=== PATIENT | female | born 1945 | race Caucasian/White ===

== ENCOUNTER 2018-01-02 07:49 | Day surgery (SDC) | payer MEDICARE, SELFPAY ==
[2018-01-02] MEDS: PROPARACAINE 0.5% OPHTH SOL 2 DROPS EYE-OP (08:20)
[2018-01-02] MEDS: CATARACT EYE COMPOUND (10 DROPS/SYRINGE) 3 DROPS EYE-OP (08:25)
[2018-01-02 08:28] VITALS: BP 133/66; PULSE 74; RESP 16; TEMP 36.5; O2SAT 97; BMI 32.5
--- NOTE | 2018-01-02 09:14 | PM.PREOP ---
Pre-operative Note Interval Note Pre-op Check: History & Physical Reviewed by Physician
[2018-01-02] MEDS: CHONDROIDTIN/SOD HYALURONATE 1.05 ML SYRINGE INTRAOCULA (09:22)
[2018-01-02] MEDS: MOXIFLOXACIN OPHTH DROPS 3 ML BOTTLE 2 DROPS INJ (09:22)
[2018-01-02] MEDS: TRIAMCINOLONE 50 MG/5 ML VIAL INJ (09:22)
[2018-01-02] MEDS: PHENYLEPHRINE/LIDOCAINE 3ML VIAL (OR) EYE-OP (09:23)
[2018-01-02] MEDS: TETRACAINE 0.5% OPHTH DROPS 15 ML 2 DROPS EYE-RIGHT (09:24)
[2018-01-02] MEDS: BALANCED SALT IRRIG SOLN NO.2 500 ML, EPINEPHrine 1 MG IRR (09:25)
[2018-01-02] MEDS: LIDOCAINE JELLY 2% 5 ML 1 APPLIC TOP (09:25)
--- NOTE | 2018-01-02 09:32 | PM.OP.1 ---
Operative Date/Time/Diagnoses - Pre-op diagnosis: Cataract Right eye Post-op diagnosis: same Procedure & Clinicians Procedure: Cataract Surgery Same procedure as scheduled: Yes Surgeon: Kenji Garrett Anesthesia Type: MAC +/- and Sedation Operative Notes Procedure in detail: Patient brought to the operating suite. Tetracaine drops placed in the right eye. Patient was prepped and draped in sterile manner. Wire lid speculum was placed in the eye. Betadine drops were placed on the eye. This was irrigated. Lidocaine jelly was placed on the eye. A paracentesis port was created with a side-port blade. 0.1 mL 1% preservative free lidocaine was injected into the anterior chamber. The anterior chamber was deepened with viscoelastic. 2.6 mm keratome was used to create a temporal clear corneal incision. Cystotome and Utrata forceps were used to create continuous tear capsulorrhexis. Balanced salt solution was used to hydro dissect the nucleus. The phacoemulsification handpiece was inserted and the nucleus was removed using the stop and chop technique. Extra viscoelastic was used to protect the cornea. The irrigation aspiration handpiece was inserted and the remaining cortex was removed. Anterior chamber was deepened with viscoelastic. An Engle ZCB00 intraocular lens with a power of 20.0 was injected into the capsular bag. Irrigation aspiration handpiece was inserted and the remaining viscoelastic was removed. Incision was hydrated with balanced salt solution and found to be leak free with pressure with Weck-Junie sponges. 0.1 mL Vigamox injected anterior chamber. 0.3 mL Kenalog 10 mg was injected subconjunctivally. Lid speculum was removed. The patient left the operating room in excellent condition. Complications: none Condition: stable Disposition: same day surgery
[2018-01-02 09:36] VITALS: BP 141/79; PULSE 70; RESP 15; TEMP 36.1; O2SAT 98
[2018-01-02 09:57] VITALS: BP 115/73; PULSE 61; RESP 16; TEMP 36.4; O2SAT 97
== END 2018-01-02 10:03 ==
LOC: OR 07:50
PROVIDERS: Family Provider Family Medicine; PCP Family Medicine; Visit Provider Ophthalmology
DX: H25.11 Age-related nuclear cataract, right eye (principal); I10 Essential (primary) hypertension; Z86.73 Personal history of transient ischemic attack (TIA), and cerebral infarction without residual deficits
CPT/HCPCS: J0171; J2250; J3010; J3301

== ENCOUNTER 2018-02-15 08:15 | Outpatient (RCR) | payer MEDICARE, SELFPAY ==
--- NOTE | 2018-02-01 11:11 | PT.OIE ---
Current Diagnoses Impingement syndrome of right shoulder (01/31/18) Past Medical History (Last Reviewed 01/10/18 @ 13:10 by Margarita Santa MD) Essential hypertension (Chronic) Sarcoidosis (Chronic) Hypercalcemia (Resolved) Myocardial infarction (Resolved) Provider Visit Care Team Role Provider Type Margarita Santa MD Attending Provider Physician Family Provider Primary Care Provider Specialty: Family Practice Address: [address] [place] [address], [facility] Email: [email or web address] Physical Therapy Initial Evaluation PT-OP-A Visit Information Start: 02/01/18 10:41 Freq: Status: Active Protocol: Document 01/31/18 10:45 [facility] (Rec: 02/01/18 11:11 [facility] [email or web address]) Out-Patient Physical Therapy Visit Information Visit Information Visit Type Initial Evaluation Visit Start Time 10:45 Visit Stop Time 11:30 Total Visit Minutes 45 Visit Number 1 Evaluation Information Evaluation Date 01/31/18 PT-OP-B Current Condition Start: 02/01/18 10:41 Freq: Status: Active Protocol: Document 01/31/18 10:45 [facility] (Rec: 02/01/18 11:11 [facility] [email or web address]) Current Condition History of Current Condition Onset Date November 2017 Current Complaints right sided shoulder pain and loss of motion History of Current Condition Tessie reports she suffered a [place] last year and during her surgery for a stent she had a mild stroke. 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 Since that time she has felt weaker with activities. She notes her shoulder symptoms began one morning when she woke up in pain in the right shoulder. She reports her doctor gave her some shoulder exercises including wall slides and pendullum and these have helped her some already. She reports having difficulty reaching behind her, doing her hair , and with any reaching or lifting activities. Her pain affects her sleeping at night. SHe has a history of hip replacement, elevated blood pressure, back pain, and neuropathy. Treatment Goals Patient/Caregiver Goals The patients goals include reducing pain and improving ROM of the right shoulder Prior Functional Status Baseline Function- ADL's Independent Baseline Function- Mobility Independent Current Functional Impairments (Reported) Functional Limitations- ADL's limited with ADL's that require reaching, lifting, or carrying objects limited in self care due to limited shoulder ROM PT-OP-C Subjective Start: 02/01/18 10:41 Freq: Status: Active Protocol: Document 01/31/18 10:45 AM[facility] (Rec: 02/01/18 11:11 [facility] [email or web address]) OP-PT Pain Assessment Location Right Shoulder Pain Location Details pain radiates from the right shoulder down to the forearm Intensity 5 Scale Used Numeric (1 - 10) Description Aching Radiating Spasm Tender Tightness With Movement Frequency Frequent Pain Duration constant shoulder pain with intermittent radiating pain to the forearm Variations/Patterns pain increased at night and limits sleet Pain Aggravating Factors Position ADL's Activity Exercise Lifting Pain Alleviating Factors Exercise PT-OP-F Manual Assessment Start: 02/01/18 10:41 Freq: Status: Active Protocol: Document 01/31/18 10:45 [facility] (Rec: 02/01/18 11:11 [facility] [email or web address]) Manual Assessments Soft Tissue Assessment Soft Tissue Mobility Assessment tightness in the pectoralis, deltoid, upper trapezius, scalenes, and levator scapula bilaterally but Left greater than right Joint Mobility Assessment Joint Mobility Assessment decreased joint mobility B GH joint. Both sides are anteriorly rotated with decreased posterior capsule and inferior capsule glide/ mobility PT-OP-J Posture/Palpation/Skin Start: 02/01/18 10:41 Freq: Status: Active Protocol: Document 01/31/18 10:45 [facility] (Rec: 02/01/18 11:11 [facility] [email or web address]) Posture Evaluation Position Standing Evaluation View Posterior Head/C-Spine Posture Flexed T-Spine Posture Rotation Left Shoulder Posture (L) Rounded (R) Rounded (L) Forward (R) Forward Arm Posture (L) Internally Rotated (R) Internally Rotated Comments Posture Comments poor standing posture with a thoracic rotation to the left and lumbar curve to the right, forward head and shoulders and protracted scapula bilaterally Palpation Assessment Location One Palpation Location right lateral shoulder Palpation Findings Tenderness Palpation Details tenderness at the supraspinatus insertion laterally on the right, general tenderness to palpation over the lateral right shoulder PT-OP-K Range of Motion Start: 02/01/18 10:41 Freq: Status: Active Protocol: Document 01/31/18 10:45 [facility] (Rec: 02/01/18 11:11 [facility] [email or web address]) Cervical Spine Range of Motion Cervical Spine Active Testing Position Sitting Flexion 70 Extension 50 Rotation Left 40 Rotation Right 50 Lateral Flexion Left 30 Lateral Flexion Right 30 ROM Limitations Soft Tissue Tightness Muscle Weakness Pain Shoulder Goniometric Range of Motion Shoulder Measured in Degrees Left Testing Position Sitting Flexion 110 Extension 5 Abduction 100 External Rotation at 0 degrees Abduction 20 Internal Rotation 15 Internal Rotation Behind Back (text) to sacrum Right Shoulder ROM WFL No Testing Position Sitting Flexion 90 Abduction 50 External Rotation at 0 degrees Abduction 15 Internal Rotation 10 Internal Rotation Behind Back (text) IR to gluteal region only Shoulder ROM Limitations Shoulder ROM Limitations Soft Tissue Tightness Muscle Weakness Pain Comments Above measurements are AROM, PROM right still very limited to 100 deg flexion, 95 deg abduction, 10 deg IR, 15 deg ER PT-OP-M Strength Start: 02/01/18 10:41 Freq: Status: Active Protocol: Document 01/31/18 10:45 [facility] (Rec: 02/01/18 11:11 [facility] [email or web address]) Shoulder Strength Shoulder Manual Muscle Testing Left Flexion 3 Fair Extension 3 Fair Abduction (C5) 3 Fair External Rotation 3 Fair Internal Rotation 3 Fair Right Flexion 2 Poor Extension 2 Poor Abduction (C5) 2 Poor External Rotation 2 Poor Internal Rotation 2 Poor PT-OP-Q Treatments Start: 02/01/18 10:41 Freq: Status: Active Protocol: Document 01/31/18 10:45 [facility] (Rec: 02/01/18 11:11 [facility] [email or web address]) Therapeutic Exercises Sitting Exercises 2 Sitting Exercise Name seated shoulder flexion and ER with arm sliding on table Side right Reps/Minutes 10 reps each 1 Sitting Exercise Name seated shoulder pully Side bilateral Reps/Minutes 4 minutes Comments flexion AAROM Standing Exercises 2 Standing Exercise Name pendullum Side right Reps/Minutes 1-2 minutes 1 Standing Exercise Name wall slides with pillow case Side bilateral PT-OP-T Assessment and Plan Start: 02/01/18 10:41 Freq: Status: Active Protocol: Document 01/31/18 10:45 [facility] (Rec: 02/01/18 11:11 [facility] [email or web address]) Physical Therapy Assessment Rehab Potential Rehabilitation Potential Good Evaluation Complexity Number of Personal Factors/Comorbidities 0 Number of Body Systems Impaired 1-2 Clinical Presentation at Evaluation Stable Impairments Impairments Functional Activities Pain Posture ROM Soft Tissue Mobility Strength Goals Four Impairment decreased strength of bilateral shoulders Claim Trainee Goal (LTG) Improve strength of both shoulders and scapula stabilizers by one muscle grade or better to decrease shoulder impingement LTG Duration 8 weeks Three Impairment poor postural habits contributing to forward shoulders and impingement Short Term Goal (STG) Tessie is educated on proper posture and is given postural strengthening exercises to reduce forward head and shoulders STG Duration 6 weeks Two Impairment shoulder pain rated 4-5/10 limiting activity and sleep duration Short Term Goal (STG) Tessie reports a decrease in pain to 1-2/10 and notes improved sleep without waking due to pain STG Duration 6 weeks One Impairment decreased shoulder ROM Short Term Goal (STG) Improve pain free shoulder ROM to WFL allowing Tessie to comb her hair and put on her necklace STG Duration 6 weeks Assessment Summary Assessment Tessie presents to physical therapy with a generalized weakness from a previous stoke and now right sided shoulder pain that came on in November. She has very poor postural habits most likely contributing to her pain symptoms and is limited in both shoulder ROM and shoulder strength. She does note that the exercises she was given by her doctor have been helping her some and pain levels have reduced from what they were prior to the exercises so this is a good sign she will do well with PT. Physical Therapy Plan Frequency and Duration Frequency of Treatment 2x/Week Duration of Treatment 8 weeks Plan of Care Start Date 01/31/18 Plan of Care End Date 03/28/18 Therapeutic Interventions Therapeutic Interventions Home Exercise Program Joint Mobilizations Manual Therapy Patient/Caregiver Education Self-Care/Home Management Soft Tissue Mobilization Taping Therapeutic Exercises Modalities Cold Pack/Ice Massage
--- NOTE | 2018-02-01 11:12 | PT.OPPOC ---
Current Diagnoses Impingement syndrome of right shoulder (01/31/18) Provider Visit Care Team Role Provider Type Margarita Santa MD Attending Provider Physician Family Provider Primary Care Provider Specialty: Family Practice Address: [address] [place] [address], [facility] Email: [email or web address] Plan Of Care PT-OP-T Assessment and Plan Start: 02/01/18 10:41 Freq: Status: Active Protocol: Document 01/31/18 10:45 AM[facility] (Rec: 02/01/18 11:11 [facility] [email or web address]) Physical Therapy Assessment Rehab Potential Rehabilitation Potential Good Evaluation Complexity Number of Personal Factors/Comorbidities 0 Number of Body Systems Impaired 1-2 Clinical Presentation at Evaluation Stable Impairments Impairments Functional Activities Pain Posture ROM Soft Tissue Mobility Strength Goals Four Impairment decreased strength of bilateral shoulders Correction Goal (LTG) Improve strength of both shoulders and scapula stabilizers by one muscle grade or better to decrease shoulder impingement LTG Duration 8 weeks Three Impairment poor postural habits contributing to forward shoulders and impingement Short Term Goal (STG) Tessie is educated on proper posture and is given postural strengthening exercises to reduce forward head and shoulders STG Duration 6 weeks Two Impairment shoulder pain rated 4-5/10 limiting activity and sleep duration Short Term Goal (STG) Tessie reports a decrease in pain to 1-2/10 and notes improved sleep without waking due to pain STG Duration 6 weeks One Impairment decreased shoulder ROM Short Term Goal (STG) Improve pain free shoulder ROM to WFL allowing Tessie to comb her hair and put on her necklace STG Duration 6 weeks Assessment Summary Assessment Tessie presents to physical therapy with a generalized weakness from a previous stoke and now right sided shoulder pain that came on in November. She has very poor postural habits most likely contributing to her pain symptoms and is limited in both shoulder ROM and shoulder strength. She does note that the exercises she was given by her doctor have been helping her some and pain levels have reduced from what they were prior to the exercises so this is a good sign she will do well with PT. Physical Therapy Plan Frequency and Duration Frequency of Treatment 2x/Week Duration of Treatment 8 weeks Plan of Care Start Date 01/31/18 Plan of Care End Date 03/28/18 Therapeutic Interventions Therapeutic Interventions Home Exercise Program Joint Mobilizations Manual Therapy Patient/Caregiver Education Self-Care/Home Management Soft Tissue Mobilization Taping Therapeutic Exercises Modalities Cold Pack/Ice Massage Plan of Care Dates Plan of Care Start Date 01/31/18 Plan of Care End Date 03/28/18 Please Sign and Return: I have reviewed this Plan of Care and certify that the skilled therapy services above are required to meet the patient?s needs. Physician Signature Date Printed Name and Credentials Clinical Instructor Signature Printed Name and Credentials
--- NOTE | 2018-02-02 14:14 | PT.OTN ---
Current Diagnoses Impingement syndrome of right shoulder (02/02/18) Physical Therapy Treatment Note PT-OP-A Visit Information Start: 02/01/18 10:41 Freq: Status: Active Protocol: Document 02/02/18 09:00 AMB (Rec: 02/02/18 09:08 AMB [email or web address]) Out-Patient Physical Therapy Visit Information Visit Information Visit Type Treatment Note Visit Start Time 09:00 Visit Stop Time 09:45 Total Visit Minutes 45 Visit Number 2 Evaluation Information Evaluation Date 01/31/18 PT-OP-B Current Condition Start: 02/01/18 10:41 Freq: Status: Active Protocol: Document 01/31/18 10:45 AMH (Rec: 02/01/18 11:11 [facility] [email or web address]) Current Condition History of Current Condition Onset Date November 2017 Current Complaints right sided shoulder pain and loss of motion History of Current Condition Tessie reports she suffered a [place] last year and during her surgery for a stent she had a mild stroke. 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 Since that time she has felt weaker with activities. She notes her shoulder symptoms began one morning when she woke up in pain in the right shoulder. She reports her doctor gave her some shoulder exercises including wall slides and pendullum and these have helped her some already. She reports having difficulty reaching behind her, doing her hair , and with any reaching or lifting activities. Her pain affects her sleeping at night. SHe has a history of hip replacement, elevated blood pressure, back pain, and neuropathy. Treatment Goals Patient/Caregiver Goals The patients goals include reducing pain and improving ROM of the right shoulder Prior Functional Status Baseline Function- ADL's Independent Baseline Function- Mobility Independent Current Functional Impairments (Reported) Functional Limitations- ADL's limited with ADL's that require reaching, lifting, or carrying objects limited in self care due to limited shoulder ROM PT-OP-C Subjective Start: 02/01/18 10:41 Freq: Status: Active Protocol: Document 02/02/18 09:00 AMB (Rec: 02/02/18 09:08 AMB [id number]) OP-PT Subjective Patient Comments Patient Comments Pt reports when she went to the doctor she got a steroid shot. She is going to be on her boat for over a month, so she is wanting to focus on exercises she can do on the boat. PT-OP-F Manual Assessment Start: 02/01/18 10:41 Freq: Status: Active Protocol: Document 01/31/18 10:45 [facility] (Rec: 02/01/18 11:11 [facility] [email or web address]) Manual Assessments Soft Tissue Assessment Soft Tissue Mobility Assessment tightness in the pectoralis, deltoid, upper trapezius, scalenes, and levator scapula bilaterally but Left greater than right Joint Mobility Assessment Joint Mobility Assessment decreased joint mobility B GH joint. Both sides are anteriorly rotated with decreased posterior capsule and inferior capsule glide/ mobility PT-OP-J Posture/Palpation/Skin Start: 02/01/18 10:41 Freq: Status: Active Protocol: Document 01/31/18 10:45 [facility] (Rec: 02/01/18 11:11 [facility] [email or web address]) Posture Evaluation Position Standing Evaluation View Posterior Head/C-Spine Posture Flexed T-Spine Posture Rotation Left Shoulder Posture (L) Rounded (R) Rounded (L) Forward (R) Forward Arm Posture (L) Internally Rotated (R) Internally Rotated Comments Posture Comments poor standing posture with a thoracic rotation to the left and lumbar curve to the right, forward head and shoulders and protracted scapula bilaterally Palpation Assessment Location One Palpation Location right lateral shoulder Palpation Findings Tenderness Palpation Details tenderness at the supraspinatus insertion laterally on the right, general tenderness to palpation over the lateral right shoulder PT-OP-K Range of Motion Start: 02/01/18 10:41 Freq: Status: Active Protocol: Document 01/31/18 10:45 [facility] (Rec: 02/01/18 11:11 [facility] [email or web address]) Cervical Spine Range of Motion Cervical Spine Active Testing Position Sitting Flexion 70 Extension 50 Rotation Left 40 Rotation Right 50 Lateral Flexion Left 30 Lateral Flexion Right 30 ROM Limitations Soft Tissue Tightness Muscle Weakness Pain Shoulder Goniometric Range of Motion Shoulder Measured in Degrees Left Testing Position Sitting Flexion 110 Extension 5 Abduction 100 External Rotation at 0 degrees Abduction 20 Internal Rotation 15 Internal Rotation Behind Back (text) to sacrum Right Shoulder ROM WFL No Testing Position Sitting Flexion 90 Abduction 50 External Rotation at 0 degrees Abduction 15 Internal Rotation 10 Internal Rotation Behind Back (text) IR to gluteal region only Shoulder ROM Limitations Shoulder ROM Limitations Soft Tissue Tightness Muscle Weakness Pain Comments Above measurements are AROM, PROM right still very limited to 100 deg flexion, 95 deg abduction, 10 deg IR, 15 deg ER PT-OP-M Strength Start: 02/01/18 10:41 Freq: Status: Active Protocol: Document 01/31/18 10:45 [facility] (Rec: 02/01/18 11:11 [facility] [email or web address]) Shoulder Strength Shoulder Manual Muscle Testing Left Flexion 3 Fair Extension 3 Fair Abduction (C5) 3 Fair External Rotation 3 Fair Internal Rotation 3 Fair Right Flexion 2 Poor Extension 2 Poor Abduction (C5) 2 Poor External Rotation 2 Poor Internal Rotation 2 Poor PT-OP-Q Treatments Start: 02/01/18 10:41 Freq: Status: Active Protocol: Document 02/02/18 09:00 AMB (Rec: 02/02/18 09:48 AMB [id number]) Therapeutic Exercises Supine Exercises 1 Supine Exercise Name AAROM with cane Comments ER, flexion Sitting Exercises 3 Sitting Exercise Name bicep curl Resistance #2 t band Reps/Minutes 2x10 1 Sitting Exercise Name seated shoulder pully Side bilateral Reps/Minutes 4 minutes Comments flexion AAROM Standing Exercises 3 Standing Exercise Name isometrics against wall Resistance 50% Reps/Minutes 5 second on 10 second off Comments flexion, IR, ER, abduction, extension PT-OP-R Modalities Start: 02/01/18 10:41 Freq: Status: Active Protocol: Document 02/02/18 09:00 AMB (Rec: 02/02/18 14:07 AMB [email or web address]) Hot Pack/Cold Pack Treatment Cold Pack Location R shoulder Patient Position Hooklying Treatment Duration (minutes) 10 PT-OP-T Assessment and Plan Start: 02/01/18 10:41 Freq: Status: Active Protocol: Document 02/02/18 09:00 AMB (Rec: 02/02/18 14:11 AMB [email or web address]) Physical Therapy Assessment Assessment Summary Assessment The patient is going to be boating for 6+weeks, so we will need to progress her HEP quickly and limit it to exercises she can do on the boat. Pt will want to follow up on questions about today's HEP at next visit, as she likes to know she is doing the exercises exactly as prescribed. Physical Therapy Plan Frequency and Duration Frequency of Treatment 2x/Week Duration of Treatment 8 weeks Plan of Care Start Date 01/31/18 Plan of Care End Date 03/28/18 Next Visit Focus/Plan Next Note Type Treatment Note Next Visit Plan d/c vs put pt on hold considering her upcoming vacation
--- NOTE | 2018-02-08 15:54 | PT.OTN ---
Current Diagnoses Impingement syndrome of right shoulder (02/08/18) Physical Therapy Treatment Note PT-OP-A Visit Information Start: 02/01/18 10:41 Freq: Status: Active Protocol: Document 02/08/18 15:47 [facility] (Rec: 02/08/18 15:54 [facility] [email or web address]) Out-Patient Physical Therapy Visit Information Visit Information Visit Type Treatment Note Visit Start Time 09:45 Visit Stop Time 10:30 Total Visit Minutes 45 Visit Number 3 Evaluation Information Evaluation Date 01/31/18 PT-OP-B Current Condition Start: 02/01/18 10:41 Freq: Status: Active Protocol: Document 01/31/18 10:45 [facility] (Rec: 02/01/18 11:11 [facility] [email or web address]) Current Condition History of Current Condition Onset Date November 2017 Current Complaints right sided shoulder pain and loss of motion History of Current Condition Tessie reports she suffered a [place] last year and during her surgery for a stent she had a mild stroke. 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 Since that time she has felt weaker with activities. She notes her shoulder symptoms began one morning when she woke up in pain in the right shoulder. She reports her doctor gave her some shoulder exercises including wall slides and pendullum and these have helped her some already. She reports having difficulty reaching behind her, doing her hair , and with any reaching or lifting activities. Her pain affects her sleeping at night. SHe has a history of hip replacement, elevated blood pressure, back pain, and neuropathy. Treatment Goals Patient/Caregiver Goals The patients goals include reducing pain and improving ROM of the right shoulder Prior Functional Status Baseline Function- ADL's Independent Baseline Function- Mobility Independent Current Functional Impairments (Reported) Functional Limitations- ADL's limited with ADL's that require reaching, lifting, or carrying objects limited in self care due to limited shoulder ROM PT-OP-C Subjective Start: 02/01/18 10:41 Freq: Status: Active Protocol: Document 02/02/18 09:00 [facility] (Rec: 02/02/18 09:08 AMB [id number]) OP-PT Subjective Patient Comments Patient Comments Pt reports when she went to the doctor she got a steroid shot. She is going to be on her boat for over a month, so she is wanting to focus on exercises she can do on the boat. PT-OP-F Manual Assessment Start: 02/01/18 10:41 Freq: Status: Active Protocol: Document 01/31/18 10:45 [facility] (Rec: 02/01/18 11:11 [facility] [email or web address]) Manual Assessments Soft Tissue Assessment Soft Tissue Mobility Assessment tightness in the pectoralis, deltoid, upper trapezius, scalenes, and levator scapula bilaterally but Left greater than right Joint Mobility Assessment Joint Mobility Assessment decreased joint mobility B GH joint. Both sides are anteriorly rotated with decreased posterior capsule and inferior capsule glide/ mobility PT-OP-J Posture/Palpation/Skin Start: 02/01/18 10:41 Freq: Status: Active Protocol: Document 01/31/18 10:45 [facility] (Rec: 02/01/18 11:11 [facility] [email or web address]) Posture Evaluation Position Standing Evaluation View Posterior Head/C-Spine Posture Flexed T-Spine Posture Rotation Left Shoulder Posture (L) Rounded (R) Rounded (L) Forward (R) Forward Arm Posture (L) Internally Rotated (R) Internally Rotated Comments Posture Comments poor standing posture with a thoracic rotation to the left and lumbar curve to the right, forward head and shoulders and protracted scapula bilaterally Palpation Assessment Location One Palpation Location right lateral shoulder Palpation Findings Tenderness Palpation Details tenderness at the supraspinatus insertion laterally on the right, general tenderness to palpation over the lateral right shoulder PT-OP-K Range of Motion Start: 02/01/18 10:41 Freq: Status: Active Protocol: Document 01/31/18 10:45 [facility] (Rec: 02/01/18 11:11 [facility] [email or web address]) Cervical Spine Range of Motion Cervical Spine Active Testing Position Sitting Flexion 70 Extension 50 Rotation Left 40 Rotation Right 50 Lateral Flexion Left 30 Lateral Flexion Right 30 ROM Limitations Soft Tissue Tightness Muscle Weakness Pain Shoulder Goniometric Range of Motion Shoulder Measured in Degrees Left Testing Position Sitting Flexion 110 Extension 5 Abduction 100 External Rotation at 0 degrees Abduction 20 Internal Rotation 15 Internal Rotation Behind Back (text) to sacrum Right Shoulder ROM WFL No Testing Position Sitting Flexion 90 Abduction 50 External Rotation at 0 degrees Abduction 15 Internal Rotation 10 Internal Rotation Behind Back (text) IR to gluteal region only Shoulder ROM Limitations Shoulder ROM Limitations Soft Tissue Tightness Muscle Weakness Pain Comments Above measurements are AROM, PROM right still very limited to 100 deg flexion, 95 deg abduction, 10 deg IR, 15 deg ER PT-OP-M Strength Start: 02/01/18 10:41 Freq: Status: Active Protocol: Document 01/31/18 10:45 [facility] (Rec: 02/01/18 11:11 [facility] [email or web address]) Shoulder Strength Shoulder Manual Muscle Testing Left Flexion 3 Fair Extension 3 Fair Abduction (C5) 3 Fair External Rotation 3 Fair Internal Rotation 3 Fair Right Flexion 2 Poor Extension 2 Poor Abduction (C5) 2 Poor External Rotation 2 Poor Internal Rotation 2 Poor PT-OP-Q Treatments Start: 02/01/18 10:41 Freq: Status: Active Protocol: Document 02/08/18 15:47 [facility] (Rec: 02/08/18 15:54 [facility] [email or web address]) Therapeutic Exercises Supine Exercises 1 Supine Exercise Name AAROM with cane Comments ER, flexion Sitting Exercises 3 Sitting Exercise Name bicep curl Resistance #2 t band Reps/Minutes 2x10 1 Sitting Exercise Name seated shoulder pully Side bilateral Reps/Minutes 4 minutes Comments flexion AAROM Standing Exercises 4 Standing Exercise Name standing IR with strap AAROM Reps/Minutes 10 reps 3 Standing Exercise Name isometrics against wall Resistance 50% Reps/Minutes 5 second on 10 second off Comments flexion, IR, ER, abduction, extension PT-OP-R Modalities Start: 02/01/18 10:41 Freq: Status: Active Protocol: Document 02/08/18 15:47 [facility] (Rec: 02/08/18 15:54 [facility] [email or web address]) Hot Pack/Cold Pack Treatment Cold Pack Location R shoulder Patient Position Hooklying Treatment Duration (minutes) 10 PT-OP-T Assessment and Plan Start: 02/01/18 10:41 Freq: Status: Active Protocol: Document 02/08/18 15:47 [facility] (Rec: 02/08/18 15:54 [facility] [email or web address]) Physical Therapy Assessment Assessment Summary Assessment Deepa will be leaving for her boating trip in one week and she was hoping to get in for one additional visit prior to leaving for 6 weeks. If she could schedule an additional visit it would be great to show her theraband strengthening for her shoulder . She has just started isometrics this week and is tolerating those well. But showing her a progression of exercises would be helpful. Physical Therapy Plan Frequency and Duration Frequency of Treatment 2x/Week Duration of Treatment 8 weeks Plan of Care Start Date 01/31/18 Plan of Care End Date 03/28/18 Therapeutic Interventions Therapeutic Interventions Home Exercise Program Joint Mobilizations Manual Therapy Patient/Caregiver Education Self-Care/Home Management Soft Tissue Mobilization Taping Therapeutic Exercises Modalities Cold Pack/Ice Massage Next Visit Focus/Plan Next Note Type Treatment Note Next Visit Plan review HEP and progress to theraband exercise if the patient can tolerate or at least review these next visit with handouts so she can progress to these on the boat.
--- NOTE | 2018-02-13 12:05 | PT.OTN ---
Current Diagnoses Impingement syndrome of right shoulder (02/13/18) Physical Therapy Treatment Note PT-OP-A Visit Information Start: 02/01/18 10:41 Freq: Status: Active Protocol: Document 02/13/18 12:05 [facility] (Rec: 02/13/18 13:31 [facility] [email or web address]) Out-Patient Physical Therapy Visit Information Visit Information Visit Type Treatment Note Visit Start Time 11:17 Visit Stop Time 12:05 Total Visit Minutes 48 Visit Number 4 Evaluation Information Evaluation Date 01/31/18 PT-OP-B Current Condition Start: 02/01/18 10:41 Freq: Status: Active Protocol: Document 01/31/18 10:45 [facility] (Rec: 02/01/18 11:11 [facility] [email or web address]) Current Condition History of Current Condition Onset Date November 2017 Current Complaints right sided shoulder pain and loss of motion History of Current Condition Tessie reports she suffered a [place] last year and during her surgery for a stent she had a mild stroke. 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 Since that time she has felt weaker with activities. She notes her shoulder symptoms began one morning when she woke up in pain in the right shoulder. She reports her doctor gave her some shoulder exercises including wall slides and pendullum and these have helped her some already. She reports having difficulty reaching behind her, doing her hair , and with any reaching or lifting activities. Her pain affects her sleeping at night. SHe has a history of hip replacement, elevated blood pressure, back pain, and neuropathy. Treatment Goals Patient/Caregiver Goals The patients goals include reducing pain and improving ROM of the right shoulder Prior Functional Status Baseline Function- ADL's Independent Baseline Function- Mobility Independent Current Functional Impairments (Reported) Functional Limitations- ADL's limited with ADL's that require reaching, lifting, or carrying objects limited in self care due to limited shoulder ROM PT-OP-C Subjective Start: 02/01/18 10:41 Freq: Status: Active Protocol: Document 02/13/18 12:05 [facility] (Rec: 02/13/18 13:31 [facility] [email or web address]) OP-PT Subjective Patient Comments Patient Comments Pt reports compliance with HEP . She has responded well to isometric exercises. Looking forward to learning t-band exercises for her trip. OP-PT Pain Assessment Location Right Shoulder Intensity 4 Scale Used Numeric (1 - 10) Description Aching Dull Frequency Frequent Pain Duration constant shoulder pain with intermittent radiating pain to the forearm Variations/Patterns pain increased at night and limits sleet Home Pain Medication Use Pain Medications Used alleve at night Home Pain Medication Frequency most nights PT-OP-F Manual Assessment Start: 02/01/18 10:41 Freq: Status: Active Protocol: Document 01/31/18 10:45 [facility] (Rec: 02/01/18 11:11 [facility] [email or web address]) Manual Assessments Soft Tissue Assessment Soft Tissue Mobility Assessment tightness in the pectoralis, deltoid, upper trapezius, scalenes, and levator scapula bilaterally but Left greater than right Joint Mobility Assessment Joint Mobility Assessment decreased joint mobility B GH joint. Both sides are anteriorly rotated with decreased posterior capsule and inferior capsule glide/ mobility PT-OP-J Posture/Palpation/Skin Start: 02/01/18 10:41 Freq: Status: Active Protocol: Document 01/31/18 10:45 [facility] (Rec: 02/01/18 11:11 [facility] [email or web address]) Posture Evaluation Position Standing Evaluation View Posterior Head/C-Spine Posture Flexed T-Spine Posture Rotation Left Shoulder Posture (L) Rounded (R) Rounded (L) Forward (R) Forward Arm Posture (L) Internally Rotated (R) Internally Rotated Comments Posture Comments poor standing posture with a thoracic rotation to the left and lumbar curve to the right, forward head and shoulders and protracted scapula bilaterally Palpation Assessment Location One Palpation Location right lateral shoulder Palpation Findings Tenderness Palpation Details tenderness at the supraspinatus insertion laterally on the right, general tenderness to palpation over the lateral right shoulder PT-OP-K Range of Motion Start: 02/01/18 10:41 Freq: Status: Active Protocol: Document 01/31/18 10:45 [facility] (Rec: 02/01/18 11:11 [facility] [email or web address]) Cervical Spine Range of Motion Cervical Spine Active Testing Position Sitting Flexion 70 Extension 50 Rotation Left 40 Rotation Right 50 Lateral Flexion Left 30 Lateral Flexion Right 30 ROM Limitations Soft Tissue Tightness Muscle Weakness Pain Shoulder Goniometric Range of Motion Shoulder Measured in Degrees Left Testing Position Sitting Flexion 110 Extension 5 Abduction 100 External Rotation at 0 degrees Abduction 20 Internal Rotation 15 Internal Rotation Behind Back (text) to sacrum Right Shoulder ROM WFL No Testing Position Sitting Flexion 90 Abduction 50 External Rotation at 0 degrees Abduction 15 Internal Rotation 10 Internal Rotation Behind Back (text) IR to gluteal region only Shoulder ROM Limitations Shoulder ROM Limitations Soft Tissue Tightness Muscle Weakness Pain Comments Above measurements are AROM, PROM right still very limited to 100 deg flexion, 95 deg abduction, 10 deg IR, 15 deg ER PT-OP-M Strength Start: 02/01/18 10:41 Freq: Status: Active Protocol: Document 01/31/18 10:45 [facility] (Rec: 02/01/18 11:11 [facility] [email or web address]) Shoulder Strength Shoulder Manual Muscle Testing Left Flexion 3 Fair Extension 3 Fair Abduction (C5) 3 Fair External Rotation 3 Fair Internal Rotation 3 Fair Right Flexion 2 Poor Extension 2 Poor Abduction (C5) 2 Poor External Rotation 2 Poor Internal Rotation 2 Poor PT-OP-Q Treatments Start: 02/01/18 10:41 Freq: Status: Active Protocol: Document 02/13/18 12:05 [facility] (Rec: 02/13/18 13:31 [facility] [email or web address]) Therapeutic Exercises Standing Exercises 3 Standing Exercise Name resisted shld exercises Side right Resistance #1 t-band Reps/Minutes 10 reps each Comments IR,ER,extension, flexion without resistance (scaption) 2 Standing Exercise Name pendullum Side right Equipment Used added 1# weight to emphasize distraction/relaxation Reps/Minutes 1-2 minutes Manual Therapy Treatment Joint Mobilizations 2 Joint GH joint Direction inferior glide Grade II Body Position Supine Reps/Duration 5 reps 45-60 second bouts 1 Joint GH joint Direction long axis distraction Grade II Body Position Supine Reps/Duration 5 reps of 45-60 second bouts PT-OP-R Modalities Start: 02/01/18 10:41 Freq: Status: Active Protocol: Document 02/08/18 15:47 [facility] (Rec: 02/08/18 15:54 [facility] [email or web address]) Hot Pack/Cold Pack Treatment Cold Pack Location R shoulder Patient Position Hooklying Treatment Duration (minutes) 10 PT-OP-T Assessment and Plan Start: 02/01/18 10:41 Freq: Status: Active Protocol: Document 02/13/18 12:05 [facility] (Rec: 02/13/18 13:31 [facility] [email or web address]) Physical Therapy Assessment Assessment Summary Assessment Pt continues to report less pain overall with slightly better movement. Will be leaving for 1 month and feels good about her therex program. Physical Therapy Plan Frequency and Duration Frequency of Treatment 2x/Week Duration of Treatment 8 weeks Plan of Care Start Date 01/31/18 Plan of Care End Date 03/28/18 Therapeutic Interventions Therapeutic Interventions Home Exercise Program Joint Mobilizations Manual Therapy Patient/Caregiver Education Self-Care/Home Management Soft Tissue Mobilization Taping Therapeutic Exercises Modalities Cold Pack/Ice Massage Next Visit Focus/Plan Next Note Type Treatment Note Next Visit Plan Re-assess pt's tolerance to theraband exercises and review all exercises including stretches as needed.
--- NOTE | 2018-02-15 09:01 | PT.OTN ---
Current Diagnoses Impingement syndrome of right shoulder (02/15/18) Physical Therapy Treatment Note PT-OP-A Visit Information Start: 02/01/18 10:41 Freq: Status: Active Protocol: Document 02/15/18 08:11 [facility] (Rec: 02/15/18 09:01 [facility] [id number]) Out-Patient Physical Therapy Visit Information Visit Information Visit Type Treatment Note Visit Start Time 08:15 Visit Stop Time 09:05 Total Visit Minutes 50 Visit Number 5 PT-OP-B Current Condition Start: 02/01/18 10:41 Freq: Status: Active Protocol: Document 01/31/18 10:45 [facility] (Rec: 02/01/18 11:11 [facility] [email or web address]) Current Condition History of Current Condition Onset Date November 2017 Current Complaints right sided shoulder pain and loss of motion History of Current Condition Tessie reports she suffered a [place] last year and during her surgery for a stent she had a mild stroke. 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 Since that time she has felt weaker with activities. She notes her shoulder symptoms began one morning when she woke up in pain in the right shoulder. She reports her doctor gave her some shoulder exercises including wall slides and pendullum and these have helped her some already. She reports having difficulty reaching behind her, doing her hair , and with any reaching or lifting activities. Her pain affects her sleeping at night. SHe has a history of hip replacement, elevated blood pressure, back pain, and neuropathy. Treatment Goals Patient/Caregiver Goals The patients goals include reducing pain and improving ROM of the right shoulder Prior Functional Status Baseline Function- ADL's Independent Baseline Function- Mobility Independent Current Functional Impairments (Reported) Functional Limitations- ADL's limited with ADL's that require reaching, lifting, or carrying objects limited in self care due to limited shoulder ROM PT-OP-C Subjective Start: 02/01/18 10:41 Freq: Status: Active Protocol: Document 02/15/18 08:11 [facility] (Rec: 02/15/18 09:01 [facility] [id number]) OP-PT Subjective Patient Comments Patient Comments Pt strained shoulder last night helping around the house. PT-OP-F Manual Assessment Start: 02/01/18 10:41 Freq: Status: Active Protocol: Document 01/31/18 10:45 [facility] (Rec: 02/01/18 11:11 [facility] [email or web address]) Manual Assessments Soft Tissue Assessment Soft Tissue Mobility Assessment tightness in the pectoralis, deltoid, upper trapezius, scalenes, and levator scapula bilaterally but Left greater than right Joint Mobility Assessment Joint Mobility Assessment decreased joint mobility B GH joint. Both sides are anteriorly rotated with decreased posterior capsule and inferior capsule glide/ mobility PT-OP-J Posture/Palpation/Skin Start: 02/01/18 10:41 Freq: Status: Active Protocol: Document 01/31/18 10:45 [facility] (Rec: 02/01/18 11:11 [facility] [email or web address]) Posture Evaluation Position Standing Evaluation View Posterior Head/C-Spine Posture Flexed T-Spine Posture Rotation Left Shoulder Posture (L) Rounded (R) Rounded (L) Forward (R) Forward Arm Posture (L) Internally Rotated (R) Internally Rotated Comments Posture Comments poor standing posture with a thoracic rotation to the left and lumbar curve to the right, forward head and shoulders and protracted scapula bilaterally Palpation Assessment Location One Palpation Location right lateral shoulder Palpation Findings Tenderness Palpation Details tenderness at the supraspinatus insertion laterally on the right, general tenderness to palpation over the lateral right shoulder PT-OP-K Range of Motion Start: 02/01/18 10:41 Freq: Status: Active Protocol: Document 01/31/18 10:45 [facility] (Rec: 02/01/18 11:11 [facility] [email or web address]) Cervical Spine Range of Motion Cervical Spine Active Testing Position Sitting Flexion 70 Extension 50 Rotation Left 40 Rotation Right 50 Lateral Flexion Left 30 Lateral Flexion Right 30 ROM Limitations Soft Tissue Tightness Muscle Weakness Pain Shoulder Goniometric Range of Motion Shoulder Measured in Degrees Left Testing Position Sitting Flexion 110 Extension 5 Abduction 100 External Rotation at 0 degrees Abduction 20 Internal Rotation 15 Internal Rotation Behind Back (text) to sacrum Right Shoulder ROM WFL No Testing Position Sitting Flexion 90 Abduction 50 External Rotation at 0 degrees Abduction 15 Internal Rotation 10 Internal Rotation Behind Back (text) IR to gluteal region only Shoulder ROM Limitations Shoulder ROM Limitations Soft Tissue Tightness Muscle Weakness Pain Comments Above measurements are AROM, PROM right still very limited to 100 deg flexion, 95 deg abduction, 10 deg IR, 15 deg ER PT-OP-M Strength Start: 02/01/18 10:41 Freq: Status: Active Protocol: Document 01/31/18 10:45 [facility] (Rec: 02/01/18 11:11 [facility] [email or web address]) Shoulder Strength Shoulder Manual Muscle Testing Left Flexion 3 Fair Extension 3 Fair Abduction (C5) 3 Fair External Rotation 3 Fair Internal Rotation 3 Fair Right Flexion 2 Poor Extension 2 Poor Abduction (C5) 2 Poor External Rotation 2 Poor Internal Rotation 2 Poor PT-OP-Q Treatments Start: 02/01/18 10:41 Freq: Status: Active Protocol: Document 02/15/18 08:11 [facility] (Rec: 02/15/18 09:01 [facility] [id number]) Therapeutic Exercises Supine Exercises 1 Supine Exercise Name AAROM with cane Comments ER, flexion Sitting Exercises 3 Sitting Exercise Name bicep curl Resistance #2 t band Reps/Minutes 2x10 Standing Exercises 4 Standing Exercise Name standing IR with strap AAROM Reps/Minutes 10 reps 3 Standing Exercise Name resisted shld exercises Side right Resistance #1 t-band Reps/Minutes 10 reps each Comments IR,ER,extension, flexion without resistance (scaption) 2 Standing Exercise Name pendullum Side right Equipment Used added 1# weight to emphasize distraction/relaxation Reps/Minutes 1-2 minutes Manual Therapy Treatment Joint Mobilizations 2 Joint GH joint Direction inferior & post glide Grade II Body Position Supine Reps/Duration 5 reps 45-60 second bouts 1 Joint GH joint Direction long axis distraction Grade II Body Position Supine Reps/Duration 5 reps of 45-60 second bouts PT-OP-R Modalities Start: 02/01/18 10:41 Freq: Status: Active Protocol: Document 02/15/18 08:11 [facility] (Rec: 02/15/18 09:01 [facility] [id number]) Hot Pack/Cold Pack Treatment Cold Pack Location R shoulder Patient Position Hooklying Treatment Duration (minutes) 10 PT-OP-T Assessment and Plan Start: 02/01/18 10:41 Freq: Status: Active Protocol: Document 02/15/18 08:11 [facility] (Rec: 02/15/18 09:01 [facility] [id number]) Physical Therapy Assessment Goals Four Impairment decreased strength of bilateral shoulders Assisted Goal (LTG) Improve strength of both shoulders and scapula stabilizers by one muscle grade or better to decrease shoulder impingement LTG Duration 8 weeks Three Impairment poor postural habits contributing to forward shoulders and impingement Short Term Goal (STG) Tessie is educated on proper posture and is given postural strengthening exercises to reduce forward head and shoulders STG Duration achieved Two Impairment shoulder pain rated 4-5/10 limiting activity and sleep duration Short Term Goal (STG) Tessie reports a decrease in pain to 1-2/10 and notes improved sleep without waking due to pain STG Duration 6 weeks One Impairment decreased shoulder ROM Short Term Goal (STG) Improve pain free shoulder ROM to WFL allowing Tessie to comb her hair and put on her necklace STG Duration 6 weeks Assessment Summary Assessment Pt is d/c at this point d/t going on at least 6 weeks of boating. Pt is indep with HEP at this time. Physical Therapy Plan Discharge Physical Therapy Discharge Reasons Patient Request Discharge Comments Pt is going away for 6 weeks on vacation. Please refer pt again if further PT is needed when she returns
== END 2018-06-22 13:06 ==
LOC: PHYS 08:15
PROVIDERS: Family Provider Family Medicine; PCP Family Medicine; Visit Provider Family Medicine
DX: M75.41 Impingement syndrome of right shoulder (principal)
CPT/HCPCS: 97010; 97110; 97140; 97161

== ENCOUNTER → 2018-04-12 09:08 | Outpatient (CLI) | payer MEDICARE, SELFPAY ==
[2018-04-12 09:59] LABS: Add Manual Diff / Slide Review NO; Basophils Percent Auto 0.7 % (0-2); Eosinophils Percent Auto 3.6 % (2-4); Hematocrit 39.8 % (36-46); Hemoglobin 13.9 g/dL (12.0-16.0); Lymphocytes Percent Auto 13.1 % (25-40); Mean Corpuscular HGB Conc 34.9 % (30-36); Mean Corpuscular Hemoglobin 31.8 PG (26-34); Monocytes Percent Auto 15.2 % (3-14); Neutrophils Absolute Auto 3400 /uL (3000-5900); Neutrophils Percent Auto 67.4 % (50-75); Platelet Count 263 X10^3/uL (150-400); Red Blood Cell Count 4.37 X10^6/uL (4.0-5.2); Red Cell Distribution Width 13.8 % (11.6-14.8); White Blood Cell Count 5.1 X10^3/uL (4.5-11.0)
[2018-04-12 10:44] LABS: Alanine Aminotransferase 21 IU/L (9-52); Albumin 3.7 g/dL (3.5-5.0); Albumin Globulin Ratio 1.2 (1.0-2.8); Alkaline Phosphatase 62 U/L (38-126); Aspartate Aminotransferase 23 IU/L (14-36); BUN Creatinine Ratio 18.8 (6-22); Bilirubin Total 0.6 mg/dL (0.2-1.3); Blood Urea Nitrogen 15 mg/dL (7-17); Calcium 9.7 mg/dL (8.4-10.2); Carbon Dioxide 32 mmol/L (22-32); Chloride 102 mmol/L (98-107); Cholesterol 155 mg/dL (140-199); Estimated Glomerular Filt Rate > 60.0 mL/min (>60); Glucose 92 mg/dL (80-110); HDL Cholesterol 42 mg/dL (40-60); HEMOLYSIS < 15 (0-50); LDL Cholesterol Calculated 92 mg/dL (<100); Potassium 4.5 mmol/L (3.4-5.1); Sodium 145 mmol/L (137-145); Total Protein 6.7 g/dL (6.3-8.2); Triglycerides 106 mg/dL (35-150)
== END ==
PROVIDERS: Family Medicine; Family Provider Internal Medicine Interventional Cardiology; PCP Family Medicine; Visit Provider Family Medicine
DX: E78.5 Hyperlipidemia, unspecified (principal); I10 Essential (primary) hypertension; Z86.73 Personal history of transient ischemic attack (TIA), and cerebral infarction without residual deficits; Z79.01 Long term (current) use of anticoagulants
CPT/HCPCS: 36415; 80053; 80061; 85025

== ENCOUNTER 2018-04-17 06:53 | Day surgery (SDC) | payer MEDICARE, SELFPAY ==
[2018-04-17] MEDS: PROPARACAINE 0.5% OPHTH SOL 2 DROPS EYE-OP (07:18)
[2018-04-17] MEDS: CATARACT EYE COMPOUND (10 DROPS/SYRINGE) 3 DROPS EYE-OP (07:22)
[2018-04-17 07:23] VITALS: BMI 32.5
[2018-04-17 07:30] VITALS: BP 152/75; PULSE 83; RESP 15; TEMP 36; O2SAT 93
--- NOTE | 2018-04-17 08:19 | P.OP.PRE_ITS ---
Pre-operative Note Interval Note Changes: No
--- NOTE | 2018-04-17 08:19 | PM.PREOP ---
Pre-operative Note Interval Note Changes: No
--- NOTE | 2018-04-17 08:21 | P.OP_ITS ---
Operative Date/Time/Diagnoses Pre-op diagnosis: Cataract Left eye Post-op diagnosis: same Procedure & Clinicians Surgeon: Kenji Garrett Anesthesia Type: MAC +/- and Sedation Operative Notes Procedure in detail: Patient brought to the operating suite. Tetracaine drops placed in the left eye. Patient was prepped and draped in sterile manner. Wire lid speculum was placed in the eye. Betadine drops were placed on the eye. This was irrigated. Lidocaine jelly was placed on the eye. A paracentesis port was created with a side-port blade. 0.1 mL 1% preservative free lidocaine was injected into the anterior chamber. The anterior chamber was deepened with viscoelastic. 2.6 mm keratome was used to create a temporal clear corneal incision. Cystotome and Utrata forceps were used to create continuous tear capsulorrhexis. Balanced salt solution was used to hydro dissect the nucleus. The phacoemulsification handpiece was inserted and the nucleus was removed using the stop and chop technique. The irrigation aspiration handpiece was inserted and the remaining cortex was removed. Anterior chamber was deepened with viscoelastic. An Engle ZCB00 intraocular lens with a power of 19.5 was injected into the capsular bag. Irrigation aspiration handpiece was inserted and the remaining viscoelastic was removed. Incision was hydrated with balanced salt solution and found to be leak free with pressure with Weck- Junie sponges. 0.1 mL Vigamox injected anterior chamber. 0.3 mL Kenalog 10 mg was injected subconjunctivally. Lid speculum was removed. The patient left the operating room in excellent condition. Complications: none Condition: stable Disposition: same day surgery
--- NOTE | 2018-04-17 08:32 | SUR.OPER ---
Supine on eye stretcher, head on extension cradle secured with tape. Arms tucked at sides with blanket. Pillow under knees.
[2018-04-17] MEDS: PHENYLEPHRINE/LIDOCAINE VIAL (OR) 0.2 ML EYE-OP (08:37)
[2018-04-17] MEDS: CHONDROIDTIN/SOD HYALURONATE 1.05 ML SYRINGE INTRAOCULA (08:38)
[2018-04-17] MEDS: TRIAMCINOLONE 50 MG/5 ML VIAL INJ (08:38)
[2018-04-17] MEDS: MOXIFLOXACIN OPHTH DROPS 3 ML BOTTLE 2 DROPS INJ (08:38)
[2018-04-17] MEDS: LIDOCAINE JELLY 2% 5 ML 1 APPLIC TOP (08:39)
[2018-04-17] MEDS: TETRACAINE 0.5% OPHTH DROPS 15 ML 2 DROPS EYE-LEFT (08:39)
[2018-04-17] MEDS: BALANCED SALT IRRIG SOLN NO.2 500 ML, EPINEPHrine 1 MG IRR (08:39)
[2018-04-17 09:01] VITALS: BP 117/71; PULSE 75; RESP 16; TEMP 36.8; O2SAT 92
== END 2018-04-17 09:08 | disposition home or self-care (01) ==
PROVIDERS: Family Provider Internal Medicine Interventional Cardiology; PCP Family Medicine; Visit Provider Ophthalmology
DX: H25.12 Age-related nuclear cataract, left eye (principal); I10 Essential (primary) hypertension
CPT/HCPCS: J0171; J2250; J3010; J3301

== ENCOUNTER → 2018-07-09 14:13 | Outpatient (CLI) | payer MEDICARE, SELFPAY ==
--- NOTE | 2018-07-09 14:14 | DI.MG.S_ITS ---
BILATERAL DIGITAL SCREENING MAMMOGRAM 3D/2D WITH CAD: 07/09/2018 CLINICAL: Routine screening. Comparison is made to exams dated: 11/26/2013 mammogram, 08/16/2012 mammogram, and 07/06/2010 mammogram - [facility]. The tissue of both breasts is predominantly fatty. Current study was also evaluated with a Computer Aided Detection (CAD) system. No significant masses, calcifications, or other findings are seen in either breast. There has been no significant interval change. IMPRESSION: NEGATIVE There is no mammographic evidence of malignancy. A 1 year screening mammogram is recommended. This exam was interpreted at Station ID: [id number]. NOTE: For mammograms, a report in lay terms will be sent to the patient. Approximately 15% of breast malignancies will not be visualized mammographically. In the management of a palpable breast mass, a negative mammogram must not discourage biopsy of a clinically suspicious lesion. Electronically Signed By: Marilyn newman/jaxon:07/10/2018 11:38:27 letter sent: Normal Exam ACR BI-RADS Category 1: Negative [id number]
== END ==
PROVIDERS: Family Provider Internal Medicine Interventional Cardiology; PCP Family Medicine; Visit Provider Family Medicine
DX: Z12.31 Encounter for screening mammogram for malignant neoplasm of breast (principal); M85.832 Other specified disorders of bone density and structure, left forearm; Z82.62 Family history of osteoporosis; Z78.0 Asymptomatic menopausal state
CPT/HCPCS: 77063; 77067; 77080

== ENCOUNTER → 2018-07-23 11:14 | Outpatient (CLI) | payer MEDICARE, SELFPAY | PROVIDERS: Family Provider Internal Medicine Interventional Cardiology; PCP Family Medicine; Visit Provider Family Medicine | DX: S81.809A Unspecified open wound, unspecified lower leg, initial encounter (principal) | CPT/HCPCS: 87070; 87077; 87147; 87186; 87205 ==

== ENCOUNTER → 2018-07-31 10:03 | Outpatient (CLI) | payer MEDICARE, SELFPAY | PROVIDERS: Family Provider Internal Medicine Interventional Cardiology; PCP Family Medicine; Visit Provider Family Medicine | DX: I87.2 Venous insufficiency (chronic) (peripheral) (principal); L97.822 Non-pressure chronic ulcer of other part of left lower leg with fat layer exposed | CPT/HCPCS: 11042 ==

== ENCOUNTER → 2018-08-02 15:12 | Outpatient (CLI) | payer MEDICARE, SELFPAY | PROVIDERS: Family Provider Internal Medicine Interventional Cardiology; PCP Family Medicine; Visit Provider Family Medicine | DX: I87.2 Venous insufficiency (chronic) (peripheral) (principal); L97.821 Non-pressure chronic ulcer of other part of left lower leg limited to breakdown of skin | CPT/HCPCS: 29581 ==

== ENCOUNTER → 2018-08-07 10:27 | Outpatient (CLI) | payer MEDICARE, SELFPAY | PROVIDERS: Family Provider Internal Medicine Interventional Cardiology; PCP Family Medicine; Visit Provider Family Medicine | DX: L97.222 Non-pressure chronic ulcer of left calf with fat layer exposed (principal); I87.2 Venous insufficiency (chronic) (peripheral) | CPT/HCPCS: 11042; 29581; 99212 ==

== ENCOUNTER → 2018-08-14 10:31 | Outpatient (CLI) | payer MEDICARE, SELFPAY | PROVIDERS: Family Provider Internal Medicine Interventional Cardiology; PCP Family Medicine; Visit Provider Family Medicine | DX: I87.2 Venous insufficiency (chronic) (peripheral) (principal); L97.822 Non-pressure chronic ulcer of other part of left lower leg with fat layer exposed; M79.605 Pain in left leg | CPT/HCPCS: 11042 ==

== ENCOUNTER → 2018-08-21 10:11 | Outpatient (CLI) | payer MEDICARE, SELFPAY | PROVIDERS: Family Provider Internal Medicine Interventional Cardiology; PCP Family Medicine; Visit Provider Family Medicine | DX: I87.2 Venous insufficiency (chronic) (peripheral) (principal); L97.822 Non-pressure chronic ulcer of other part of left lower leg with fat layer exposed | CPT/HCPCS: 11042; 87070; 87075; 87205 ==

== ENCOUNTER → 2018-08-28 11:32 | Outpatient (CLI) | payer MEDICARE, SELFPAY | PROVIDERS: Family Provider Internal Medicine Interventional Cardiology; PCP Family Medicine; Visit Provider Family Medicine | DX: I87.312 Chronic venous hypertension (idiopathic) with ulcer of left lower extremity (principal); L97.822 Non-pressure chronic ulcer of other part of left lower leg with fat layer exposed | CPT/HCPCS: 29581; 99213 ==

== ENCOUNTER → 2018-09-11 13:04 | Outpatient (CLI) | payer MEDICARE, SELFPAY | PROVIDERS: Family Provider Internal Medicine Interventional Cardiology; PCP Family Medicine; Visit Provider Family Medicine | DX: I87.2 Venous insufficiency (chronic) (peripheral) (principal); Z48.817 Encounter for surgical aftercare following surgery on the skin and subcutaneous tissue | CPT/HCPCS: 99212; 99213 ==

== ENCOUNTER → 2019-01-09 13:32 | Outpatient (CLI) | payer MEDICARE, SELFPAY | PROVIDERS: Family Provider Internal Medicine Interventional Cardiology; PCP Family Medicine; Visit Provider Family Medicine | DX: I87.2 Venous insufficiency (chronic) (peripheral) (principal); L97.822 Non-pressure chronic ulcer of other part of left lower leg with fat layer exposed | CPT/HCPCS: 11042; 87070; 87075; 87077; 87186; 87205; 99213 ==

== ENCOUNTER → 2019-01-10 12:11 | Outpatient (CLI) | payer MEDICARE, SELFPAY ==
--- NOTE | 2019-01-10 | DI.US.S_ITS ---
PROCEDURE: US VENOUS INSUFFICIENCY LTD INDICATIONS: VENOUS INSUFFIENCY (CHRONIC) (PERIPHERAL) TECHNIQUE: Real time scanning was performed of the lower extremity venous system, with imaging documentation, as well as Color and pulse Doppler interrogation. COMPARISON: None. FINDINGS: LEFT LOWER EXTREMITY: The deep veins are normally compressible, and free of intraluminal thrombus. Color and pulse Doppler demonstrate normal intravascular flow. There is normal augmentation with distal compression maneuver. Mild reflux. Greater saphenous vein (GSV): Normally 4 mm or less in diameter, with any reflux less than 0.5 seconds. Reflux present with duration of reflux extending beyond 0.5 seconds. See technical diagram for specific measurements and course of the greater saphenous vein. Anterior accessory GSV (AAGSV): Not evaluated. Small saphenous vein (SSV): No reflux. IMPRESSION: 1. Reflux within the left greater saphenous vein. Dictated by: Shaun DIAZ Interpreted: Erica Mccloud MD on 01/10/2019 at 15:22 Approved by: Erica Mccloud M.D. on 01/10/2019 at 17:17
== END ==
PROVIDERS: Family Provider Internal Medicine Interventional Cardiology; PCP Family Medicine; Visit Provider Family Medicine
DX: I87.2 Venous insufficiency (chronic) (peripheral) (principal)
CPT/HCPCS: 93971

== ENCOUNTER → 2019-01-11 09:06 | Outpatient (CLI) | payer MEDICARE, SELFPAY | PROVIDERS: Family Provider Internal Medicine Interventional Cardiology; PCP Family Medicine; Visit Provider Family Medicine | DX: I87.2 Venous insufficiency (chronic) (peripheral) (principal); L97.822 Non-pressure chronic ulcer of other part of left lower leg with fat layer exposed | CPT/HCPCS: 29581 ==

== ENCOUNTER → 2019-01-17 15:27 | Outpatient (CLI) | payer MEDICARE, SELFPAY | PROVIDERS: Family Provider Internal Medicine Interventional Cardiology; PCP Family Medicine; Visit Provider Family Medicine | DX: I87.2 Venous insufficiency (chronic) (peripheral) (principal); L97.821 Non-pressure chronic ulcer of other part of left lower leg limited to breakdown of skin; B95.61 Methicillin susceptible Staphylococcus aureus infection as the cause of diseases classified elsewhere | CPT/HCPCS: 97597; 99214 ==

== ENCOUNTER → 2019-01-23 13:12 | Outpatient (CLI) | payer MEDICARE, SELFPAY | PROVIDERS: Family Provider Internal Medicine Interventional Cardiology; PCP Family Medicine; Visit Provider Podiatrist Primary Podiatric Medicine | DX: I87.2 Venous insufficiency (chronic) (peripheral) (principal); L97.821 Non-pressure chronic ulcer of other part of left lower leg limited to breakdown of skin | CPT/HCPCS: 99213 ==

== ENCOUNTER → 2019-02-01 09:14 | Outpatient (CLI) | payer MEDICARE, SELFPAY | PROVIDERS: Family Provider Internal Medicine Interventional Cardiology; PCP Family Medicine; Visit Provider Family Medicine | DX: I87.2 Venous insufficiency (chronic) (peripheral) (principal); L97.821 Non-pressure chronic ulcer of other part of left lower leg limited to breakdown of skin; R60.0 Localized edema; A49.01 Methicillin susceptible Staphylococcus aureus infection, unspecified site | CPT/HCPCS: 11042; 87070; 87075; 87205; 99213 ==

== ENCOUNTER → 2019-02-07 13:42 | Outpatient (CLI) | payer MEDICARE, SELFPAY | PROVIDERS: Family Provider Internal Medicine Interventional Cardiology; PCP Family Medicine; Visit Provider Family Medicine | DX: I87.2 Venous insufficiency (chronic) (peripheral) (principal); L97.821 Non-pressure chronic ulcer of other part of left lower leg limited to breakdown of skin; B95.61 Methicillin susceptible Staphylococcus aureus infection as the cause of diseases classified elsewhere; I10 Essential (primary) hypertension | CPT/HCPCS: 99212; 99213 ==

== ENCOUNTER → 2019-02-14 14:24 | Outpatient (CLI) | payer MEDICARE, SELFPAY | PROVIDERS: Family Provider Internal Medicine Interventional Cardiology; PCP Family Medicine; Visit Provider Family Medicine | DX: I87.2 Venous insufficiency (chronic) (peripheral) (principal); L97.222 Non-pressure chronic ulcer of left calf with fat layer exposed; L08.9 Local infection of the skin and subcutaneous tissue, unspecified; B95.61 Methicillin susceptible Staphylococcus aureus infection as the cause of diseases classified elsewhere | CPT/HCPCS: 99213 ==

== ENCOUNTER → 2019-02-20 14:32 | Outpatient (CLI) | payer MEDICARE, SELFPAY | PROVIDERS: Family Provider Internal Medicine Interventional Cardiology; PCP Family Medicine; Visit Provider Family Medicine | DX: I87.2 Venous insufficiency (chronic) (peripheral) (principal); L97.821 Non-pressure chronic ulcer of other part of left lower leg limited to breakdown of skin; R60.0 Localized edema | CPT/HCPCS: 11104 ==

== ENCOUNTER → 2019-02-27 10:48 | Outpatient (CLI) | payer MEDICARE, SELFPAY | PROVIDERS: Family Provider Internal Medicine Interventional Cardiology; PCP Family Medicine; Visit Provider Family Medicine | DX: I87.2 Venous insufficiency (chronic) (peripheral) (principal); L97.821 Non-pressure chronic ulcer of other part of left lower leg limited to breakdown of skin; R60.0 Localized edema | CPT/HCPCS: 17250 ==

== ENCOUNTER → 2019-03-04 15:42 | Outpatient (CLI) | payer MEDICARE, SELFPAY | PROVIDERS: Family Provider Internal Medicine Interventional Cardiology; PCP Family Medicine; Visit Provider Family Medicine | DX: I87.2 Venous insufficiency (chronic) (peripheral) (principal); L97.222 Non-pressure chronic ulcer of left calf with fat layer exposed; L08.9 Local infection of the skin and subcutaneous tissue, unspecified | CPT/HCPCS: 11042; 87070; 87075; 87077; 87186; 87205; 99213; 99214 ==

== ENCOUNTER → 2019-03-06 13:02 | Outpatient (CLI) | payer MEDICARE, SELFPAY | PROVIDERS: Family Provider Internal Medicine Interventional Cardiology; PCP Family Medicine; Visit Provider Family Medicine | DX: I87.2 Venous insufficiency (chronic) (peripheral) (principal); L97.821 Non-pressure chronic ulcer of other part of left lower leg limited to breakdown of skin; R60.0 Localized edema; M79.662 Pain in left lower leg | CPT/HCPCS: 99212 ==

== ENCOUNTER → 2019-03-13 10:01 | Outpatient (CLI) | payer MEDICARE, SELFPAY | PROVIDERS: Family Provider Internal Medicine Interventional Cardiology; PCP Family Medicine; Visit Provider Family Medicine | DX: I87.2 Venous insufficiency (chronic) (peripheral) (principal); L97.821 Non-pressure chronic ulcer of other part of left lower leg limited to breakdown of skin; R60.0 Localized edema; I25.2 Old myocardial infarction; E66.01 Morbid (severe) obesity due to excess calories; A49.01 Methicillin susceptible Staphylococcus aureus infection, unspecified site | CPT/HCPCS: 11042; 87070; 87205 ==

== ENCOUNTER → 2019-03-20 12:58 | Outpatient (CLI) | payer MEDICARE, SELFPAY | PROVIDERS: Family Provider Internal Medicine Interventional Cardiology; PCP Family Medicine; Visit Provider Family Medicine | DX: I87.2 Venous insufficiency (chronic) (peripheral) (principal); L97.821 Non-pressure chronic ulcer of other part of left lower leg limited to breakdown of skin; M79.662 Pain in left lower leg; E66.01 Morbid (severe) obesity due to excess calories | CPT/HCPCS: 11042 ==

== ENCOUNTER → 2019-03-27 14:21 | Outpatient (CLI) | payer MEDICARE, SELFPAY | PROVIDERS: Family Provider Internal Medicine Interventional Cardiology; PCP Family Medicine; Visit Provider Family Medicine | DX: I87.2 Venous insufficiency (chronic) (peripheral) (principal); L97.222 Non-pressure chronic ulcer of left calf with fat layer exposed | CPT/HCPCS: 29581; 97597; 99212 ==

== ENCOUNTER → 2019-04-03 14:34 | Outpatient (CLI) | payer MEDICARE, SELFPAY | PROVIDERS: Family Provider Internal Medicine Interventional Cardiology; PCP Family Medicine; Visit Provider Family Medicine | DX: I87.2 Venous insufficiency (chronic) (peripheral) (principal); L97.821 Non-pressure chronic ulcer of other part of left lower leg limited to breakdown of skin | CPT/HCPCS: 97602 ==

== ENCOUNTER → 2019-04-10 14:24 | Outpatient (CLI) | payer MEDICARE, SELFPAY | PROVIDERS: Family Provider Internal Medicine Interventional Cardiology; PCP Family Medicine; Visit Provider Family Medicine | DX: I87.2 Venous insufficiency (chronic) (peripheral) (principal); L97.222 Non-pressure chronic ulcer of left calf with fat layer exposed | CPT/HCPCS: 15271; Q4132 ==

== ENCOUNTER → 2019-04-17 14:20 | Outpatient (CLI) | payer MEDICARE, SELFPAY | PROVIDERS: Family Provider Internal Medicine Interventional Cardiology; PCP Family Medicine; Visit Provider Family Medicine | DX: I87.2 Venous insufficiency (chronic) (peripheral) (principal); L97.222 Non-pressure chronic ulcer of left calf with fat layer exposed | CPT/HCPCS: 15271; 99211; Q4132 ==

== ENCOUNTER → 2019-04-24 14:46 | Outpatient (CLI) | payer MEDICARE, SELFPAY | PROVIDERS: Family Provider Internal Medicine Interventional Cardiology; PCP Family Medicine; Visit Provider Family Medicine | DX: I87.2 Venous insufficiency (chronic) (peripheral) (principal); L97.222 Non-pressure chronic ulcer of left calf with fat layer exposed; R60.0 Localized edema | CPT/HCPCS: 15271; Q4132 ==

== ENCOUNTER → 2019-05-01 13:09 | Outpatient (CLI) | payer MEDICARE, SELFPAY | PROVIDERS: PCP Family Medicine; Visit Provider Family Medicine | DX: I87.2 Venous insufficiency (chronic) (peripheral) (principal); L97.821 Non-pressure chronic ulcer of other part of left lower leg limited to breakdown of skin; R60.0 Localized edema | CPT/HCPCS: 15271; Q4132 ==

== ENCOUNTER 2019-05-02 11:47 | Observation (INO) | payer MEDICARE, SELFPAY ==
[2019-05-02] VITALS (7 sets, daily range): BP systolic 126–190; BP diastolic 73–92; PULSE 60–84; RESP 14–18; TEMP 36.2–37; O2SAT 92–96; BMI 31.6
[2019-05-02 12:38] LABS: Add Manual Diff / Slide Review NO; Basophils Absolute Auto 0 /uL (0-100); Basophils Percent Auto 0.5 % (0-2); Eosinophils Absolute Auto 200 /uL (0-450); Eosinophils Percent Auto 3.3 % (2-4); Hematocrit 37.7 % (36-46); Hemoglobin 13.2 g/dL (12.0-16.0); Lymphocytes Absolute Auto 600 /uL (1100-4500); Lymphocytes Percent Auto 13.4 % (25-40); Mean Corpuscular HGB Conc 34.9 % (30-36); Mean Corpuscular Hemoglobin 30.9 PG (26-34); Mean Corpuscular Volume 88.5 fL (80-100); Monocytes Absolute Auto 600 /uL (0-900); Monocytes Percent Auto 12.8 % (3-14); Neutrophils Absolute Auto 3200 /uL (1500-7000); Platelet Count 277 X10^3/uL (150-400); Red Blood Cell Count 4.26 X10^6/uL (4.0-5.2); Red Cell Distribution Width 13.2 % (11.6-14.8); White Blood Cell Count 4.6 X10^3/uL (4.5-11.0)
[2019-05-02 12:47] LABS: BUN Creatinine Ratio 18.2 (6-22); Blood Urea Nitrogen 20 mg/dL (7-17); Carbon Dioxide 33 mmol/L (22-32); Chloride 101 mmol/L (98-107); Estimated Glomerular Filt Rate 48.6 mL/min (>60); Glucose 89 mg/dL (80-110); HEMOLYSIS < 15 (0-50); Potassium 3.7 mmol/L (3.4-5.1); Sodium 141 mmol/L (137-145)
[2019-05-02 12:53] LABS: Calcium 13.1 mg/dL (8.4-10.2)
--- NOTE | 2019-05-02 12:53 | ED_ITS ---
HPI - Recheck/Abnormal Lab/Rx <Ayde Avila DO - Last Filed: 05/02/19 17:19> General Chief Complaint: Recheck/Abnormal Lab/Rx Stated Complaint: sent by doctor for Elevated calcium Time Seen by Provider: 05/02/19 12:14 Related Data Home Medications Medication Instructions Recorded Confirmed aspirin 81 mg PO DAILY #0 01/17/12 05/02/19 naproxen sodium [Aleve] 220 mg PO BID 04/17/18 05/02/19 Vitamin D3 1 cap PO BID 05/02/19 05/02/19 atorvastatin [Lipitor] 20 mg PO BEDTIME 05/02/19 05/02/19 losartan 25 mg PO DAILY 05/02/19 05/02/19 metoprolol succinate [Toprol XL] 1 tab PO QPM 05/02/19 05/02/19 vitamin B complex 1 cap PO DAILY 05/02/19 05/02/19 Previous Rx's Medication Instructions Recorded albuterol sulfate 90 mcg/actuation 2 inhalation INHALATION Q4-6H PRN 04/19/18 aerosol inhaler #8 gram Allergies Allergy/AdvReac Type Severity Reaction Status Date / Time hydrochlorothiazide Allergy Severe MARGARET HIGH Verified 02/20/19 11:15 [HYDROCHLOROTHIAZIDE] BLOOD PRESSURE-KIDNEY ONLY WORKED AT 50% doxycycline [DOXYCYCLINE] Allergy Mild ITCHY Verified 02/20/19 11:15 lisinopril [LISINOPRIL] AdvReac Mild cough Verified 02/20/19 11:15 <Tarun Longoria DO - Last Filed: 05/02/19 19:56> General Source: patient Mode of arrival: Ambulatory Limitations: no limitations History of Present Illness HPI narrative: 74-year-old female nonsmoker with history of hypertension, hyperlipidemia presents for evaluation abnormal calcium levels. She was seen and evaluated as an outpatient by her primary care provider to be sure she had done any kidney damage with the recent, slightly large doses of NSAIDs in the aftermath of a vascular surgery on her lower extremity. The renal function was relatively normal her calcium and bump to over 13 and she was encouraged to come see us for further evaluation and treatment. She did have some episodes of confusion over the weekend which were attributed to the possibility of the use of opioids and benzodiazepines, again in the aftermath of her surgery. Patient denies any abdominal pain or joint pain. She is really pretty close to her baseline and feeling relatively normal. MD complaint: abnormal lab Initial visit (ago): day(s) Returns today for: called because of abnormal lab/test Symptoms since prior visit: no new symptoms Context: planned re-check Associated symptoms: none <Tarun Longoria DO - Last Filed: 05/02/19 19:56> Constitutional Constitutional: Denies chills, Denies fatigue, Denies fever(s), Denies frequent falls, Denies lethargy and Denies weakness Eyes Eyes: Denies change in vision, Denies eye discharge, Denies irritation and Denies loss of vision ENT Ears, Nose, Mouth, and Throat: Denies change in voice, Denies dizziness, Denies neck pain, Denies sore throat and Denies throat swelling Cardiovascular Cardiovascular: Denies chest pain, Denies irregular heart rhythm, Denies lightheadedness, Denies palpitations, Denies dyspnea, Denies dyspnea on exertion and Denies orthopnea Respiratory Respiratory: Denies cough, Denies dyspnea, Denies dyspnea on exertion and Denies wheezing Gastrointestinal Gastrointestinal: Denies abdominal pain, Denies change in bowel habits, Denies diarrhea, Denies nausea and Denies vomiting Genitourinary Genitourinary: Denies hematuria, Denies flank pain, Denies urinary incontinence and Denies urinary urgency Musculoskeletal Musculoskeletal: Denies back pain, Denies muscle weakness, Denies neck pain, Denies numbness and Denies tingling Integumentary/Breasts Skin/Breast: Denies pruritus, Denies erythema, Denies rash and Denies wounds Neurologic Neurologic: Denies behavioral changes, Denies confusion, Denies dizziness, Denies frequent falls, Denies loss of vision, Denies numbness, Denies tingling and Denies weakness Psychiatric Psychiatric: Denies anxiety, Denies behavioral changes, Denies confusion, Denies depression, Denies homicidal ideation and Denies suicidal ideation Endocrine Endocrine: Denies fatigue, Denies flushing and Denies palpitations Hematologic/Lymphatic Hematologic/Lymphatic: Denies easy bruising Allergic/Immunologic Allergic/Immunologic: Denies urticaria, Denies throat swelling and Denies wheezing PFSH <Ayde Avila DO - Last Filed: 05/02/19 17:19> Medical History CAD (coronary artery disease) (Acute) Essential hypertension (Chronic) Hypercalcemia (Resolved) Myocardial infarction (Resolved) Sarcoidosis (Chronic) Surgical History H/O angioplasty (Resolved) History of tonsillectomy (Resolved) Social History marital status: household members: spouse and children 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, 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 Smoking Status: Never smoker alcohol intake: current substance use type: does not use Social History marital status: household members: spouse and children 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 Well- nourished, well-developed patient, in mild distress. HEAD: Atraumatic. Normocephalic. EYES: Pupils equal round and reactive. Extraocular motions intact. No scleral icterus. No injection or drainage. ENT: Nose without bleeding, purulent drainage. Throat without erythema, tonsillar hypertrophy or exudate. Airway patent. NECK: Trachea midline. Non tender CARDIOVASCULAR: Regular rate and rhythm without murmurs, gallops, or rubs. RESPIRATORY: Clear to auscultation. Breath sounds equal bilaterally. No wheezes, rales, or rhonchi. GASTROINTESTINAL: Abdomen soft, non-tender, nondistended. EXTREMITIES: No edema or joint tenderness. BACK: Nontender without deformity or crepitance. No flank tenderness. NEURO: AOx3. SKIN: No rash or erythema of visible areas Initial Vital Signs Initial Vital Signs: Vital Signs Temperature 98.6 F 05/02/19 11:55 Pulse Rate 83 05/02/19 11:55 Respiratory Rate 18 05/02/19 11:55 Blood Pressure 174/80 H 05/02/19 11:55 Pulse Oximetry 96 05/02/19 11:55 Course <Ayde Avila DO - Last Filed: 05/02/19 17:19> Orders Ordered: ED Orders 05/02/19 12:15 Basic Metabolic Panel Stat CBC Auto Diff [Complete Blood Count AUTO DIFF] Stat 05/02/19 14:45 XR chest 2V Stat Education, smoking cessation ONGOING 05/03/19 17:00 Basic Metabolic Panel DAILY Acetaminophen (Tylenol) 650 mg PO Q6HR PRN PRN Reason: As Needed for Fever/Mild Pain Albuterol (Ventolin Hfa) 2 puff INH Q4H PRN PRN Reason: shortness of breath or wheezing Aspirin (Aspirin Ec) 81 mg PO DAILY SILVANA Atorvastatin Calcium (Lipitor) 20 mg PO BEDTIME SILVANA Enoxaparin Sodium (Lovenox) 40 mg SUBCUT DAILY [facility] Sodium Chloride (Normal Saline 0.9%) 1,000 mls @ 150 mls/hr IV CONT SILVANA Last Admin: 05/02/19 15:18 Dose: 150 mls/hr Documented by: CMCFARL Losartan Potassium (Cozaar) 25 mg PO DAILY SILVANA Metoprolol Succinate (Toprol Xl) 50 mg PO DAILY SILVANA Discontinued Medications Calcitonin [place] (Miacalcin Nasal [place]) 1 sprays NASAL DAILY [facility] Calcitonin [place] (Miacalcin) 300 units IM NOW ONE Stop: 05/02/19 16:46 Last Admin: 05/02/19 17:25 Dose: 300 units Documented by: NICKIEPH Calcium Carbonate (Tums) 1,000 mg PO Q4HR PRN PRN Reason: Dyspepsia Sodium Chloride (Normal Saline 0.9%) 1,000 mls @ 1,000 mls/hr IV BOLUS ONE Stop: 05/02/19 13:53 Last Infusion: 05/02/19 14:27 Dose: 0 mls/hr Documented by: Admin: 05/02/19 13:13 Dose: 1,000 mls/hr Documented by: DIEGO Zoledronic Acid 4 mg/ Sodium (Chloride) 105 mls @ 315 mls/hr IV NOW ONE Stop: 05/02/19 13:51 Last Admin: 05/02/19 16:27 Dose: Not Given Documented by: NARESH Zoledronic Acid 4 mg/ Sodium (Chloride) 105 mls @ 315 mls/hr IV NOW ONE Stop: 05/02/19 16:14 Last Admin: 05/02/19 16:26 Dose: 315 mls/hr Documented by: NARESH Prednisone (Deltasone) 40 mg PO NOW ONE Stop: 05/02/19 14:46 Last Admin: 05/02/19 16:27 Dose: 40 mg Documented by: NARESH Vital Signs Vital signs: Vital Signs - 8 hr 05/02/19 11:55 Temperature 98.6 F Pulse Rate 83 Respiratory Rate 18 Blood Pressure 174/80 H Pulse Oximetry 96 <Tarun Longoria, DO - Last Filed: 05/02/19 19:56> Orders Ordered: ED Orders 05/02/19 12:15 Basic Metabolic Panel Stat CBC Auto Diff [Complete Blood Count AUTO DIFF] Stat 05/02/19 14:45 XR chest 2V Stat Education, smoking cessation ONGOING 05/03/19 17:00 Basic Metabolic Panel DAILY Acetaminophen (Tylenol) 650 mg PO Q6HR PRN PRN Reason: As Needed for Fever/Mild Pain Albuterol (Ventolin Hfa) 2 puff INH Q4H PRN PRN Reason: shortness of breath or wheezing Aspirin (Aspirin Ec) 81 mg PO DAILY [facility] Atorvastatin Calcium (Lipitor) 20 mg PO BEDTIME SILVANA Enoxaparin Sodium (Lovenox) 40 mg SUBCUT DAILY [facility] Sodium Chloride (Normal Saline 0.9%) 1,000 mls @ 150 mls/hr IV CONT SILVANA Last Admin: 05/02/19 15:18 Dose: 150 mls/hr Documented by: ABELINOFARL Losartan Potassium (Cozaar) 25 mg PO DAILY [facility] Metoprolol Succinate (Toprol Xl) 50 mg PO DAILY SILVANA Discontinued Medications Calcitonin [place] (Miacalcin Nasal [place]) 1 sprays NASAL DAILY [facility] Calcitonin [place] (Miacalcin) 300 units IM NOW ONE Stop: 05/02/19 16:46 Last Admin: 05/02/19 17:25 Dose: 300 units Documented by: ERIN Calcium Carbonate (Tums) 1,000 mg PO Q4HR PRN PRN Reason: Dyspepsia Sodium Chloride (Normal Saline 0.9%) 1,000 mls @ 1,000 mls/hr IV BOLUS ONE Stop: 05/02/19 13:53 Last Infusion: 10/10/19 14:27 Dose: 0 mls/hr Documented by: Admin: 05/02/19 13:13 Dose: 1,000 mls/hr Documented by: DIEGO Zoledronic Acid 4 mg/ Sodium (Chloride) 105 mls @ 315 mls/hr IV NOW ONE Stop: 05/02/19 13:51 Last Admin: 05/02/19 16:27 Dose: Not Given Documented by: NARESH Zoledronic Acid 4 mg/ Sodium (Chloride) 105 mls @ 315 mls/hr IV NOW ONE Stop: 05/02/19 16:14 Last Admin: 05/02/19 16:26 Dose: 315 mls/hr Documented by: NARESH Prednisone (Deltasone) 40 mg PO NOW ONE Stop: 05/02/19 14:46 Last Admin: 05/02/19 16:27 Dose: 40 mg Documented by: NARESH Consultations Consultation #1: Dr. Avila happy to accept Vital Signs Vital signs: Vital Signs - 8 hr 05/02/19 11:55 Temperature 98.6 F Pulse Rate 83 Respiratory Rate 18 Blood Pressure 174/80 H Pulse Oximetry 96 MDM - Recheck/Abnormal Lab/Rx <Ayde Avila DO - Last Filed: 05/02/19 17:19> Lab Data Result diagrams: 05/02/19 12:15 05/02/19 12:15 Labs: Lab Results 05/02/19 05/02/19 Range/Units 12:15 12:15 WBC 4.6 (4.5-11.0) X10^3/uL RBC 4.26 (4.0-5.2) X10^6/uL Hgb 13.2 (12.0-16.0) g/dL Hct 37.7 (36-46) % MCV 88.5 (80-100) fL MCH 30.9 (26-34) PG MCHC 34.9 (30-36) % RDW 13.2 (11.6-14.8) % Plt Count 277 (150-400) X10^3/uL Neut % (Auto) 70.0 (50-75) % Lymph % (Auto) 13.4 L (25-40) % [place] % (Auto) 12.8 (3-14) % Eos % (Auto) 3.3 (2-4) % Baso % (Auto) 0.5 (0-2) % Neut # (Auto) 3200 (6384-2634) /uL Lymph # (Auto) 600 L (5884-7943) /uL [place] # (Auto) 600 (0-900) /uL Eos # (Auto) 200 (0-450) /uL Baso # (Auto) 0 (0-100) /uL Sodium 141 (137-145) mmol/L Potassium 3.7 (3.4-5.1) mmol/L Chloride 101 (98-107) mmol/L Carbon Dioxide 33 H (22-32) mmol/L BUN 20 H (7-17) mg/dL Creatinine 1.10 H (0.52-1.04) mg/dL Estimated GFR 48.6 L (>60) mL/min BUN/Creatinine Ratio 18.2 (6-22) Glucose 89 (80-110) mg/dL Calcium 13.1 H* (8.4-10.2) mg/dL <Tarun Longoria DO - Last Filed: 05/02/19 19:56> Lab Data Labs: Lab Results 05/02/19 05/02/19 Range/Units 12:15 12:15 WBC 4.6 (4.5-11.0) X10^3/uL RBC 4.26 (4.0-5.2) X10^6/uL Hgb 13.2 (12.0-16.0) g/dL Hct 37.7 (36-46) % MCV 88.5 (80-100) fL MCH 30.9 (26-34) PG MCHC 34.9 (30-36) % RDW 13.2 (11.6-14.8) % Plt Count 277 (150-400) X10^3/uL Neut % (Auto) 70.0 (50-75) % Lymph % (Auto) 13.4 L (25-40) % [place] % (Auto) 12.8 (3-14) % Eos % (Auto) 3.3 (2-4) % Baso % (Auto) 0.5 (0-2) % Neut # (Auto) 3200 (0103-0414) /uL Lymph # (Auto) 600 L (9297-5785) /uL [place] # (Auto) 600 (0-900) /uL Eos # (Auto) 200 (0-450) /uL Baso # (Auto) 0 (0-100) /uL Sodium 141 (137-145) mmol/L Potassium 3.7 (3.4-5.1) mmol/L Chloride 101 (98-107) mmol/L Carbon Dioxide 33 H (22-32) mmol/L BUN 20 H (7-17) mg/dL Creatinine 1.10 H (0.52-1.04) mg/dL Estimated GFR 48.6 L (>60) mL/min BUN/Creatinine Ratio 18.2 (6-22) Glucose 89 (80-110) mg/dL Calcium 13.1 H* (8.4-10.2) mg/dL ECG Data Attestation: I personally reviewed and interpreted this ECG as follows: Interpretation: NSR, no ST segmental elevation. QT 350 Discharge Plan Departure Patient Disposition: Admitted As Inpatient Clinical Impression: Hypercalcemia Discharge Date/Time: 05/02/19 14:33 Admit Date/Time: 05/02/19 13:50 Admit Provider: Ayde Avila
[2019-05-02] MEDS: SODIUM CHLORIDE 0.9% 1,000 ML 1000 ML IV (13:13)
--- NOTE | 2019-05-02 14:45 | DI.RAD.S_ITS ---
PROCEDURE: XR CHEST 2V INDICATIONS: hypercalcemia TECHNIQUE: 2 views of the chest were acquired. COMPARISON: [facility], , CHEST 1 VIEW, 11/22/2015, 20:58. FINDINGS: Surgical changes and devices: None. Lungs and pleura: Lungs are clear. No pleural effusions or pneumothorax. Mediastinum: Mediastinal contours are normal. Heart size is normal. Bones and chest wall: No suspicious bony abnormalities. Lumbar scoliosis. Soft tissues appear unremarkable. IMPRESSION: No acute cardiopulmonary abnormality. Dictated by: Vincent Coep M.D. on 05/02/2019 at 15:39 Approved by: Vincent Cope M.D. on 05/02/2019 at 15:41
[2019-05-02] MEDS: SODIUM CHLORIDE 0.9% 1,000 ML 150 ML IV ×2 (15:18→22:39)
[2019-05-02] MEDS: ZOLEDRONIC ACID 4 MG in SODIUM CHLORIDE 0.9% 100 ML 315 ML IV (16:26)
[2019-05-02] MEDS: predniSONE 20 MG TABLET 40 MG PO (16:27)
--- NOTE | 2019-05-02 17:19 | PM.HP.1 ---
History of Present Illness History of Present Illness Date Patient Seen: 05/02/19 Time Patient Seen: 16:30 Chief complaint: Elevated calcium Narrative: Patient is a 74-year-old female with history of CAD, hyperlipidemia, hypertension and sarcoidosis. She has been struggling with a nonhealing left lower extremity ulcer [facility] and referred to vascular surgery. She had a vein procedure at [facility] in [place] on 04/23/19. She states that for the procedure she received Vicodin, Valium and ibuprofen. Following the procedure she was quite ?rummy for several days. She continue to use ibuprofen but then thought the ibuprofen was causing her fatigue. She continued to use Aleve which is one of her usual home medications. On 04/29 she called the vascular clinic because of her fatigue. She was advised to stop taking so much ibuprofen and to contact her PCP to check her kidneys. At that time she was still quite fatigued. She went to the lab yesterday to have her blood work done and calcium came back at 13.3. A repeat was done which came back at 13.5. This morning she was advised to go to the emergency department for acute hypercalcemia. Patient states that today she feels pretty good compared to earlier in the week. Denies abdominal pain but states her stomach has felt a little bit different the last few days. Last bowel movement was yesterday and she has not been constipated. She denies any chest pain or shortness of breath. Deals with a chronic cough which she attributes to reflux rather than her sarcoid. Interestingly she saw her medical doctor md/medical director last week and reportedly was doing well. They did not do lab work. She is supposed to do pulmonary function tests. She was originally diagnosed with sarcoidosis in 2012. She had gone to donate blood but was turned away because her blood pressure was too high. She went to her doctor where her blood pressure was again high. Labs were done and her calcium was high as well as her kidney function decreased. She says she ended up at the [facility] and saw someone in pulmonology because of something seen on chest imaging. She ended up with a biopsy of the lesion of interest and was diagnosed with sarcoid. She continues to see pulmonology every year but has not had any sign of active disease. She also follows regularly with an president. She continues to [facility] and is not due for a dressing change until next week. Patient History Family & Social History Social History: household members spouse,children Safety & Behavioral: Feels Safe in Current Yes Environment Been Physically Hurt or No Threatened By a Person Tobacco & Substance use: Smoking Status Never smoker alcohol intake current alcohol intake frequency a few times a week Substance Use Type does not use Meds Home Medications and Allergies Home Medications Medication Instructions Recorded Confirmed Type aspirin 81 mg PO DAILY #0 01/17/12 05/02/19 History naproxen sodium [Aleve] 220 mg PO BID 04/17/18 05/02/19 History albuterol sulfate 90 mcg/actuation 2 inhalation INHALATION Q4-6H PRN 04/19/18 05/02/19 Rx aerosol inhaler #8 gram Vitamin D3 1 cap PO BID 05/02/19 05/02/19 History atorvastatin [Lipitor] 20 mg PO BEDTIME 05/02/19 05/02/19 History losartan 25 mg PO DAILY 05/02/19 05/02/19 History metoprolol succinate [Toprol XL] 1 tab PO QPM 05/02/19 05/02/19 History vitamin B complex 1 cap PO DAILY 05/02/19 05/02/19 History Allergies Allergy/AdvReac Type Severity Reaction Status Date / Time hydrochlorothiazide Allergy Severe MARGARET HIGH Verified 02/20/19 11:15 [HYDROCHLOROTHIAZIDE] BLOOD PRESSURE-KIDNEY ONLY WORKED AT 50% doxycycline [DOXYCYCLINE] Allergy Mild ITCHY Verified 02/20/19 11:15 lisinopril [LISINOPRIL] AdvReac Mild cough Verified 02/20/19 11:15 Review of Systems Constitutional Constitutional: Reports fatigue, Denies fever(s) and Denies weakness Cardiovascular Cardiovascular: Denies chest pain, Denies shortness of breath and Denies shortness of breath with activity Respiratory Respiratory: Reports cough, Denies dyspnea and Denies dyspnea on exertion Gastrointestinal Gastrointestinal: Denies abdominal pain, Denies constipation, Denies nausea and Denies vomiting Musculoskeletal Musculoskeletal: Denies myalgias Neurologic Neurologic: Denies weakness Endocrine Endocrine: Reports fatigue Exam Vital Signs (past 8 hours): - 05/02/19 11:55 05/02/19 14:30 Temperature 98.6 F 97.3 F L Pulse Rate 83 77 Respiratory Rate 18 14 Blood Pressure 174/80 H 126/77 Pulse Oximetry 96 95 Oxygen Delivery Method Room Air Narrative Exam Narrative: General: Well-appearing older woman resting comfortably in bed. Awake and alert, no acute distress. HEENT: NCAT, EOMI, moist oral mucosa CV: Regular rate and rhythm, no murmurs, rubs or gallops Lungs: CTAB, no wheezes, rales, or rhonchi Abdomen: Soft, nontender; bowel tones active; no hepatosplenomegaly Extremities: Warm, no edema, 2+ pedal pulses bilaterally. There is a compression stocking on the left leg. Objective Labs Result Diagrams: 05/02/19 12:15 05/02/19 12:15 Labs: Laboratory Results - last 24 hr 05/02/19 05/02/19 12:15 12:15 WBC 4.6 RBC 4.26 Hgb 13.2 Hct 37.7 MCV 88.5 MCH 30.9 MCHC 34.9 RDW 13.2 Plt Count 277 Neut % (Auto) 70.0 Lymph % (Auto) 13.4 L [place] % (Auto) 12.8 Eos % (Auto) 3.3 Baso % (Auto) 0.5 Neut # (Auto) 3200 Lymph # (Auto) 600 L [place] # (Auto) 600 Eos # (Auto) 200 Baso # (Auto) 0 Sodium 141 Potassium 3.7 Chloride 101 Carbon Dioxide 33 H BUN 20 H Creatinine 1.10 H Estimated GFR 48.6 L BUN/Creatinine Ratio 18.2 Glucose 89 Calcium 13.1 H* Assessment & Plan Assessment and plan (1) Hypercalcemia: Current visit: Yes Status: Acute (2) Sarcoidosis: Problem details: Dr. Maciel, Shipping Assistant, [facility] Current visit: No Status: Chronic (3) CAD (coronary artery disease): Problem details: [facility], Dr. Patricia Current visit: No Status: Chronic (4) Hyperlipidemia: Current visit: No Status: Chronic (5) Essential hypertension: Current visit: No Status: Chronic (6) Ulcer of left lower extremity: Current visit: Yes Status: Acute Assessment & Plan narrative: 74-year-old female with hyperlipidemia, hypertension, CAD and sarcoid now with asymptomatic hypercalcemia of unclear etiology. Hypercalcemia may be due to sarcoid. She states she originally had a high calcium when she was first diagnosed with sarcoidosis. Hypercalcemia: Will treat with IV fluids, zoledronic acid, calcitonin. Recheck calcium in the morning. I am hopeful she will be able to discharge home tomorrow to complete further workup as an outpatient. We will need to rule out malignancy though I suspect this is due to sarcoidosis. PTH and ionized calcium are pending. Sarcoidosis: Will start prednisone 40 mg daily and get a chest x-ray. Patient does have a chronic cough which she attributes to GERD though perhaps is due to her sarcoid. She has pulmonary function test coming up with her medical doctor md/medical director. Hypertension: Continue losartan and metoprolol CAD: Continue atorvastatin and aspirin Diet: Cardiac diet DVT prophylaxis: SCDs and Lovenox Code status: Full code Disposition. She is currently admitted under observation. I expect that she will be able to discharge home tomorrow if her calcium has improved.
[2019-05-02] MEDS: CALCITONIN,SALMON 400 UNITS/2 ML MDV 300 UNITS IM (17:25)
[2019-05-02] MEDS: ATORVASTATIN 20 MG TABLET PO (20:43)
--- NOTE | 2019-05-02 23:39 | PC.NURSE ---
Patient is alert and oriented. Breath sounds CTA with RA sat of 93%. HRR; on telemetry with last reading of SR. Has elevated BP of 190/92. Denies nausea. BT hypoactive; abdomen is soft and is passing flatus. Denies dysuria, frequency or urgency and is continent of urine. Able to move self in bed. Complains of generalized weakness so when out of bed is provided assistance. Dressing to chronic leg ulcer on left LE is CDI. Has bruising from recent vascular surgery on inner left thigh. Wearing bilateral foot SCD's. Denies pain. Reports recent falls so fall risk score is high and bed alarm is activated.
[2019-05-03] VITALS (7 sets, daily range): BP systolic 145–172; BP diastolic 82–98; PULSE 69–87; RESP 14–20; TEMP 36.1–37.1; O2SAT 96–97; BMI 32.0
[2019-05-03] MEDS: SODIUM CHLORIDE 0.9% 1,000 ML 150 ML IV (05:33)
[2019-05-03 07:21] LABS: BUN Creatinine Ratio 21.8 (6-22); Blood Urea Nitrogen 24 mg/dL (7-17); Calcium 10.8 mg/dL (8.4-10.2); Carbon Dioxide 28 mmol/L (22-32); Chloride 106 mmol/L (98-107); Estimated Glomerular Filt Rate 48.6 mL/min (>60); Glucose 117 mg/dL (80-110); HEMOLYSIS 28 (0-50); Sodium 141 mmol/L (137-145)
[2019-05-03] MEDS: ASPIRIN EC 81 MG TABLET PO (08:28)
[2019-05-03] MEDS: LOSARTAN 25 MG TABLET PO ×2 (08:28→16:33)
[2019-05-03] MEDS: ENOXAPARIN 40 MG/0.4 ML SYRINGE SUBCUT (08:28)
[2019-05-03] MEDS: METOPROLOL ER 50 MG TABLET PO (08:28)
--- NOTE | 2019-05-03 09:12 | CM.DANOTE ---
Addendum entered by Melissa Mccartney LPN 05/03/19 14:06: A check in shows that pt will likely d/c to home today and is hopeful for same. Original Note: Discharge Planning/Care Management DCP: assessment: case received, EMR reviewed. Pt is a 74 year old male who admitted to care of PCP: Dr. Avila yesterday afternoon. Admission status: in review: per UR KIM Carreno Payer: Medicare [facility] Pt does see many specialty providers in OUTPT setting and is [facility]: next appt Mon.05/[address] Avila is focusing on pt's current problem of hypercalcemia and her documentation indicates likely d/c home today if this is resolving and then further OUTPT workup. Will check in with pt later and follow prn for any d/c needs that may arise. CM Discharge Assessment Start: 05/03/19 09:10 Freq: Status: Active Protocol: Document 05/03/19 09:11 ITV (Rec: 05/03/19 09:11 ITV [id number]) Discharge Planning Assessment Advance Directives? No Advance Directives on File No History Provided By Medical Record Prior Living Arrangements House Household Members spouse Is patient alert and oriented? Yes Review Status In Process
--- NOTE | 2019-05-03 09:22 | P.DS_ITS ---
History of Present Illness History of Present Illness Date Patient Seen: 05/03/19 Time Patient Seen: 08:10 Chief complaint: Elevated calcium Narrative: Patient is a 74-year-old female with history of CAD, hyperlipidemia, hypertension and sarcoidosis. She has been struggling with a nonhealing left lower extremity ulcer [facility] and referred to vascular surgery. She had a vein procedure at [facility] in [place] on 04/23/19. She states that for the procedure she received Vicodin, Valium and ibuprofen. Following the procedure she was quite ?rummy for several days. She continue to use ibuprofen but then thought the ibuprofen was causing her fatigue. She continued to use Aleve which is one of her usual home medications. On 04/29 she called the vascular clinic because of her fatigue. She was advised to stop taking so much ibuprofen and to contact her PCP to check her kidneys. At that time she was still quite fatigued. She went to the lab yesterday to have her blood work done and calcium came back at 13.3. A repeat was done which came back at 13.5. This morning she was advised to go to the emergency department for acute hypercalcemia. Patient states that today she feels pretty good compared to earlier in the week. Denies abdominal pain but states her stomach has felt a little bit different the last few days. Last bowel movement was yesterday and she has not been constipated. She denies any chest pain or shortness of breath. Deals with a chronic cough which she attributes to reflux rather than her sarcoid. I nterestingly she saw her outsole compressor last week and reportedly was doing well. They did not do lab work. She is supposed to do pulmonary function tests. She was originally diagnosed with sarcoidosis in 2012. She had gone to donate blood but was turned away because her blood pressure was too high. She went to her doctor where her blood pressure was again high. Labs were done and her calcium was high as well as her kidney function decreased. She says she ended up at the [facility] and saw someone in pulmonology because of something seen on chest imaging. She ended up with a biopsy of the lesion of interest and was diagnosed with sarcoid. She continues to see pulmonology every year but has not had any sign of active disease. She also follows regularly with an two needle machine operator. She continues to [facility] and is not due for a dressing change until next week. Discharge Providers Provider Date of admission: 05/02/19 13:50 Discharge Date: 05/03/19 Primary care physician: Ayde Avila DO Consults: 05/02/19 18:38 Consult to Dietitian, Adult Routine Comment: elevated calcium Reason For Exam: unexplained weight loss Consult to Pastoral Services Routine Comment: patient request Discharge provider: Ayde Avila DO Summary Hospital Course Discharge Diagnosis: Hypercalcemia CAD Hypertension Hyperlipidemia Acute kidney injury Hospital Course: Patient was admitted to the hospital due to acute hypercalcemia likely secondary to a flare of sarcoidosis. Chest x-ray did not show any acute findings. She was treated with aggressive IV fluids, calcitonin, zoledronic acid and prednisone. Calcium improved down to 10.4 however her renal function worsened. She was taking multiple NSAIDs in the week prior to admission which may have affected her renal function. Zoledronic acid can also impact renal function as can losartan. Because she is asymptomatic and lives close to the hospital, she will discharge home today and have repeat labs tomorrow. Will hold losartan and add amlodipine for blood pressure control. Stop all NSAIDs including Aleve. Patient was advised to stop any calcium supplements as well as vitamin-D. She will continue a short course of prednisone and follow up in clin ic early next week. PTH, ionized calcium and vitamin-D levels are pending. In review of past records, she did see Endocrinology in 2011 for hypercalcemia. She then saw pulmonology which was when she had biopsy confirmed sarcoidosis. Status at Discharge Cognitive/behavioral status at discharge: at baseline, oriented Overall status at discharge: patient is back to baseline Time Spent with Patient Time spent: Less than 30 minutes Exam Vital Signs (past 8 hours): - 05/03/19 05:25 05/03/19 07:30 05/03/19 08:00 Temperature 97.0 F L 97.9 F Pulse Rate 81 76 Respiratory Rate 16 16 Blood Pressure 149/82 H 172/88 H Pulse Oximetry 97 97 96 Fraction of Inspired Oxygen 21 Oxygen Delivery Method Room Air Oxygen Flow Rate 0 Narrative Exam Narrative: General: Pleasant older woman resting comfortably in bed Awake and alert, no acute distress. HEENT: NCAT, EOMI, moist oral mucosa CV: Regular rate and rhythm, no murmurs, rubs or gallops Lungs: CTAB, no wheezes, rales, or rhonchi Extremities: Warm, no edema, 2+ pedal pulses bilaterally. Compression stocking on left leg. Objective Labs Result Diagrams: 05/02/19 12:15 05/03/19 16:45 Labs: Laboratory Results - last 24 hr 05/02/19 05/02/19 05/03/19 12:15 12:15 07:00 WBC 4.6 RBC 4.26 Hgb 13.2 Hct 37.7 MCV 88.5 MCH 30.9 MCHC 34.9 RDW 13.2 Plt Count 277 Neut % (Auto) 70.0 Lymph % (Auto) 13.4 L [place] % (Auto) 12.8 Eos % (Auto) 3.3 Baso % (Auto) 0.5 Neut # (Auto) 3200 Lymph # (Auto) 600 L [place] # (Auto) 600 Eos # (Auto) 200 Baso # (Auto) 0 Sodium 141 141 Potassium 3.7 4.0 Chloride 101 106 Carbon Dioxide 33 H 28 BUN 20 H 24 H Creatinine 1.10 H 1.10 H Estimated GFR 48.6 L 48.6 L BUN/Creatinine Ratio 18.2 21.8 Glucose 89 117 H Calcium 13.1 H* 10.8 H Discharge Plan Discharge Plan Patient Disposition: Home Discharge Med Rec/Prescriptions Prescriptions: New prednisone 20 mg Tablet 40 mg PO DAILY Qty: 10 RF: 0 amlodipine 5 mg tablet 5 mg PO DAILY Qty: 30 RF: 0 Continued aspirin 81 mg Tablet,Delayed Release (Dr/Ec) 81 mg PO DAILY Qty: 0 RF: 0 albuterol sulfate 90 mcg/actuation HFA aerosol inhaler 2 inhalation INHALATION Q4-6H PRN (Reason: shortness of breath or wheezing) Qty: 8 RF: 0 atorvastatin [Lipitor] 20 MG tablet 20 mg PO BEDTIME RF: 0 metoprolol succinate [Toprol XL] 50 MG tablet extended release 24 hr 1 tab PO QPM RF: 0 vitamin B complex Capsule 1 cap PO DAILY RF: 0 Discontinued naproxen sodium [Aleve] 220 mg Capsule 220 mg PO BID RF: 0 losartan 25 MG tablet 25 mg PO DAILY RF: 0 Vitamin D3 1 cap PO BID RF: 0 Follow up/Referrals: Ayde Avila DO [Primary Care Provider] - Visit Report/Discharge Packet Instructions: DI for Hypercalcemia, How to Prevent Falls Visit Report Forms: Patient Portal/API, Stroke Signs & Symptoms Discharge Data Primary Care Provider: Ayde Avila
[2019-05-03] MEDS: SODIUM CHLORIDE 0.9% 1,000 ML 300 ML IV ×3 (09:55→16:48)
[2019-05-03] MEDS: predniSONE 20 MG TABLET 40 MG PO (09:56)
[2019-05-03] MEDS: CALCITONIN,SALMON 400 UNITS/2 ML MDV 300 UNITS IM (09:57)
--- NOTE | 2019-05-03 11:45 | PC.NURSE ---
Day Shift- Pt A&OX4, able to make needs known using call light. OOB with SBA, pt ambulates with IV pole, slightly unsteady when first rises to feet, denies dizziness or light-headedness. IVF increased to 300mls/hr at 0745 per order. Pt voiding qs without issue. Aware of 1200 repeat lab draw. No further voiced concerns. Hopeful to discharge home today.
[2019-05-03 14:01] LABS: BUN Creatinine Ratio 18.5 (6-22); Blood Urea Nitrogen 24 mg/dL (7-17); Calcium 10.8 mg/dL (8.4-10.2); Carbon Dioxide 26 mmol/L (22-32); Chloride 107 mmol/L (98-107); Glucose 96 mg/dL (80-110); HEMOLYSIS < 15 (0-50); Potassium 4.1 mmol/L (3.4-5.1); Sodium 142 mmol/L (137-145)
--- NOTE | 2019-05-03 14:50 | PM.CHAP ---
Gaming [employer] flag on chart. Visit with patient, and son. Pt is looking forward to discharge.
[2019-05-03 17:04] LABS: BUN Creatinine Ratio 18.5 (6-22); Blood Urea Nitrogen 24 mg/dL (7-17); Calcium 10.4 mg/dL (8.4-10.2); Carbon Dioxide 25 mmol/L (22-32); Chloride 109 mmol/L (98-107); Glucose 124 mg/dL (80-110); HEMOLYSIS < 15 (0-50); Sodium 143 mmol/L (137-145)
[2019-05-03 17:57] LABS: Vitamin D 25 Hydroxy (D3) 13.6 ng/mL (30.0-100.0)
--- NOTE | 2019-05-03 19:13 | PC.NURSE ---
Patient is AO x4, pleasant, talkative and cooperative w/ staff. Per spouse, he reports patient seems a little groggy right now. Patient however seems alert and awake, ambulated safely with little to no assistance to BR, VSS and able to make needs known. Patient was given lots of pt teaching regarding change in medications, labs to be drawn tomorrow, f/u with provider next week. Patient states understanding to hold current b/p medication until advised by provider and to start new medication Amlodipine per orders. Call placed to spouse prior to D/c to make aware of new changes and to picker and sorter load and unload medications at pharm. prior to coming to assist patient home. Patient teaching done with patient, spouse and other family member at bedside. Pt had all belongings in bag and was escorted to personal vehicle via wheelchair by aid. Patient left in stable condition.
[2019-05-07 17:17] LABS: Calcium 12.8 mg/dL (8.6-10.4); Parathyroid Hormone, Intact 2 pg/mL (14-64)
--- NOTE | 2019-05-20 10:05 | PC.NURSE ---
late entry: Zoledronic Acid stopped 05/02 0595
== END 2019-05-03 19:15 | disposition home or self-care (01) ==
LOC: ED 13:49 → AC 14:06
PROVIDERS: Admitting Provider Family Medicine; Emergency Provider Emergency Medicine; Family Provider Family Medicine; PCP Family Medicine; Visit Provider Family Medicine
DX: E83.52 Hypercalcemia (principal); L97.929 Non-pressure chronic ulcer of unspecified part of left lower leg with unspecified severity; N17.9 Acute kidney failure, unspecified; D86.9 Sarcoidosis, unspecified; I25.10 Atherosclerotic heart disease of native coronary artery without angina pectoris; E78.5 Hyperlipidemia, unspecified; I10 Essential (primary) hypertension
CPT/HCPCS: 36415; 71046; 80048; 80053; 82306; 82310; 83970; 85025; 93005; 96361; 96365; 96372; 99217; 99219; 99283; 99285; G0378; J0630; J1650; J3489

== ENCOUNTER → 2019-05-04 12:57 | Outpatient (CLI) | payer MEDICARE, SELFPAY ==
[2019-05-02 18:00] VITALS: BMI 31.6
[2019-05-04 13:42] LABS: Blood Urea Nitrogen 26 mg/dL (7-17); Calcium 10.7 mg/dL (8.4-10.2); Carbon Dioxide 26 mmol/L (22-32); Chloride 107 mmol/L (98-107); Glucose 83 mg/dL (80-110); HEMOLYSIS < 15 (0-50); Potassium 3.5 mmol/L (3.4-5.1); Sodium 141 mmol/L (137-145)
== END ==
PROVIDERS: Family Provider Family Medicine; PCP Family Medicine; Visit Provider Family Medicine
DX: E83.52 Hypercalcemia (principal)
CPT/HCPCS: 36415; 80048

== ENCOUNTER → 2019-05-07 11:45 | Outpatient (CLI) | payer MEDICARE, SELFPAY ==
[2019-05-02 18:00] VITALS: BMI 31.6
[2019-05-07 13:26] LABS: BUN Creatinine Ratio 22.2 (6-22); Blood Urea Nitrogen 20 mg/dL (7-17); Calcium 9.5 mg/dL (8.4-10.2); Carbon Dioxide 27 mmol/L (22-32); Chloride 104 mmol/L (98-107); Estimated Glomerular Filt Rate > 60.0 mL/min (>60); Glucose 96 mg/dL (80-110); HEMOLYSIS < 15 (0-50); Potassium 3.3 mmol/L (3.4-5.1); Sodium 142 mmol/L (137-145)
== END ==
PROVIDERS: PCP Family Medicine; Visit Provider Family Medicine
DX: E83.52 Hypercalcemia (principal); I10 Essential (primary) hypertension
CPT/HCPCS: 36415; 80048

== ENCOUNTER → 2019-05-08 13:07 | Outpatient (CLI) | payer MEDICARE, SELFPAY ==
[2019-05-02 18:00] VITALS: BMI 31.6
== END ==
PROVIDERS: PCP Family Medicine; Visit Provider Family Medicine
DX: I87.2 Venous insufficiency (chronic) (peripheral) (principal); L97.821 Non-pressure chronic ulcer of other part of left lower leg limited to breakdown of skin
CPT/HCPCS: 97597

== ENCOUNTER → 2019-05-14 11:23 | Outpatient (CLI) | payer MEDICARE, SELFPAY ==
[2019-05-02 18:00] VITALS: BMI 31.6
[2019-05-14 13:51] LABS: BUN Creatinine Ratio 13.3 (6-22); Blood Urea Nitrogen 12 mg/dL (7-17); Carbon Dioxide 29 mmol/L (22-32); Chloride 101 mmol/L (98-107); Estimated Glomerular Filt Rate > 60.0 mL/min (>60); Glucose 80 mg/dL (80-110); HEMOLYSIS < 15 (0-50); Potassium 3.6 mmol/L (3.4-5.1); Sodium 142 mmol/L (137-145)
== END ==
PROVIDERS: PCP Family Medicine; Visit Provider Family Medicine
DX: E83.52 Hypercalcemia (principal)
CPT/HCPCS: 36415; 80048

== ENCOUNTER → 2019-05-14 16:00 | Outpatient (CLI) | payer MEDICARE, SELFPAY ==
[2019-05-02 18:00] VITALS: BMI 31.6
--- NOTE | 2019-05-14 16:04 | DI.RAD.S_ITS ---
PROCEDURE: XR SHOULDER RT MIN 2V INDICATIONS: right shoulder pain TECHNIQUE: 3 views of the shoulder were acquired. COMPARISON: [facility], , CHEST 1 VIEW, 11/22/2015, 20:58. FINDINGS: Bones: No fractures or dislocations. No suspicious bony lesions. Visualized ribs appear intact. Widened appearance of the right AC joint although this is unchanged since 2016. Severe glenohumeral degenerative joint disease Soft tissues: No suspicious soft tissue calcifications. IMPRESSION: Severe right shoulder joint degeneration Dictated by: Craig Farrell M.D. on 05/14/2019 at 17:28 Approved by: Craig Farrell M.D. on 05/14/2019 at 17:29
== END ==
PROVIDERS: PCP Family Medicine; Visit Provider Family Medicine
DX: M25.511 Pain in right shoulder (principal); M19.011 Primary osteoarthritis, right shoulder; E83.52 Hypercalcemia
CPT/HCPCS: 36415; 73030; 80048

== ENCOUNTER → 2019-05-16 08:32 | Outpatient (CLI) | payer MEDICARE, SELFPAY ==
[2019-05-02 18:00] VITALS: BMI 31.6
== END ==
PROVIDERS: PCP Family Medicine; Visit Provider Family Medicine
DX: I87.2 Venous insufficiency (chronic) (peripheral) (principal); L97.822 Non-pressure chronic ulcer of other part of left lower leg with fat layer exposed; R60.0 Localized edema
CPT/HCPCS: 97597; 99212

== ENCOUNTER → 2019-05-27 08:43 | Outpatient (CLI) | payer MEDICARE, SELFPAY ==
[2019-05-02 18:00] VITALS: BMI 31.6
[2019-05-27 09:46] LABS: BUN Creatinine Ratio 16.3 (6-22); Blood Urea Nitrogen 13 mg/dL (7-17); Calcium 9.2 mg/dL (8.4-10.2); Carbon Dioxide 31 mmol/L (22-32); Chloride 103 mmol/L (98-107); Estimated Glomerular Filt Rate > 60.0 mL/min (>60); Glucose 87 mg/dL (80-110); HEMOLYSIS < 15 (0-50); Sodium 143 mmol/L (137-145)
== END ==
PROVIDERS: PCP Family Medicine; Visit Provider Family Medicine
DX: E83.52 Hypercalcemia (principal)
CPT/HCPCS: 36415; 80048

== ENCOUNTER → 2019-05-30 09:34 | Outpatient (CLI) | payer MEDICARE, SELFPAY ==
[2019-05-02 18:00] VITALS: BMI 31.6
== END ==
PROVIDERS: PCP Family Medicine; Visit Provider Family Medicine
DX: I87.2 Venous insufficiency (chronic) (peripheral) (principal); L97.829 Non-pressure chronic ulcer of other part of left lower leg with unspecified severity; R60.0 Localized edema
CPT/HCPCS: 99213

== ENCOUNTER → 2019-06-06 09:54 | Outpatient (CLI) | payer MEDICARE, SELFPAY ==
[2019-05-02 18:00] VITALS: BMI 31.6
== END ==
PROVIDERS: PCP Family Medicine; Visit Provider Family Medicine
DX: I87.2 Venous insufficiency (chronic) (peripheral) (principal)
CPT/HCPCS: 99212; 99213

== ENCOUNTER → 2019-06-17 10:32 | Outpatient (CLI) | payer MEDICARE, SELFPAY ==
[2019-05-02 18:00] VITALS: BMI 31.6
== END ==
PROVIDERS: PCP Family Medicine; Visit Provider Family Medicine
DX: I87.2 Venous insufficiency (chronic) (peripheral) (principal); L97.221 Non-pressure chronic ulcer of left calf limited to breakdown of skin; L08.9 Local infection of the skin and subcutaneous tissue, unspecified; R60.0 Localized edema
CPT/HCPCS: 97597; 99214

== ENCOUNTER → 2019-06-24 08:43 | Outpatient (CLI) | payer MEDICARE, SELFPAY ==
[2019-05-02 18:00] VITALS: BMI 31.6
== END ==
PROVIDERS: PCP Family Medicine; Visit Provider Family Medicine
DX: I87.2 Venous insufficiency (chronic) (peripheral) (principal); L08.9 Local infection of the skin and subcutaneous tissue, unspecified; R60.0 Localized edema; L97.821 Non-pressure chronic ulcer of other part of left lower leg limited to breakdown of skin
CPT/HCPCS: 97597

== ENCOUNTER → 2019-07-03 10:24 | Outpatient (CLI) | payer MEDICARE, SELFPAY ==
[2019-05-02 18:00] VITALS: BMI 31.6
== END ==
PROVIDERS: PCP Family Medicine; Visit Provider Family Medicine
DX: I87.2 Venous insufficiency (chronic) (peripheral) (principal); L97.821 Non-pressure chronic ulcer of other part of left lower leg limited to breakdown of skin; L08.9 Local infection of the skin and subcutaneous tissue, unspecified; R60.0 Localized edema
CPT/HCPCS: 97597

== ENCOUNTER → 2019-07-10 13:31 | Outpatient (CLI) | payer MEDICARE, SELFPAY ==
[2019-05-02 18:00] VITALS: BMI 31.6
== END ==
PROVIDERS: PCP Family Medicine; Visit Provider Family Medicine
DX: I87.2 Venous insufficiency (chronic) (peripheral) (principal); R60.0 Localized edema
CPT/HCPCS: 99212; 99213

== ENCOUNTER → 2019-08-10 10:51 | Outpatient (CLI) | payer MEDICARE, SELFPAY ==
[2019-05-02 18:00] VITALS: BMI 31.6
[2019-08-10 12:19] LABS: Cholesterol 193 mg/dL (140-199); HDL Cholesterol 38 mg/dL (40-60); LDL Cholesterol Calculated 118 mg/dL (<100); Triglycerides 186 mg/dL (35-150)
== END ==
PROVIDERS: PCP Family Medicine; Visit Provider Internal Medicine Interventional Cardiology
DX: E78.5 Hyperlipidemia, unspecified (principal)
CPT/HCPCS: 36415; 80061

== ENCOUNTER 2020-02-10 12:45 | Outpatient (RCR) | payer MEDICARE, SELFPAY ==
[2019-05-02 18:00] VITALS: BMI 31.6
--- NOTE | 2019-09-30 16:11 | PT.OIE ---
Current Diagnoses Primary osteoarthritis, right shoulder (09/30/19) Pain in right shoulder (09/30/19) Pain in left shoulder (09/30/19) Muscle weakness (generalized) (09/30/19) Past Medical History (Last Reviewed 08/29/19 @ 16:59 by Ayde Avila DO) Arthritis of right glenohumeral joint (Acute) CAD (coronary artery disease) (Acute) Essential hypertension (Chronic) Herpes zoster (Acute) Hypercalcemia (Resolved) Myocardial infarction (Resolved) Sarcoidosis (Chronic) Zenkers diverticulum (Acute) Past Surgical History (Last Reviewed 08/29/19 @ 16:59 by Ayde Avila DO) H/O angioplasty (Resolved) History of tonsillectomy (Resolved) Visit Care Team Role Provider Type Ayde Avila DO Attending Provider Physician Primary Care Provider Referring Provider Specialty: Family Practice Address: [address] [place] [address], [facility] Email: [email or web address] Physical Therapy Initial Evaluation PT-OP-A Visit Information Start: 09/30/19 07:24 Freq: Status: Active Protocol: Document 09/30/19 09:45 EG (Rec: 09/30/19 11:04 EG [email or web address]) Out-Patient Physical Therapy Visit Information Visit Information Visit Type Initial Evaluation Visit Start Time 09:45 Visit Stop Time 10:45 Total Visit Minutes 60 Visit Number 1 Number of PRODUCT DISTRIBUTION SPECIALIST Visits 0 Evaluation Information Evaluation Date 09/30/19 PT-OP-B Current Condition Start: 09/30/19 07:24 Freq: Status: Active Protocol: Document 09/30/19 09:45 EG (Rec: 09/30/19 10:31 EG [id number]) Current Condition History of Current Condition Onset Date Gradual increase in pain since 2016 Current Complaints Pain in bilateral arms, especially the R arm History of Current Condition Patient reports that both her arms hurt, but specifically the R arm where she reports constant pain. She decided to get therapy after recently getting an x-ray of the R shoulder with findings that she has R shoulder osteoarthritis. Patent had a heart attack and a stroke in 2016 and since then she feels as if she has lost a lot of strength along with fine motor activities. She reports that she cannot open anything, she cannot lift anything heavier than a jug of orange juice, she cannot reach up any more - especially to the second shelf in her cupboard. She says she needs both arms to get anything out of fridge. Sleeping is okay - she can sleep on both sides but the pain does sometimes keep her awake. She is taking Tylenol Super Strength - 2 in morning and 2 at night. The pain seems to spread by her collar bone, down the back at times, and always going down the arm. She reports an 8-9/10 pain on a bad day - she will just wake up with it bad without a correlation to any activity. She has a 5-6/10 pain in R shoulder right now. She does have trouble buttoning and zipping because she doesn't seem to have the strength to pull it. She has been to PT a few years ago for her shoulder but stopped because she went on vacation. She is not really active at home. Her and son live with her currently and her son helps with getting objects from a tall cupboard. She likes to walk, cook, and do computer stuff. 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 Also a history of a sore on L leg from November-June that did not heal and she had to go to Wound Care clinic. Prior Treatments and Tests PT in past for shoulder Posterior R hip replacement X-ray of R shoulder Treatment Goals Patient/Caregiver Goals She would like good use of both arms - reaching out to pull car door closed; being able to comb back of hair, reaching and putting things away, increase strength; picking up groceries- every day things - need help making the bed. Driving. 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 [email or web address] Current Functional Impairments (Reported) Functional Limitations- ADL's cannot sleep at times due to pain Functional Limitations- Mobility/Gait Unable to reach behind head or lift things overhead Functional Limitations- Recreation/ Doesn't feel like going out Hobbies because she is hurting Personal Factors Other Personal Factors That May Effect Arthritis Therapy/Recovery Blood Pressure Past Falls History of Heart Attack and Stroke (2016) Neuropathy PT-OP-C Subjective Start: 09/30/19 07:24 Freq: Status: Active Protocol: Document 09/30/19 09:45 EG (Rec: 09/30/19 15:50 EG [email or web address]) Patient Questionnaires Quick Dash- Upper Extremity Quick Dash UE Score 70 Quick Dash UE Impairment 60 to 79% Impaired (Score 60- 79) OP-PT Pain Assessment Pain Assessment Grid Paper Pain Assessment Grid Completed Yes: bilateral arms - 6/10 PT-OP-E Functional Tests Start: 09/30/19 15:22 Freq: Status: Active Protocol: Document 09/30/19 09:45 EG (Rec: 09/30/19 15:52 EG [email or web address]) Functional Tests Apley's Scratch Test Action 2- Left Can touch back of head with cervical flexion Action 2- Right Cannot touch back of head - can touch ear with cervical sidebending Action 3- Left can touch middle of low back Action 3- Right can touch posterior R hip PT-OP-J Posture/Palpation/Skin Start: 09/30/19 07:24 Freq: Status: Active Protocol: Document 09/30/19 09:45 EG (Rec: 09/30/19 15:50 EG [email or web address]) Posture Evaluation Position Sitting Evaluation View Posterior Head/C-Spine Posture Side Bent Right T-Spine Posture Increased Kyphosis Shoulder Posture (L) Rounded,(R) Rounded Weight Distribution Weight Shifted Left Palpation Assessment Location Upper Traps Palpation Location Upper Trap, Supraspinatus, Infraspinatus Palpation Findings Tenderness PT-OP-K Range of Motion Start: 09/30/19 07:24 Freq: Status: Active Protocol: Document 09/30/19 09:45 EG (Rec: 09/30/19 15:50 EG [email or web address]) Cervical Spine Range of Motion Cervical Spine Active Testing Position Sitting Comments Increased rotation to L compared to R - no pain with motion Shoulder Goniometric Range of Motion Shoulder Left Shoulder ROM WFL No Testing Position Sitting Flexion 100 Abduction 95 Right Shoulder ROM WFL No Testing Position Sitting Flexion 75 Abduction 75 Shoulder ROM Limitations Comments ROM done in AROM PT-OP-L Special Tests Start: 09/30/19 07:24 Freq: Status: Active Protocol: Document 09/30/19 09:45 EG (Rec: 09/30/19 15:50 EG [email or web address]) Special Tests Shoulder Special Tests IRand Extension Test Results + Comments p! with motion in R arm - less motion R compared to L ER and Abduction Test Results + on R side - unable to touch behind head Comments Patient can touch R ear while side bending head to R PT-OP-M Strength Start: 09/30/19 07:24 Freq: Status: Active Protocol: Document 09/30/19 09:45 EG (Rec: 09/30/19 15:50 EG [email or web address]) Shoulder Strength Shoulder Manual Muscle Testing Left Flexion 4- Good- Abduction (C5) 3+ Fair+ External Rotation 4- Good- Internal Rotation 4- Good- Right Flexion 3+ Fair+ Abduction (C5) 3+ Fair+ External Rotation 3+ Fair+ Internal Rotation 3+ Fair+ Comments painful with all resistance Elbow/Forearm Strength Elbow and Forearm Manual Muscle Testing Left Flexion (C6) 4 Good Extension (C7) 4 Good Right Flexion (C6) 4 Good Extension (C7) 4 Good Comments Pain with flexion > extension Hand Candle Wicker/Pinch Strength Hand Dominance Hand Dominance Right Hand Strength Left Candle Wicker (lbs) 4 Comments Done in Kg's Right Candle Wicker (lbs) 5 Comments Done in Kg's PT-OP-Q Treatments Start: 09/30/19 07:24 Freq: Status: Active Protocol: Document 09/30/19 09:45 EG (Rec: 09/30/19 15:50 EG [email or web address]) Therapeutic Exercises Sitting Exercises 3 Sitting Exercise Name Shoulder Rolls Side bilateral Reps/Minutes 10x Comments given as HEP - painful initiating rolls 2 Sitting Exercise Name Scapular Squeeze Side bilateral Reps/Minutes 8x Comments given as HEP PT-OP-R Modalities Start: 09/30/19 07:24 Freq: Status: Active Protocol: Document 09/30/19 09:45 EG (Rec: 09/30/19 15:50 EG [email or web address]) Hot Pack/Cold Pack Treatment Hot Pack Location R and L GHJ Patient Position Supine Treatment Duration (minutes) 15 Patient Tolerance Good PT-OP-T Assessment and Plan Start: 09/30/19 07:24 Freq: Status: Active Protocol: Document 09/30/19 09:45 EG (Rec: 09/30/19 15:50 EG [email or web address]) Physical Therapy Assessment Rehab Potential Rehabilitation Potential Good Evaluation Complexity Number of Personal Factors/Comorbidities 3 or More Number of Body Systems Impaired 4 or More Clinical Presentation at Evaluation Stable Impairments Impairments Activity Tolerance,Functional Activities,Functional Mobility ,Pain,Posture,ROM,Soft Tissue Mobility,Strength Goals Four Impairment Functional Mobility Short Term Goal (STG) Patient will increase ability to reach overhead with R arm and reach behind head to wash hair in shower with no more than 3/10 pain in 4 weeks. STG Duration 4 weeks Residential Goal (LTG) Patient will increase ability to reach overhead to 2nd cupboard in house and take cup out with no increase in pain in 8 weeks. LTG Duration 8 weeks. Three Impairment Strength Short Term Goal (STG) Patient will increase bilateral perinatal breastfeeding assistant strength with hand held dynamometer to >8 kg in 4 weeks. STG Duration 4 weeks Air And Water Tester Goal (LTG) Patient will be able to seed cone picker orange juice jug from refrigerator with R arm with no increase in 2/10 pain in 8 weeks. LTG Duration 8 weeks Two Impairment ROM Short Term Goal (STG) Patient will increase active R shoulder flexion to 110 degrees and active R shoulder abduction to 110 degrees with <3/10 pain in 4 weeks. STG Duration 4 weeks Residential Goal (LTG) Patient will be able to perform all overhead household tasks independently with no more than 2/10 pain in 8 weeks . LTG Duration 8 weeks Assessment Summary Assessment Patient is a 74 year old female who reports to physical therapy due to R shoulder pain. She recently got an X- ray showing OA in R shoulder and has functionally seen a decline in the past 3.5 years since having a stroke. GHJ ROM is limited bilaterally with R >L and patient has increased pain with all planes of motion in R side. Patient has been limited in all overhead movements and household activities due to ROM restriction and pain. Patient also has bilateral UE weakness that is limiting her everyday fine motor functions such as buttoning and zipping. Patient does not report any neck pain but is limited in rotation to the R. Further testing is needed to determine if weakness is coming from cervical spine. Patient will benefit from UE strengthening, GHJ mobilizations to increase flexion and abduction ROM, Neuromuscular reeducation, and functional mobility training in order to increase ROM and strength in R shoulder to allow patient ability to participate in household and community activities. Physical Therapy Plan Frequency and Duration Frequency of Treatment 2x/Week Duration of Treatment 8 Plan of Care Start Date 09/30/19 Plan of Care End Date 11/25/19 Therapeutic Interventions Therapeutic Interventions Home Exercise Program,Joint Mobilizations,Manual Therapy, Neuromuscular Re-education, Patient/Caregiver Education, Self-Care/Home Management,Soft Tissue Mobilization,Taping, Therapeutic Activities, Therapeutic Exercises Modalities Cold Pack/Ice Massage,Electric Stimulation,Hot Packs Next Visit Focus/Plan Next Note Type Treatment Note Next Visit Plan Assess how exercises are going at home. Introduce AAROM with the shane. Introduce isometric strength training. ICarmel, BOLIVART, supervised all treatment performed by, and agreed with the plan of care, as performed by Eusebia Whaley, TOBI.
--- NOTE | 2019-09-30 16:13 | PT.OPPOC ---
Physical, Occupational & Speech Therapy At [facility] Current Diagnoses Primary osteoarthritis, right shoulder (09/30/19) Pain in right shoulder (09/30/19) Pain in left shoulder (09/30/19) Muscle weakness (generalized) (09/30/19) Visit Care Team Role Provider Type Ayde Avila DO Attending Provider Physician Primary Care Provider Referring Provider Specialty: [facility] Address: [address] [place] [address], [facility] [place], [address] Email: [email or web address] Plan Of Care PT-OP-T Assessment and Plan Start: 09/30/19 07:24 Freq: Status: Active Protocol: Document 09/30/19 09:45 EG (Rec: 09/30/19 15:50 EG [email or web address]) Physical Therapy Assessment Rehab Potential Rehabilitation Potential Good Evaluation Complexity Number of Personal Factors/Comorbidities 3 or More Number of Body Systems Impaired 4 or More Clinical Presentation at Evaluation Stable Impairments Impairments Activity Tolerance,Functional Activities,Functional Mobility ,Pain,Posture,ROM,Soft Tissue Mobility,Strength Goals Four Impairment Functional Mobility Short Term Goal (STG) Patient will increase ability to reach overhead with R arm and reach behind head to wash hair in shower with no more than 3/10 pain in 4 weeks. STG Duration 4 weeks Halfway Goal (LTG) Patient will increase ability to reach overhead to 2nd cupboard in house and take cup out with no increase in pain in 8 weeks. LTG Duration 8 weeks. Three Impairment Strength Short Term Goal (STG) Patient will increase bilateral cream dipper strength with hand held dynamometer to >8 kg in 4 weeks. STG Duration 4 weeks Halfway Goal (LTG) Patient will be able to orange picker orange juice jug from refrigerator with R arm with no increase in 2/10 pain in 8 weeks. LTG Duration 8 weeks Two Impairment ROM Short Term Goal (STG) Patient will increase active R shoulder flexion to 110 degrees and active R shoulder abduction to 110 degrees with <3/10 pain in 4 weeks. STG Duration 4 weeks Reworker Goal (LTG) Patient will be able to perform all overhead household tasks independently with no more than 2/10 pain in 8 weeks . LTG Duration 8 weeks Assessment Summary Assessment Patient is a 74 year old female who reports to physical therapy due to R shoulder pain. She recently got an X- ray showing OA in R shoulder and has functionally seen a decline in the past 3.5 years since having a stroke. GHJ ROM is limited bilaterally with R >L and patient has increased pain with all planes of motion in R side. Patient has been limited in all overhead movements and household activities due to ROM restriction and pain. Patient also has bilateral UE weakness that is limiting her everyday fine motor functions such as buttoning and zipping. Patient does not report any neck pain but is limited in rotation to the R. Further testing is needed to determine if weakness is coming from cervical spine. Patient will benefit from UE strengthening, GHJ mobilizations to increase flexion and abduction ROM, Neuromuscular reeducation, and functional mobility training in order to increase ROM and strength in R shoulder to allow patient ability to participate in household and community activities. Physical Therapy Plan Frequency and Duration Frequency of Treatment 2x/Week Duration of Treatment 8 Plan of Care Start Date 09/30/19 Plan of Care End Date 11/25/19 Therapeutic Interventions Therapeutic Interventions Home Exercise Program,Joint Mobilizations,Manual Therapy, Neuromuscular Re-education, Patient/Caregiver Education, Self-Care/Home Management,Soft Tissue Mobilization,Taping, Therapeutic Activities, Therapeutic Exercises Modalities Cold Pack/Ice Massage,Electric Stimulation,Hot Packs Next Visit Focus/Plan Next Note Type Treatment Note Next Visit Plan Assess how exercises are going at home. Introduce AAROM with the shane. Introduce isometric strength training. Plan of Care Dates Plan of Care Start Date 09/30/19 Plan of Care End Date 11/25/19 I, Carmel Head DPT, supervised all treatment performed by, and agreed with the plan of care, as performed by Eusebia Whaley, TOBI. Electronically Signed by: Carmel Head, PT 09/30/19 [id number] Please Sign and Return: I have reviewed this Plan of Care and certify that the skilled therapy services above are required to meet the patient?s needs. Physician Signature Date Printed Name and Credentials Clinical Instructor Signature Printed Name and Credentials
--- NOTE | 2019-10-04 09:37 | PT.OTN ---
Current Diagnoses Primary osteoarthritis, right shoulder (10/03/19) Pain in right shoulder (10/03/19) Pain in left shoulder (10/03/19) Muscle weakness (generalized) (10/03/19) Physical Therapy Treatment Note PT-OP-A Visit Information Start: 09/30/19 07:24 Freq: Status: Active Protocol: Document 10/03/19 13:01 EG (Rec: 10/03/19 14:27 EG [id number]) Out-Patient Physical Therapy Visit Information Visit Information Visit Type Treatment Note Visit Start Time 13:01 Visit Stop Time 13:45 Total Visit Minutes 44 Visit Number 2 Number of PSYCHIATRIC AIDES TEACHER Visits 0 PT-OP-B Current Condition Start: 09/30/19 07:24 Freq: Status: Active Protocol: Document 09/30/19 09:45 EG (Rec: 09/30/19 10:31 EG [id number]) Current Condition History of Current Condition Onset Date Gradual increase in pain since 2016 Current Complaints Pain in bilateral arms, especially the R arm History of Current Condition Patient reports that both her arms hurt, but specifically the R arm where she reports constant pain. She decided to get therapy after recently getting an x-ray of the R shoulder with findings that she has R shoulder osteoarthritis. Patent had a heart attack and a stroke in 2016 and since then she feels as if she has lost a lot of strength along with fine motor activities. She reports that she cannot open anything, she cannot lift anything heavier than a jug of orange juice, she cannot reach up any more - especially to the second shelf in her cupboard. She says she needs both arms to get anything out of fridge. Sleeping is okay - she can sleep on both sides but the pain does sometimes keep her awake. She is taking Tylenol Super Strength - 2 in morning and 2 at night. The pain seems to spread by her collar bone, down the back at times, and always going down the arm. She reports an 8-9/10 pain on a bad day - she will just wake up with it bad without a correlation to any activity. She has a 5-6/10 pain in R shoulder right now. She does have trouble buttoning and zipping because she doesn't seem to have the strength to pull it. She has been to PT a few years ago for her shoulder but stopped because she went on vacation. She is not really active at home. Her and son live with her currently and her son helps with getting objects from a tall cupboard. She likes to walk, cook, and do computer stuff. Tying quilts for bahai . 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 Also a history of a sore on L leg from November-June that did not heal and she had to go to [facility]ound Care clinic. Prior Treatments and Tests PT in past for shoulder Posterior R hip replacement X-ray of R shoulder Treatment Goals Patient/Caregiver Goals She would like good use of both arms - reaching out to pull car door closed; being able to comb back of hair, reaching and putting things away, increase strength; picking up groceries- every day things - need help making the bed. Driving. 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 bahai Current Functional Impairments (Reported) Functional Limitations- ADL's cannot sleep at times due to pain Functional Limitations- Mobility/Gait Unable to reach behind head or lift things overhead Functional Limitations- Recreation/ Doesn't feel like going out Hobbies because she is hurting Personal Factors Other Personal Factors That May Effect Arthritis Therapy/Recovery Blood Pressure Past Falls History of Heart Attack and Stroke (2016) Neuropathy PT-OP-C Subjective Start: 09/30/19 07:24 Freq: Status: Active Protocol: Document 10/03/19 13:01 EG (Rec: 10/03/19 14:27 EG [id number]) OP-PT Subjective Patient Comments Patient Comments Patient reports that she can tell she did some of her exercises. Last night after doing them, she could definately feel the R shoulder . This morning her left shoulder was really hurting but after she got going it was feeling better. She typically trys to sleep on both sides to help relieve any pain. Patient Reported Progress Same PT-OP-E Functional Tests Start: 09/30/19 15:22 Freq: Status: Active Protocol: Document 09/30/19 09:45 EG (Rec: 09/30/19 15:52 EG [email or web address]) Functional Tests Apley's Scratch Test Action 2- Left Can touch back of head with cervical flexion Action 2- Right Cannot touch back of head - can touch ear with cervical sidebending Action 3- Left can touch middle of low back Action 3- Right can touch posterior R hip PT-OP-J Posture/Palpation/Skin Start: 09/30/19 07:24 Freq: Status: Active Protocol: Document 09/30/19 09:45 EG (Rec: 09/30/19 15:50 EG [email or web address]) Posture Evaluation Position Sitting Evaluation View Posterior Head/C-Spine Posture Side Bent Right T-Spine Posture Increased Kyphosis Shoulder Posture (L) Rounded,(R) Rounded Weight Distribution Weight Shifted Left Palpation Assessment Location Upper Traps Palpation Location Upper Trap, Supraspinatus, Infraspinatus Palpation Findings Tenderness PT-OP-K Range of Motion Start: 09/30/19 07:24 Freq: Status: Active Protocol: Document 09/30/19 09:45 EG (Rec: 09/30/19 15:50 EG [email or web address]) Cervical Spine Range of Motion Cervical Spine Active Testing Position Sitting Comments Increased rotation to L compared to R - no pain with motion Shoulder Goniometric Range of Motion Shoulder Left Shoulder ROM WFL No Testing Position Sitting Flexion 100 Abduction 95 Right Shoulder ROM WFL No Testing Position Sitting Flexion 75 Abduction 75 Shoulder ROM Limitations Comments ROM done in AROM PT-OP-L Special Tests Start: 09/30/19 07:24 Freq: Status: Active Protocol: Document 09/30/19 09:45 EG (Rec: 09/30/19 15:50 EG [email or web address]) Special Tests Shoulder Special Tests IRand Extension Test Results + Comments p! with motion in R arm - less motion R compared to L ER and Abduction Test Results + on R side - unable to touch behind head Comments Patient can touch R ear while side bending head to R PT-OP-M Strength Start: 09/30/19 07:24 Freq: Status: Active Protocol: Document 09/30/19 09:45 EG (Rec: 09/30/19 15:50 EG [email or web address]) Shoulder Strength Shoulder Manual Muscle Testing Left Flexion 4- Good- Abduction (C5) 3+ Fair+ External Rotation 4- Good- Internal Rotation 4- Good- Right Flexion 3+ Fair+ Abduction (C5) 3+ Fair+ External Rotation 3+ Fair+ Internal Rotation 3+ Fair+ Comments painful with all resistance Elbow/Forearm Strength Elbow and Forearm Manual Muscle Testing Left Flexion (C6) 4 Good Extension (C7) 4 Good Right Flexion (C6) 4 Good Extension (C7) 4 Good Comments Pain with flexion > extension Hand Director Of Agriculture/Pinch Strength Hand Dominance Hand Dominance Right Hand Strength Left Director Of Agriculture (lbs) 4 Comments Done in Kg's Right Director Of Agriculture (lbs) 5 Comments Done in Kg's PT-OP-Q Treatments Start: 09/30/19 07:24 Freq: Status: Active Protocol: Document 10/03/19 13:01 EG (Rec: 10/03/19 14:27 EG [id number]) Cardio Equipment Upper Body Ergometer (UBE) Duration (Minutes) 6 RPM 75 Seat Position 13 Other 3 min fwd/3 min bwd Gym Equipment Therapeutic Ball Flexion/abduction on mat table Exercise Details ROM Ball Size/Color 65 inch/red ball Body Position Standing Reps/Duration 10x each way bilateral Comments Scaption decreased pain vs abduction Therapeutic Exercises Supine Exercises 1 Supine Exercise Name Bilateral Flexion with Vernon Side bilateral Equipment Used vernon Reps/Minutes 10x Comments done in pain-free ROM Sitting Exercises Thoracic Extension on chair Sitting Exercise Name Thoracic Extension on chair with ball Equipment Used green pilates ball, chair Reps/Minutes 10x Comments arms across chest and arms down by sides 3 Sitting Exercise Name Shoulder Rolls Side bilateral Reps/Minutes 10x Comments instruction of form 2 Sitting Exercise Name Scapular Squeeze Side bilateral Reps/Minutes 10x Comments instruction on form 1 Sitting Exercise Name upper trap/levator scap stretch Side bilateral Reps/Minutes [address] each exercise Comments given for HEP Manual Therapy Treatment Soft Tissue Mobilization Upper Traps, Levator Scap Body Location Upper Traps/levator scap Mobilization Type Myofascial Release Intensity/Depth Moderate Body Position seated Comments Decerase tension in upper cervical mm Manual Techniques PROM GHJ Type PROM GHJ Body Location R GHJ Body Position Supine Reps/Duration 10 min Comments gentle movements in to flexion and abduction - increased tolerance with time - ease in to motion PT-OP-R Modalities Start: 09/30/19 07:24 Freq: Status: Active Protocol: Document 09/30/19 09:45 EG (Rec: 09/30/19 15:50 EG [email or web address]) Hot Pack/Cold Pack Treatment Hot Pack Location R and L GHJ Patient Position Supine Treatment Duration (minutes) 15 Patient Tolerance Good PT-OP-T Assessment and Plan Start: 09/30/19 07:24 Freq: Status: Active Protocol: Document 10/03/19 13:01 EG (Rec: 10/03/19 16:24 EG [email or web address]) Physical Therapy Assessment Assessment Summary Assessment Patient tolerated treatment well today. She does have significant ROM restrictions due to pain and should continue with gentle ROM exercises to begin. Patient has significant more tightness in the R trap/levator scapulae that is restricting her from bringing ear to shoulder when doing the stretch. She was given this to do at home to help with soft tissue tightness. Patient will benefit from light rotator cuff strengthening done with minimal resistance to begin due to her soreness when doing light exercises such as shoulder rolls and scapular squeezes. Patient should also continue to work on thoracic mobility and chest stretches to help with postural alignment. Physical Therapy Plan Frequency and Duration Frequency of Treatment 2x/Week Duration of Treatment 8 Plan of Care Start Date 09/30/19 Plan of Care End Date 11/25/19 Next Visit Focus/Plan Next Note Type Treatment Note Next Visit Plan Assess how exercises are going at home. Introduce more AAROM with the vernon. Introduce isometric strength training. Sidelying stretches, wall stretch. ICarmel DPT, supervised all treatment performed by, and agreed with the plan of care, as performed by Eusebia Whaley, TOBI.
--- NOTE | 2019-10-07 14:05 | PT.OTN ---
Current Diagnoses Primary osteoarthritis, right shoulder (10/07/19) Pain in right shoulder (10/07/19) Pain in left shoulder (10/07/19) Muscle weakness (generalized) (10/07/19) Physical Therapy Treatment Note PT-OP-A Visit Information Start: 09/30/19 07:24 Freq: Status: Active Protocol: Document 10/07/19 12:57 SP (Rec: 10/07/19 14:19 SP [id number]) Out-Patient Physical Therapy Visit Information Visit Information Visit Type Treatment Note Visit Start Time 13:00 Visit Stop Time 14:05 Total Visit Minutes 65 Visit Number 3 Number of CASINO HOST Visits 1 PT-OP-B Current Condition Start: 09/30/19 07:24 Freq: Status: Active Protocol: Document 09/30/19 09:45 EG (Rec: 09/30/19 10:31 EG [id number]) Current Condition History of Current Condition Onset Date Gradual increase in pain since 2016 Current Complaints Pain in bilateral arms, especially the R arm History of Current Condition Patient reports that both her arms hurt, but specifically the R arm where she reports constant pain. She decided to get therapy after recently getting an x-ray of the R shoulder with findings that she has R shoulder osteoarthritis. Patent had a heart attack and a stroke in 2016 and since then she feels as if she has lost a lot of strength along with fine motor activities. She reports that she cannot open anything, she cannot lift anything heavier than a jug of orange juice, she cannot reach up any more - especially to the second shelf in her cupboard. She says she needs both arms to get anything out of fridge. Sleeping is okay - she can sleep on both sides but the pain does sometimes keep her awake. She is taking Tylenol Super Strength - 2 in morning and 2 at night. The pain seems to spread by her collar bone, down the back at times, and always going down the arm. She reports an 8-9/10 pain on a bad day - she will just wake up with it bad without a correlation to any activity. She has a 5-6/10 pain in R shoulder right now. She does have trouble buttoning and zipping because she doesn't seem to have the strength to pull it. She has been to PT a few years ago for her shoulder but stopped because she went on vacation. She is not really active at home. Her and son live with her currently and her son helps with getting objects from a tall cupboard. She likes to walk, cook, and do computer stuff. Tying quilts for yazidism . 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 Also a history of a sore on L leg from November-June that did not heal and she had to go to Wound Care clinic. Prior Treatments and Tests PT in past for shoulder Posterior R hip replacement X-ray of R shoulder Treatment Goals Patient/Caregiver Goals She would like good use of both arms - reaching out to pull car door closed; being able to comb back of hair, reaching and putting things away, increase strength; picking up groceries- every day things - need help making the bed. Driving. 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 yazidism Current Functional Impairments (Reported) Functional Limitations- ADL's cannot sleep at times due to pain Functional Limitations- Mobility/Gait Unable to reach behind head or lift things overhead Functional Limitations- Recreation/ Doesn't feel like going out Hobbies because she is hurting Personal Factors Other Personal Factors That May Effect Arthritis Therapy/Recovery Blood Pressure Past Falls History of Heart Attack and Stroke (2016) Neuropathy PT-OP-C Subjective Start: 09/30/19 07:24 Freq: Status: Active Protocol: Document 10/07/19 12:57 SP (Rec: 10/07/19 14:19 SP [id number]) OP-PT Subjective Patient Comments Patient Comments Pt reports pain not constant but only when uses it in front , upper trap area and posterior between shld blades and even into forearms. PT-OP-E Functional Tests Start: 09/30/19 15:22 Freq: Status: Active Protocol: Document 09/30/19 09:45 EG (Rec: 09/30/19 15:52 EG [email or web address]) Functional Tests Apley's Scratch Test Action 2- Left Can touch back of head with cervical flexion Action 2- Right Cannot touch back of head - can touch ear with cervical sidebending Action 3- Left can touch middle of low back Action 3- Right can touch posterior R hip PT-OP-J Posture/Palpation/Skin Start: 09/30/19 07:24 Freq: Status: Active Protocol: Document 09/30/19 09:45 EG (Rec: 09/30/19 15:50 EG [email or web address]) Posture Evaluation Position Sitting Evaluation View Posterior Head/C-Spine Posture Side Bent Right T-Spine Posture Increased Kyphosis Shoulder Posture (L) Rounded,(R) Rounded Weight Distribution Weight Shifted Left Palpation Assessment Location Upper Traps Palpation Location Upper Trap, Supraspinatus, Infraspinatus Palpation Findings Tenderness PT-OP-K Range of Motion Start: 09/30/19 07:24 Freq: Status: Active Protocol: Document 09/30/19 09:45 EG (Rec: 09/30/19 15:50 EG [email or web address]) Cervical Spine Range of Motion Cervical Spine Active Testing Position Sitting Comments Increased rotation to L compared to R - no pain with motion Shoulder Goniometric Range of Motion Shoulder Left Shoulder ROM WFL No Testing Position Sitting Flexion 100 Abduction 95 Right Shoulder ROM WFL No Testing Position Sitting Flexion 75 Abduction 75 Shoulder ROM Limitations Comments ROM done in AROM PT-OP-L Special Tests Start: 09/30/19 07:24 Freq: Status: Active Protocol: Document 09/30/19 09:45 EG (Rec: 09/30/19 15:50 EG [email or web address]) Special Tests Shoulder Special Tests IRand Extension Test Results + Comments p! with motion in R arm - less motion R compared to L ER and Abduction Test Results + on R side - unable to touch behind head Comments Patient can touch R ear while side bending head to R PT-OP-M Strength Start: 09/30/19 07:24 Freq: Status: Active Protocol: Document 09/30/19 09:45 EG (Rec: 09/30/19 15:50 EG [email or web address]) Shoulder Strength Shoulder Manual Muscle Testing Left Flexion 4- Good- Abduction (C5) 3+ Fair+ External Rotation 4- Good- Internal Rotation 4- Good- Right Flexion 3+ Fair+ Abduction (C5) 3+ Fair+ External Rotation 3+ Fair+ Internal Rotation 3+ Fair+ Comments painful with all resistance Elbow/Forearm Strength Elbow and Forearm Manual Muscle Testing Left Flexion (C6) 4 Good Extension (C7) 4 Good Right Flexion (C6) 4 Good Extension (C7) 4 Good Comments Pain with flexion > extension Hand Piano Case And Bench Assembler/Pinch Strength Hand Dominance Hand Dominance Right Hand Strength Left Piano Case And Bench Assembler (lbs) 4 Comments Done in Kg's Right Piano Case And Bench Assembler (lbs) 5 Comments Done in Kg's PT-OP-Q Treatments Start: 09/30/19 07:24 Freq: Status: Active Protocol: Document 10/07/19 12:57 SP (Rec: 10/07/19 14:19 SP [id number]) Cardio Equipment Upper Body Ergometer (UBE) Duration (Minutes) 6 RPM 75 Seat Position 10 (foot blocks in peddles) Height 2.5 Other 3 min fwd/3 min bwd Therapeutic Exercises Supine Exercises PROM Supine Exercise Name FF, ABD, ER Comments tolerant range 1 Supine Exercise Name Bilateral Flexion with dowel Side bilateral Equipment Used dowel Reps/Minutes 2x5-8 Comments done in pain-free ROM Sitting Exercises Thoracic Extension on chair Sitting Exercise Name Thoracic Extension on chair with ball Equipment Used chair, towel mid TS Reps/Minutes 2 sec hold x5 HEP review Comments arms across chest and arms down by sides 2 Sitting Exercise Name Scapular Squeeze Side bilateral Reps/Minutes 10x Comments instruction on form 1 Sitting Exercise Name upper trap/levator scap stretch Side bilateral Reps/Minutes [address] each exercise Comments review HEP Standing Exercises RTC isometrics Standing Exercise Name IR, ER, flex, ext, ABD Side bilateral Reps/Minutes 10 sec hold x5 each direction Comments cued Manual Therapy Treatment Joint Mobilizations GH mob Joint R and L shld Direction inf/ post Grade II Body Position Hooklying PT-OP-R Modalities Start: 09/30/19 07:24 Freq: Status: Active Protocol: Document 09/30/19 09:45 EG (Rec: 09/30/19 15:50 EG [email or web address]) Hot Pack/Cold Pack Treatment Hot Pack Location R and L GHJ Patient Position Supine Treatment Duration (minutes) 15 Patient Tolerance Good PT-OP-T Assessment and Plan Start: 09/30/19 07:24 Freq: Status: Active Protocol: Document 10/07/19 12:57 SP (Rec: 10/07/19 14:19 SP [email or web address]) Physical Therapy Assessment Goals Four Impairment Functional Mobility Short Term Goal (STG) Patient will increase ability to reach overhead with R arm and reach behind head to wash hair in shower with no more than 3/10 pain in 4 weeks. STG Duration 4 weeks Human Resource Statistician Goal (LTG) Patient will increase ability to reach overhead to 2nd cupboard in house and take cup out with no increase in pain in 8 weeks. LTG Duration 8 weeks. Three Impairment Strength Short Term Goal (STG) Patient will increase bilateral tableau architect strength with hand held dynamometer to >8 kg in 4 weeks. STG Duration 4 weeks Human Resource Statistician Goal (LTG) Patient will be able to cook pickled meat orange juice jug from refrigerator with R arm with no increase in 2/10 pain in 8 weeks. LTG Duration 8 weeks Two Impairment ROM Short Term Goal (STG) Patient will increase active R shoulder flexion to 110 degrees and active R shoulder abduction to 110 degrees with <3/10 pain in 4 weeks. STG Duration 4 weeks Human Resource Statistician Goal (LTG) Patient will be able to perform all overhead household tasks independently with no more than 2/10 pain in 8 weeks . LTG Duration 8 weeks One Impairment decreased shoulder ROM Short Term Goal (STG) Improve pain free shoulder ROM to WFL allowing Tessie to comb her hair and put on her necklace STG Duration 6 weeks Assessment Summary Assessment Tx focused on HEP review and added cara 5 B shld isometrics with no adverse affects, reported a muscle happening work, not pain. Cued CS proper alignment with scap stabilization good self corrections post cues. Physical Therapy Plan Frequency and Duration Frequency of Treatment 2x/Week Duration of Treatment 8 Plan of Care Start Date 09/30/19 Plan of Care End Date 11/25/19 Therapeutic Interventions Therapeutic Interventions Home Exercise Program,Joint Mobilizations,Manual Therapy, Neuromuscular Re-education, Patient/Caregiver Education, Self-Care/Home Management,Soft Tissue Mobilization,Taping, Therapeutic Activities, Therapeutic Exercises Modalities Cold Pack/Ice Massage,Electric Stimulation,Hot Packs Next Visit Focus/Plan Next Note Type Treatment Note Next Visit Plan Assess response to last tx HEP review and added shld isometrics. Next tx and continue per PT POC: Introduce sidelying stretches, wall stretch, taina trial for possibe home application.
--- NOTE | 2019-12-26 17:39 | PT.OTN ---
Current Diagnoses Primary osteoarthritis, right shoulder (12/26/19) Pain in right shoulder (12/26/19) Pain in left shoulder (12/26/19) Muscle weakness (generalized) (12/26/19) Physical Therapy Treatment Note PT-OP-A Visit Information Start: 09/30/19 07:24 Freq: Status: Active Protocol: Document 12/26/19 15:17 LRN (Rec: 12/26/19 17:14 LRN [id number]) Out-Patient Physical Therapy Visit Information Visit Information Visit Type Progress Note Visit Start Time 15:17 Visit Stop Time 16:05 Total Visit Minutes 48 Visit Number 4 Number of EQUINE INTERN Visits 0 Evaluation Information Evaluation Date 09/30/19 Precautions Precautions Osteopenia, possible Osteoporosis Neuropathy MO, Hx of angioplasty R GHJ arthritis Essential HTN PT-OP-B Current Condition Start: 09/30/19 07:24 Freq: Status: Active Protocol: Document 12/26/19 15:17 LRN (Rec: 12/26/19 17:32 LRN [id number]) Current Condition History of Current Condition Onset Date Gradual increase in pain since 2016 Current Complaints Pain in bilateral arms, especially the R arm History of Current Condition Pt has had her R shoulder rehabilitation interrupted due to COVID-19 pandemic. She returns after a 3 month interruption with worsening symptoms of pain and mobility but similar pain complaints. Previous report was that both her arms hurt, but specifically the R arm where she reports constant pain. She decided to get therapy having an x-ray of the R shoulder with findings that she had R shoulder osteoarthritis. Patient had a heart attack and a stroke in 2016 and since then she feels as if she had lost a lot of strength along with fine motor activities. She reports continued difficulty opening anything, inability to lift a jug of orange juice or milk, inability to reach up any more - especially to the second shelf in her cupboard. She says she needs both arms to get anything out of the fridge . She previously reported sleeping is okay - she can sleep on both sides but the pain does sometimes keep her awake. She is taking Tylenol Super Strength - 2 in morning and 2 at night. The pain seems to spread by her collar bone, down the back at times, and always going down the arm. She reports an 8-9/10 pain on a bad day - she will just wake up with it bad without a correlation to any activity. Currently she has a 5-6/10 pain in R shoulder. She has trouble buttoning and zipping because she doesn't seem to have the strength to pull it. She has been to PT a few years ago for her shoulder but stopped because she went on vacation. She is not really active at home. Her and son live with her currently and her son helps with getting objects from a tall cupboard. She likes to walk, cook, and do computer stuff. Tying quilts for adventism . 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 Also a history of a sore on L leg from November-June that did not heal and she had to go to Wound Care clinic. Prior Treatments and Tests PT in past for shoulder Posterior R hip replacement X-ray of R shoulder Treatment Goals Patient/Caregiver Goals Remains same: she would like good use of both arms - reaching out to pull car door closed; being able to comb back of hair, reaching and putting things away, increase strength; picking up groceries - every day things - need help making the bed. Driving. 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 adventism Current Functional Impairments (Reported) Functional Limitations- ADL's cannot sleep at times due to pain Functional Limitations- Mobility/Gait Unable to reach behind head or lift things overhead Functional Limitations- Recreation/ Doesn't feel like going out Hobbies because she is hurting Personal Factors Other Personal Factors That May Effect Arthritis Therapy/Recovery Blood Pressure Past Falls History of Heart Attack and Stroke (2015) Neuropathy Osteopenia PT-OP-C Subjective Start: 09/30/19 07:24 Freq: Status: Active Protocol: Document 12/26/19 15:17 LRN (Rec: 12/26/19 17:14 LRN [id number]) OP-PT Subjective Patient Comments Patient Comments States no change in medical history. States she stopped doing her HEP previously given 3 weeks after last PT session . States the only ex she could do was isometric FF & ext. Not able to lift arm above head. Saw just before this visit, but didn't tell her she was taking Tylenol 4x/day. Patient Questionnaires Quick Dash- Upper Extremity Quick Dash UE Score 36 Quick Dash UE Impairment 20 to 39% Impaired (Score 20- 39) OP-PT Pain Assessment Pain Assessment Grid Paper Pain Assessment Grid Completed Yes Location Right Shoulder Pain Location Details General diffuse R shoulder pain. Intensity 5 Scale Used Numeric (1 - 10) Description Aching Frequency Constant Pain Aggravating Factors Changing Position,ADL's, Activity Pain Alleviating Factors Medication Comments Pain Comments Pain is worse with use. Takes Tylenol 4x/day, extra strength over the counter. PT-OP-E Functional Tests Start: 09/30/19 15:22 Freq: Status: Active Protocol: Document 12/26/19 15:17 LRN (Rec: 12/26/19 17:14 LRN [id number]) Functional Tests Apley's Scratch Test Action 2- Left Not able to lift arm overhead Action 2- Right Not able to lift arm overhead PT-OP-J Posture/Palpation/Skin Start: 09/30/19 07:24 Freq: Status: Active Protocol: Document 12/26/19 15:17 LRN (Rec: 12/26/19 17:14 LRN [id number]) Posture Evaluation Position Sitting Evaluation View Posterior Head/C-Spine Posture Side Bent Right T-Spine Posture Increased Kyphosis Shoulder Posture (L) Rounded,(R) Rounded Weight Distribution Weight Shifted Left Standing Head/C-Spine Posture Flexed Palpation Assessment Location Upper Traps Palpation Location Upper Trap, Supraspinatus, Infraspinatus Palpation Findings Tenderness One Palpation Location Primarily right lateral shoulder, general diffuse shoulder region Palpation Findings Tenderness Palpation Details tenderness at the supraspinatus insertion laterally on the right, general tenderness to palpation over the lateral right shoulder PT-OP-K Range of Motion Start: 09/30/19 07:24 Freq: Status: Active Protocol: Document 12/26/19 15:17 LRN (Rec: 12/26/19 17:14 LRN [id number]) Shoulder Goniometric Range of Motion Shoulder Right Passive Testing Position Supine Flexion 90 Abduction 65 External Rotation at 0 degrees Abduction 12 Internal Rotation 20 Left Passive Testing Position Supine Flexion 30 Abduction 18 External Rotation at 0 degrees Abduction 12 Internal Rotation 50 Left Testing Position Sitting Flexion 83 Abduction 40 External Rotation at 0 degrees Abduction 20 Internal Rotation 70 Right Testing Position Sitting Flexion 50 Abduction 25 External Rotation at 0 degrees Abduction 5 Internal Rotation 70 PT-OP-L Special Tests Start: 09/30/19 07:24 Freq: Status: Active Protocol: Document 12/26/19 15:17 LRN (Rec: 12/26/19 17:32 LRN [id number]) Special Tests Shoulder Special Tests IRand Extension Test Results + Comments Pain with motion in R arm - less motion R compared to L ER and Abduction Test Results + on R side - unable to touch behind head Comments Patient can touch R ear while side bending head to R PT-OP-M Strength Start: 09/30/19 07:24 Freq: Status: Active Protocol: Document 12/26/19 15:17 LRN (Rec: 12/26/19 17:14 LRN [id number]) Shoulder Strength Shoulder Manual Muscle Testing Left Flexion 2 Poor Abduction (C5) 2 Poor External Rotation 1 Trace Internal Rotation 2+ Poor+ Right Flexion 2- Poor- Abduction (C5) 2- Poor- External Rotation 2- Poor- Internal Rotation 2- Poor- Hand Film Reproducer/Pinch Strength Hand Strength Left Comments 3 trials: 2kg, 3kg, 2 kgs. Right Comments 3 trials: 2kg, 2kg, 1kg. PT-OP-Q Treatments Start: 09/30/19 07:24 Freq: Status: Active Protocol: Document 12/26/19 15:17 LRN (Rec: 12/26/19 17:14 LRN [id number]) Therapeutic Exercises Sitting Exercises Thoracic Extension on chair Sitting Exercise Name Thoracic Extension on chair with ball Equipment Used chair, towel ~T3-4 level Reps/Minutes 5-10 sec hold x5 HEP review Comments arms down by sides were found to get the best pec stretch 3 Sitting Exercise Name Shoulder Rolls Side bilateral Reps/Minutes 10x Comments instruction of form 2 Sitting Exercise Name Scapular Squeeze Side bilateral Reps/Minutes 8x Comments instruction on amount of contraction and posture. Manual Therapy Treatment Manual Techniques MWM Type Approximation of R GHJ during shoulder ER/IR with elbow by side Body Location Bob GHJ. Body Position Sitting Reps/Duration 5' Comments Pt needed training for appropriate amount of approximation in coordination with proper posturing and elimination of pain with active shoulder ER/IR. Much physical and verbal cuing needed. Self-Care/Home Management Treatment Education Patient Education Home Exercise Program Activities Self-Care/Home Management Activities Reviewed pt's current HEP. DC 'd supine shoulder flex with cane. Pt did Scapular pinches and shoulder rolls well with Issued revised handouts of HEP (scap pinches, shoulder rolls , thoracic ext in chair & cali shoulder flex/ext). I/S pt in active R shoulder ER/IR with approximation to the GHJ, but pt told to do only if she remembers how to self adjust to obtain a painfree ROM. PT-OP-R Modalities Start: 09/30/19 07:24 Freq: Status: Active Protocol: Document 09/30/19 09:45 EG (Rec: 09/30/19 15:50 EG [id number]) Hot Pack/Cold Pack Treatment Hot Pack Location R and L GHJ Patient Position Supine Treatment Duration (minutes) 15 Patient Tolerance Good PT-OP-T Assessment and Plan Start: 09/30/19 07:24 Freq: Status: Active Protocol: Document 12/26/19 15:17 LRN (Rec: 12/26/19 17:14 LRN [id number]) Physical Therapy Assessment Rehab Potential Rehabilitation Potential Good Evaluation Complexity Number of Personal Factors/Comorbidities 3 or More Number of Body Systems Impaired 4 or More Clinical Presentation at Evaluation Stable Impairments Impairments Activity Tolerance,Functional Activities,Functional Mobility ,Pain,Posture,ROM,Soft Tissue Mobility,Strength Goals Four Impairment Functional Mobility Short Term Goal (STG) Patient will increase ability to reach overhead with R arm and reach behind head to wash hair in shower with no more than 3/10 pain in 4 weeks. STG Duration 4 weeks (01/20/20) Gate Operator Goal (LTG) Patient will increase ability to reach overhead to 2nd cupboard in house and take cup out with no increase in pain in 8 weeks. LTG Duration 8 weeks (02/24/20). Three Impairment Strength Short Term Goal (STG) Patient will increase bilateral soaker helper strength with hand held dynamometer to >8 kg in 4 weeks. STG Duration 4 weeks (01/20/20) Gate Operator Goal (LTG) Patient will be able to pick up driver orange juice jug from refrigerator with R arm with no increase in 2/10 pain in 8 weeks. (11/25/19: Able to lift with both arms). LTG Duration 8 weeks (02/24/20) Two Impairment ROM Short Term Goal (STG) Patient will increase active R shoulder flexion to 110 degrees and active R shoulder abduction to 110 degrees with <3/10 pain in 4 weeks. STG Duration 4 weeks (01/20/20) [facility] Goal (LTG) Patient will be able to perform all overhead household tasks independently with no more than 2/10 pain in 8 weeks . LTG Duration 8 weeks (02/24/20) One Impairment decreased shoulder ROM [facility] Goal (LTG) Improve pain free shoulder ROM to WFL allowing Tessie to comb her hair and put on her necklace LTG Duration 8 weeks (02/24/20) Progress Towards Goals Progress Towards Goals Slow Progress - Other Progress Comments Pt is worse. See assessment below. Assessment Summary Assessment Pt returns from an interruption in her R shoulder rehabilitation due to Covid- 19 pandemic. She presents today with worsening of her pain and ROM limitations; therefore worsening of her functional abilities with ADLs (hair care, carrying groceries, putting away dishes , lifting of objects from fridge, making bed & driving). 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 She also may have soft tissue restrictions and a mechanical dysfunction that is limiting her joint mobility . The pt also has a visible mechanical dysfunction of her spine that may hinder her progress to recovery. She has atrophy of her R Deltoids and appears to have atrophy of her scapular stabilizers. She has definite weakness of her R rotator cuff muscles. The pt will benefit from skilled physical therapy to improve the function of her RUE. Physical Therapy Plan Frequency and Duration Frequency of Treatment 2x/Week Duration of Treatment 8 weeks Plan of Care Start Date 12/26/19 Plan of Care End Date 02/24/20 Next Visit Focus/Plan Next Note Type Treatment Note Next Visit Plan `Review HEP and add isometric and active ER/IR with approximation to the GHJ; and progress scapular stab strengthening. tion 1 & 3 of Apley Scratch Test. `Progress towards sidelying AROM, `Wall shoulder AROM and other [facility] ex's, `Tarik when appropriate for possible home application.
--- NOTE | 2019-12-26 17:39 | PT.OPPOC ---
Physical, Occupational & Speech Therapy At [facility] Current Diagnoses Primary osteoarthritis, right shoulder (12/26/19) Pain in right shoulder (12/26/19) Pain in left shoulder (12/26/19) Muscle weakness (generalized) (12/26/19) Visit Care Team Role Provider Type Ayde Avila DO Attending Provider Physician Primary Care Provider Referring Provider Specialty: [facility] Address: [address] [place] [address], [facility] [place], [address] Email: [email or web address] Plan Of Care PT-OP-T Assessment and Plan Start: 09/30/19 07:24 Freq: Status: Active Protocol: Document 12/26/19 15:17 LRN (Rec: 12/26/19 17:14 LRN [id number]) Physical Therapy Assessment Rehab Potential Rehabilitation Potential Good Evaluation Complexity Number of Personal Factors/Comorbidities 3 or More Number of Body Systems Impaired 4 or More Clinical Presentation at Evaluation Stable Impairments Impairments Activity Tolerance,Functional Activities,Functional Mobility ,Pain,Posture,ROM,Soft Tissue Mobility,Strength Goals Four Impairment Functional Mobility Short Term Goal (STG) Patient will increase ability to reach overhead with R arm and reach behind head to wash hair in shower with no more than 3/10 pain in 4 weeks. STG Duration 4 weeks (01/20/20) Detention Goal (LTG) Patient will increase ability to reach overhead to 2nd cupboard in house and take cup out with no increase in pain in 8 weeks. LTG Duration 8 weeks (02/24/20). Three Impairment Strength Short Term Goal (STG) Patient will increase bilateral exhibit artist strength with hand held dynamometer to >8 kg in 4 weeks. STG Duration 4 weeks (01/20/20) Detention Goal (LTG) Patient will be able to pick and shovel worker orange juice jug from refrigerator with R arm with no increase in 2/10 pain in 8 weeks. (11/25/19: Able to lift with both arms). LTG Duration 8 weeks (02/24/20) Two Impairment ROM Short Term Goal (STG) Patient will increase active R shoulder flexion to 110 degrees and active R shoulder abduction to 110 degrees with <3/10 pain in 4 weeks. STG Duration 4 weeks (01/20/20) Detention Goal (LTG) Patient will be able to perform all overhead household tasks independently with no more than 2/10 pain in 8 weeks . LTG Duration 8 weeks (02/24/20) One Impairment decreased shoulder ROM Fundraising Sale Representative Goal (LTG) Improve pain free shoulder ROM to WFL allowing Tessie to comb her hair and put on her necklace LTG Duration 8 weeks (02/24/20) Progress Towards Goals Progress Towards Goals Slow Progress - Other Progress Comments Pt is worse. See assessment below. Assessment Summary Assessment Pt returns from an interruption in her R shoulder rehabilitation due to Covid- 19 pandemic. She presents today with worsening of her pain and ROM limitations; therefore worsening of her functional abilities with ADLs (hair care, carrying groceries, putting away dishes , lifting of objects from fridge, making bed & driving). 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 She also may have soft tissue restrictions and a mechanical dysfunction that is limiting her joint mobility . The pt also has a visible mechanical dysfunction of her spine that may hinder her progress to recovery. She has atrophy of her R Deltoids and appears to have atrophy of her scapular stabilizers. She has definite weakness of her R rotator cuff muscles. The pt will benefit from skilled physical therapy to improve the function of her RUE. Physical Therapy Plan Frequency and Duration Frequency of Treatment 2x/Week Duration of Treatment 8 weeks Plan of Care Start Date 12/26/19 Plan of Care End Date 02/24/20 Next Visit Focus/Plan Next Note Type Treatment Note Next Visit Plan `Review HEP and add isometric and active ER/IR with approximation to the GHJ; and progress scapular stab strengthening. tion 1 & 3 of Apley Scratch Test. `Progress towards sidelying AROM, `Wall shoulder AROM and other [facility] ex's, `Tarik when appropriate for possible home application. Plan of Care Dates Plan of Care Start Date 12/26/19 Plan of Care End Date 02/24/20 Electronically Signed by: Marilyn Izaguirre, PT 12/26/19 [id number] Please Sign and Return: I have reviewed this Plan of Care and certify that the skilled therapy services above are required to meet the patient?s needs. Physician Signature Date Printed Name and Credentials Clinical Instructor Signature Printed Name and Credentials
--- NOTE | 2019-12-31 16:49 | PT.OTN ---
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 She returns after a 3 month interruption with worsening symptoms of pain and mobility but similar pain complaints. Previous report was that both her arms hurt, but specifically the R arm where she reports constant pain. She decided to get therapy having an x-ray of the R shoulder with findings that she had R shoulder osteoarthritis. Patient had a heart attack and a stroke in 2016 and since then she feels as if she had lost a lot of strength along with fine motor activities. She reports continued difficulty opening anything, inability to lift a jug of orange juice or milk, inability to reach up any more - especially to the second shelf in her cupboard. She says she needs both arms to get anything out of the fridge . She previously reported sleeping is okay - she can sleep on both sides but the pain does sometimes keep her awake. She is taking Tylenol Super Strength - 2 in morning and 2 at night. The pain seems to spread by her collar bone, down the back at times, and always going down the arm. She reports an 8-9/10 pain on a bad day - she will just wake up with it bad without a correlation to any activity. Currently she has a 5-6/10 pain in R shoulder. She has trouble buttoning and zipping because she doesn't seem to have the strength to pull it. She has been to PT a few years ago for her shoulder but stopped because she went on vacation. She is not really active at home. Her and son live with her currently and her son helps with getting objects from a tall cupboard. She likes to walk, cook, and do computer stuff. 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 Also a history of a sore on L leg from November-June that did not heal and she had to go to Wound Care clinic. Prior Treatments and Tests PT in past for shoulder Posterior R hip replacement X-ray of R shoulder Treatment Goals Patient/Caregiver Goals Remains same: she would like good use of both arms - reaching out to pull car door closed; being able to comb back of hair, reaching and putting things away, increase strength; picking up groceries - every day things - need help making the bed. Driving. 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 baptism Current Functional Impairments (Reported) Functional Limitations- ADL's cannot sleep at times due to pain Functional Limitations- Mobility/Gait Unable to reach behind head or lift things overhead Functional Limitations- Recreation/ Doesn't feel like going out Hobbies because she is hurting Personal Factors Other Personal Factors That May Effect Arthritis Therapy/Recovery Blood Pressure Past Falls History of Heart Attack and Stroke (2016) Neuropathy Osteopenia PT-OP-C Subjective Start: 09/30/19 07:24 Freq: Status: Active Protocol: Document 12/31/19 16:31 HH (Rec: 12/31/19 16:49 HH [email or web address]) OP-PT Subjective Patient Comments Patient Comments My shoulder is very achy and sore after i do my exercises every time PT-OP-E Functional Tests Start: 09/30/19 15:22 Freq: Status: Active Protocol: Document 12/26/19 15:17 LRN (Rec: 12/26/19 17:14 LRN [id number]) Functional Tests Apley's Scratch Test Action 2- Left Not able to lift arm overhead Action 2- Right Not able to lift arm overhead PT-OP-J Posture/Palpation/Skin Start: 09/30/19 07:24 Freq: Status: Active Protocol: Document 12/26/19 15:17 LRN (Rec: 12/26/19 17:14 LRN [id number]) Posture Evaluation Position Sitting Evaluation View Posterior Head/C-Spine Posture Side Bent Right T-Spine Posture Increased Kyphosis Shoulder Posture (L) Rounded,(R) Rounded Weight Distribution Weight Shifted Left Standing Head/C-Spine Posture Flexed Palpation Assessment Location Upper Traps Palpation Location Upper Trap, Supraspinatus, Infraspinatus Palpation Findings Tenderness One Palpation Location Primarily right lateral shoulder, general diffuse shoulder region Palpation Findings Tenderness Palpation Details tenderness at the supraspinatus insertion laterally on the right, general tenderness to palpation over the lateral right shoulder PT-OP-K Range of Motion Start: 09/30/19 07:24 Freq: Status: Active Protocol: Document 12/26/19 15:17 LRN (Rec: 12/26/19 17:14 LRN [id number]) Shoulder Goniometric Range of Motion Shoulder Right Passive Testing Position Supine Flexion 90 Abduction 65 External Rotation at 0 degrees Abduction 12 Internal Rotation 20 Left Passive Testing Position Supine Flexion 30 Abduction 18 External Rotation at 0 degrees Abduction 12 Internal Rotation 50 Left Testing Position Sitting Flexion 83 Abduction 40 External Rotation at 0 degrees Abduction 20 Internal Rotation 70 Right Testing Position Sitting Flexion 50 Abduction 25 External Rotation at 0 degrees Abduction 5 Internal Rotation 70 PT-OP-L Special Tests Start: 09/30/19 07:24 Freq: Status: Active Protocol: Document 12/26/19 15:17 LRN (Rec: 12/26/19 17:32 LRN [id number]) Special Tests Shoulder Special Tests IRand Extension Test Results + Comments Pain with motion in R arm - less motion R compared to L ER and Abduction Test Results + on R side - unable to touch behind head Comments Patient can touch R ear while side bending head to R PT-OP-M Strength Start: 09/30/19 07:24 Freq: Status: Active Protocol: Document 12/26/19 15:17 LRN (Rec: 12/26/19 17:14 LRN [id number]) Shoulder Strength Shoulder Manual Muscle Testing Left Flexion 2 Poor Abduction (C5) 2 Poor External Rotation 1 Trace Internal Rotation 2+ Poor+ Right Flexion 2- Poor- Abduction (C5) 2- Poor- External Rotation 2- Poor- Internal Rotation 2- Poor- Hand Monument Installer/Pinch Strength Hand Strength Left Comments 3 trials: 2kg, 3kg, 2 kgs. Right Comments 3 trials: 2kg, 2kg, 1kg. PT-OP-Q Treatments Start: 09/30/19 07:24 Freq: Status: Active Protocol: Document 12/31/19 16:31 HH (Rec: 12/31/19 16:49 HH [email or web address]) Therapeutic Exercises Sidelying Exercises PROM Sidelying Exercise Name Abd and flexion Side right Reps/Minutes 8 mins Comments therapist one hand on R scap and one hand on elbow deep breathing Sidelying Exercise Name sL on L side with 2 pillows underneath L lateral trunk Side right Equipment Used 2pillows Reps/Minutes 6 mins Comments to faciliate L lateral flexion Manual Therapy Treatment Soft Tissue Mobilization RTC Mobilization Type Myofascial Release,Sustained Pressure,Trigger Point Release Intensity/Depth Moderate Body Position Sidelying Comments moderate pressure at infrapsinatus Joint Mobilizations GH mob Joint R and L shld Direction inf/ post Grade II Body Position Hooklying Manual Techniques Deep breathing ex Body Position Sidelying Reps/Duration 12 mins Comments one hand on R scap and one hand on R pelvis girdle to facilitate L lateral trunk fexion, along with inhalation MWM Type Approximation of R GHJ during shoulder ER/IR with elbow by side Body Location Bob GHJ. Body Position Sitting Reps/Duration 5' Comments Pt needed training for appropriate amount of approximation in coordination with proper posturing and elimination of pain with active shoulder ER/IR. Much physical and verbal cuing needed. PT-OP-R Modalities Start: 09/30/19 07:24 Freq: Status: Active Protocol: Document 09/30/19 09:45 EG (Rec: 09/30/19 15:50 EG [email or web address]) Hot Pack/Cold Pack Treatment Hot Pack Location R and L GHJ Patient Position Supine Treatment Duration (minutes) 15 Patient Tolerance Good PT-OP-T Assessment and Plan Start: 09/30/19 07:24 Freq: Status: Active Protocol: Document 12/31/19 16:31 HH (Rec: 12/31/19 16:49 HH [email or web address]) Physical Therapy Assessment Goals Four Impairment Functional Mobility Short Term Goal (STG) Patient will increase ability to reach overhead with R arm and reach behind head to wash hair in shower with no more than 3/10 pain in 4 weeks. STG Duration 4 weeks (01/20/20) Back Closer Goal (LTG) Patient will increase ability to reach overhead to 2nd cupboard in house and take cup out with no increase in pain in 8 weeks. LTG Duration 8 weeks (02/24/20). 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 STG Duration 4 weeks (01/20/20) Fpc Goal (LTG) Patient will be able to cherry picker operator orange juice jug from refrigerator with R arm with no increase in 2/10 pain in 8 weeks. (11/25/19: Able to lift with both arms). LTG Duration 8 weeks (02/24/20) Two Impairment ROM Short Term Goal (STG) Patient will increase active R shoulder flexion to 110 degrees and active R shoulder abduction to 110 degrees with <3/10 pain in 4 weeks. STG Duration 4 weeks (01/20/20) Back Closer Goal (LTG) Patient will be able to perform all overhead household tasks independently with no more than 2/10 pain in 8 weeks . LTG Duration 8 weeks (02/24/20) One Impairment decreased shoulder ROM Back Closer Goal (LTG) Improve pain free shoulder ROM to WFL allowing Tessie to comb her hair and put on her necklace LTG Duration 8 weeks (02/24/20) Assessment Summary Assessment This is the first time for this PT to work with Tessie. Noticed pt has a significant R lumbar L thoracic scoliosis whose entire R lateral line is compressed. Focused on increasing R lateral line flexibility today and Added L lateral trunk flexion with inhalation for HEP. Physical Therapy Plan Next Visit Focus/Plan Next Note Type Treatment Note Next Visit Plan `Review HEP and add isometric and active ER/IR with approximation to the GHJ; and progress scapular stab strengthening. tion 1 & 3 of Apley Scratch Test. `Progress towards sidelying AROM, `Wall shoulder AROM and other CKC ex's, `Tarik when appropriate for possible home application.
--- NOTE | 2020-01-06 17:38 | PT.OTN ---
Current Diagnoses Primary osteoarthritis, right shoulder (01/06/20) Pain in right shoulder (01/06/20) Pain in left shoulder (01/06/20) Muscle weakness (generalized) (01/06/20) Physical Therapy Treatment Note PT-OP-A Visit Information Start: 09/30/19 07:24 Freq: Status: Active Protocol: Document 01/06/20 14:14 LRN (Rec: 01/06/20 15:04 LRN [id number]) Out-Patient Physical Therapy Visit Information Visit Information Visit Type Treatment Note Visit Start Time 14:14 Visit Stop Time 15:02 Total Visit Minutes 48 Visit Number 6 Evaluation Information Evaluation Date 09/30/19 Precautions Precautions Osteopenia, possible Osteoporosis Neuropathy OK, Hx of angioplasty R GHJ arthritis Essential HTN PT-OP-B Current Condition Start: 09/30/19 07:24 Freq: Status: Active Protocol: Document 12/26/19 15:17 LRN (Rec: 12/26/19 17:32 LRN [id number]) Current Condition History of Current Condition Onset Date Gradual increase in pain since 2016 Current Complaints Pain in bilateral arms, especially the R arm History of Current Condition Pt has had her R shoulder rehabilitation interrupted due to COVID-19 pandemic. She returns after a 3 month interruption with worsening symptoms of pain and mobility but similar pain complaints. Previous report was that both her arms hurt, but specifically the R arm where she reports constant pain. She decided to get therapy having an x-ray of the R shoulder with findings that she had R shoulder osteoarthritis. Patient had a heart attack and a stroke in 2016 and since then she feels as if she had lost a lot of strength along with fine motor activities. She reports continued difficulty opening anything, inability to lift a jug of orange juice or milk, inability to reach up any more - especially to the second shelf in her cupboard. She says she needs both arms to get anything out of the fridge . She previously reported sleeping is okay - she can sleep on both sides but the pain does sometimes keep her awake. She is taking Tylenol Super Strength - 2 in morning and 2 at night. The pain seems to spread by her collar bone, down the back at times, and always going down the arm. She reports an 8-9/10 pain on a bad day - she will just wake up with it bad without a correlation to any activity. Currently she has a 5-6/10 pain in R shoulder. She has trouble buttoning and zipping because she doesn't seem to have the strength to pull it. She has been to PT a few years ago for her shoulder but stopped because she went on vacation. She is not really active at home. Her and son live with her currently and her son helps with getting objects from a tall cupboard. She likes to walk, cook, and do computer stuff. Tying quilts for alevism . 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 Also a history of a sore on L leg from November-June that did not heal and she had to go to Wound Care clinic. Prior Treatments and Tests PT in past for shoulder Posterior R hip replacement X-ray of R shoulder Treatment Goals Patient/Caregiver Goals Remains same: she would like good use of both arms - reaching out to pull car door closed; being able to comb back of hair, reaching and putting things away, increase strength; picking up groceries - every day things - need help making the bed. Driving. 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 alevism Current Functional Impairments (Reported) Functional Limitations- ADL's cannot sleep at times due to pain Functional Limitations- Mobility/Gait Unable to reach behind head or lift things overhead Functional Limitations- Recreation/ Doesn't feel like going out Hobbies because she is hurting Personal Factors Other Personal Factors That May Effect Arthritis Therapy/Recovery Blood Pressure Past Falls History of Heart Attack and Stroke (2015) Neuropathy Osteopenia PT-OP-C Subjective Start: 09/30/19 07:24 Freq: Status: Active Protocol: Document 01/06/20 14:14 LRN (Rec: 01/06/20 15:04 LRN [id number]) OP-PT Subjective Patient Comments Patient Comments States the evening of the last session she had increased pain in the entire R arm. When she woke the next day she was able to move her arm upward more. The 2nd day after her condition was the same as usual. Today it is back to typical. She was not able to position herself like Luke did because her bed is too soft. She noted some burning pain in the R arm at one point after the last session. Today no burning. Today sore, hurts. PT-OP-E Functional Tests Start: 09/30/19 15:22 Freq: Status: Active Protocol: Document 12/26/19 15:17 LRN (Rec: 12/26/19 17:14 LRN [id number]) Functional Tests Apley's Scratch Test Action 2- Left Not able to lift arm overhead Action 2- Right Not able to lift arm overhead PT-OP-J Posture/Palpation/Skin Start: 09/30/19 07:24 Freq: Status: Active Protocol: Document 12/26/19 15:17 LRN (Rec: 12/26/19 17:14 LRN [id number]) Posture Evaluation Position Sitting Evaluation View Posterior Head/C-Spine Posture Side Bent Right T-Spine Posture Increased Kyphosis Shoulder Posture (L) Rounded,(R) Rounded Weight Distribution Weight Shifted Left Standing Head/C-Spine Posture Flexed Palpation Assessment Location Upper Traps Palpation Location Upper Trap, Supraspinatus, Infraspinatus Palpation Findings Tenderness One Palpation Location Primarily right lateral shoulder, general diffuse shoulder region Palpation Findings Tenderness Palpation Details tenderness at the supraspinatus insertion laterally on the right, general tenderness to palpation over the lateral right shoulder PT-OP-K Range of Motion Start: 09/30/19 07:24 Freq: Status: Active Protocol: Document 12/26/19 15:17 LRN (Rec: 12/26/19 17:14 LRN [id number]) Shoulder Goniometric Range of Motion Shoulder Right Passive Testing Position Supine Flexion 90 Abduction 65 External Rotation at 0 degrees Abduction 12 Internal Rotation 20 Left Passive Testing Position Supine Flexion 30 Abduction 18 External Rotation at 0 degrees Abduction 12 Internal Rotation 50 Left Testing Position Sitting Flexion 83 Abduction 40 External Rotation at 0 degrees Abduction 20 Internal Rotation 70 Right Testing Position Sitting Flexion 50 Abduction 25 External Rotation at 0 degrees Abduction 5 Internal Rotation 70 PT-OP-L Special Tests Start: 09/30/19 07:24 Freq: Status: Active Protocol: Document 12/26/19 15:17 LRN (Rec: 12/26/19 17:32 LRN [id number]) Special Tests Shoulder Special Tests IRand Extension Test Results + Comments Pain with motion in R arm - less motion R compared to L ER and Abduction Test Results + on R side - unable to touch behind head Comments Patient can touch R ear while side bending head to R PT-OP-M Strength Start: 09/30/19 07:24 Freq: Status: Active Protocol: Document 12/26/19 15:17 LRN (Rec: 12/26/19 17:14 LRN [id number]) Shoulder Strength Shoulder Manual Muscle Testing Left Flexion 2 Poor Abduction (C5) 2 Poor External Rotation 1 Trace Internal Rotation 2+ Poor+ Right Flexion 2- Poor- Abduction (C5) 2- Poor- External Rotation 2- Poor- Internal Rotation 2- Poor- Hand Productivity Engineer/Pinch Strength Hand Strength Left Comments 3 trials: 2kg, 3kg, 2 kgs. Right Comments 3 trials: 2kg, 2kg, 1kg. PT-OP-Q Treatments Start: 09/30/19 07:24 Freq: Status: Active Protocol: Document 01/06/20 14:14 LRN (Rec: 01/06/20 15:04 LRN [id number]) Therapeutic Exercises Sidelying Exercises PROM Sidelying Exercise Name Abd and flexion Side right Reps/Minutes 5 mins Comments therapist one hand on R scap and one hand on elbow deep breathing Sidelying Exercise Name sL on L side with 1 pillows underneath L lateral trunk Side right Equipment Used 1 pillow Reps/Minutes 5 mins Comments to facilitate L lateral flexion Sitting Exercises L sided row Sitting Exercise Name L sided row with Isometric hold Side left Reps/Minutes 5 hold x 10 RTC Isometric Sitting Exercise Name RTC isometric positioned with approximation given to GHJ Side right Reps/Minutes 15' Comments Extra time taken to determine proper positioning to ex w/o pain. Thoracic Extension on chair Sitting Exercise Name Thoracic Ext verbal review. Reps/Minutes 2' Manual Therapy Treatment Soft Tissue Mobilization RTC Body Location R Thoracic paraspinals/upper lateral back Mobilization Type Myofascial Release Intensity/Depth Superficial to Moderate Body Position Sidelying Manual Techniques MWM Type Approximation of R GHJ during shoulder ER/IR with elbow by side Body Location Jace GHJ. Body Position Sitting Reps/Duration 5' Comments Pt needed training for appropriate amount of approximation in coordination with proper posturing and elimination of pain with active shoulder ER/IR. Much physical and verbal cuing needed. Self-Care/Home Management Treatment Education Patient Education Home Exercise Program Activities Self-Care/Home Management Activities HEP written, reviewed and issued to patient. Reviewed extensively with pt for wording that would allow pt to understand and follow directions for the exercises. HEP: Scapular Depression with T-Band; L sided row; extensive verbal review of isometric R shoulder ER & EXT. Problem solving needed to help pt identify how to set herself up to allow approximation of the shoulder joint during the exercises. Her current HEP was reviewed with repetitious learning of 1 ) jace scapular rows, 2) shoulder rolls, 3) cali shoulder flex/ext on right and 4) seated thoracic extension. Reviewed self positional passive stretch to help minimize scoliosis with pillow under T-L region in L sidelie . PT-OP-R Modalities Start: 09/30/19 07:24 Freq: Status: Active Protocol: Document 09/30/19 09:45 EG (Rec: 09/30/19 15:50 EG [email or web address]) Hot Pack/Cold Pack Treatment Hot Pack Location R and L GHJ Patient Position Supine Treatment Duration (minutes) 15 Patient Tolerance Good PT-OP-T Assessment and Plan Start: 09/30/19 07:24 Freq: Status: Active Protocol: Document 01/06/20 14:14 LRN (Rec: 01/06/20 15:04 LRN [id number]) Physical Therapy Assessment Goals Four Impairment Functional Mobility Short Term Goal (STG) Patient will increase ability to reach overhead with R arm and reach behind head to wash hair in shower with no more than 3/10 pain in 4 weeks. STG Duration 4 weeks (01/20/20) Mcfp Goal (LTG) Patient will increase ability to reach overhead to 2nd cupboard in house and take cup out with no increase in pain in 8 weeks. LTG Duration 8 weeks (02/24/20). Three Impairment Strength Short Term Goal (STG) Patient will increase bilateral child care cook strength with hand held dynamometer to >8 kg in 4 weeks. 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 (11/25/19: Able to lift with both arms). LTG Duration 8 weeks (02/24/20) Two Impairment ROM Short Term Goal (STG) Patient will increase active R shoulder flexion to 110 degrees and active R shoulder abduction to 110 degrees with <3/10 pain in 4 weeks. STG Duration 4 weeks (01/20/20) Mcfp Goal (LTG) Patient will be able to perform all overhead household tasks independently with no more than 2/10 pain in 8 weeks . LTG Duration 8 weeks (02/24/20) One Impairment decreased shoulder ROM Mcfp Goal (LTG) Improve pain free shoulder ROM to WFL allowing Tessie to comb her hair and put on her necklace LTG Duration 8 weeks (02/24/20) Progress Towards Goals Progress Comments No significant change with mobility. Impingement type jace (R>L) shoulder pain limiting ability to progress shoulder flex mobility. Assessment Summary Assessment Pt having difficulty copying positioning for L lateral thoracic flexibility ex at home. Assess if pt able to reproduce positional stretch. Pt appears to need written handouts and repetitious learning to do ex's at home. Pt posture appeared improved after stretching, but pain in RUE remained about the same. Physical Therapy Plan Frequency and Duration Frequency of Treatment 2x/Week Duration of Treatment 8 weeks Plan of Care Start Date 12/26/19 Plan of Care End Date 02/24/20 Next Visit Focus/Plan Next Note Type Treatment Note Next Visit Plan `Review HEP and add active ER/ IR with approximation to the GHJ if tolerated. `progress scapular stab strengthening. `Check 1 & 3 of Apley Scratch Test. `Progress towards sidelying AROM, `Wall shoulder AROM and other CKC ex's, `Tarik when appropriate for possible home application.
--- NOTE | 2020-01-08 16:22 | PT.OTN ---
Current Diagnoses Primary osteoarthritis, right shoulder (01/08/20) Pain in right shoulder (01/08/20) Pain in left shoulder (01/08/20) Muscle weakness (generalized) (01/08/20) Physical Therapy Treatment Note PT-OP-A Visit Information Start: 09/30/19 07:24 Freq: Status: Active Protocol: Document 01/08/20 13:47 HH (Rec: 01/08/20 16:20 HH [id number]) Out-Patient Physical Therapy Visit Information Visit Information Visit Type Treatment Note Visit Start Time 13:48 Visit Stop Time 14:30 Total Visit Minutes 42 Visit Number 7 PT-OP-B Current Condition Start: 09/30/19 07:24 Freq: Status: Active Protocol: Document 12/26/19 15:17 LRN (Rec: 12/26/19 17:32 LRN [id number]) Current Condition History of Current Condition Onset Date Gradual increase in pain since 2016 Current Complaints Pain in bilateral arms, especially the R arm History of Current Condition Pt has had her R shoulder rehabilitation interrupted due to COVID-19 pandemic. She returns after a 3 month interruption with worsening symptoms of pain and mobility but similar pain complaints. Previous report was that both her arms hurt, but specifically the R arm where she reports constant pain. She decided to get therapy having an x-ray of the R shoulder with findings that she had R shoulder osteoarthritis. Patient had a heart attack and a stroke in 2016 and since then she feels as if she had lost a lot of strength along with fine motor activities. She reports continued difficulty opening anything, inability to lift a jug of orange juice or milk, inability to reach up any more - especially to the second shelf in her cupboard. She says she needs both arms to get anything out of the fridge . She previously reported sleeping is okay - she can sleep on both sides but the pain does sometimes keep her awake. She is taking Tylenol Super Strength - 2 in morning and 2 at night. The pain seems to spread by her collar bone, down the back at times, and always going down the arm. She reports an 8-9/10 pain on a bad day - she will just wake up with it bad without a correlation to any activity. Currently she has a 5-6/10 pain in R shoulder. She has trouble buttoning and zipping because she doesn't seem to have the strength to pull it. She has been to PT a few years ago for her shoulder but stopped because she went on vacation. She is not really active at home. Her and son live with her currently and her son helps with getting objects from a tall cupboard. She likes to walk, cook, and do computer stuff. 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 Also a history of a sore on L leg from November-June that did not heal and she had to go to Wound Care clinic. Prior Treatments and Tests PT in past for shoulder Posterior R hip replacement X-ray of R shoulder Treatment Goals Patient/Caregiver Goals Remains same: she would like good use of both arms - reaching out to pull car door closed; being able to comb back of hair, reaching and putting things away, increase strength; picking up groceries - every day things - need help making the bed. Driving. 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 [employer] Current Functional Impairments (Reported) Functional Limitations- ADL's cannot sleep at times due to pain Functional Limitations- Mobility/Gait Unable to reach behind head or lift things overhead Functional Limitations- Recreation/ Doesn't feel like going out Hobbies because she is hurting Personal Factors Other Personal Factors That May Effect Arthritis Therapy/Recovery Blood Pressure Past Falls History of Heart Attack and Stroke (2016) Neuropathy Osteopenia PT-OP-C Subjective Start: 09/30/19 07:24 Freq: Status: Active Protocol: Document 01/08/20 16:21 HH (Rec: 01/08/20 16:22 HH [id number]) OP-PT Subjective Patient Comments Patient Comments My shoulder still get sore all the time so i do my exercises at nighttime. Patient Reported Progress Same PT-OP-E Functional Tests Start: 09/30/19 15:22 Freq: Status: Active Protocol: Document 12/26/19 15:17 LRN (Rec: 12/26/19 17:14 LRN [id number]) Functional Tests Apley's Scratch Test Action 2- Left Not able to lift arm overhead Action 2- Right Not able to lift arm overhead PT-OP-J Posture/Palpation/Skin Start: 09/30/19 07:24 Freq: Status: Active Protocol: Document 12/26/19 15:17 LRN (Rec: 12/26/19 17:14 LRN [id number]) Posture Evaluation Position Sitting Evaluation View Posterior Head/C-Spine Posture Side Bent Right T-Spine Posture Increased Kyphosis Shoulder Posture (L) Rounded,(R) Rounded Weight Distribution Weight Shifted Left Standing Head/C-Spine Posture Flexed Palpation Assessment Location Upper Traps Palpation Location Upper Trap, Supraspinatus, Infraspinatus Palpation Findings Tenderness One Palpation Location Primarily right lateral shoulder, general diffuse shoulder region Palpation Findings Tenderness Palpation Details tenderness at the supraspinatus insertion laterally on the right, general tenderness to palpation over the lateral right shoulder PT-OP-K Range of Motion Start: 09/30/19 07:24 Freq: Status: Active Protocol: Document 12/26/19 15:17 LRN (Rec: 12/26/19 17:14 LRN [id number]) Shoulder Goniometric Range of Motion Shoulder Right Passive Testing Position Supine Flexion 90 Abduction 65 External Rotation at 0 degrees Abduction 12 Internal Rotation 20 Left Passive Testing Position Supine Flexion 30 Abduction 18 External Rotation at 0 degrees Abduction 12 Internal Rotation 50 Left Testing Position Sitting Flexion 83 Abduction 40 External Rotation at 0 degrees Abduction 20 Internal Rotation 70 Right Testing Position Sitting Flexion 50 Abduction 25 External Rotation at 0 degrees Abduction 5 Internal Rotation 70 PT-OP-L Special Tests Start: 09/30/19 07:24 Freq: Status: Active Protocol: Document 12/26/19 15:17 LRN (Rec: 12/26/19 17:32 LRN [id number]) Special Tests Shoulder Special Tests IRand Extension Test Results + Comments Pain with motion in R arm - less motion R compared to L ER and Abduction Test Results + on R side - unable to touch behind head Comments Patient can touch R ear while side bending head to R PT-OP-M Strength Start: 09/30/19 07:24 Freq: Status: Active Protocol: Document 12/26/19 15:17 LRN (Rec: 12/26/19 17:14 LRN [id number]) Shoulder Strength Shoulder Manual Muscle Testing Left Flexion 2 Poor Abduction (C5) 2 Poor External Rotation 1 Trace Internal Rotation 2+ Poor+ Right Flexion 2- Poor- Abduction (C5) 2- Poor- External Rotation 2- Poor- Internal Rotation 2- Poor- Hand Journal Box Inspector/Pinch Strength Hand Strength Left Comments 3 trials: 2kg, 3kg, 2 kgs. Right Comments 3 trials: 2kg, 2kg, 1kg. PT-OP-Q Treatments Start: 09/30/19 07:24 Freq: Status: Active Protocol: Document 01/08/20 13:47 HH (Rec: 01/08/20 16:20 HH [id number]) Therapeutic Exercises Sidelying Exercises PROM Sidelying Exercise Name Abd and flexion Side right Reps/Minutes 5 mins Comments therapist one hand on R scap and one hand on elbow deep breathing Sidelying Exercise Name sL on L side with 1 pillows underneath L lateral trunk Side right Equipment Used 1 pillow Reps/Minutes 5 mins Comments to faciliate L lateral flexion Sitting Exercises shoulder rolls Sitting Exercise Name forward and backward Side bilateral Reps/Minutes 30 secs each x 4 Comments pain noted with backward rolling L sided row Sitting Exercise Name L sided row with Isometric hold Side left Reps/Minutes 5 hold x 10 RTC Isometric Sitting Exercise Name RTC isometric positioned with approximation given to GHJ Side right Reps/Minutes 15' Comments Extra time taken to determine proper positioning to ex w/o pain. Thoracic Extension on chair Sitting Exercise Name Thoracic Ext verbal review. Reps/Minutes 2' Manual Therapy Treatment Soft Tissue Mobilization RTC Body Location R Thoracic paraspinals/upper lateral back Mobilization Type Myofascial Release Intensity/Depth Superficial to Moderate Body Position Sidelying Upper Traps, Levator Scap Mobilization Type Sustained Pressure,Trigger Point Release Intensity/Depth Superficial Body Position Sidelying Comments pt reports of radiating pain for top of R deltoid with pressure on proximal upper trap and levator scap. Pain is gone without pressure. Manual Techniques MWM Type Approximation of R GHJ during shoulder ER/IR with elbow by side Body Location Bob GHJ. Body Position Sitting Reps/Duration 5' Comments Pt needed training for appropriate amount of approximation in coordination with proper posturing and elimination of pain with active shoulder ER/IR. Much physical and verbal cuing needed. PT-OP-R Modalities Start: 09/30/19 07:24 Freq: Status: Active Protocol: Document 09/30/19 09:45 EG (Rec: 09/30/19 15:50 EG [id number]) Hot Pack/Cold Pack Treatment Hot Pack Location R and L GHJ Patient Position Supine Treatment Duration (minutes) 15 Patient Tolerance Good PT-OP-T Assessment and Plan Start: 09/30/19 07:24 Freq: Status: Active Protocol: Document 01/08/20 13:47 HH (Rec: 01/08/20 16:20 HH [id number]) Physical Therapy Assessment Goals Four Impairment Functional Mobility Short Term Goal (STG) Patient will increase ability to reach overhead with R arm and reach behind head to wash hair in shower with no more than 3/10 pain in 4 weeks. STG Duration 4 weeks (01/20/20) Human Resources Designate Goal (LTG) Patient will increase ability to reach overhead to 2nd cupboard in house and take cup out with no increase in pain in 8 weeks. LTG Duration 8 weeks (02/24/20). Three Impairment Strength Short Term Goal (STG) Patient will increase bilateral data review specialist strength with hand held dynamometer to >8 kg in 4 weeks. STG Duration 4 weeks (01/20/20) Correction Goal (LTG) Patient will be able to belt picker orange juice jug from refrigerator with R arm with no increase in 2/10 pain in 8 weeks. (11/25/19: Able to lift with both arms). LTG Duration 8 weeks (02/24/20) Two Impairment ROM Short Term Goal (STG) Patient will increase active R shoulder flexion to 110 degrees and active R shoulder abduction to 110 degrees with <3/10 pain in 4 weeks. STG Duration 4 weeks (01/20/20) Correction Goal (LTG) Patient will be able to perform all overhead household tasks independently with no more than 2/10 pain in 8 weeks . LTG Duration 8 weeks (02/24/20) One Impairment decreased shoulder ROM Correction Goal (LTG) Improve pain free shoulder ROM to WFL allowing Tessie to comb her hair and put on her necklace LTG Duration 8 weeks (02/24/20) Assessment Summary Assessment Added manual therapy on R upper trap region today. pt reports of radiating pain for top of R deltoid with pressure on proximal upper trap and levator scap. Pain is gone without pressure which indicates possible nerve impingement as she stated she had limited L cervical rotation and lateral flexion. Spent time to review with her home exercise and pt excute them well without much cueing. Physical Therapy Plan Next Visit Focus/Plan Next Note Type Treatment Note Next Visit Plan `Review HEP and add active ER/ IR with approximation to the GHJ if tolerated. `progress scapular stab strengthening. `Check 1 & 3 of Apley Scratch Test. `Progress towards sidelying AROM, `Wall shoulder AROM and other CKC ex's, `Tarik when appropriate for possible home application.
--- NOTE | 2020-01-13 14:06 | PT.OTN ---
Current Diagnoses Primary osteoarthritis, right shoulder (01/13/20) Pain in right shoulder (01/13/20) Pain in left shoulder (01/13/20) Muscle weakness (generalized) (01/13/20) Physical Therapy Treatment Note PT-OP-A Visit Information Start: 09/30/19 07:24 Freq: Status: Active Protocol: Document 01/13/20 12:50 LRN (Rec: 01/13/20 13:38 LRN [id number]) Out-Patient Physical Therapy Visit Information Visit Information Visit Type Treatment Note Visit Start Time 12:50 Visit Stop Time 13:38 Total Visit Minutes 48 Visit Number 9 Evaluation Information Evaluation Date 09/30/19 Precautions Precautions Osteopenia, possible Osteoporosis Neuropathy NV, Hx of angioplasty R GHJ arthritis Essential HTN PT-OP-B Current Condition Start: 09/30/19 07:24 Freq: Status: Active Protocol: Document 12/26/19 15:17 LRN (Rec: 12/26/19 17:32 LRN [id number]) Current Condition History of Current Condition Onset Date Gradual increase in pain since 2016 Current Complaints Pain in bilateral arms, especially the R arm History of Current Condition Pt has had her R shoulder rehabilitation interrupted due to COVID-19 pandemic. She returns after a 3 month interruption with worsening symptoms of pain and mobility but similar pain complaints. Previous report was that both her arms hurt, but specifically the R arm where she reports constant pain. She decided to get therapy having an x-ray of the R shoulder with findings that she had R shoulder osteoarthritis. Patient had a heart attack and a stroke in 2016 and since then she feels as if she had lost a lot of strength along with fine motor activities. She reports continued difficulty opening anything, inability to lift a jug of orange juice or milk, inability to reach up any more - especially to the second shelf in her cupboard. She says she needs both arms to get anything out of the fridge . She previously reported sleeping is okay - she can sleep on both sides but the pain does sometimes keep her awake. She is taking Tylenol Super Strength - 2 in morning and 2 at night. The pain seems to spread by her collar bone, down the back at times, and always going down the arm. She reports an 8-9/10 pain on a bad day - she will just wake up with it bad without a correlation to any activity. Currently she has a 5-6/10 pain in R shoulder. She has trouble buttoning and zipping because she doesn't seem to have the strength to pull it. She has been to PT a few years ago for her shoulder but stopped because she went on vacation. She is not really active at home. Her and son live with her currently and her son helps with getting objects from a tall cupboard. She likes to walk, cook, and do computer stuff. 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 Also a history of a sore on L leg from November-June that did not heal and she had to go to Wound Care clinic. Prior Treatments and Tests PT in past for shoulder Posterior R hip replacement X-ray of R shoulder Treatment Goals Patient/Caregiver Goals Remains same: she would like good use of both arms - reaching out to pull car door closed; being able to comb back of hair, reaching and putting things away, increase strength; picking up groceries - every day things - need help making the bed. Driving. 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 [employer] Current Functional Impairments (Reported) Functional Limitations- ADL's cannot sleep at times due to pain Functional Limitations- Mobility/Gait Unable to reach behind head or lift things overhead Functional Limitations- Recreation/ Doesn't feel like going out Hobbies because she is hurting Personal Factors Other Personal Factors That May Effect Arthritis Therapy/Recovery Blood Pressure Past Falls History of Heart Attack and Stroke (2015) Neuropathy Osteopenia PT-OP-C Subjective Start: 09/30/19 07:24 Freq: Status: Active Protocol: Document 01/13/20 12:50 LRN (Rec: 01/13/20 13:38 LRN [id number]) OP-PT Subjective Patient Comments Patient Comments States her shoulder was sore after last session. States sore after each session. Pain with vs w/o approximation of the R shoulder during ex is PT-OP-E Functional Tests Start: 09/30/19 15:22 Freq: Status: Active Protocol: Document 12/26/19 15:17 LRN (Rec: 12/26/19 17:14 LRN [id number]) Functional Tests Apley's Scratch Test Action 2- Left Not able to lift arm overhead Action 2- Right Not able to lift arm overhead PT-OP-J Posture/Palpation/Skin Start: 09/30/19 07:24 Freq: Status: Active Protocol: Document 12/26/19 15:17 LRN (Rec: 12/26/19 17:14 LRN [id number]) Posture Evaluation Position Sitting Evaluation View Posterior Head/C-Spine Posture Side Bent Right T-Spine Posture Increased Kyphosis Shoulder Posture (L) Rounded,(R) Rounded Weight Distribution Weight Shifted Left Standing Head/C-Spine Posture Flexed Palpation Assessment Location Upper Traps Palpation Location Upper Trap, Supraspinatus, Infraspinatus Palpation Findings Tenderness One Palpation Location Primarily right lateral shoulder, general diffuse shoulder region Palpation Findings Tenderness Palpation Details tenderness at the supraspinatus insertion laterally on the right, general tenderness to palpation over the lateral right shoulder PT-OP-K Range of Motion Start: 09/30/19 07:24 Freq: Status: Active Protocol: Document 12/26/19 15:17 LRN (Rec: 12/26/19 17:14 LRN [id number]) Shoulder Goniometric Range of Motion Shoulder Right Passive Testing Position Supine Flexion 90 Abduction 65 External Rotation at 0 degrees Abduction 12 Internal Rotation 20 Left Passive Testing Position Supine Flexion 30 Abduction 18 External Rotation at 0 degrees Abduction 12 Internal Rotation 50 Left Testing Position Sitting Flexion 83 Abduction 40 External Rotation at 0 degrees Abduction 20 Internal Rotation 70 Right Testing Position Sitting Flexion 50 Abduction 25 External Rotation at 0 degrees Abduction 5 Internal Rotation 70 PT-OP-L Special Tests Start: 09/30/19 07:24 Freq: Status: Active Protocol: Document 12/26/19 15:17 LRN (Rec: 12/26/19 17:32 LRN [id number]) Special Tests Shoulder Special Tests IRand Extension Test Results + Comments Pain with motion in R arm - less motion R compared to L ER and Abduction Test Results + on R side - unable to touch behind head Comments Patient can touch R ear while side bending head to R PT-OP-M Strength Start: 09/30/19 07:24 Freq: Status: Active Protocol: Document 12/26/19 15:17 LRN (Rec: 12/26/19 17:14 LRN [id number]) Shoulder Strength Shoulder Manual Muscle Testing Left Flexion 2 Poor Abduction (C5) 2 Poor External Rotation 1 Trace Internal Rotation 2+ Poor+ Right Flexion 2- Poor- Abduction (C5) 2- Poor- External Rotation 2- Poor- Internal Rotation 2- Poor- Hand Isotope Hydrologist/Pinch Strength Hand Strength Left Comments 3 trials: 2kg, 3kg, 2 kgs. Right Comments 3 trials: 2kg, 2kg, 1kg. PT-OP-Q Treatments Start: 09/30/19 07:24 Freq: Status: Active Protocol: Document 01/13/20 12:50 LRN (Rec: 01/13/20 13:38 LRN [id number]) Therapeutic Exercises Supine Exercises Shldr ER/IR Supine Exercise Name Windshield Wipe w/pillow under arm. Side right Equipment Used Pillow under arm Reps/Minutes 10x 3 Chest press Supine Exercise Name Chest press ~29 deg's painfree range Side bilateral Resistance Cane Reps/Minutes 10 x 3 PROM Supine Exercise Name Shoulder flex stretch w/neural glides Side right Comments ROM 107 increased to 120 Sitting Exercises Scapular Depression Sitting Exercise Name Scapular Depression Side bilateral Reps/Minutes 10 x 2 shoulder rolls Sitting Exercise Name Quick Review Side bilateral L sided row Sitting Exercise Name L sided row with hold Side left Reps/Minutes 5 hold, 10 x 2 Comments Extra time for review of L side & for bilateral retraction Standing Exercises Small circles Standing Exercise Name Small arm circles (CW) w/lg red ball on plinth Side right Equipment Used Lg Red TBall/Plinth table Reps/Minutes 10x Comments Pt upper forearm in Deltoid was painful with no change with MWM. PT-OP-R Modalities Start: 09/30/19 07:24 Freq: Status: Active Protocol: Document 09/30/19 09:45 EG (Rec: 09/30/19 15:50 EG [id number]) Hot Pack/Cold Pack Treatment Hot Pack Location R and L GHJ Patient Position Supine Treatment Duration (minutes) 15 Patient Tolerance Good PT-OP-T Assessment and Plan Start: 09/30/19 07:24 Freq: Status: Active Protocol: Document 01/13/20 12:50 LRN (Rec: 01/13/20 13:38 LRN [id number]) Physical Therapy Assessment Goals Four Impairment Functional Mobility Short Term Goal (STG) Patient will increase ability to reach overhead with R arm and reach behind head to wash hair in shower with no more than 3/10 pain in 4 weeks. STG Duration 4 weeks (01/20/20) Sex Offender Treatment Professional Goal (LTG) Patient will increase ability to reach overhead to 2nd cupboard in house and take cup out with no increase in pain in 8 weeks. LTG Duration 8 weeks (02/24/20). Three Impairment Strength Short Term Goal (STG) Patient will increase bilateral rn visiting strength with hand held dynamometer to >8 kg in 4 weeks. STG Duration 4 weeks (01/20/20) Custodial Goal (LTG) Patient will be able to pick up driver orange juice jug from refrigerator with R arm with no increase in 2/10 pain in 8 weeks. (11/25/19: Able to lift with both arms). LTG Duration 8 weeks (02/24/20) Two Impairment ROM Short Term Goal (STG) Patient will increase active R shoulder flexion to 110 degrees and active R shoulder abduction to 110 degrees with <3/10 pain in 4 weeks. (01/13/20: R shoulder flex prior to increased pain is 78 deg's, was 75 deg's initially) STG Duration 4 weeks (01/20/20) Custodial Goal (LTG) Patient will be able to perform all overhead household tasks independently with no more than 2/10 pain in 8 weeks . LTG Duration 8 weeks (02/24/20) One Impairment decreased shoulder ROM Sex Offender Treatment Professional Goal (LTG) Improve pain free shoulder ROM to WFL allowing Tessie to comb her hair and put on her necklace. LTG Duration 8 weeks (02/24/20) Progress Towards Goals Progress Comments Sitting active R shoulder flex , prior to an increase in pain , is 78 deg's (initial was 75 deg's). Pt slow progress due to pain and hx of stroke. Pt shoulder hgts appear equal in hgt in sitting. Assessment Summary Assessment Pt conts to have c/o pain each therapy session. Pt is concerned she is not improving due to continued shoulder pain, bilaterally with R>L. Starting/ending level of pain in shoulders is 4-5/10 and with ex is 4-5/10; but pain with ex when approximation is given to the R GHJ = 3-4/10. R shoulder pain appears to be from lig laxity following stroke, L shoulder pain may be related to mechanical dysfunction of the spine. Physical Therapy Plan Frequency and Duration Frequency of Treatment 2x/Week Duration of Treatment 8 weeks Plan of Care Start Date 12/26/19 Plan of Care End Date 02/24/20 Next Visit Focus/Plan Next Note Type Treatment Note Next Visit Plan `Check 1 & 3 of Apley Scratch Test. `Review windshield wipe ex with approximation to the GHJ, chest press (~29dg), shldr flex stretch with neural glides (wrist sup/pron & elbow flex/ext). `progress scapular stab strengthening. `Progress towards sidelying AROM, `T-Ball or window: shoulder AROM and other CKC ex's, `Tarik when appropriate for possible home application.
--- NOTE | 2020-01-15 14:03 | PT.OTN ---
Current Diagnoses Primary osteoarthritis, right shoulder (01/15/20) Pain in right shoulder (01/15/20) Pain in left shoulder (01/15/20) Muscle weakness (generalized) (01/15/20) Physical Therapy Treatment Note PT-OP-A Visit Information Start: 09/30/19 07:24 Freq: Status: Active Protocol: Document 01/15/20 13:54 HH (Rec: 01/15/20 14:03 HH [email or web address]) Out-Patient Physical Therapy Visit Information Visit Information Visit Type Treatment Note Visit Start Time 13:00 Visit Stop Time 13:44 Total Visit Minutes 44 Visit Number 10 PT-OP-B Current Condition Start: 09/30/19 07:24 Freq: Status: Active Protocol: Document 12/26/19 15:17 LRN (Rec: 12/26/19 17:32 LRN [id number]) Current Condition History of Current Condition Onset Date Gradual increase in pain since 2016 Current Complaints Pain in bilateral arms, especially the R arm History of Current Condition Pt has had her R shoulder rehabilitation interrupted due to COVID-19 pandemic. She returns after a 3 month interruption with worsening symptoms of pain and mobility but similar pain complaints. Previous report was that both her arms hurt, but specifically the R arm where she reports constant pain. She decided to get therapy having an x-ray of the R shoulder with findings that she had R shoulder osteoarthritis. Patient had a heart attack and a stroke in 2016 and since then she feels as if she had lost a lot of strength along with fine motor activities. She reports continued difficulty opening anything, inability to lift a jug of orange juice or milk, inability to reach up any more - especially to the second shelf in her cupboard. She says she needs both arms to get anything out of the fridge . She previously reported sleeping is okay - she can sleep on both sides but the pain does sometimes keep her awake. She is taking Tylenol Super Strength - 2 in morning and 2 at night. The pain seems to spread by her collar bone, down the back at times, and always going down the arm. She reports an 8-9/10 pain on a bad day - she will just wake up with it bad without a correlation to any activity. Currently she has a 5-6/10 pain in R shoulder. She has trouble buttoning and zipping because she doesn't seem to have the strength to pull it. She has been to PT a few years ago for her shoulder but stopped because she went on vacation. She is not really active at home. Her and son live with her currently and her son helps with getting objects from a tall cupboard. She likes to walk, cook, and do computer stuff. 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 Also a history of a sore on L leg from November-June that did not heal and she had to go to [facility]ound Care clinic. Prior Treatments and Tests PT in past for shoulder Posterior R hip replacement X-ray of R shoulder Treatment Goals Patient/Caregiver Goals Remains same: she would like good use of both arms - reaching out to pull car door closed; being able to comb back of hair, reaching and putting things away, increase strength; picking up groceries - every day things - need help making the bed. Driving. 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 Current Functional Impairments (Reported) Functional Limitations- ADL's cannot sleep at times due to pain Functional Limitations- Mobility/Gait Unable to reach behind head or lift things overhead Functional Limitations- Recreation/ Doesn't feel like going out Hobbies because she is hurting Personal Factors Other Personal Factors That May Effect Arthritis Therapy/Recovery Blood Pressure Past Falls History of Heart Attack and Stroke (2016) Neuropathy Osteopenia PT-OP-C Subjective Start: 09/30/19 07:24 Freq: Status: Active Protocol: Document 01/15/20 13:54 HH (Rec: 01/15/20 14:03 HH [email or web address]) OP-PT Subjective Patient Comments Patient Comments Usha been doing my ex but for some reason my right shoulder hurts a lot after doing my shoulder raise with a bar last night so i didnt do anything after. PT-OP-E Functional Tests Start: 09/30/19 15:22 Freq: Status: Active Protocol: Document 12/26/19 15:17 LRN (Rec: 12/26/19 17:14 LRN [id number]) Functional Tests Gisseley's Scratch Test Action 2- Left Not able to lift arm overhead Action 2- Right Not able to lift arm overhead PT-OP-J Posture/Palpation/Skin Start: 09/30/19 07:24 Freq: Status: Active Protocol: Document 12/26/19 15:17 LRN (Rec: 12/26/19 17:14 LRN [id number]) Posture Evaluation Position Sitting Evaluation View Posterior Head/C-Spine Posture Side Bent Right T-Spine Posture Increased Kyphosis Shoulder Posture (L) Rounded,(R) Rounded Weight Distribution Weight Shifted Left Standing Head/C-Spine Posture Flexed Palpation Assessment Location Upper Traps Palpation Location Upper Trap, Supraspinatus, Infraspinatus Palpation Findings Tenderness One Palpation Location Primarily right lateral shoulder, general diffuse shoulder region Palpation Findings Tenderness Palpation Details tenderness at the supraspinatus insertion laterally on the right, general tenderness to palpation over the lateral right shoulder PT-OP-K Range of Motion Start: 09/30/19 07:24 Freq: Status: Active Protocol: Document 12/26/19 15:17 LRN (Rec: 12/26/19 17:14 LRN [id number]) Shoulder Goniometric Range of Motion Shoulder Right Passive Testing Position Supine Flexion 90 Abduction 65 External Rotation at 0 degrees Abduction 12 Internal Rotation 20 Left Passive Testing Position Supine Flexion 30 Abduction 18 External Rotation at 0 degrees Abduction 12 Internal Rotation 50 Left Testing Position Sitting Flexion 83 Abduction 40 External Rotation at 0 degrees Abduction 20 Internal Rotation 70 Right Testing Position Sitting Flexion 50 Abduction 25 External Rotation at 0 degrees Abduction 5 Internal Rotation 70 PT-OP-L Special Tests Start: 09/30/19 07:24 Freq: Status: Active Protocol: Document 12/26/19 15:17 LRN (Rec: 12/26/19 17:32 LRN [id number]) Special Tests Shoulder Special Tests IRand Extension Test Results + Comments Pain with motion in R arm - less motion R compared to L ER and Abduction Test Results + on R side - unable to touch behind head Comments Patient can touch R ear while side bending head to R PT-OP-M Strength Start: 09/30/19 07:24 Freq: Status: Active Protocol: Document 12/26/19 15:17 LRN (Rec: 12/26/19 17:14 LRN [id number]) Shoulder Strength Shoulder Manual Muscle Testing Left Flexion 2 Poor Abduction (C5) 2 Poor External Rotation 1 Trace Internal Rotation 2+ Poor+ Right Flexion 2- Poor- Abduction (C5) 2- Poor- External Rotation 2- Poor- Internal Rotation 2- Poor- Hand Senior Scrum Master/Pinch Strength Hand Strength Left Comments 3 trials: 2kg, 3kg, 2 kgs. Right Comments 3 trials: 2kg, 2kg, 1kg. PT-OP-Q Treatments Start: 09/30/19 07:24 Freq: Status: Active Protocol: Document 01/15/20 13:54 HH (Rec: 01/15/20 14:03 [email or web address]) Therapeutic Exercises Supine Exercises Shldr ER/IR Supine Exercise Name Windshield Wipe w/pillow under arm. Side right Equipment Used Pillow under arm Reps/Minutes 10x 3 PROM Supine Exercise Name Shoulder flex stretch w/neural glides Side right Comments ROM 107 increased to 120 Sitting Exercises taina Sitting Exercise Name shoulder flexion Side bilateral Reps/Minutes 4 mins Comments pt reports of minimal discomfort but able to control ROM forward and sideway reach Sitting Exercise Name assisted B shoulder flexion and abd Side bilateral Equipment Used SPC Reps/Minutes 6 mins Comments pt reports of minimal discomfort but able to control ROM Manual Therapy Treatment Soft Tissue Mobilization RTC Body Location R Thoracic paraspinals/upper lateral back Mobilization Type Myofascial Release Intensity/Depth Superficial to Moderate Body Position Sidelying Comments and bilateral pecs Joint Mobilizations joint approximation Joint R shoulder then L shoulder Grade II Body Position Supine Reps/Duration 6 mins Comments shoulder flexion + abd with joint approximation PT-OP-R Modalities Start: 09/30/19 07:24 Freq: Status: Active Protocol: Document 09/30/19 09:45 EG (Rec: 09/30/19 15:50 EG [id number]) Hot Pack/Cold Pack Treatment Hot Pack Location R and L GHJ Patient Position Supine Treatment Duration (minutes) 15 Patient Tolerance Good PT-OP-T Assessment and Plan Start: 09/30/19 07:24 Freq: Status: Active Protocol: Document 01/15/20 13:54 HH (Rec: 01/15/20 14:03 HH [email or web address]) Physical Therapy Assessment Goals Three Impairment Strength Short Term Goal (STG) 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 STG Duration 4 weeks (01/20/20) Half-Way Goal (LTG) Patient will be able to coal picker orange juice jug from refrigerator with R arm with no increase in 2/10 pain in 8 weeks. (11/25/19: Able to lift with both arms). LTG Duration 8 weeks (02/24/20) Two Impairment ROM Short Term Goal (STG) Patient will increase active R shoulder flexion to 110 degrees and active R shoulder abduction to 110 degrees with <3/10 pain in 4 weeks. (01/13/20: R shoulder flex prior to increased pain is 78 deg's, was 75 deg's initially) STG Duration 4 weeks (01/20/20) Half-Way Goal (LTG) Patient will be able to perform all overhead household tasks independently with no more than 2/10 pain in 8 weeks . LTG Duration 8 weeks (02/24/20) One Impairment decreased shoulder ROM Trimming Department Blocker Goal (LTG) Improve pain free shoulder ROM to WFL allowing Tessie to comb her hair and put on her necklace. LTG Duration 8 weeks (02/24/20) Assessment Summary Assessment Pt has a flare up from last night with shoulder flexion with a bar. Spent time educating patient on doing ROM ex right below pain threshold / 3 out of 10 pain scale. Also educated her on assisted ROM ex based. Pt showed minimal discomfort for [place] taina and seated forward and sideway reach with SPC today. Physical Therapy Plan Next Visit Focus/Plan Next Note Type Treatment Note Next Visit Plan `Check 1 & 3 of Apley Scratch Test. `Review windshield wipe ex with approximation to the GHJ, chest press (~29dg), shldr flex stretch with neural glides (wrist sup/pron & elbow flex/ext). `progress scapular stab strengthening. `Progress towards sidelying AROM, `T-Ball or window: shoulder AROM and other CKC ex's, `Taina when appropriate for possible home application.
--- NOTE | 2020-01-20 17:42 | PT.OTN ---
Current Diagnoses Primary osteoarthritis, right shoulder (01/20/20) Pain in right shoulder (01/20/20) Pain in left shoulder (01/20/20) Muscle weakness (generalized) (01/20/20) Physical Therapy Treatment Note PT-OP-A Visit Information Start: 09/30/19 07:24 Freq: Status: Active Protocol: Document 01/20/20 12:51 LRN (Rec: 01/20/20 13:43 LRN [id number]) Out-Patient Physical Therapy Visit Information Visit Information Visit Type Progress Note Visit Start Time 12:51 Visit Stop Time 13:43 Total Visit Minutes 52 Visit Number 11 Evaluation Information Evaluation Date 09/30/19 Precautions Precautions Osteopenia, possible Osteoporosis Neuropathy HI, Hx of angioplasty R GHJ arthritis Essential HTN PT-OP-B Current Condition Start: 09/30/19 07:24 Freq: Status: Active Protocol: Document 12/26/19 15:17 LRN (Rec: 12/26/19 17:32 LRN [id number]) Current Condition History of Current Condition Onset Date Gradual increase in pain since 2016 Current Complaints Pain in bilateral arms, especially the R arm History of Current Condition Pt has had her R shoulder rehabilitation interrupted due to COVID-19 pandemic. She returns after a 3 month interruption with worsening symptoms of pain and mobility but similar pain complaints. Previous report was that both her arms hurt, but specifically the R arm where she reports constant pain. She decided to get therapy having an x-ray of the R shoulder with findings that she had R shoulder osteoarthritis. Patient had a heart attack and a stroke in 2016 and since then she feels as if she had lost a lot of strength along with fine motor activities. She reports continued difficulty opening anything, inability to lift a jug of orange juice or milk, inability to reach up any more - especially to the second shelf in her cupboard. She says she needs both arms to get anything out of the fridge . She previously reported sleeping is okay - she can sleep on both sides but the pain does sometimes keep her awake. She is taking Tylenol Super Strength - 2 in morning and 2 at night. The pain seems to spread by her collar bone, down the back at times, and always going down the arm. She reports an 8-9/10 pain on a bad day - she will just wake up with it bad without a correlation to any activity. Currently she has a 5-6/10 pain in R shoulder. She has trouble buttoning and zipping because she doesn't seem to have the strength to pull it. She has been to PT a few years ago for her shoulder but stopped because she went on vacation. She is not really active at home. Her and son live with her currently and her son helps with getting objects from a tall cupboard. She likes to walk, cook, and do computer stuff. 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 Also a history of a sore on L leg from November-June that did not heal and she had to go to Wound Care clinic. Prior Treatments and Tests PT in past for shoulder Posterior R hip replacement X-ray of R shoulder Treatment Goals Patient/Caregiver Goals Remains same: she would like good use of both arms - reaching out to pull car door closed; being able to comb back of hair, reaching and putting things away, increase strength; picking up groceries - every day things - need help making the bed. Driving. 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 [employer] Current Functional Impairments (Reported) Functional Limitations- ADL's cannot sleep at times due to pain Functional Limitations- Mobility/Gait Unable to reach behind head or lift things overhead Functional Limitations- Recreation/ Doesn't feel like going out Hobbies because she is hurting Personal Factors Other Personal Factors That May Effect Arthritis Therapy/Recovery Blood Pressure Past Falls History of Heart Attack and Stroke (2016) Neuropathy Osteopenia PT-OP-C Subjective Start: 09/30/19 07:24 Freq: Status: Active Protocol: Document 01/20/20 12:51 LRN (Rec: 01/20/20 13:43 LRN [id number]) OP-PT Subjective Patient Comments Patient Comments Requests review of HEP. PT-OP-E Functional Tests Start: 09/30/19 15:22 Freq: Status: Active Protocol: Document 12/26/19 15:17 LRN (Rec: 12/26/19 17:14 LRN [id number]) Functional Tests Gisseley's Scratch Test Action 2- Left Not able to lift arm overhead Action 2- Right Not able to lift arm overhead PT-OP-J Posture/Palpation/Skin Start: 09/30/19 07:24 Freq: Status: Active Protocol: Document 12/26/19 15:17 LRN (Rec: 12/26/19 17:14 LRN [id number]) Posture Evaluation Position Sitting Evaluation View Posterior Head/C-Spine Posture Side Bent Right T-Spine Posture Increased Kyphosis Shoulder Posture (L) Rounded,(R) Rounded Weight Distribution Weight Shifted Left Standing Head/C-Spine Posture Flexed Palpation Assessment Location Upper Traps Palpation Location Upper Trap, Supraspinatus, Infraspinatus Palpation Findings Tenderness One Palpation Location Primarily right lateral shoulder, general diffuse shoulder region Palpation Findings Tenderness Palpation Details tenderness at the supraspinatus insertion laterally on the right, general tenderness to palpation over the lateral right shoulder PT-OP-K Range of Motion Start: 09/30/19 07:24 Freq: Status: Active Protocol: Document 01/20/20 12:51 LRN (Rec: 01/20/20 13:43 LRN [id number]) Shoulder Goniometric Range of Motion Shoulder Right Passive Shoulder ROM WFL No Testing Position Supine Flexion 125 PT-OP-L Special Tests Start: 09/30/19 07:24 Freq: Status: Active Protocol: Document 12/26/19 15:17 LRN (Rec: 12/26/19 17:32 LRN [id number]) Special Tests Shoulder Special Tests IRand Extension Test Results + Comments Pain with motion in R arm - less motion R compared to L ER and Abduction Test Results + on R side - unable to touch behind head Comments Patient can touch R ear while side bending head to R PT-OP-M Strength Start: 09/30/19 07:24 Freq: Status: Active Protocol: Document 12/26/19 15:17 LRN (Rec: 12/26/19 17:14 LRN [id number]) Shoulder Strength Shoulder Manual Muscle Testing Left Flexion 2 Poor Abduction (C5) 2 Poor External Rotation 1 Trace Internal Rotation 2+ Poor+ Right Flexion 2- Poor- Abduction (C5) 2- Poor- External Rotation 2- Poor- Internal Rotation 2- Poor- Hand Mobile Architect/Pinch Strength Hand Strength Left Comments 3 trials: 2kg, 3kg, 2 kgs. Right Comments 3 trials: 2kg, 2kg, 1kg. PT-OP-Q Treatments Start: 09/30/19 07:24 Freq: Status: Active Protocol: Document 01/20/20 12:51 LRN (Rec: 01/20/20 13:43 LRN [id number]) Therapeutic Exercises Supine Exercises Lat Pull Down Supine Exercise Name Lat Pull Down Resistance Lev 1 TB Reps/Minutes 15x Shldr ER/IR Supine Exercise Name Windshield Wipe Side right Reps/Minutes 10x 3 Chest press Supine Exercise Name Chest press Side bilateral Resistance Cane Reps/Minutes 10 x 3 Comments Generalized pt in lateral R arm throughout ex PROM Supine Exercise Name Shoulder flex stretch w/neural glides Side right Reps/Minutes 6' Comments ROM 107 increased to 120 Sitting Exercises forward and sideway reach Sitting Exercise Name assisted B shoulder flexion and abd Side bilateral Equipment Used SPC Reps/Minutes 6 mins, 5 holds Comments pt reports of no discomfort but able to control ROM Manual Therapy Treatment Joint Mobilizations joint approximation Joint R shoulder then L shoulder Grade II Body Position Supine Reps/Duration 6 mins Comments shoulder flexion + abd with joint approximation Manual Techniques MWM Type MWM of R Scapula for downward and retraction during shoulder flex Body Location R shoulder Body Position Sitting Reps/Duration 4' Self-Care/Home Management Treatment Education Patient Education Home Exercise Program Activities Self-Care/Home Management Activities Clarified exercises of previous handouts with instructions given as needed. Issued & reviewed HEP: Shoulder ER stretch with cane, and shoulder flex on wall. Written I/S handout, as made understandable to pt for chest press in supine & windshield wipe ex. PT-OP-R Modalities Start: 09/30/19 07:24 Freq: Status: Active Protocol: Document 09/30/19 09:45 EG (Rec: 09/30/19 15:50 EG [email or web address]) Hot Pack/Cold Pack Treatment Hot Pack Location R and L GHJ Patient Position Supine Treatment Duration (minutes) 15 Patient Tolerance Good PT-OP-T Assessment and Plan Start: 09/30/19 07:24 Freq: Status: Active Protocol: Document 01/20/20 12:51 LRN (Rec: 01/20/20 13:43 LRN [id number]) Physical Therapy Assessment Rehab Potential Rehabilitation Potential Good Evaluation Complexity Number of Personal Factors/Comorbidities 3 or More Number of Body Systems Impaired 4 or More Clinical Presentation at Evaluation Stable Impairments Impairments Activity Tolerance,Functional Activities,Functional Mobility ,Pain,Posture,ROM,Soft Tissue Mobility,Strength Goals Four Impairment Functional Mobility Short Term Goal (STG) Patient will increase ability to reach overhead with R arm and reach behind head to wash hair in shower with no more than 3/10 pain in 4 weeks. STG Duration 02/19/20 (01/20/20: Progressing , not met. Pt able to place hand on forhead) Print Production Manager Goal (LTG) Patient will increase ability to reach overhead to 2nd cupboard in house and take cup out with no increase in pain in 8 weeks. 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 STG Duration 02/19/20 (01/20/20: Not met, focus has been on ROM goal) Half-Way Goal (LTG) Patient will be able to crab picker orange juice jug from refrigerator with R arm with no increase in 2/10 pain in 8 weeks. (11/25/19: Able to lift with both arms). LTG Duration 03/21/20 Two Impairment ROM Short Term Goal (STG) Patient will increase active R shoulder flexion to 110 degrees and active R shoulder abduction to 110 degrees with <3/10 pain in 4 weeks. (01/13/20: R shoulder flex prior to increased pain is 78 deg's, was 75 deg's initially) STG Duration 01/20/20 (01/20/20: R shoulder PROM: Flex is 125 deg's in supine) Half-Way Goal (LTG) Patient will be able to perform all overhead household tasks independently with no more than 2/10 pain in 8 weeks . LTG Duration 02/24/20 One Impairment decreased shoulder ROM Half-Way Goal (LTG) Improve pain free shoulder ROM to WFL allowing Tessie to comb her hair and put on her necklace. LTG Duration 03/21/20 (01/20/20: Progressing ) Progress Towards Goals Progress Comments Pt progress is slow due to poor recall of HEP with many questions regarding exercises. The pt has improved her R painfree shoulder flexion mobility overall for 90 deg's to 125 deg's. Function limitation persists due to limited shoulder ER mobility. Assessment Summary Assessment Pt R shoulder PROM has improved from 90 deg's flex to 125 deg's in supine. She is now able to tolerate putting her hand on her forehead. Her shoulder ER mobility is limiting her ability to reach behind her head; therefore focus will be on improving shoulder ER mobility and strength in the next 4 weeks to improve her functional ability. The pt has difficulty remembering her HEP and has many questions today; therefore progress is expected to be slow due to poor pt recall between therapy visits. Further therapy would be beneficial for progressing the pt on a self care program and to progress her in improving her R shoulder mobility and strength to help improve her function for self care. Physical Therapy Plan Frequency and Duration Frequency of Treatment 2x/Week Plan of Care Start Date 12/26/19 Plan of Care End Date 03/21/20 Therapeutic Interventions Therapeutic Interventions Home Exercise Program,Manual Therapy,Neuromuscular Re- education,Patient/Caregiver Education,Self-Care/Home Management,Soft Tissue Mobilization,Therapeutic Exercises Next Visit Focus/Plan Next Note Type Treatment Note Next Visit Plan `Check 1 & 3 of Apley Scratch Test. `Review again windshield wipe ex with approximation to the GHJ, chest press (~90 dg), shldr flex stretch with neural glides (wrist sup/pron & elbow flex/ext). `Initiate RC (rotation) strengthening. `Progress scapular stab strengthening. `Progress towards sidelying AROM, `T-Ball or window: shoulder AROM and other CKC ex's, `Try Tarik for possible home application.
--- NOTE | 2020-01-20 17:43 | PT.OPPOC ---
Physical, Occupational & Speech Therapy At [facility] Current Diagnoses Primary osteoarthritis, right shoulder (01/20/20) Pain in right shoulder (01/20/20) Pain in left shoulder (01/20/20) Muscle weakness (generalized) (01/20/20) Visit Care Team Role Provider Type Ayde Avila DO Attending Provider Physician Primary Care Provider Referring Provider Specialty: [facility] Address: [address] [place] [address], [facility] [place], [address] Email: [email or web address] Plan Of Care PT-OP-T Assessment and Plan Start: 09/30/19 07:24 Freq: Status: Active Protocol: Document 01/20/20 12:51 LRN (Rec: 01/20/20 13:43 LRN [id number]) Physical Therapy Assessment Rehab Potential Rehabilitation Potential Good Evaluation Complexity Number of Personal Factors/Comorbidities 3 or More Number of Body Systems Impaired 4 or More Clinical Presentation at Evaluation Stable Impairments Impairments Activity Tolerance,Functional Activities,Functional Mobility ,Pain,Posture,ROM,Soft Tissue Mobility,Strength Goals Four Impairment Functional Mobility Short Term Goal (STG) Patient will increase ability to reach overhead with R arm and reach behind head to wash hair in shower with no more than 3/10 pain in 4 weeks. STG Duration 02/19/20 (01/20/20: Progressing , not met. Pt able to place hand on forhead) Car Wash Attendant Goal (LTG) Patient will increase ability to reach overhead to 2nd cupboard in house and take cup out with no increase in pain in 8 weeks. LTG Duration 03/21/20 Three Impairment Strength Short Term Goal (STG) Patient will increase bilateral assurance senior manager insurance strength with hand held dynamometer to >8 kg in 4 weeks. 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 (11/25/19: Able to lift with both arms). LTG Duration 03/21/20 Two Impairment ROM Short Term Goal (STG) Patient will increase active R shoulder flexion to 110 degrees and active R shoulder abduction to 110 degrees with <3/10 pain in 4 weeks. (01/13/20: R shoulder flex prior to increased pain is 78 deg's, was 75 deg's initially) STG Duration 01/20/20 (01/20/20: R shoulder PROM: Flex is 125 deg's in supine) Car Wash Attendant Goal (LTG) Patient will be able to perform all overhead household tasks independently with no more than 2/10 pain in 8 weeks . LTG Duration 02/24/20 One Impairment decreased shoulder ROM Car Wash Attendant Goal (LTG) Improve pain free shoulder ROM to WFL allowing Tessie to comb her hair and put on her necklace. LTG Duration 03/21/20 (01/20/20: Progressing ) Progress Towards Goals Progress Comments Pt progress is slow due to poor recall of HEP with many questions regarding exercises. The pt has improved her R painfree shoulder flexion mobility overall for 90 deg's to 125 deg's. Function limitation persists due to limited shoulder ER mobility. Assessment Summary Assessment Pt R shoulder PROM has improved from 90 deg's flex to 125 deg's in supine. She is now able to tolerate putting her hand on her forehead. Her shoulder ER mobility is limiting her ability to reach behind her head; therefore focus will be on improving shoulder ER mobility and strength in the next 4 weeks to improve her functional ability. The pt has difficulty remembering her HEP and has many questions today; therefore progress is expected to be slow due to poor pt recall between therapy visits. Further therapy would be beneficial for progressing the pt on a self care program and to progress her in improving her R shoulder mobility and strength to help improve her function for self care. Physical Therapy Plan Frequency and Duration Frequency of Treatment 2x/Week Plan of Care Start Date 12/26/19 Plan of Care End Date 03/21/20 Therapeutic Interventions Therapeutic Interventions Home Exercise Program,Manual Therapy,Neuromuscular Re- education,Patient/Caregiver Education,Self-Care/Home Management,Soft Tissue Mobilization,Therapeutic Exercises Next Visit Focus/Plan Next Note Type Treatment Note Next Visit Plan `Check 1 & 3 of Apley Scratch Test. `Review again windshield wipe ex with approximation to the GHJ, chest press (~90 dg), shldr flex stretch with neural glides (wrist sup/pron & elbow flex/ext). `Initiate RC (rotation) strengthening. `Progress scapular stab strengthening. `Progress towards sidelying AROM, `T-Ball or window: shoulder AROM and other CKC ex's, `Try Tarik for possible home application. Plan of Care Dates Plan of Care Start Date 12/26/19 Plan of Care End Date 03/21/20 Electronically Signed by: Marilyn Izaguirre, PT 01/20/20 [id number] Please Sign and Return: I have reviewed this Plan of Care and certify that the skilled therapy services above are required to meet the patient?s needs. Physician Signature Date Printed Name and Credentials Clinical Instructor Signature Printed Name and Credentials
--- NOTE | 2020-01-23 16:54 | PT.OTN ---
Current Diagnoses Primary osteoarthritis, right shoulder (01/23/20) Pain in right shoulder (01/23/20) Pain in left shoulder (01/23/20) Muscle weakness (generalized) (01/23/20) Physical Therapy Treatment Note PT-OP-A Visit Information Start: 09/30/19 07:24 Freq: Status: Active Protocol: Document 01/23/20 12:47 LRN (Rec: 01/23/20 13:33 LRN [id number]) Out-Patient Physical Therapy Visit Information Visit Information Visit Type Treatment Note Visit Start Time 12:47 Visit Stop Time 13:31 Total Visit Minutes 44 Visit Number 12 Evaluation Information Evaluation Date 09/30/19 Precautions Precautions Osteopenia, possible Osteoporosis Neuropathy SC, Hx of angioplasty R GHJ arthritis Essential HTN PT-OP-B Current Condition Start: 09/30/19 07:24 Freq: Status: Active Protocol: Document 12/26/19 15:17 LRN (Rec: 12/26/19 17:32 LRN [id number]) Current Condition History of Current Condition Onset Date Gradual increase in pain since 2016 Current Complaints Pain in bilateral arms, especially the R arm History of Current Condition Pt has had her R shoulder rehabilitation interrupted due to COVID-19 pandemic. She returns after a 3 month interruption with worsening symptoms of pain and mobility but similar pain complaints. Previous report was that both her arms hurt, but specifically the R arm where she reports constant pain. She decided to get therapy having an x-ray of the R shoulder with findings that she had R shoulder osteoarthritis. Patient had a heart attack and a stroke in 2016 and since then she feels as if she had lost a lot of strength along with fine motor activities. She reports continued difficulty opening anything, inability to lift a jug of orange juice or milk, inability to reach up any more - especially to the second shelf in her cupboard. She says she needs both arms to get anything out of the fridge . She previously reported sleeping is okay - she can sleep on both sides but the pain does sometimes keep her awake. She is taking Tylenol Super Strength - 2 in morning and 2 at night. The pain seems to spread by her collar bone, down the back at times, and always going down the arm. She reports an 8-9/10 pain on a bad day - she will just wake up with it bad without a correlation to any activity. Currently she has a 5-6/10 pain in R shoulder. She has trouble buttoning and zipping because she doesn't seem to have the strength to pull it. She has been to PT a few years ago for her shoulder but stopped because she went on vacation. She is not really active at home. Her and son live with her currently and her son helps with getting objects from a tall cupboard. She likes to walk, cook, and do computer stuff. 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 Also a history of a sore on L leg from November-June that did not heal and she had to go to Wound Care clinic. Prior Treatments and Tests PT in past for shoulder Posterior R hip replacement X-ray of R shoulder Treatment Goals Patient/Caregiver Goals Remains same: she would like good use of both arms - reaching out to pull car door closed; being able to comb back of hair, reaching and putting things away, increase strength; picking up groceries - every day things - need help making the bed. Driving. 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 spiritism Current Functional Impairments (Reported) Functional Limitations- ADL's cannot sleep at times due to pain Functional Limitations- Mobility/Gait Unable to reach behind head or lift things overhead Functional Limitations- Recreation/ Doesn't feel like going out Hobbies because she is hurting Personal Factors Other Personal Factors That May Effect Arthritis Therapy/Recovery Blood Pressure Past Falls History of Heart Attack and Stroke (2016) Neuropathy Osteopenia PT-OP-C Subjective Start: 09/30/19 07:24 Freq: Status: Active Protocol: Document 01/23/20 12:47 LRN (Rec: 01/23/20 13:33 LRN [id number]) OP-PT Subjective Patient Comments Patient Comments States hurts worse than normal when doing the exercises, but not pain constant. When really hurting bad there was burning pain in the biceps and upper shoulder. Currently sitting static her pain is 4/ 10 in same area, aching what is always there pretty much. Had a really good sleep. PT-OP-E Functional Tests Start: 09/30/19 15:22 Freq: Status: Active Protocol: Document 01/23/20 12:47 LRN (Rec: 01/23/20 13:33 LRN [id number]) Functional Tests Apley's Scratch Test Action 1- Left Supraspinatus Action 1- Right Start of Supraspinatus Action 2- Left C7 Action 2- Right Lateral R neck Action 3- Left Lower sacral border Action 3- Right Lateral buttock PT-OP-J Posture/Palpation/Skin Start: 09/30/19 07:24 Freq: Status: Active Protocol: Document 12/26/19 15:17 LRN (Rec: 12/26/19 17:14 LRN [id number]) Posture Evaluation Position Sitting Evaluation View Posterior Head/C-Spine Posture Side Bent Right T-Spine Posture Increased Kyphosis Shoulder Posture (L) Rounded,(R) Rounded Weight Distribution Weight Shifted Left Standing Head/C-Spine Posture Flexed Palpation Assessment Location Upper Traps Palpation Location Upper Trap, Supraspinatus, Infraspinatus Palpation Findings Tenderness One Palpation Location Primarily right lateral shoulder, general diffuse shoulder region Palpation Findings Tenderness Palpation Details tenderness at the supraspinatus insertion laterally on the right, general tenderness to palpation over the lateral right shoulder PT-OP-K Range of Motion Start: 09/30/19 07:24 Freq: Status: Active Protocol: Document 01/20/20 12:51 LRN (Rec: 01/20/20 13:43 LRN [id number]) Shoulder Goniometric Range of Motion Shoulder Right Passive Shoulder ROM WFL No Testing Position Supine Flexion 125 PT-OP-L Special Tests Start: 09/30/19 07:24 Freq: Status: Active Protocol: Document 12/26/19 15:17 LRN (Rec: 12/26/19 17:32 LRN [id number]) Special Tests Shoulder Special Tests IRand Extension Test Results + Comments Pain with motion in R arm - less motion R compared to L ER and Abduction Test Results + on R side - unable to touch behind head Comments Patient can touch R ear while side bending head to R PT-OP-M Strength Start: 09/30/19 07:24 Freq: Status: Active Protocol: Document 12/26/19 15:17 LRN (Rec: 12/26/19 17:14 LRN [id number]) Shoulder Strength Shoulder Manual Muscle Testing Left Flexion 2 Poor Abduction (C5) 2 Poor External Rotation 1 Trace Internal Rotation 2+ Poor+ Right Flexion 2- Poor- Abduction (C5) 2- Poor- External Rotation 2- Poor- Internal Rotation 2- Poor- Hand Trackwalker/Pinch Strength Hand Strength Left Comments 3 trials: 2kg, 3kg, 2 kgs. Right Comments 3 trials: 2kg, 2kg, 1kg. PT-OP-Q Treatments Start: 09/30/19 07:24 Freq: Status: Active Protocol: Document 01/23/20 12:47 LRN (Rec: 01/23/20 13:33 LRN [id number]) Therapeutic Exercises Supine Exercises Bicep curl Supine Exercise Name Bicep curl Side right Resistance 2#, 3# Reps/Minutes 10x, 8x Shldr ER/IR Supine Exercise Name Windshield Wipe Side right Reps/Minutes 10x 3 Chest press Supine Exercise Name Chest press Side bilateral Resistance Cane Reps/Minutes 10x Comments Generalized pt in lateral R arm throughout ex PROM Supine Exercise Name Shoulder flex stretch w/neural glides Side right Reps/Minutes 6' Comments ROM 107 increased to 120 Sidelying Exercises R shoulder janae AB Sidelying Exercise Name Janae R shoulder AB Side right Reps/Minutes 10x R shoulder AB Sidelying Exercise Name Assisted AB w/traction to GHJ Side right Reps/Minutes 10x Comments Movement very slow to avoid pain PROM Sidelying Exercise Name Abd and flexion Side right Reps/Minutes 6' Comments therapist one hand on R scap and one hand on elbow deep breathing Sidelying Exercise Name sL on L side with 1 pillows underneath L lateral trunk Side right Equipment Used 1 pillow Reps/Minutes 5' Comments to faciliate L lateral flexion Manual Therapy Treatment Soft Tissue Mobilization RTC Body Location R Thoracic paraspinals/Biceps Mobilization Type Strumming Intensity/Depth Superficial to Moderate Body Position Sidelying PT-OP-R Modalities Start: 09/30/19 07:24 Freq: Status: Active Protocol: Document 09/30/19 09:45 EG (Rec: 09/30/19 15:50 EG [id number]) Hot Pack/Cold Pack Treatment Hot Pack Location R and L GHJ Patient Position Supine Treatment Duration (minutes) 15 Patient Tolerance Good PT-OP-T Assessment and Plan Start: 09/30/19 07:24 Freq: Status: Active Protocol: Document 01/23/20 12:47 LRN (Rec: 01/23/20 13:33 LRN [id number]) Physical Therapy Assessment Goals Four Impairment Functional Mobility Short Term Goal (STG) Patient will increase ability to reach overhead with R arm and reach behind head to wash hair in shower with no more than 3/10 pain in 4 weeks. STG Duration 02/19/20 (01/23/20: Not met. Pt able to place hand along R side of neck) Jewel Sawyer Goal (LTG) Patient will increase ability to reach overhead to 2nd cupboard in house and take cup out with no increase in pain in 8 weeks. LTG Duration 03/21/20 Three Impairment Strength Short Term Goal (STG) Patient will increase bilateral drafter apprentice strength with hand held dynamometer to >8 kg in 4 weeks. 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 (11/25/19: Able to lift with both arms). LTG Duration 03/21/20 Two Impairment ROM Short Term Goal (STG) Patient will increase active R shoulder flexion to 110 degrees and active R shoulder abduction to 110 degrees with <3/10 pain in 4 weeks. (01/13/20: R shoulder flex prior to increased pain is 78 deg's, was 75 deg's initially) STG Duration 01/20/20 (01/20/20: R shoulder PROM: Flex is 125 deg's in supine) Halfway Goal (LTG) Patient will be able to perform all overhead household tasks independently with no more than 2/10 pain in 8 weeks . LTG Duration 02/24/20 One Impairment decreased shoulder ROM Jewel Sawyer Goal (LTG) Improve pain free shoulder ROM to WFL allowing Tessie to comb her hair and put on her necklace. LTG Duration 03/21/20 (01/20/20: Progressing ) Progress Towards Goals Progress Towards Goals Slow Progress - Other Progress Comments Pt flared up with no overall progress, but was able to mildly increase functional movement of R arm: reaching behind head from lateral side of neck to posterolateral neck ; and reaching behind back from R lateral hip to R sacral border. See results of Apley Scratch Test. Assessment Summary Assessment Pt has low tolerance today with a decrease in R shoulder AROM/PROM overall. Pain in the R brachium does not appear to be soft tissue related, possibly neural related. Poor exercise tolerance today limiting her rehab. Physical Therapy Plan Frequency and Duration Frequency of Treatment 2x/Week Plan of Care Start Date 12/26/19 Plan of Care End Date 03/21/20 Next Visit Focus/Plan Next Note Type Treatment Note Next Visit Plan `Review again, shldr flex stretch with neural glides ( wrist sup/pron & elbow flex/ ext). `review ER windshield wipe strengthening and add IR strengthening. `Progress scapular stab strengthening. `Try sidelying AROM of R shoulder, `T-Ball or window: shoulder AROM and other CKC ex's, `Try Tarik for possible home application.
--- NOTE | 2020-01-27 17:32 | PT.OTN ---
Current Diagnoses Primary osteoarthritis, right shoulder (01/27/20) Pain in right shoulder (01/27/20) Pain in left shoulder (01/27/20) Muscle weakness (generalized) (01/27/20) Physical Therapy Treatment Note PT-OP-A Visit Information Start: 09/30/19 07:24 Freq: Status: Active Protocol: Document 01/27/20 12:49 LRN (Rec: 01/27/20 13:34 LRN [id number]) Out-Patient Physical Therapy Visit Information Visit Information Visit Type Treatment Note Visit Start Time 12:49 Visit Stop Time 13:31 Total Visit Minutes 42 Visit Number 13 Evaluation Information Evaluation Date 09/30/19 Precautions Precautions Osteopenia, possible Osteoporosis Neuropathy [place], Hx of angioplasty R GHJ arthritis Essential HTN PT-OP-B Current Condition Start: 09/30/19 07:24 Freq: Status: Active Protocol: Document 12/26/19 15:17 LRN (Rec: 12/26/19 17:32 LRN [id number]) Current Condition History of Current Condition Onset Date Gradual increase in pain since 2016 Current Complaints Pain in bilateral arms, especially the R arm History of Current Condition Pt has had her R shoulder rehabilitation interrupted due to COVID-19 pandemic. She returns after a 3 month interruption with worsening symptoms of pain and mobility but similar pain complaints. Previous report was that both her arms hurt, but specifically the R arm where she reports constant pain. She decided to get therapy having an x-ray of the R shoulder with findings that she had R shoulder osteoarthritis. Patient had a heart attack and a stroke in 2016 and since then she feels as if she had lost a lot of strength along with fine motor activities. She reports continued difficulty opening anything, inability to lift a jug of orange juice or milk, inability to reach up any more - especially to the second shelf in her cupboard. She says she needs both arms to get anything out of the fridge . She previously reported sleeping is okay - she can sleep on both sides but the pain does sometimes keep her awake. She is taking Tylenol Super Strength - 2 in morning and 2 at night. The pain seems to spread by her collar bone, down the back at times, and always going down the arm. She reports an 8-9/10 pain on a bad day - she will just wake up with it bad without a correlation to any activity. Currently she has a 5-6/10 pain in R shoulder. She has trouble buttoning and zipping because she doesn't seem to have the strength to pull it. She has been to PT a few years ago for her shoulder but stopped because she went on vacation. She is not really active at home. Her and son live with her currently and her son helps with getting objects from a tall cupboard. She likes to walk, cook, and do computer stuff. Tying quilts for anglican . 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 Also a history of a sore on L leg from November-June that did not heal and she had to go to Wound Care clinic. Prior Treatments and Tests PT in past for shoulder Posterior R hip replacement X-ray of R shoulder Treatment Goals Patient/Caregiver Goals Remains same: she would like good use of both arms - reaching out to pull car door closed; being able to comb back of hair, reaching and putting things away, increase strength; picking up groceries - every day things - need help making the bed. Driving. 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 anglican Current Functional Impairments (Reported) Functional Limitations- ADL's cannot sleep at times due to pain Functional Limitations- Mobility/Gait Unable to reach behind head or lift things overhead Functional Limitations- Recreation/ Doesn't feel like going out Hobbies because she is hurting Personal Factors Other Personal Factors That May Effect Arthritis Therapy/Recovery Blood Pressure Past Falls History of Heart Attack and Stroke (2016) Neuropathy Osteopenia PT-OP-C Subjective Start: 09/30/19 07:24 Freq: Status: Active Protocol: Document 01/27/20 12:49 LRN (Rec: 01/27/20 13:34 LRN [id number]) OP-PT Subjective Patient Comments Patient Comments States ongoing pain. Evening of last session was sore for 2 days then had a good day and now for past 2 days okay. Pain to start is 4/10 PT-OP-E Functional Tests Start: 09/30/19 15:22 Freq: Status: Active Protocol: Document 01/23/20 12:47 LRN (Rec: 01/23/20 13:33 LRN [id number]) Functional Tests Apley's Scratch Test Action 1- Left Supraspinatus Action 1- Right Start of Supraspinatus Action 2- Left C7 Action 2- Right Lateral R neck Action 3- Left Lower sacral border Action 3- Right Lateral buttock PT-OP-J Posture/Palpation/Skin Start: 09/30/19 07:24 Freq: Status: Active Protocol: Document 12/26/19 15:17 LRN (Rec: 12/26/19 17:14 LRN [id number]) Posture Evaluation Position Sitting Evaluation View Posterior Head/C-Spine Posture Side Bent Right T-Spine Posture Increased Kyphosis Shoulder Posture (L) Rounded,(R) Rounded Weight Distribution Weight Shifted Left Standing Head/C-Spine Posture Flexed Palpation Assessment Location Upper Traps Palpation Location Upper Trap, Supraspinatus, Infraspinatus Palpation Findings Tenderness One Palpation Location Primarily right lateral shoulder, general diffuse shoulder region Palpation Findings Tenderness Palpation Details tenderness at the supraspinatus insertion laterally on the right, general tenderness to palpation over the lateral right shoulder PT-OP-K Range of Motion Start: 09/30/19 07:24 Freq: Status: Active Protocol: Document 01/20/20 12:51 LRN (Rec: 01/20/20 13:43 LRN [id number]) Shoulder Goniometric Range of Motion Shoulder Right Passive Shoulder ROM WFL No Testing Position Supine Flexion 125 PT-OP-L Special Tests Start: 09/30/19 07:24 Freq: Status: Active Protocol: Document 12/26/19 15:17 LRN (Rec: 12/26/19 17:32 LRN [id number]) Special Tests Shoulder Special Tests IRand Extension Test Results + Comments Pain with motion in R arm - less motion R compared to L ER and Abduction Test Results + on R side - unable to touch behind head Comments Patient can touch R ear while side bending head to R PT-OP-M Strength Start: 09/30/19 07:24 Freq: Status: Active Protocol: Document 12/26/19 15:17 LRN (Rec: 12/26/19 17:14 LRN [id number]) Shoulder Strength Shoulder Manual Muscle Testing Left Flexion 2 Poor Abduction (C5) 2 Poor External Rotation 1 Trace Internal Rotation 2+ Poor+ Right Flexion 2- Poor- Abduction (C5) 2- Poor- External Rotation 2- Poor- Internal Rotation 2- Poor- Hand Tooling Specialist/Pinch Strength Hand Strength Left Comments 3 trials: 2kg, 3kg, 2 kgs. Right Comments 3 trials: 2kg, 2kg, 1kg. PT-OP-Q Treatments Start: 09/30/19 07:24 Freq: Status: Active Protocol: Document 01/27/20 12:49 LRN (Rec: 01/27/20 13:34 LRN [id number]) Therapeutic Exercises Supine Exercises Shoulder flex w/cane Supine Exercise Name Shoulder Flex w/cane Reps/Minutes 3' Shldr ER/IR Supine Exercise Name Windshield Wipe Side right Reps/Minutes 10x 3 PROM Supine Exercise Name Shoulder flex stretch w/neural glides & w/cane Side right Reps/Minutes 6' Comments ROM 120 increased to 130 Sidelying Exercises R shoulder IR Sidelying Exercise Name R shoulder IR Side right Equipment Used Lev 1 TB Reps/Minutes 15x, 10x R shoulder ER Sidelying Exercise Name Active shoulder ER Side right PROM Sidelying Exercise Name Abd and flexion Side right Reps/Minutes 6' Comments therapist one hand on R scap and one hand on elbow deep breathing Sidelying Exercise Name sL on L side with 1 pillows underneath L lateral trunk Side right Equipment Used 1 pillow Reps/Minutes 5' Comments to faciliate L lateral flexion Sitting Exercises forward and sideway reach Sitting Exercise Name assisted B shoulder flexion Side bilateral Equipment Used SPC Reps/Minutes 2 mins, 5 holds Comments pt reports of no discomfort but able to control ROM L sided row Sitting Exercise Name L sided row Side left Resistance Lev 2 TB Reps/Minutes 15x 2 Self-Care/Home Management Treatment Education Patient Education Home Exercise Program Activities Self-Care/Home Management Activities Issued & reviewed written HEP: for Shoulder AB insidelie exercise. PT-OP-R Modalities Start: 09/30/19 07:24 Freq: Status: Active Protocol: Document 09/30/19 09:45 EG (Rec: 09/30/19 15:50 EG [id number]) Hot Pack/Cold Pack Treatment Hot Pack Location R and L GHJ Patient Position Supine Treatment Duration (minutes) 15 Patient Tolerance Good PT-OP-T Assessment and Plan Start: 09/30/19 07:24 Freq: Status: Active Protocol: Document 01/27/20 12:49 LRN (Rec: 01/27/20 13:34 LRRuss [id number]) Physical Therapy Assessment Goals Four Impairment Functional Mobility Short Term Goal (STG) Patient will increase ability to reach overhead with R arm and reach behind head to wash hair in shower with no more than 3/10 pain in 4 weeks. STG Duration 02/19/20 (01/27/20: Not met. Pt able to place hand on L side of head) Halfway Goal (LTG) Patient will increase ability to reach overhead to 2nd cupboard in house and take cup out with no increase in pain in 8 weeks. LTG Duration 03/21/20 Three Impairment Strength Short Term Goal (STG) Patient will increase bilateral home worker strength with hand held dynamometer to >8 kg in 4 weeks. STG Duration 02/19/20 (01/20/20: Not met, focus has been on ROM goal) Halfway Goal (LTG) Patient will be able to belt picker orange juice jug from refrigerator with R arm with no increase in 2/10 pain in 8 weeks. (11/25/19: Able to lift with both arms). LTG Duration 03/21/20 Two Impairment ROM Short Term Goal (STG) Patient will increase active R shoulder flexion to 110 degrees and active R shoulder abduction to 110 degrees with <3/10 pain in 4 weeks. (01/13/20: R shoulder flex prior to increased pain is 78 deg's, was 75 deg's initially) STG Duration 01/20/20 (01/27/20: R shoulder PROM: Flex is 130 deg's in supine) Halfway Goal (LTG) Patient will be able to perform all overhead household tasks independently with no more than 2/10 pain in 8 weeks . LTG Duration 02/24/20 One Impairment decreased shoulder ROM Prepress Stripper Goal (LTG) Improve pain free shoulder ROM to WFL allowing Tessie to comb her hair and put on her necklace. LTG Duration 03/21/20 (01/20/20: Progressing ) Progress Towards Goals Progress Towards Goals Slow Progress due to Activity Tolerance Progress Comments Functional mobility improved: Supine shoulder active flex started 120 deg's, ended 130 deg's. Assessment Summary Assessment Improved shoulder flex in supine from 120 to 130 deg's after treatment. Pt able to reach anterolateral L side of head w/R hand with some difficulty. Not able to reach behind the head due to lack of ER. Pt doesn't tolerate stretching well. She appears to have capsular stiffness with stretch into ER & sidelie AB. Pt appears to need repeat of home ex's and seems to prefer written ex's vs computer printed ex's. Physical Therapy Plan Frequency and Duration Frequency of Treatment 2x/Week Plan of Care Start Date 12/26/19 Plan of Care End Date 03/21/20 Next Visit Focus/Plan Next Note Type Treatment Note Next Visit Plan `Check active sitting R shoulder flex/AB ROM `Try Tarik for possible home application. `Review again, shldr flex stretch with neural glides ( wrist sup/pron & elbow flex/ ext). `Progress R shoulder ER and scapular strengthening `Progress sidelying AROM of R shoulder to independence, `T-Ball or window: shoulder AROM and other CKC ex's,
--- NOTE | 2020-02-03 13:59 | PT.OTN ---
Current Diagnoses Primary osteoarthritis, right shoulder (02/03/20) Pain in right shoulder (02/03/20) Pain in left shoulder (02/03/20) Muscle weakness (generalized) (02/03/20) Physical Therapy Treatment Note PT-OP-A Visit Information Start: 09/30/19 07:24 Freq: Status: Active Protocol: Document 02/03/20 12:49 LRN (Rec: 02/03/20 13:58 LRN [id number]) Out-Patient Physical Therapy Visit Information Visit Information Visit Type Treatment Note Visit Start Time 12:49 Visit Stop Time 13:46 Total Visit Minutes 57 Visit Number 14 Evaluation Information Evaluation Date 09/30/19 Precautions Precautions Osteopenia, possible Osteoporosis Neuropathy [place], Hx of angioplasty R GHJ arthritis Essential HTN PT-OP-B Current Condition Start: 09/30/19 07:24 Freq: Status: Active Protocol: Document 12/26/19 15:17 LRN (Rec: 12/26/19 17:32 LRN [id number]) Current Condition History of Current Condition Onset Date Gradual increase in pain since 2016 Current Complaints Pain in bilateral arms, especially the R arm History of Current Condition Pt has had her R shoulder rehabilitation interrupted due to COVID-19 pandemic. She returns after a 3 month interruption with worsening symptoms of pain and mobility but similar pain complaints. Previous report was that both her arms hurt, but specifically the R arm where she reports constant pain. She decided to get therapy having an x-ray of the R shoulder with findings that she had R shoulder osteoarthritis. Patient had a heart attack and a stroke in 2016 and since then she feels as if she had lost a lot of strength along with fine motor activities. She reports continued difficulty opening anything, inability to lift a jug of orange juice or milk, inability to reach up any more - especially to the second shelf in her cupboard. She says she needs both arms to get anything out of the fridge . She previously reported sleeping is okay - she can sleep on both sides but the pain does sometimes keep her awake. She is taking Tylenol Super Strength - 2 in morning and 2 at night. The pain seems to spread by her collar bone, down the back at times, and always going down the arm. She reports an 8-9/10 pain on a bad day - she will just wake up with it bad without a correlation to any activity. Currently she has a 5-6/10 pain in R shoulder. She has trouble buttoning and zipping because she doesn't seem to have the strength to pull it. She has been to PT a few years ago for her shoulder but stopped because she went on vacation. She is not really active at home. Her and son live with her currently and her son helps with getting objects from a tall cupboard. She likes to walk, cook, and do computer stuff. Tying quilts for mandaeism . 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 Also a history of a sore on L leg from November-June that did not heal and she had to go to Wound Care clinic. Prior Treatments and Tests PT in past for shoulder Posterior R hip replacement X-ray of R shoulder Treatment Goals Patient/Caregiver Goals Remains same: she would like good use of both arms - reaching out to pull car door closed; being able to comb back of hair, reaching and putting things away, increase strength; picking up groceries - every day things - need help making the bed. Driving. 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 mandaeism Current Functional Impairments (Reported) Functional Limitations- ADL's cannot sleep at times due to pain Functional Limitations- Mobility/Gait Unable to reach behind head or lift things overhead Functional Limitations- Recreation/ Doesn't feel like going out Hobbies because she is hurting Personal Factors Other Personal Factors That May Effect Arthritis Therapy/Recovery Blood Pressure Past Falls History of Heart Attack and Stroke (2015) Neuropathy Osteopenia PT-OP-C Subjective Start: 09/30/19 07:24 Freq: Status: Active Protocol: Document 02/03/20 12:49 LRN (Rec: 02/03/20 13:58 LRN [id number]) OP-PT Subjective Patient Comments Patient Comments States she dropped a bottle of olive oil and had to clean the floor so the shoulder was hurting a lot. States some days are better than some. Sometimes can reach up to the first shelf without a problem, occasionally can reach up to 2nd shelf, feels like it is stretching. Does all cooking because has an adult son with learning disabilities. Doesn' t want to get an over the door taina. PT-OP-E Functional Tests Start: 09/30/19 15:22 Freq: Status: Active Protocol: Document 01/23/20 12:47 LRN (Rec: 01/23/20 13:33 LRN [id number]) Functional Tests Apley's Scratch Test Action 1- Left Supraspinatus Action 1- Right Start of Supraspinatus Action 2- Left C7 Action 2- Right Lateral R neck Action 3- Left Lower sacral border Action 3- Right Lateral buttock PT-OP-J Posture/Palpation/Skin Start: 09/30/19 07:24 Freq: Status: Active Protocol: Document 12/26/19 15:17 LRN (Rec: 12/26/19 17:14 LRN [id number]) Posture Evaluation Position Sitting Evaluation View Posterior Head/C-Spine Posture Side Bent Right T-Spine Posture Increased Kyphosis Shoulder Posture (L) Rounded,(R) Rounded Weight Distribution Weight Shifted Left Standing Head/C-Spine Posture Flexed Palpation Assessment Location Upper Traps Palpation Location Upper Trap, Supraspinatus, Infraspinatus Palpation Findings Tenderness One Palpation Location Primarily right lateral shoulder, general diffuse shoulder region Palpation Findings Tenderness Palpation Details tenderness at the supraspinatus insertion laterally on the right, general tenderness to palpation over the lateral right shoulder PT-OP-K Range of Motion Start: 09/30/19 07:24 Freq: Status: Active Protocol: Document 01/20/20 12:51 LRN (Rec: 01/20/20 13:43 LRN [id number]) Shoulder Goniometric Range of Motion Shoulder Right Passive Shoulder ROM WFL No Testing Position Supine Flexion 125 PT-OP-L Special Tests Start: 09/30/19 07:24 Freq: Status: Active Protocol: Document 12/26/19 15:17 LRN (Rec: 12/26/19 17:32 LRN [id number]) Special Tests Shoulder Special Tests IRand Extension Test Results + Comments Pain with motion in R arm - less motion R compared to L ER and Abduction Test Results + on R side - unable to touch behind head Comments Patient can touch R ear while side bending head to R PT-OP-M Strength Start: 09/30/19 07:24 Freq: Status: Active Protocol: Document 12/26/19 15:17 LRN (Rec: 12/26/19 17:14 LRN [id number]) Shoulder Strength Shoulder Manual Muscle Testing Left Flexion 2 Poor Abduction (C5) 2 Poor External Rotation 1 Trace Internal Rotation 2+ Poor+ Right Flexion 2- Poor- Abduction (C5) 2- Poor- External Rotation 2- Poor- Internal Rotation 2- Poor- Hand Vinyl Cutter/Pinch Strength Hand Strength Left Comments 3 trials: 2kg, 3kg, 2 kgs. Right Comments 3 trials: 2kg, 2kg, 1kg. PT-OP-Q Treatments Start: 09/30/19 07:24 Freq: Status: Active Protocol: Document 02/03/20 12:49 LRN (Rec: 02/03/20 13:58 LRN [id number]) Therapeutic Exercises Sidelying Exercises Horiz AB Sidelying Exercise Name Assisted Active Horiz AB Side right Reps/Minutes 10x R shoulder IR Sidelying Exercise Name R shoulder IR Side right Reps/Minutes 15x, 10x R shoulder ER Sidelying Exercise Name Active assisted & Janae (0 deg' s ER) shoulder ER Side right Reps/Minutes 10 x each R shoulder AB Sidelying Exercise Name Assisted AB Side right Reps/Minutes 10x Comments Movement very slow to avoid pain Sitting Exercises Biceps curl Sitting Exercise Name Biceps curl Side bilateral Resistance 1# R, 2# L. Reps/Minutes 15 x 2 taina Sitting Exercise Name shoulder flexion and AB Side bilateral Reps/Minutes 8 mins Comments pt reports of minimal discomfort but able to control ROM forward and sideway reach Sitting Exercise Name B shoulder flexion, and diagonal L Side bilateral Equipment Used SPC Reps/Minutes 2 mins, 10 hold Comments pt reports of no discomfort but able to control ROM L sided row Sitting Exercise Name L sided row Side left Resistance Lev 1, double banded TB Reps/Minutes 10 H x 15, & 15x without holds Thoracic Extension on chair Sitting Exercise Name Thoracic Ext verbal review. Reps/Minutes 2' 5 Hold x 10 Self-Care/Home Management Treatment Education Patient Education Home Exercise Program Activities Self-Care/Home Management Activities Reviewed home ex's of Shoulder ER/IR and AB in sidelie. Issued Lev 1 TBand for ER/IR strengthening. Discussed at length her previous home ex's and reviewed reps, resistance tension of band, where to attach band, when to do, how often, ex's to do in chair, Discussed importance of pt doing the ex more than 1x/day. Discussed possible reasons for decreased shoulder rotation. PT-OP-R Modalities Start: 09/30/19 07:24 Freq: Status: Active Protocol: Document 09/30/19 09:45 EG (Rec: 09/30/19 15:50 EG [id number]) Hot Pack/Cold Pack Treatment Hot Pack Location R and L GHJ Patient Position Supine Treatment Duration (minutes) 15 Patient Tolerance Good PT-OP-T Assessment and Plan Start: 09/30/19 07:24 Freq: Status: Active Protocol: Document 02/03/20 12:49 LRN (Rec: 02/03/20 13:58 LRN [id number]) Physical Therapy Assessment Goals Four Impairment Functional Mobility Short Term Goal (STG) Patient will increase ability to reach overhead with R arm and reach behind head to wash hair in shower with no more than 3/10 pain in 4 weeks. STG Duration 02/19/20 (01/27/20: Not met. Pt able to place hand on L side of head) Assisted Goal (LTG) Patient will increase ability to reach overhead to 2nd cupboard in house and take cup out with no increase in pain in 8 weeks. LTG Duration 03/21/20 Three Impairment Strength Short Term Goal (STG) Patient will increase bilateral confidential secretary strength with hand held dynamometer to >8 kg in 4 weeks. STG Duration 02/19/20 (01/20/20: Not met, focus has been on ROM goal) Transportation Assistant Goal (LTG) Patient will be able to strip picker orange juice jug from refrigerator with R arm with no increase in 2/10 pain in 8 weeks. (11/25/19: Able to lift with both arms). LTG Duration 03/21/20 Two Impairment ROM Short Term Goal (STG) Patient will increase active R shoulder flexion to 110 degrees and active R shoulder abduction to 110 degrees with <3/10 pain in 4 weeks. (01/13/20: R shoulder flex prior to increased pain is 78 deg's, was 75 deg's initially) STG Duration 01/20/20 (01/27/20: R shoulder PROM: Flex is 130 deg's in supine) Transportation Assistant Goal (LTG) Patient will be able to perform all overhead household tasks independently with no more than 2/10 pain in 8 weeks . LTG Duration 02/24/20 One Impairment decreased shoulder ROM Assisted Goal (LTG) Improve pain free shoulder ROM to WFL allowing Tessie to comb her hair and put on her necklace. LTG Duration 03/21/20 (01/20/20: Progressing ) Progress Towards Goals Progress Comments R shoulder active flex & AB ( in sitting) improved after use of overhead taina from flex: 80 to 107 degs and AB: 62 to 85 deg's. Assessment Summary Assessment Capsular stiffness persists. Pt doesn't appear to be very consistent with her HEP. Her active ROM improved after overdoor taina ex but the pt doesn't want to have one at home. Pt may need further imaging to rule out RC tears. Physical Therapy Plan Frequency and Duration Frequency of Treatment 2x/Week Plan of Care Start Date 12/26/19 Plan of Care End Date 03/21/20 Other Referrals/Consults Referrals/Consults Recommended Further imaging to rule out RC dysfunction. Next Visit Focus/Plan Next Note Type Treatment Note Next Visit Plan Reassess.`Review again, shldr flex stretch with neural glides (wrist sup/pron & elbow flex/ext). `Progress R shoulder ER and scapular strengthening Issue HEP: sidelying AROM of R shoulder (ER/IR/AB/horiz AB), `T-Ball or window: shoulder AROM and other CKC ex's,
--- NOTE | 2020-02-03 14:02 | PT.OTN ---
Current Diagnoses Primary osteoarthritis, right shoulder (02/03/20) Pain in right shoulder (02/03/20) Pain in left shoulder (02/03/20) Muscle weakness (generalized) (02/03/20) Physical Therapy Treatment Note PT-OP-A Visit Information Start: 09/30/19 07:24 Freq: Status: Active Protocol: Document 02/03/20 12:49 LRN (Rec: 02/03/20 13:58 LRN [id number]) Out-Patient Physical Therapy Visit Information Visit Information Visit Type Treatment Note Visit Start Time 12:49 Visit Stop Time 13:46 Total Visit Minutes 57 Visit Number 14 Evaluation Information Evaluation Date 09/30/19 Precautions Precautions Osteopenia, possible Osteoporosis Neuropathy [place], Hx of angioplasty R GHJ arthritis Essential HTN PT-OP-B Current Condition Start: 09/30/19 07:24 Freq: Status: Active Protocol: Document 12/26/19 15:17 LRN (Rec: 12/26/19 17:32 LRN [id number]) Current Condition History of Current Condition Onset Date Gradual increase in pain since 2016 Current Complaints Pain in bilateral arms, especially the R arm History of Current Condition Pt has had her R shoulder rehabilitation interrupted due to COVID-19 pandemic. She returns after a 3 month interruption with worsening symptoms of pain and mobility but similar pain complaints. Previous report was that both her arms hurt, but specifically the R arm where she reports constant pain. She decided to get therapy having an x-ray of the R shoulder with findings that she had R shoulder osteoarthritis. Patient had a heart attack and a stroke in 2016 and since then she feels as if she had lost a lot of strength along with fine motor activities. She reports continued difficulty opening anything, inability to lift a jug of orange juice or milk, inability to reach up any more - especially to the second shelf in her cupboard. She says she needs both arms to get anything out of the fridge . She previously reported sleeping is okay - she can sleep on both sides but the pain does sometimes keep her awake. She is taking Tylenol Super Strength - 2 in morning and 2 at night. The pain seems to spread by her collar bone, down the back at times, and always going down the arm. She reports an 8-9/10 pain on a bad day - she will just wake up with it bad without a correlation to any activity. Currently she has a 5-6/10 pain in R shoulder. She has trouble buttoning and zipping because she doesn't seem to have the strength to pull it. She has been to PT a few years ago for her shoulder but stopped because she went on vacation. She is not really active at home. Her and son live with her currently and her son helps with getting objects from a tall cupboard. She likes to walk, cook, and do computer stuff. Tying quilts for confucianism . 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 Also a history of a sore on L leg from November-June that did not heal and she had to go to Wound Care clinic. Prior Treatments and Tests PT in past for shoulder Posterior R hip replacement X-ray of R shoulder Treatment Goals Patient/Caregiver Goals Remains same: she would like good use of both arms - reaching out to pull car door closed; being able to comb back of hair, reaching and putting things away, increase strength; picking up groceries - every day things - need help making the bed. Driving. 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 confucianism Current Functional Impairments (Reported) Functional Limitations- ADL's cannot sleep at times due to pain Functional Limitations- Mobility/Gait Unable to reach behind head or lift things overhead Functional Limitations- Recreation/ Doesn't feel like going out Hobbies because she is hurting Personal Factors Other Personal Factors That May Effect Arthritis Therapy/Recovery Blood Pressure Past Falls History of Heart Attack and Stroke (2015) Neuropathy Osteopenia PT-OP-C Subjective Start: 09/30/19 07:24 Freq: Status: Active Protocol: Document 02/03/20 12:49 LRN (Rec: 02/03/20 13:58 LRN [id number]) OP-PT Subjective Patient Comments Patient Comments States she dropped a bottle of olive oil and had to clean the floor so the shoulder was hurting a lot. States some days are better than some. Sometimes can reach up to the first shelf without a problem, occasionally can reach up to 2nd shelf, feels like it is stretching. Does all cooking because has an adult son with learning disabilities. Doesn' t want to get an over the door taina. PT-OP-E Functional Tests Start: 09/30/19 15:22 Freq: Status: Active Protocol: Document 01/23/20 12:47 LRN (Rec: 01/23/20 13:33 LRN [id number]) Functional Tests Apley's Scratch Test Action 1- Left Supraspinatus Action 1- Right Start of Supraspinatus Action 2- Left C7 Action 2- Right Lateral R neck Action 3- Left Lower sacral border Action 3- Right Lateral buttock PT-OP-J Posture/Palpation/Skin Start: 09/30/19 07:24 Freq: Status: Active Protocol: Document 12/26/19 15:17 LRN (Rec: 12/26/19 17:14 LRN [id number]) Posture Evaluation Position Sitting Evaluation View Posterior Head/C-Spine Posture Side Bent Right T-Spine Posture Increased Kyphosis Shoulder Posture (L) Rounded,(R) Rounded Weight Distribution Weight Shifted Left Standing Head/C-Spine Posture Flexed Palpation Assessment Location Upper Traps Palpation Location Upper Trap, Supraspinatus, Infraspinatus Palpation Findings Tenderness One Palpation Location Primarily right lateral shoulder, general diffuse shoulder region Palpation Findings Tenderness Palpation Details tenderness at the supraspinatus insertion laterally on the right, general tenderness to palpation over the lateral right shoulder PT-OP-K Range of Motion Start: 09/30/19 07:24 Freq: Status: Active Protocol: Document 02/03/20 12:49 LRN (Rec: 02/03/20 14:02 LRN [id number]) Shoulder Goniometric Range of Motion Shoulder Right Shoulder ROM WFL No Testing Position Sitting Flexion 80 Abduction 62 Shoulder ROM Limitations Comments After over head taina exer: R shoulder active flex is 107 deg's, AB is 85 deg's. PT-OP-L Special Tests Start: 09/30/19 07:24 Freq: Status: Active Protocol: Document 12/26/19 15:17 LRN (Rec: 12/26/19 17:32 LRN [id number]) Special Tests Shoulder Special Tests IRand Extension Test Results + Comments Pain with motion in R arm - less motion R compared to L ER and Abduction Test Results + on R side - unable to touch behind head Comments Patient can touch R ear while side bending head to R PT-OP-M Strength Start: 09/30/19 07:24 Freq: Status: Active Protocol: Document 12/26/19 15:17 LRN (Rec: 12/26/19 17:14 LRN [id number]) Shoulder Strength Shoulder Manual Muscle Testing Left Flexion 2 Poor Abduction (C5) 2 Poor External Rotation 1 Trace Internal Rotation 2+ Poor+ Right Flexion 2- Poor- Abduction (C5) 2- Poor- External Rotation 2- Poor- Internal Rotation 2- Poor- Hand Woven Paper Hat Mender/Pinch Strength Hand Strength Left Comments 3 trials: 2kg, 3kg, 2 kgs. Right Comments 3 trials: 2kg, 2kg, 1kg. PT-OP-Q Treatments Start: 09/30/19 07:24 Freq: Status: Active Protocol: Document 02/03/20 12:49 LRN (Rec: 02/03/20 13:58 LRN [id number]) Therapeutic Exercises Sidelying Exercises Horiz AB Sidelying Exercise Name Assisted Active Horiz AB Side right Reps/Minutes 10x R shoulder IR Sidelying Exercise Name R shoulder IR Side right Reps/Minutes 15x, 10x R shoulder ER Sidelying Exercise Name Active assisted & Janae (0 deg' s ER) shoulder ER Side right Reps/Minutes 10 x each R shoulder AB Sidelying Exercise Name Assisted AB Side right Reps/Minutes 10x Comments Movement very slow to avoid pain Sitting Exercises Biceps curl Sitting Exercise Name Biceps curl Side bilateral Resistance 1# R, 2# L. Reps/Minutes 15 x 2 taina Sitting Exercise Name shoulder flexion and AB Side bilateral Reps/Minutes 8 mins Comments pt reports of minimal discomfort but able to control ROM forward and sideway reach Sitting Exercise Name B shoulder flexion, and diagonal L Side bilateral Equipment Used SPC Reps/Minutes 2 mins, 10 hold Comments pt reports of no discomfort but able to control ROM L sided row Sitting Exercise Name L sided row Side left Resistance Lev 1, double banded TB Reps/Minutes 10 H x 15, & 15x without holds Thoracic Extension on chair Sitting Exercise Name Thoracic Ext verbal review. Reps/Minutes 2' 5 Hold x 10 Self-Care/Home Management Treatment Education Patient Education Home Exercise Program Activities Self-Care/Home Management Activities Reviewed home ex's of Shoulder ER/IR and AB in sidee. Issued Lev 1 TBand for ER/IR strengthening. Discussed at length her previous home ex's and reviewed reps, resistance tension of band, where to attach band, when to do, how often, ex's to do in chair, Discussed importance of pt doing the ex more than 1x/day. Discussed possible reasons for decreased shoulder rotation. PT-OP-R Modalities Start: 09/30/19 07:24 Freq: Status: Active Protocol: Document 09/30/19 09:45 EG (Rec: 09/30/19 15:50 EG [id number]) Hot Pack/Cold Pack Treatment Hot Pack Location R and L GHJ Patient Position Supine Treatment Duration (minutes) 15 Patient Tolerance Good PT-OP-T Assessment and Plan Start: 09/30/19 07:24 Freq: Status: Active Protocol: Document 02/03/20 12:49 LRN (Rec: 02/03/20 13:58 LRN [id number]) Physical Therapy Assessment Goals Four Impairment Functional Mobility Short Term Goal (STG) Patient will increase ability to reach overhead with R arm and reach behind head to wash hair in shower with no more than 3/10 pain in 4 weeks. STG Duration 02/19/20 (01/27/20: Not met. Pt able to place hand on L side of head) Children'S Author Goal (LTG) Patient will increase ability to reach overhead to 2nd cupboard in house and take cup out with no increase in pain in 8 weeks. LTG Duration 03/21/20 Three Impairment Strength Short Term Goal (STG) Patient will increase bilateral nut grinder strength with hand held dynamometer to >8 kg in 4 weeks. STG Duration 02/19/20 (01/20/20: Not met, focus has been on ROM goal) Prison Goal (LTG) Patient will be able to picker and sorter load and unload orange juice jug from refrigerator with R arm with no increase in 2/10 pain in 8 weeks. (11/25/19: Able to lift with both arms). LTG Duration 03/21/20 Two Impairment ROM Short Term Goal (STG) Patient will increase active R shoulder flexion to 110 degrees and active R shoulder abduction to 110 degrees with <3/10 pain in 4 weeks. (01/13/20: R shoulder flex prior to increased pain is 78 deg's, was 75 deg's initially) STG Duration 01/20/20 (01/27/20: R shoulder PROM: Flex is 130 deg's in supine) Children'S Author Goal (LTG) Patient will be able to perform all overhead household tasks independently with no more than 2/10 pain in 8 weeks . LTG Duration 02/24/20 One Impairment decreased shoulder ROM Children'S Author Goal (LTG) Improve pain free shoulder ROM to WFL allowing Tessie to comb her hair and put on her necklace. LTG Duration 03/21/20 (01/20/20: Progressing ) Progress Towards Goals Progress Comments R shoulder active flex & AB ( in sitting) improved after use of overhead taina from flex: 80 to 107 degs and AB: 62 to 85 deg's. Assessment Summary Assessment Capsular stiffness persists. Pt doesn't appear to be very consistent with her HEP. Her active ROM improved after overdoor taina ex but the pt doesn't want to have one at home. Pt may need further imaging to rule out RC tears. Physical Therapy Plan Frequency and Duration Frequency of Treatment 2x/Week Plan of Care Start Date 12/26/19 Plan of Care End Date 03/21/20 Other Referrals/Consults Referrals/Consults Recommended Further imaging to rule out RC dysfunction. Next Visit Focus/Plan Next Note Type Treatment Note Next Visit Plan Reassess.`Review again, shldr flex stretch with neural glides (wrist sup/pron & elbow flex/ext). `Progress R shoulder ER and scapular strengthening Issue HEP: sidelying AROM of R shoulder (ER/IR/AB/horiz AB), `T-Ball or window: shoulder AROM and other CKC ex's,
--- NOTE | 2020-02-10 17:25 | PT.OTN ---
Current Diagnoses Primary osteoarthritis, right shoulder (02/10/20) Pain in right shoulder (02/10/20) Pain in left shoulder (02/10/20) Muscle weakness (generalized) (02/10/20) Physical Therapy Treatment Note PT-OP-A Visit Information Start: 09/30/19 07:24 Freq: Status: Active Protocol: Document 02/10/20 12:52 LRN (Rec: 02/10/20 13:39 LRN [id number]) Out-Patient Physical Therapy Visit Information Visit Information Visit Type Treatment Note Visit Start Time 12:52 Visit Stop Time 13:38 Total Visit Minutes 46 Visit Number 15 Evaluation Information Evaluation Date 09/30/19 Precautions Precautions Osteopenia, possible Osteoporosis Neuropathy [place], Hx of angioplasty R GHJ arthritis Essential HTN PT-OP-B Current Condition Start: 09/30/19 07:24 Freq: Status: Active Protocol: Document 12/26/19 15:17 LRN (Rec: 12/26/19 17:32 LRN [id number]) Current Condition History of Current Condition Onset Date Gradual increase in pain since 2016 Current Complaints Pain in bilateral arms, especially the R arm History of Current Condition Pt has had her R shoulder rehabilitation interrupted due to COVID-19 pandemic. She returns after a 3 month interruption with worsening symptoms of pain and mobility but similar pain complaints. Previous report was that both her arms hurt, but specifically the R arm where she reports constant pain. She decided to get therapy having an x-ray of the R shoulder with findings that she had R shoulder osteoarthritis. Patient had a heart attack and a stroke in 2016 and since then she feels as if she had lost a lot of strength along with fine motor activities. She reports continued difficulty opening anything, inability to lift a jug of orange juice or milk, inability to reach up any more - especially to the second shelf in her cupboard. She says she needs both arms to get anything out of the fridge . She previously reported sleeping is okay - she can sleep on both sides but the pain does sometimes keep her awake. She is taking Tylenol Super Strength - 2 in morning and 2 at night. The pain seems to spread by her collar bone, down the back at times, and always going down the arm. She reports an 8-9/10 pain on a bad day - she will just wake up with it bad without a correlation to any activity. Currently she has a 5-6/10 pain in R shoulder. She has trouble buttoning and zipping because she doesn't seem to have the strength to pull it. She has been to PT a few years ago for her shoulder but stopped because she went on vacation. She is not really active at home. Her and son live with her currently and her son helps with getting objects from a tall cupboard. She likes to walk, cook, and do computer stuff. Tying quilts for yazdanism . 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 Also a history of a sore on L leg from November-June that did not heal and she had to go to Wound Care clinic. Prior Treatments and Tests PT in past for shoulder Posterior R hip replacement X-ray of R shoulder Treatment Goals Patient/Caregiver Goals Remains same: she would like good use of both arms - reaching out to pull car door closed; being able to comb back of hair, reaching and putting things away, increase strength; picking up groceries - every day things - need help making the bed. Driving. 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 yazdanism Current Functional Impairments (Reported) Functional Limitations- ADL's cannot sleep at times due to pain Functional Limitations- Mobility/Gait Unable to reach behind head or lift things overhead Functional Limitations- Recreation/ Doesn't feel like going out Hobbies because she is hurting Personal Factors Other Personal Factors That May Effect Arthritis Therapy/Recovery Blood Pressure Past Falls History of Heart Attack and Stroke (2015) Neuropathy Osteopenia PT-OP-C Subjective Start: 09/30/19 07:24 Freq: Status: Active Protocol: Document 02/10/20 12:52 LRN (Rec: 02/10/20 13:39 LRN [id number]) OP-PT Subjective Patient Comments Patient Comments Can now put her earring on the L ear with discomfort in the R forearm, but can do it. States she can sometimes reach the 2nd shelf of cupboard, sometimes not. Pain before and after shoulder flex stretch was 4/10. States she will continue with her HEP. PT-OP-E Functional Tests Start: 09/30/19 15:22 Freq: Status: Active Protocol: Document 01/23/20 12:47 LRN (Rec: 01/23/20 13:33 LRN [id number]) Functional Tests Apley's Scratch Test Action 1- Left Supraspinatus Action 1- Right Start of Supraspinatus Action 2- Left C7 Action 2- Right Lateral R neck Action 3- Left Lower sacral border Action 3- Right Lateral buttock PT-OP-J Posture/Palpation/Skin Start: 09/30/19 07:24 Freq: Status: Active Protocol: Document 12/26/19 15:17 LRN (Rec: 12/26/19 17:14 LRN [id number]) Posture Evaluation Position Sitting Evaluation View Posterior Head/C-Spine Posture Side Bent Right T-Spine Posture Increased Kyphosis Shoulder Posture (L) Rounded,(R) Rounded Weight Distribution Weight Shifted Left Standing Head/C-Spine Posture Flexed Palpation Assessment Location Upper Traps Palpation Location Upper Trap, Supraspinatus, Infraspinatus Palpation Findings Tenderness One Palpation Location Primarily right lateral shoulder, general diffuse shoulder region Palpation Findings Tenderness Palpation Details tenderness at the supraspinatus insertion laterally on the right, general tenderness to palpation over the lateral right shoulder PT-OP-K Range of Motion Start: 09/30/19 07:24 Freq: Status: Active Protocol: Document 02/10/20 12:52 LRN (Rec: 02/10/20 13:39 LRN [id number]) Shoulder Goniometric Range of Motion Shoulder Right Passive Testing Position Standing Flexion 130 Left Testing Position Sitting Flexion 125 Abduction 113 Right Shoulder ROM WFL No Testing Position Sitting Flexion 130 Abduction 115 PT-OP-L Special Tests Start: 09/30/19 07:24 Freq: Status: Active Protocol: Document 12/26/19 15:17 LRN (Rec: 12/26/19 17:32 LRN [id number]) Special Tests Shoulder Special Tests IRand Extension Test Results + Comments Pain with motion in R arm - less motion R compared to L ER and Abduction Test Results + on R side - unable to touch behind head Comments Patient can touch R ear while side bending head to R PT-OP-M Strength Start: 09/30/19 07:24 Freq: Status: Active Protocol: Document 12/26/19 15:17 LRN (Rec: 12/26/19 17:14 LRN [id number]) Shoulder Strength Shoulder Manual Muscle Testing Left Flexion 2 Poor Abduction (C5) 2 Poor External Rotation 1 Trace Internal Rotation 2+ Poor+ Right Flexion 2- Poor- Abduction (C5) 2- Poor- External Rotation 2- Poor- Internal Rotation 2- Poor- Hand Zoology Technical Officer/Pinch Strength Hand Strength Left Comments 3 trials: 2kg, 3kg, 2 kgs. Right Comments 3 trials: 2kg, 2kg, 1kg. PT-OP-Q Treatments Start: 09/30/19 07:24 Freq: Status: Active Protocol: Document 02/10/20 12:52 LRN (Rec: 02/10/20 13:39 LRN [id number]) Therapeutic Exercises Sitting Exercises Shoulder flex Sitting Exercise Name Active & Active assisted shoulder flex Side right Equipment Used Cane Reps/Minutes 13' Comments 130 degs, with assist to 143 deg's taina Sitting Exercise Name shoulder flexion and AB Side bilateral Reps/Minutes 8 mins Comments pt reports of minimal discomfort but able to control ROM forward and sideway reach Sitting Exercise Name Fwd reaching with arms on a table Reps/Minutes 7' Comments Shoulder flex 143 degs Standing Exercises Window washing Standing Exercise Name Shoulder flex with window washing movement Side bilateral Reps/Minutes 5' Comments Max R shoulder flex - 130 deg' s Self-Care/Home Management Treatment Education Patient Education Pain Management Activities Self-Care/Home Management Activities Discussed limitations based on pain and what kind of pain she should limit herself with. Reviewed each HEP exercises for understanding of her exercises and with some limits based on pain. Discussed limiting by pain to prevent soft tissue injury to her shoulder. PT-OP-R Modalities Start: 09/30/19 07:24 Freq: Status: Active Protocol: Document 09/30/19 09:45 EG (Rec: 09/30/19 15:50 EG [id number]) Hot Pack/Cold Pack Treatment Hot Pack Location R and L GHJ Patient Position Supine Treatment Duration (minutes) 15 Patient Tolerance Good PT-OP-T Assessment and Plan Start: 09/30/19 07:24 Freq: Status: Active Protocol: Document 02/10/20 12:52 LRN (Rec: 02/10/20 13:39 LRN [id number]) Physical Therapy Assessment Goals Four Impairment Functional Mobility Short Term Goal (STG) Patient will increase ability to reach overhead with R arm and reach behind head to wash hair in shower with no more than 3/10 pain in 4 weeks. (02/10/20: Pt able to place hand on R side of head and can put L earing on. She is not able to reach behind her head) STG Duration 02/19/20 (02/10/20: NOT MET GOAL) Snf Goal (LTG) Patient will increase ability to reach overhead to 2nd cupboard in house and take cup out with no increase in pain in 8 weeks. (02/10/20: Pt able to sometimes reach the 2nd cupboard shelf but is not able to take a cup out, pain remains). LTG Duration 03/21/20 (02/10/20: NOT MET GOAL ) Three Impairment Strength Short Term Goal (STG) Patient will increase bilateral director biologics strength with hand held dynamometer to >8 kg in 4 weeks. (02/10/20: R hand director biologics strength is 4 kg) STG Duration 02/19/20 (02/10/20: NOT MET GOAL) Car Dispatcher Goal (LTG) Patient will be able to pickler helper orange juice jug from refrigerator with R arm with no increase in 2/10 pain in 8 weeks. (11/25/19: Able to lift with both arms. 02/10/20: Not attempted). LTG Duration 03/21/20 (02/10/20: NOT MET GOAL, pt hasn't tried) Two Impairment ROM Short Term Goal (STG) Patient will increase active R shoulder flexion to 110 degrees and active R shoulder abduction to 110 degrees with <3/10 pain in 4 weeks. (02/10/20: R shoulder AROM: Flex is 130 deg's, AB 115 deg' s, pn is 5/10, was 75 deg's initially) STG Duration 01/20/20 (02/10/20: NOT MET GOAL, pt improved overall) Snf Goal (LTG) Patient will be able to perform all overhead household tasks independently with no more than 2/10 pain in 8 weeks . LTG Duration 02/24/20 (02/10/20: NOT MET GOAL, pain is 5/10) One Impairment decreased shoulder ROM Snf Goal (LTG) Improve pain free shoulder ROM to WFL allowing Tessie to comb her hair and put on her neck(02/10/20: 25% better combing her hair, some days better than others; not able to don necklace ) LTG Duration 03/21/20 (02/10/20: NOT MET GOAL ) Assessment Summary Assessment The pt overall has improved in her R shoulder AROM/PROM but she still shows rotator cuff dysfunction and lack of strength. Her sitting R shoulder ER is 0 deg's. She was able to reach beyond 90 deg's of flex and AB with her R shoulder in spite of her limited rotator cuff strength. The pt as lately has reported no change in her shoulder progress and is ready to be placed on an independent HEP of Shoulder ROM and shoulder/scapular strengthening exercises. The pt may benefit in the future for a shoulder rehab program if she looses function from loss of strength. Physical Therapy Plan Discharge Physical Therapy Discharge Reasons Plateau in Progress Discharge Comments The pt may benefit from shoulder rehab in the future. Thank you for your referral.
== END 2020-02-12 10:44 ==
LOC: PHYS 12:45
PROVIDERS: PCP Family Medicine; Referring Provider Family Medicine; Visit Provider Family Medicine
DX: M19.011 Primary osteoarthritis, right shoulder (principal); M25.512 Pain in left shoulder; M25.511 Pain in right shoulder; M62.81 Muscle weakness (generalized)
CPT/HCPCS: 95851; 97010; 97110; 97140; 97161; 97535

== ENCOUNTER → 2020-02-14 09:52 | Outpatient (CLI) | payer MEDICARE, SELFPAY ==
[2019-05-02 18:00] VITALS: BMI 31.6
[2020-02-14 11:21] LABS: Cholesterol 149 mg/dL (140-199); HDL Cholesterol 41 mg/dL (40-60); LDL Cholesterol Calculated 81 mg/dL (<100); Triglycerides 137 mg/dL (35-150)
== END ==
PROVIDERS: PCP Family Medicine; Referring Provider Internal Medicine Interventional Cardiology; Visit Provider Internal Medicine Interventional Cardiology
DX: I25.10 Atherosclerotic heart disease of native coronary artery without angina pectoris (principal)
CPT/HCPCS: 36415; 80061

== ENCOUNTER → 2020-07-02 09:31 | Outpatient (CLI) | payer MEDICARE, SELFPAY ==
[2019-05-02 18:00] VITALS: BMI 31.6
[2020-07-02 10:26] LABS: Alanine Aminotransferase 19 IU/L (<35); Albumin 4.2 g/dL (3.5-5.0); Albumin Globulin Ratio 1.3 (1.0-2.8); Alkaline Phosphatase 55 U/L (38-126); Aspartate Aminotransferase 27 IU/L (14-36); BUN Creatinine Ratio 23.4 (6-22); Bilirubin Total 0.6 mg/dL (0.2-1.3); Blood Urea Nitrogen 15 mg/dL (7-17); Calcium 9.4 mg/dL (8.4-10.2); Carbon Dioxide 32 mmol/L (22-32); Chloride 103 mmol/L (98-107); Estimated Glomerular Filt Rate > 60.0 mL/min (>60); Globulin 3.3 g/dL (1.7-4.1); Glucose 95 mg/dL (80-110); HEMOLYSIS < 15 (0-50); Potassium 4.6 mmol/L (3.4-5.1); Sodium 141 mmol/L (137-145); Total Protein 7.5 g/dL (6.3-8.2)
== END ==
PROVIDERS: PCP Family Medicine; Referring Provider Family Medicine; Visit Provider Family Medicine
DX: E78.5 Hyperlipidemia, unspecified (principal); E83.52 Hypercalcemia
CPT/HCPCS: 36415; 80053

== ENCOUNTER → 2020-11-19 11:15 | Outpatient (CLI) | payer MEDICARE, SELFPAY ==
[2019-05-02 18:00] VITALS: BMI 31.6
--- NOTE | 2020-11-19 | DI.MG.S_ITS ---
BILATERAL DIGITAL SCREENING MAMMOGRAM 3D/2D WITH CAD: 11/19/2020 CLINICAL: Routine screening. Comparison is made to exams dated: 07/09/2018 mammogram, 11/26/2013 mammogram, and 08/16/2012 mammogram - [facility]. The tissue of both breasts is predominantly fatty. Current study was also evaluated with a Computer Aided Detection (CAD) system. No significant masses, calcifications, or other findings are seen in either breast. There has been no significant interval change. IMPRESSION: NEGATIVE There is no mammographic evidence of malignancy. A 1 year screening mammogram is recommended. This exam was interpreted at Station ID: [id number]. NOTE: For mammograms, a report in lay terms will be sent to the patient. Approximately 15% of breast malignancies will not be visualized mammographically. In the management of a palpable breast mass, a negative mammogram must not discourage biopsy of a clinically suspicious lesion. Electronically Signed By: Malik Vega M.D., jr/jaxon:11/19/2020 11:50:24 letter sent: Normal Exam ACR BI-RADS Category 1: Negative [id number]
== END ==
PROVIDERS: PCP Family Medicine; Referring Provider Family Medicine; Visit Provider Family Medicine
DX: Z12.31 Encounter for screening mammogram for malignant neoplasm of breast (principal)
CPT/HCPCS: 77063; 77067

== ENCOUNTER → 2021-01-11 12:59 | Outpatient (CLI) | payer MEDICARE, SELFPAY ==
[2019-05-02 18:00] VITALS: BMI 31.6
[2021-01-11 14:09] LABS: BUN Creatinine Ratio 20.3 (6-22); Blood Urea Nitrogen 13 mg/dL (7-17); Calcium 9.3 mg/dL (8.4-10.2); Carbon Dioxide 27 mmol/L (22-32); Chloride 103 mmol/L (98-107); Estimated Glomerular Filt Rate > 60.0 mL/min (>60); Glucose 79 mg/dL (80-110); HEMOLYSIS < 15 (0-50); Potassium 4.1 mmol/L (3.4-5.1); Sodium 139 mmol/L (137-145)
== END ==
PROVIDERS: PCP Family Medicine; Referring Provider Internal Medicine Interventional Cardiology; Visit Provider Internal Medicine Interventional Cardiology
DX: I25.10 Atherosclerotic heart disease of native coronary artery without angina pectoris (principal); I25.2 Old myocardial infarction; Z95.5 Presence of coronary angioplasty implant and graft
CPT/HCPCS: 36415; 80048

== ENCOUNTER → 2021-01-15 16:09 | Outpatient (CLI) | payer MEDICARE, SELFPAY ==
[2019-05-02 18:00] VITALS: BMI 31.6
[2021-01-15 17:34] LABS: Add Manual Diff / Slide Review NO; Basophils Absolute Auto 0 /uL (0-100); Basophils Percent Auto 0.7 % (0-2); Eosinophils Absolute Auto 200 /uL (0-450); Eosinophils Percent Auto 2.8 % (2-4); Hematocrit 37.1 % (36-46); Hemoglobin 12.3 g/dL (12.0-16.0); Lymphocytes Absolute Auto 1200 /uL (1100-4500); Mean Corpuscular HGB Conc 33.2 % (30-36); Mean Corpuscular Hemoglobin 29.5 PG (26-34); Monocytes Absolute Auto 900 /uL (0-900); Monocytes Percent Auto 16.8 % (3-14); Neutrophils Absolute Auto 3200 /uL (1500-7000); Neutrophils Percent Auto 57.7 % (50-75); Platelet Count 360 X10^3/uL (150-400); Red Blood Cell Count 4.17 X10^6/uL (4.0-5.2); Red Cell Distribution Width 12.8 % (11.6-14.8); White Blood Cell Count 5.5 X10^3/uL (4.5-11.0)
[2021-01-15 17:48] LABS: Alanine Aminotransferase 17 IU/L (<35); Albumin 4.1 g/dL (3.5-5.0); Albumin Globulin Ratio 1.2 (1.0-2.8); Alkaline Phosphatase 55 U/L (38-126); Aspartate Aminotransferase 26 IU/L (14-36); Bilirubin Total 0.5 mg/dL (0.2-1.3); Blood Urea Nitrogen 12 mg/dL (7-17); C-Reactive Protein Quant < 0.5 mg/dL (<1.0); Calcium 9.3 mg/dL (8.4-10.2); Carbon Dioxide 26 mmol/L (22-32); Chloride 105 mmol/L (98-107); Estimated Glomerular Filt Rate > 60.0 mL/min (>60); Globulin 3.3 g/dL (1.7-4.1); Glucose 76 mg/dL (80-110); HEMOLYSIS < 15 (0-50); Potassium 3.9 mmol/L (3.4-5.1); Sodium 140 mmol/L (137-145); Total Protein 7.4 g/dL (6.3-8.2)
[2021-01-15 17:54] LABS: Erythrocyte Sedimentation Rate 15 MM/HR (0-20)
== END ==
PROVIDERS: PCP Family Medicine; Referring Provider Family Medicine; Visit Provider Family Medicine
DX: M25.519 Pain in unspecified shoulder (principal); I10 Essential (primary) hypertension
CPT/HCPCS: 36415; 80053; 85025; 85651; 86140

== ENCOUNTER → 2021-03-02 14:31 | Outpatient (CLI) | payer MEDICARE, SELFPAY ==
[2019-05-02 18:00] VITALS: BMI 31.6
--- NOTE | 2021-03-02 14:33 | DI.RAD.S_ITS ---
PROCEDURE: XR FOOT RT MIN 3V INDICATIONS: R 1st metatarsal/toe pain and swelling NKI TECHNIQUE: Three views of the foot were acquired. COMPARISON: [facility], , FOOT 3V RIGHT, 02/20/2016, 18:45. FINDINGS: Bones: No fractures or dislocations. No suspicious bony lesions. Mild degenerative spurring at the 1st MTP joint. Subcortical cystic changes medially in the 1st metatarsal head, similar compared to the prior study. Interval healing of 5th metatarsal base fracture. Prominent degenerative change at the midfoot and hindfoot articular surfaces. Plantar calcaneal spur. Soft tissues: No tibiotalar joint effusion. Achilles tendon appears normal. Mild atherosclerotic calcification. IMPRESSION: 1. Minimal progression of mild degenerative change at the 1st MTP joint. 2. Healing of 5th metatarsal base fracture. 3. Slight progression of moderately prominent mid and hindfoot degeneration. Dictated by: Lakesha Warner M.D. on 03/02/2021 at 16:42 Approved by: Lakesha Warner M.D. on 03/02/2021 at 16:44
== END ==
PROVIDERS: PCP Family Medicine; Referring Provider Nurse Practitioner; Visit Provider Nurse Practitioner
DX: M79.671 Pain in right foot (principal); S92.351D Displaced fracture of fifth metatarsal bone, right foot, subsequent encounter for fracture with routine healing; M19.071 Primary osteoarthritis, right ankle and foot
CPT/HCPCS: 73630

== ENCOUNTER → 2021-03-05 11:29 | Outpatient (CLI) | payer MEDICARE, SELFPAY ==
[2019-05-02 18:00] VITALS: BMI 31.6
[2021-03-05 12:35] LABS: Add Manual Diff / Slide Review NO; Basophils Absolute Auto 0 /uL (0-100); Eosinophils Absolute Auto 200 /uL (0-450); Eosinophils Percent Auto 3.8 % (2-4); Hematocrit 34.7 % (36-46); Hemoglobin 11.1 g/dL (12.0-16.0); Lymphocytes Absolute Auto 800 /uL (1100-4500); Lymphocytes Percent Auto 20.1 % (25-40); Mean Corpuscular Hemoglobin 28.3 PG (26-34); Mean Corpuscular Volume 88.4 fL (80-100); Monocytes Absolute Auto 700 /uL (0-900); Monocytes Percent Auto 17.8 % (3-14); Neutrophils Absolute Auto 2300 /uL (1500-7000); Neutrophils Percent Auto 57.3 % (50-75); Platelet Count 312 X10^3/uL (150-400); Red Blood Cell Count 3.93 X10^6/uL (4.0-5.2); Red Cell Distribution Width 13.6 % (11.6-14.8); White Blood Cell Count 4.1 X10^3/uL (4.5-11.0)
[2021-03-05 12:51] LABS: C-Reactive Protein Quant < 0.5 mg/dL (<1.0); Uric Acid 6.3 mg/dL (2.5-6.2)
[2021-03-05 13:01] LABS: Erythrocyte Sedimentation Rate 24 MM/HR (0-20)
== END ==
PROVIDERS: PCP Family Medicine; Referring Provider Nurse Practitioner; Visit Provider Nurse Practitioner
DX: M79.673 Pain in unspecified foot (principal)
CPT/HCPCS: 36415; 80184; 80188; 84550; 85025; 85651; 86140

== ENCOUNTER 2021-08-24 20:15 | Emergency (ER) | payer MEDICARE, SELFPAY ==
[2019-05-02 18:00] VITALS: BMI 31.6
[2021-08-24] VITALS (9 sets, daily range): BP systolic 156–169; BP diastolic 71–79; PULSE 83–96; RESP 18; TEMP 36.8; O2SAT 95–100
--- NOTE | 2021-08-24 20:21 | DI.RAD.S_ITS ---
PROCEDURE: XR HIP W PEL IF DONE RT 2V INDICATIONS: fall with right hip pain TECHNIQUE: AP pelvis with lateral view(s) of the right hip(s). COMPARISON: None. FINDINGS: Bones: No fractures or dislocations. Pelvic ring appears intact. No suspicious bony lesions. Right hip arthroplasty is present. Hardware appears intact. Moderate arthritic changes are present within the left hip. Soft tissues: The visualized bowel gas pattern is normal. No suspicious soft tissue calcifications. IMPRESSION: No visualized acute fracture or dislocation. However, if clinical concern and/or pain persist, short interval imaging followup in 7-10 days is recommended, as occult injury cannot be definitively excluded. Dictated by: Erica Mccloud M.D. on 08/24/2021 at 20:53 Approved by: Erica Mccloud M.D. on 08/24/2021 at 20:54
--- NOTE | 2021-08-24 21:13 | DI.CT.S_ITS ---
PROCEDURE: CT PEL WO CON INDICATIONS: fall with pain in Right hip TECHNIQUE: Noncontrast 3 mm axial sections acquired through the bony pelvis, with coronal and sagittal reformatting. COMPARISON: [facility] [place], CR, HIP COMP MIN 2VW (RT), 06/03/2014, 10:04. [facility], CT, KIDNEY/ URETER/BLADDER, 06/25/2012, 9:30. [facility] [place], CR, XR PELVIS W LATERAL HIP RT, 09/08/2015, 15:40. [facility], CR, XR HIP W PEL IF DONE RT 2V, 08/24/2021, 20:13. FINDINGS: Image quality: Portions of the lower pelvis are suboptimally evaluated secondary to metallic streak artifact from hip arthroplasty. Bones: Right hip arthroplasty is present. There is no visualized hardware fracture or periprosthetic lucency to suggest loosening. Moderate arthritic narrowing changes are present within the left hip. There is increased fragmentation along the superior aspect of the right greater trochanter compared to 2016. Artifact is also present within this region secondary to arthroplasty. Soft tissues: Transplant kidney is noted in the right lower quadrant. Colonic diverticular present. Fat containing inguinal hernias are present. There is asymmetric fullness and increased density within the right posterior gluteal musculature measuring approximately 5.0 x 12.4 cm, Hounsfield units measure approximately 70. IMPRESSION: Fragmentation of the greater trochanter appearing more prominent when compared to 2016. This could represent trauma of indeterminate age and recommend correlation to point tenderness. Asymmetric hyperdense prominence within the right gluteal musculature most suggestive of hematoma. Dictated by: Erica Mccloud M.D. on 08/24/2021 at 21:34 Approved by: Erica Mccloud M.D. on 08/24/2021 at 21:40
--- NOTE | 2021-08-24 21:51 | ED_ITS ---
HPI - Extremity Injury (Lower) General Chief Complaint: Extremity Injury, Lower Stated Complaint: fall/hip pain Time Seen by Provider: 08/24/21 20:21 Source: patient and EMS Mode of arrival: EMS History of Present Illness HPI Narrative: 76-year-old female nonsmoker with history of coronary artery disease and a prior right hip surgery presents for evaluation of significant right hip pain after a fall this evening. She had been in her normal state of health and states that she got her feet caught up underneath her and fell onto her right hip. She now has pain with palpation, range of motion and attempts at ambulation. She denies any numbness, tingling or weakness. She denies any knee or ankle injury on the same side. She denies prodromal symptoms such as dizziness or lightheadedness. She denies chest pain or shortness of breath. She did not strike her head and has no neck or back pain Related Data Home Medications Medication Instructions Recorded Confirmed aspirin 81 mg tablet,delayed 81 mg PO DAILY #0 01/17/12 05/26/21 release atorvastatin 20 mg tablet (Lipitor) 20 mg PO BEDTIME 05/02/19 05/26/21 metoprolol succinate 50 mg 1 tab PO QPM 05/02/19 05/26/21 tablet,extended release 24 hr (Toprol XL) Previous Rx's Medication Instructions Recorded losartan 50 mg tablet 50 mg PO DAILY #90 tab 04/20/21 ondansetron 4 mg disintegrating 4 mg PO TID-QID PRN #10 tab 08/24/21 tablet oxycodone 5 mg tablet 5 mg PO Q4-6H PRN #10 tab 08/24/21 Allergies Allergy/AdvReac Type Severity Reaction Status Date / Time hydrochlorothiazide Allergy Severe MARGARET HIGH Verified 05/26/21 16:52 [HYDROCHLOROTHIAZIDE] BLOOD PRESSURE-KIDNEY ONLY WORKED AT 50% doxycycline [DOXYCYCLINE] Allergy Mild ITCHY Verified 05/26/21 16:52 lisinopril [LISINOPRIL] AdvReac Mild cough Verified 05/26/21 16:52 Review of Systems Review of Systems Narrative: GENERAL: Denies chills, fatigue, malaise, fever, sweats. HEENT: Denies sinus pain, ear pain, sore throat, difficulty swallowing, dizziness. RESPIRATORY: Denies dyspnea, cough, wheezing, hemoptysis, sputum. CARDIOVASCULAR: Denies chest pain, palpitations, orthopnea, edema, GASTROINTESTINAL: Denies nausea, vomiting, abdominal pain, diarrhea, constipation, melena. : Denies dysuria, frequency, incontinence, hematuria, urinary retention. MUSCULOSKELETAL: See HPI SKIN: Denies rash, skin lesions, or other NEUROLOGIC: Denies weakness, headache, numbness, change in speech, confusion, seizures, incoordination. PSYCHIATRIC: No concerning psychosocial issues. 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 Well-developed patient, in mild distress. Rubbing her right hip HEAD: Atraumatic. Normocephalic. EYES: Pupils equal round and reactive. Extraocular motions intact. No scleral icterus. No injection or drainage. ENT: Nose without bleeding, purulent drainage. Throat without erythema, tonsillar hypertrophy or exudate. Airway patent. NECK: Trachea midline. Non tender CARDIOVASCULAR: Regular rate and rhythm without murmurs, gallops, or rubs. RESPIRATORY: Clear to auscultation. Breath sounds equal bilaterally. No wheezes, rales, or rhonchi. GASTROINTESTINAL: Abdomen soft, non-tender, nondistended. EXTREMITIES: Full but painful range of motion at right hip, no obvious shortening or external rotation, this is closed, isolated and neurovascularly intact BACK: Nontender without deformity or crepitance. No flank tenderness. NEURO: AOx3. SKIN: No rash or erythema of visible areas Initial Vital Signs Initial Vital Signs: Vital Signs Temperature 98.2 F 08/24/21 20:20 Pulse Rate 88 08/24/21 20:20 Respiratory Rate 18 08/24/21 20:20 Blood Pressure 169/79 H 08/24/21 20:20 Pulse Oximetry 100 08/24/21 20:20 Course Orders Ordered: ED Orders 08/24/21 21:13 CT pelvis wo con Stat Discontinued Medications Oxycodone/Acetaminophen (Oxycodone/Apap 5/325 Prepack) 1 bottle MISC SEEINSTR ONE Stop: 08/24/21 22:43 Last Admin: 08/24/21 22:49 Dose: 1 bottle Documented by: AJ Reevaluation(s) Reevaluation #1: Improved symptoms after above-stated therapies Consultations Consultation #1: Discussed with on-call orthopedics, Dr. Rubio has reviewed imaging and sees no significant or acute injury which would require a day specific intervention or therapy Vital Signs Vital signs: Vital Signs - 8 hr 08/24/21 22:00 08/24/21 22:30 08/24/21 22:51 Pulse Rate 86 83 86 Blood Pressure 156/71 H Pulse Oximetry 96 95 97 MDM - Extremity Injury (Lower) Imaging Data Pelvic Xray: Radiologist's Impression: Chart Viewer Diagnostics Subcategory All Activity ??:?? All Time ??:?? All Subcategories Filter Laboratory Imaging Microbiology Pathology Blood Bank Tests Cardiovascular Other Specialty DATE TYPE STATUS REF RANGE/AUTHOR Hx Today 03:15 Chest X-Ray ? 08/24/21 21:[address] Signed Erica Mccloud 08/24/21 20:21 Hip X-Ray Signed Erica Mccloud 03/02/21 14:33 Foot X-Ray Signed Lakesha Warner 11/19/20 00:00 Mammogram Screening Signed Malik Vega 05/14/19 16:04 Shoulder X-Ray Signed Craig Farrell 05/02/19 14:45 Chest X-Ray Signed Vincent Cope 05/02/19 13:50 Telemetry Strips ? 01/10/19 00:00 Venous Evaluation Signed Erica Mccloud 07/09/18 14:14 Mammogram Screening Signed Marilyn Trinh 07/09/18 14:14 Bone Densitometry ? 07/09/18 08:00 DEXA Result ? 11/23/15 06:53 Telemetry Strips ? 11/23/15 06:53 Telemetry Strips ? 11/22/15 20:38 Radiology - Historical ? Tessie Mcintyre ED 76, F?1945 MRN#? [id number] DEP ER,?Main ED??? Extremity Injury, Lower Acc#? [id number] Resus Status Not Ordered Hx Avail Special Indicators No Data to Display Home Meds Not Confirmed Prescription Monitoring Program Total 45 MME/Day Pending Discharge MEDICATIONS (INSTRUCTIONS) LAST TAKEN Active ??aspirin ??81 mgPODAILY#0 ??atorvastatin [Lipitor] ??20 mgPOBEDTIME ??losartan 50 mg tablet ??50 mgPODAILY#90 tab ??metoprolol succinate [Toprol XL] ??1 tabPOQPM ondansetron 4 mgPOTID-QIDPRN#10 tab oxycodone 5 mgPOQ4-6HPRN#10 tab 45 MME/Day Allergies hydrochlorothiazide (HYDROCHLOROTHIAZIDE) MARGARET HIGH BLOOD PRESSURE-KIDNEY ONLY WORKED AT 50% doxycycline (DOXYCYCLINE) ITCHY lisinopril (LISINOPRIL) cough Problems External Data Available ? ONSET Acute hip pain Angina pectoris, unstable Dental abscess Foot pain Foot pain Zenkers diverticulum Arthritis of right glenohumeral joint Herpes zoster Hypercalcemia Sarcoidosis CAD (coronary artery disease) Hyperlipidemia Essential hypertension Vital Signs 08/24/21 22:51 BP 156/71?H Pulse 86? O2 Sat 97? Diagnostics Reports Tessie Mcintyre??76??F??1945 ? Allergy/Adv: hydrochlorothiazide, doxycycline, lisinopril (More??) Close Chest X-Ray 08/25/[address] (Signed) Erica Mccloud - 08/24/21 Hip X-Ray (Signed) Erica Mccloud - 08/24/21 Foot X-Ray (Signed) Lakesha Warner - 03/02/21 Mammogram Screening (Signed) Malik Vega - 11/19/20 Shoulder X-Ray (Signed) Craig Farrell - 05/14/19 Chest X-Ray (Signed) Vincent Cope - 05/02/19 Telemetry Strips 05/02/19 Venous Evaluation (Signed) Erica Mccloud - 01/10/19 Mammogram Screening (Signed) Marilyn Trinh - 07/09/18 Bone Densitometry 07/09/18 DEXA Result 07/09/18 Telemetry Strips 11/23/15 Telemetry Strips 11/23/15 Radiology - Historical 11/22/15 Launch?[address] [address] XRay Report Signed Patient: Tessie Mcintyre MR#: [id number] : 1945 Acct:[id number] Age/Sex: 76 / F Date of Service: 08/24/21 Loc: ED Accession Number: [id number] ?? Procedure: XR hip w pel if done RT 2V Ordering Provider: Tarun Longoria D.O. PROCEDURE:? XR HIP W PEL IF DONE RT 2V ? INDICATIONS:? fall with right hip pain ? TECHNIQUE:? AP pelvis with lateral view(s) of the right hip(s).? ? COMPARISON:? None. ? FINDINGS:? ? Bones:? No fractures or dislocations.? Pelvic ring appears intact.? No suspicious bony lesions.? Right hip arthroplasty is present.? Hardware appears intact.? Moderate arthritic changes are present within the left hip. ? Soft tissues:? The visualized bowel gas pattern is normal.? No suspicious soft tissue calcifications.? ? ? IMPRESSION:? No visualized acute fracture or dislocation. However, if clinical concern and/or pain persist, short interval imaging followup in 7-10 days is recommended, as occult injury cannot be definitively excluded. ? Dictated by: Erica Mccloud M.D. on 08/24/2021 at 20:53 ? ? Approved by: Erica Mccloud M.D. on 08/24/2021 at 20:54 ? Pelvic CT: Radiologist's Impression: Launch?[address] [address] [address] Scan Report Signed Patient: Tessie Mcintyre MR#: [id number] : 1945 Acct:[id number] Age/Sex: 76 / F Date of Service: 08/24/21 Loc: ED Accession Number: [id number] ?? Procedure: CT pelvis wo con Ordering Provider: Tarun Longoria D.O. PROCEDURE:? CT PEL WO CON ? INDICATIONS:? fall with pain in Right hip ? TECHNIQUE:? Noncontrast 3 mm axial sections acquired through the bony pelvis, with coronal and sagittal reformatting.? ? COMPARISON:? [facility] [place], CR, HIP COMP MIN 2VW (RT), 06/03/2014, 10:04.? [facility], CT, KIDNEY/ URETER/BLADDER, 06/25/2012, 9:30.? [facility] [place], CR, XR PELVIS W LATERAL HIP RT, 09/08/2015, 15:40.? [facility], CR, XR HIP W PEL IF DONE RT 2V, 08/24/2021, 20:13. ? FINDINGS:? Image quality:? Portions of the lower pelvis are suboptimally evaluated secondary to metallic streak artifact from hip arthroplasty. ? Bones:? Right hip arthroplasty is present.? There is no visualized hardware fracture or periprosthetic lucency to suggest loosening.? Moderate arthritic narrowing changes are present within the left hip.? There is increased fragmentation along the superior aspect of the right greater trochanter compared to 2016. Artifact is also present within this region secondary to arthroplasty. ? Soft tissues:? Transplant kidney is noted in the right lower quadrant.? Colonic diverticular present.? Fat containing inguinal hernias are present.? There is asymmetric fullness and increased density within the right posterior gluteal musculature measuring approximately 5.0 x 12.4 cm, Hounsfield units measure approximately 70. ? ? IMPRESSION:? ? Fragmentation of the greater trochanter appearing more prominent when compared to 2016. This could represent trauma of indeterminate age and recommend correlation to point tenderness. ? Asymmetric hyperdense prominence within the right gluteal musculature most suggestive of hematoma. ? Dictated by: Erica Mccloud M.D. on 08/24/2021 at 21:34 ? ? Approved by: Erica Mccloud M.D. on 08/24/2021 at 21:40 ? MDM Narrative Medical decision making narrative: Patient with him mechanical, ground level fall in the absence of others symptoms with reassuring plain films and also CT. Her pain is controlled with oxycodone. She is able to ambulate with the use of a walker. She and family understand and are in agreement with the diagnosis and plan. She has been given return precautions and questions have been answered to her apparent satisfaction Discharge Plan Departure Patient Disposition: Home Clinical Impression: Acute hip pain Instructions: DI for Hip Pain Activity Restrictions/Additional Instructions: *You have been diagnosed with [right hip pain. Thankfully, your x-rays and CT scan are reassuring and there is no evidence of fracture or dislocation. I have discussed the case with Orthopedic surgery, they have reviewed the images and sure this opinion. *What to do: *Please continue to take your regular medications as directed. [x ] New medication prescriptions sent to your pharmacy: [[place] ] [ ] New medication written as a paper prescription [ ] No new medications given *Please follow up with your primary care provider in 2-3 days, call for an appointment. Let them know you were seen in the Emergency Department and that we ask that you be seen in follow up. We will electronically transmit a record of today's note if your PCP is in our system *Return to Emergency Department if you should have any new, worsening or concerning symptoms, such as [fever greater than 101 F, shaking chills, worsening pain, persistent vomiting or other bothersome symptoms] You have been prescribed a short course of narcotic medications. These are potentially dangerous and addictive medications that should be used carefully. While on these medications you cannot drive or operate heavy machinery. Additionally, you cannot sign legal documents or perform any duties such as this. 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 Please understand that we cannot provide further refills of narcotics or controlled substances through the ED and your pain management will need to be through your Primary Care Provider Prescriptions: New oxycodone 5 mg tablet 5 mg PO Q4-6H PRN (Reason: pain) Qty: 10 0RF ondansetron 4 mg tablet,disintegrating 4 mg PO TID-QID PRN (Reason: nausea and vomiting) Qty: 10 0RF No Action aspirin 81 mg Tablet,Delayed Release (Dr/Ec) 81 mg PO DAILY Qty: 0 0RF losartan 50 mg tablet 50 mg PO DAILY Qty: 90 3RF atorvastatin [Lipitor] 20 MG tablet 20 mg PO BEDTIME 0RF metoprolol succinate [Toprol XL] 50 MG tablet extended release 24 hr 1 tab PO QPM 0RF Referrals: Ayde Avila DO [Primary Care Provider] -
[2021-08-24] MEDS: OXYCODONE/APAP 5/325 PREPACK 1 BOTTLE MISC (22:49)
== END 2021-08-24 23:03 | disposition home or self-care (01) ==
PROVIDERS: Emergency Provider Emergency Medicine; PCP Family Medicine
DX: M25.551 Pain in right hip (principal); W01.0XXA Fall on same level from slipping, tripping and stumbling without subsequent striking against object, initial encounter
CPT/HCPCS: 72192; 73502; 99283; 99284

== ENCOUNTER 2021-08-25 03:02 | Emergency (ER) | payer MEDICARE, SELFPAY ==
[2019-05-02 18:00] VITALS: BMI 31.6
[2021-08-25] VITALS (25 sets, daily range): BP systolic 115–214; BP diastolic 57–94; PULSE 78–115; RESP 9–26; TEMP 36.7; O2SAT 84–99; BMI 28.3
--- NOTE | 2021-08-25 03:15 | DI.RAD.S_ITS ---
PROCEDURE: XR CHEST 1V INDICATIONS: chest pain TECHNIQUE: One view of the chest was acquired. COMPARISON: [facility], CR, XR CHEST 2V, 05/02/2019, 15:25. FINDINGS: Surgical changes and devices: None. Lungs and pleura: Lungs are clear. No pleural effusions or pneumothorax. Mediastinum: Mediastinal contours appear normal. Heart size is normal. Bones and chest wall: No suspicious bony lesions. Overlying soft tissues appear unremarkable. Severe shoulder joint degeneration bilaterally. IMPRESSION: No acute cardiopulmonary disease. No significant discrepancy with the mold shifter radiology preliminary report. Dictated by: Gwendolyn Marinelli M.D. on 08/25/2021 at 9:14 Approved by: Gwendolyn Marinelli M.D. on 08/25/2021 at 9:15
--- NOTE | 2021-08-25 03:17 | ED_ITS ---
HPI - Chest Pain General Chief Complaint: Chest Pain Stated Complaint: CHEST PAIN Time Seen by Provider: 08/25/21 03:07 Source: patient and EMS Mode of arrival: EMS Limitations: no limitations History of Present Illness HPI narrative: 76-year-old female nonsmoker with history of coronary artery disease with STEMI requiring 3 stents in 2016, hypertension, hyperlipidemia presents by EMS tonight with a chief complaint of left anterior chest pressure with radiation into her left arm that started while at rest about 2 hours prior to her arrival. She denies dizziness, weakness, lightheadedness or unexplained diaphoresis but has felt short of breath since she started developing this pain. At its most intense her discomfort was 9/10 squeezing pressure-like pain. She was given a full-dose aspirin by her and took 2 nitros by the medics which improved her pain each time, on her arrival she was complaining of 6/10 pain. She denies any recent change in medications or diet. She denies any recent exertional symptoms or exercise intolerance. She has had no recent travel. She was seen and evaluated earlier in the emergency department after suffering a ground level fall which resulted in right hip pain. She was having no chest pain, shortness of breath, fatigue or other symptoms at that time. Imaging was unremarkable, patient's pain was well controlled and she went home with a walker. It sounds like she had to exert herself rather significantly while using her walker due to the pain in her hip and though she did not notice any pain while doing this exertion it started relatively soon thereafter while laying in bed. She took her Lipitor and Metoprolol just prior to bed. Related Data Home Medications Medication Instructions Recorded Confirmed aspirin 81 mg tablet,delayed 81 mg PO DAILY #0 01/17/12 05/26/21 release atorvastatin 20 mg tablet (Lipitor) 20 mg PO BEDTIME 05/02/19 05/26/21 metoprolol succinate 50 mg 1 tab PO QPM 05/02/19 05/26/21 tablet,extended release 24 hr (Toprol XL) Previous Rx's Medication Instructions Recorded losartan 50 mg tablet 50 mg PO DAILY #90 tab 04/20/21 ondansetron 4 mg disintegrating 4 mg PO TID-QID PRN #10 tab 08/24/21 tablet oxycodone 5 mg tablet 5 mg PO Q4-6H PRN #10 tab 08/24/21 Allergies Allergy/AdvReac Type Severity Reaction Status Date / Time hydrochlorothiazide Allergy Severe MARGARET HIGH Verified 05/26/21 16:52 [HYDROCHLOROTHIAZIDE] BLOOD PRESSURE-KIDNEY ONLY WORKED AT 50% doxycycline [DOXYCYCLINE] Allergy Mild ITCHY Verified 05/26/21 16:52 lisinopril [LISINOPRIL] AdvReac Mild cough Verified 05/26/21 16:52 Review of Systems Review of Systems Narrative: GENERAL: Denies chills, fatigue, malaise, fever, sweats. HEENT: Denies sinus pain, ear pain, sore throat, difficulty swallowing, dizziness. RESPIRATORY: Denies dyspnea, cough, wheezing, hemoptysis, sputum. CARDIOVASCULAR: See HPI GASTROINTESTINAL: See HPI : Denies dysuria, frequency, incontinence, hematuria, urinary retention. MUSCULOSKELETAL: See HPI SKIN: Denies rash, skin lesions, or other NEUROLOGIC: Denies weakness, headache, numbness, change in speech, confusion, seizures, incoordination. PSYCHIATRIC: No concerning psychosocial issues. 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 Well-developed patient, in mild distress. HEAD: Atraumatic. Normocephalic. EYES: Pupils equal round and reactive. Extraocular motions intact. No scleral icterus. No injection or drainage. ENT: Nose without bleeding, purulent drainage. Throat without erythema, tonsillar hypertrophy or exudate. Airway patent. NECK: Trachea midline. Non tender CARDIOVASCULAR: Regular rate and rhythm without murmurs, gallops, or rubs. RESPIRATORY: Clear to auscultation. Breath sounds equal bilaterally. No wheezes, rales, or rhonchi. GASTROINTESTINAL: Abdomen soft, non-tender, nondistended. EXTREMITIES: Right hip tender to palpate, no shortening or external rotation the patella otherwise unremarkable BACK: Nontender without deformity or crepitance. No flank tenderness. NEURO: AOx3. SKIN: No rash or erythema of visible areas Initial Vital Signs Initial Vital Signs: Vital Signs Blood Pressure 192/94 H 08/25/21 03:02 Course Orders Ordered: ED Orders 08/25/21 EKG-12 Lead Stat EKG-12 Lead Stat EKG-12 Lead Stat 08/25/21 03:15 XR chest 1V Stat 08/25/21 03:21 Complete Blood Count AUTO DIFF Stat Comprehensive Metabolic Panel Stat Lipase Stat NT-proBNP (BNP-Adult 18+) Stat Partial Thromboplastin Time DAILY Prothrombin Time INR Stat Troponin & CK Cardiac Panel Stat EKG-12 Lead Stat 08/25/21 03:37 EKG-12 Lead Stat 08/25/21 03:47 COVID19 -Nasal swab/Pre-Proc Stat 08/25/21 04:50 COVID19 -Nasal swab/Pre-Proc Stat 08/25/21 05:25 Troponin & CK Cardiac Panel Stat 08/25/21 09:45 PTT [Partial Thromboplastin Time] Q6H 08/25/21 15:45 PTT [Partial Thromboplastin Time] Q6H 08/25/21 21:45 PTT [Partial Thromboplastin Time] Q6H 08/26/21 03:45 PTT [Partial Thromboplastin Time] Q6H Partial Thromboplastin Time DAILY 08/27/21 03:45 Partial Thromboplastin Time DAILY 08/28/21 03:45 Partial Thromboplastin Time DAILY 08/29/21 03:45 Partial Thromboplastin Time DAILY 08/30/21 03:45 Partial Thromboplastin Time DAILY 08/31/21 03:45 Partial Thromboplastin Time DAILY Sodium Chloride (Normal Saline 0.9%) 1,000 mls @ 150 mls/hr IV CONT SILVANA Last Admin: 08/25/21 03:33 Dose: 150 mls/hr Documented by: Heparin Sodium/Dextrose (Heparin Drip) 25,000 unit in 500 mls @ 20 mls/hr IV CONT SILVANA; Protocol Last Admin: 08/25/21 04:07 Dose: 1,000 units/hr, 20 mls/hr Documented by: Discontinued Medications Atorvastatin Calcium (Atorvastatin 20 Mg Tablet) 40 mg PO NOW ONE Stop: 08/25/21 04:09 Last Admin: 08/25/21 04:49 Dose: 40 mg Documented by: Clopidogrel Bisulfate (Clopidogrel 75 Mg Tablet) 300 mg PO NOW ONE Stop: 08/25/21 04:09 Last Admin: 08/25/21 04:20 Dose: 300 mg Documented by: Heparin Sodium (Porcine) (Heparin 5,000 Unit/Ml Vial) 4,000 unit IV NOW ONE Stop: 08/25/21 03:46 Last Admin: 08/25/21 04:02 Dose: 4,000 unit Documented by: Metoprolol Tartrate (Metoprolol Ir 25 Mg Tablet) 25 mg PO NOW ONE Stop: 08/25/21 04:09 Last Admin: 08/25/21 04:20 Dose: 25 mg Documented by: Morphine Sulfate (Morphine 4 Mg/Ml Inj) 4 mg IV NOW ONE Stop: 08/25/21 03:48 Last Admin: 08/25/21 03:58 Dose: 4 mg Documented by: Nitroglycerin (Nitroglycerin 0.4 Mg Sl Tab) 0.4 mg SL [id number] PRN PRN Reason: Chest Pain Last Admin: 08/25/21 03:32 Dose: 0.4 mg Documented by: Nitroglycerin (Nitroglycerin Oint 1 Inch/Gm Oint...G.) 0.5 inch TOP NOW ONE Stop: 08/25/21 04:09 Last Admin: 08/25/21 04:23 Dose: 0.5 inch Documented by: Ondansetron HCl (Ondansetron 4 Mg/2 Ml Inj) 4 mg IV NOW ONE Stop: 08/25/21 03:48 Last Admin: 08/25/21 04:00 Dose: 4 mg Documented by: Reevaluation(s) Reevaluation #1: Called to see patient, sudden increase without provocation pain to an 8/10. Repeat EKG ordered, meds en route Time: 03:21 Reevaluation #2: patient now pain free after above stated therapies Time: 04:54 Reevaluation #3: Patient continues to rest comfortably, currently pain-free Time: 05:48 Consultations Consultation #1: call to cardiology, Dr. Rodríguez. He is obviously concerned with the patient's presentation of unstable angina. Currently practicing and a pandemic and bed availability is incredibly difficult to find, prior to COVID this patient would be immediate transfer to a cardiac facility, however open beds do not exist currently. Given this his recommendations are slightly different and he recommends Plavix 300mg, heparin gtt, Metop 25 succ q6, nitro paste Vital Signs Vital signs: Vital Signs - 8 hr 08/25/21 03:02 08/25/21 03:03 08/25/21 03:12 Temperature 98.1 F Pulse Rate 89 89 Respiratory Rate 14 20 Blood Pressure 192/94 H 192/94 H Pulse Oximetry 97 97 08/25/21 03:20 08/25/21 03:22 08/25/21 03:25 Temperature Pulse Rate 107 H 81 114 H Respiratory Rate 26 H Blood Pressure 214/93 H 214/93 H 144/79 H Pulse Oximetry 98 08/25/21 03:26 08/25/21 03:30 08/25/21 03:32 Temperature Pulse Rate 115 H 104 H 105 H Respiratory Rate 25 H 25 H Blood Pressure 144/73 H 163/75 H 163/75 H Pulse Oximetry 96 96 08/25/21 03:35 08/25/21 03:40 08/25/21 04:00 Temperature Pulse Rate 103 H 103 H 80 Respiratory Rate 15 24 24 Blood Pressure 124/75 130/71 Pulse Oximetry 95 95 95 08/25/21 04:08 08/25/21 04:10 08/25/21 04:14 Temperature Pulse Rate Respiratory Rate Blood Pressure Pulse Oximetry 84 L 95 88 L 08/25/21 04:16 08/25/21 04:29 08/25/21 04:30 Temperature Pulse Rate 87 78 Respiratory Rate 18 9 L Blood Pressure 148/72 H Pulse Oximetry 96 99 98 08/25/21 04:40 Temperature Pulse Rate 81 Respiratory Rate 12 Blood Pressure 149/76 H Pulse Oximetry 98 MDM - Chest Pain Lab Data Result diagrams: 08/25/21 03:21 08/25/21 03:21 Labs: Lab Results 08/25/21 08/25/21 08/25/21 Range/Units 03:21 03:21 03:21 WBC 11.0 (4.5-11.0) X10^3/uL RBC 4.19 (4.0-5.2) X10^6/uL Hgb 12.6 (12.0-16.0) g/dL Hct 37.3 (36-46) % MCV 89.0 (80-100) fL MCH 30.1 (26-34) PG MCHC 33.8 (30-36) % RDW 14.5 (11.6-14.8) % Plt Count 380 (150-400) X10^3/uL Neut % (Auto) 79.5 H (50-75) % Lymph % (Auto) 9.8 L (25-40) % Sabine % (Auto) 9.6 (3-14) % Eos % (Auto) 0.6 L (2-4) % Baso % (Auto) 0.5 (0-2) % Neut # (Auto) 8700 H (3743-0780) /uL Lymph # (Auto) 1100 (4138-1969) /uL Sabine # (Auto) 1100 H (0-900) /uL Eos # (Auto) 100 (0-450) /uL Baso # (Auto) 100 (0-100) /uL PT 11.9 (10.1-12.7) SECONDS INR 1.1 (0.9-1.3) APTT (26.4-36.2) SECONDS Sodium (137-145) mmol/L Potassium (3.4-5.1) mmol/L Chloride (98-107) mmol/L Carbon Dioxide (22-32) mmol/L BUN (7-17) mg/dL Creatinine (0.52-1.04) mg/dL Estimated GFR (>60) mL/min BUN/Creatinine Ratio (6-22) Glucose (80-110) mg/dL Calcium (8.4-10.2) mg/dL Total Bilirubin (0.2-1.3) mg/dL AST (14-36) IU/L ALT (<35) IU/L Alkaline Phosphatase (38-126) U/L Total Creatine Kinase (30-135) U/L CK-MB (CK-2) (<2.37) ng/mL CK-MB (CK-2) Rel Index (1.5-5.0) % Troponin I (0.01-0.034) ng/mL NT-Pro-B Natriuret Pep 344 (<450) pg/mL Total Protein (6.3-8.2) g/dL Albumin (3.5-5.0) g/dL Globulin (1.7-4.1) g/dL Albumin/Globulin Ratio (1.0-2.8) Lipase (23-300) U/L 08/25/21 08/25/21 Range/Units 03:21 03:21 WBC (4.5-11.0) X10^3/uL RBC (4.0-5.2) X10^6/uL Hgb (12.0-16.0) g/dL Hct (36-46) % MCV (80-100) fL MCH (26-34) PG MCHC (30-36) % RDW (11.6-14.8) % Plt Count (150-400) X10^3/uL Neut % (Auto) (50-75) % Lymph % (Auto) (25-40) % Sabine % (Auto) (3-14) % Eos % (Auto) (2-4) % Baso % (Auto) (0-2) % Neut # (Auto) (4036-7594) /uL Lymph # (Auto) (6367-3034) /uL Sabine # (Auto) (0-900) /uL Eos # (Auto) (0-450) /uL Baso # (Auto) (0-100) /uL PT (10.1-12.7) SECONDS INR (0.9-1.3) APTT 32 (26.4-36.2) SECONDS Sodium 137 (137-145) mmol/L Potassium 3.9 (3.4-5.1) mmol/L Chloride 102 (98-107) mmol/L Carbon Dioxide 25 (22-32) mmol/L BUN 13 (7-17) mg/dL Creatinine 0.65 (0.52-1.04) mg/dL Estimated GFR > 60.0 (>60) mL/min BUN/Creatinine Ratio 20.0 (6-22) Glucose 168 H (80-110) mg/dL Calcium 9.8 (8.4-10.2) mg/dL Total Bilirubin 0.9 (0.2-1.3) mg/dL AST 34 (14-36) IU/L ALT 23 (<35) IU/L Alkaline Phosphatase 62 (38-126) U/L Total Creatine Kinase 192 H (30-135) U/L CK-MB (CK-2) 6.12 H (<2.37) ng/mL CK-MB (CK-2) Rel Index 3.2 (1.5-5.0) % Troponin I 0.110 H (0.01-0.034) ng/mL NT-Pro-B Natriuret Pep (<450) pg/mL Total Protein 8.0 (6.3-8.2) g/dL Albumin 4.4 (3.5-5.0) g/dL Globulin 3.6 (1.7-4.1) g/dL Albumin/Globulin Ratio 1.2 (1.0-2.8) Lipase 119 (23-300) U/L ECG Data Interpretation: EKG 1: EKG is normal sinus rhythm rate [88 ] and free of any signs of ischemia or ectopy. No ST segmental elevation or depression. No T wave inversions EKG 2: EKG is normal sinus rhythm rate [ 84] and free of any signs of ischemia or ectopy. No ST segmental elevation or depression. No T wave inversions EKG 3: EKG is normal sinus rhythm rate [108 ] and free of any signs of ectopy. No ST segmental elevation or depression. No T wave inversions. T waves are becoming slightly peaked in lateral leads MDM Narrative Medical decision making narrative: 0420 - call to [facility]. Left message. 042 - call to [facility]. Left message. 0427 - call to [facility]. On the wait list 0438 - call to [facility]. Currently no beds, but they expect discharges. Many waiting in ED, request fax of face sheet ([phone]). Call back after 0800. 0440 - call to . Possible progressive care bed. Request images be pushed (done). Will page Dr. Hammonds 0445 - call back to [facility]. No beds now, possible at lunch. Please send face sheet (done) [phone] - Face sheet sent to [facility], , [facility]. 5502 - calls back. Dr. Hammonds (hospitalist) happy to accept. [place] ambulance contacted, will arrive at just before 6:00 a.m. ([facility]) contacted at [phone], he is aware and also in agreement with the plan. Critical Care Time Critical Care Time Critical Care Time: Yes Total Critical Care Time: 45 Attestation: The high probability of a clinically significant, sudden or life threatening deterioration of the [CV] system(s) required my full and direct attention, intervention and personal management. The aggregate critical care time was [45] minutes. This time is in addition to time spent performing reported procedures but includes the following: [x] Data Review and interpretation [x] Patient assessment and monitoring of vital signs [x] Documentation [x] Medication orders and management Discharge Plan Departure Patient Disposition: [facility] Clinical Impression: Angina pectoris, unstable Prescriptions: No Action aspirin 81 mg Tablet,Delayed Release (Dr/Ec) 81 mg PO DAILY Qty: 0 0RF losartan 50 mg tablet 50 mg PO DAILY Qty: 90 3RF atorvastatin [Lipitor] 20 MG tablet 20 mg PO BEDTIME 0RF metoprolol succinate [Toprol XL] 50 MG tablet extended release 24 hr 1 tab PO QPM 0RF oxycodone 5 mg tablet 5 mg PO Q4-6H PRN (Reason: pain) Qty: 10 0RF ondansetron 4 mg tablet,disintegrating 4 mg PO TID-QID PRN (Reason: nausea and vomiting) Qty: 10 0RF Referrals: Ayde Avila DO [Primary Care Provider] -
[2021-08-25] MEDS: NITROGLYCERIN 0.4 MG SL TAB SL ×3 (03:20→03:32)
[2021-08-25 03:32] LABS: Add Manual Diff / Slide Review NO; Albumin 4.4 g/dL (3.5-5.0); Albumin Globulin Ratio 1.2 (1.0-2.8); Alkaline Phosphatase 62 U/L (38-126); Aspartate Aminotransferase 34 IU/L (14-36); Basophils Absolute Auto 100 /uL (0-100); Basophils Percent Auto 0.5 % (0-2); Bilirubin Total 0.9 mg/dL (0.2-1.3); Blood Urea Nitrogen 13 mg/dL (7-17); Calcium 9.8 mg/dL (8.4-10.2); Carbon Dioxide 25 mmol/L (22-32); Chloride 102 mmol/L (98-107); Creatine Kinase 192 U/L (30-135); Eosinophils Absolute Auto 100 /uL (0-450); Eosinophils Percent Auto 0.6 % (2-4); Estimated Glomerular Filt Rate > 60.0 mL/min (>60); Globulin 3.6 g/dL (1.7-4.1); Glucose 168 mg/dL (80-110); HEMOLYSIS < 15 (0-50); Hematocrit 37.3 % (36-46); Hemoglobin 12.6 g/dL (12.0-16.0); Lipase 119 U/L (23-300); Lymphocytes Absolute Auto 1100 /uL (1100-4500); Lymphocytes Percent Auto 9.8 % (25-40); Mean Corpuscular HGB Conc 33.8 % (30-36); Mean Corpuscular Hemoglobin 30.1 PG (26-34); Monocytes Absolute Auto 1100 /uL (0-900); Monocytes Percent Auto 9.6 % (3-14); Neutrophils Absolute Auto 8700 /uL (1500-7000); Neutrophils Percent Auto 79.5 % (50-75); Platelet Count 380 X10^3/uL (150-400); Potassium 3.9 mmol/L (3.4-5.1); Red Blood Cell Count 4.19 X10^6/uL (4.0-5.2); Red Cell Distribution Width 14.5 % (11.6-14.8); Sodium 137 mmol/L (137-145)
[2021-08-25] MEDS: SODIUM CHLORIDE 0.9% 1,000 ML 150 ML IV (03:33)
[2021-08-25 03:39] LABS: Alanine Aminotransferase 23 IU/L (<35)
[2021-08-25 03:41] LABS: NT-proBNP (BNP-Adult 18+) 344 pg/mL (<450)
[2021-08-25 03:47] LABS: CKMB % Relative Index 3.2 % (1.5-5.0); Creatine Kinase MB 6.12 ng/mL (<2.37)
[2021-08-25] MEDS: MORPHINE 4 MG/ML INJ IV (03:58)
[2021-08-25] MEDS: ONDANSETRON 4 MG/2 ML INJ IV (04:00)
[2021-08-25] MEDS: HEPARIN 5,000 UNIT/ML VIAL 4000 UNIT IV (04:02)
[2021-08-25] MEDS: HEPARIN DRIP 25,000 UNIT/500 ML IV.SOLN 20 UNIT IV (04:07)
[2021-08-25 04:18] LABS: INR 1.1 (0.9-1.3); Prothrombin Time 11.9 SECONDS (10.1-12.7)
[2021-08-25] MEDS: CLOPIDOGREL 75 MG TABLET 300 MG PO (04:20)
[2021-08-25] MEDS: METOPROLOL IR 25 MG TABLET PO (04:20)
[2021-08-25] MEDS: NITROGLYCERIN OINT 1 INCH/GM OINT...G. 0.5 INCH TOP (04:23)
[2021-08-25 04:26] LABS: PTT Partial Thromboplastin Tim 32 SECONDS (26.4-36.2)
[2021-08-25] MEDS: ATORVASTATIN 20 MG TABLET 40 MG PO (04:49)
[2021-08-25 05:49] LABS: COVID19 -Nasal RAPID Negative (Negative)
[2021-08-25 05:51] LABS: Creatine Kinase 221 U/L (30-135)
[2021-08-25 06:08] LABS: CKMB % Relative Index 6.7 % (1.5-5.0)
== END 2021-08-25 06:44 | disposition short-term general hospital (02) ==
PROVIDERS: Emergency Provider Emergency Medicine; PCP Family Medicine
DX: I20.0 Unstable angina (principal); I10 Essential (primary) hypertension; I25.2 Old myocardial infarction; Z95.5 Presence of coronary angioplasty implant and graft; Z20.822 Contact with and (suspected) exposure to COVID-19
CPT/HCPCS: 36415; 71045; 80053; 82550; 82553; 83690; 83880; 84484; 85025; 85610; 85730; 87635; 93005; 96361; 96365; 96366; 96375; 99284; 99291; C9803; J1644; J2270; J2405

== ENCOUNTER → 2021-10-25 13:36 | Outpatient (CLI) | payer MEDICARE, SELFPAY ==
[2019-05-02 18:00] VITALS: BMI 31.6
== END ==
PROVIDERS: PCP Family Medicine; Visit Provider Student in an Organized Health Care Education/Training Program
DX: R30.0 Dysuria (principal)
CPT/HCPCS: 87086

== ENCOUNTER → 2021-10-26 15:35 | Outpatient (CLI) | payer MEDICARE, SELFPAY ==
[2019-05-02 18:00] VITALS: BMI 31.6
[2021-10-26 16:22] LABS: Add Manual Diff / Slide Review NO; Basophils Absolute Auto 100 /uL (0-100); Basophils Percent Auto 0.7 % (0-2); Eosinophils Absolute Auto 200 /uL (0-450); Eosinophils Percent Auto 2.8 % (2-4); Hematocrit 31.9 % (36-46); Hemoglobin 10.9 g/dL (12.0-16.0); Lymphocytes Absolute Auto 600 /uL (1100-4500); Lymphocytes Percent Auto 7.9 % (25-40); Mean Corpuscular HGB Conc 34.1 % (30-36); Mean Corpuscular Hemoglobin 29.6 PG (26-34); Mean Corpuscular Volume 86.8 fL (80-100); Monocytes Absolute Auto 1400 /uL (0-900); Neutrophils Absolute Auto 5700 /uL (1500-7000); Neutrophils Percent Auto 71.6 % (50-75); Platelet Count 359 X10^3/uL (150-400); Red Blood Cell Count 3.67 X10^6/uL (4.0-5.2); Red Cell Distribution Width 14.6 % (11.6-14.8)
[2021-10-26 16:53] LABS: BUN Creatinine Ratio 18.6 (6-22); Blood Urea Nitrogen 19 mg/dL (7-17); Calcium 7.9 mg/dL (8.4-10.2); Carbon Dioxide 26 mmol/L (22-32); Chloride 101 mmol/L (98-107); Estimated Glomerular Filt Rate 52.7 mL/min (>60); Glucose 96 mg/dL (80-110); HEMOLYSIS < 15 (0-50); Potassium 2.9 mmol/L (3.4-5.1); Sodium 137 mmol/L (137-145)
== END ==
PROVIDERS: PCP Family Medicine; Referring Provider Internal Medicine Cardiovascular Disease; Visit Provider Internal Medicine Cardiovascular Disease
DX: I25.10 Atherosclerotic heart disease of native coronary artery without angina pectoris (principal)
CPT/HCPCS: 36415; 80048; 85025

== ENCOUNTER 2021-11-11 18:28 | Emergency (ER) | payer MEDICARE, SELFPAY ==
[2019-05-02 18:00] VITALS: BMI 31.6
[2021-11-11 18:45] VITALS: BP 149/90; PULSE 102; RESP 18; TEMP 37.7; O2SAT 95; BMI 26.4
[2021-11-11 19:25] LABS: COVID19 -Nasal RAPID Negative (Negative)
[2021-11-11 22:20] VITALS: BP 157/74; PULSE 94; RESP 15; TEMP 37.3; O2SAT 99
--- NOTE | 2021-11-11 22:31 | ED.GENADULT ---
HPI - General Adult General Chief complaint: Fever Stated complaint: Cold/Shivering/Fever Time Seen by Provider: 11/11/21 22:12 Source: patient and family Mode of arrival: Wheelchair History of Present Illness HPI narrative: Patient is a 76-year-old female. Had recent open heart surgery several weeks ago. Since that time and now she was diagnosed with a urinary tract infection and completed a course of an antibiotic which according to her her description was most likely Bactrim. She states that all of her symptoms had resolved until earlier today when she had a fairly sudden onset of what she describes as chills. Afterwards she developed a fever. She denies chest pain. No shortness of breath. No skin rash. No urinary symptoms to include frequency urgency. No abdominal pain. No nausea vomiting. Has not tried anything for symptoms prior to arrival. Related Data Home Medications Medication Instructions Recorded Confirmed aspirin 81 mg tablet,delayed 81 mg PO DAILY #0 01/17/12 10/25/21 release atorvastatin 20 mg tablet (Lipitor) 20 mg PO BEDTIME 05/02/19 10/25/21 acetaminophen 650 mg 650 mg PO Q8H 10/15/21 10/25/21 tablet,extended release (Tylenol Arthritis Pain) clopidogrel 75 mg tablet 75 mg PO DAILY 10/15/21 10/25/21 furosemide 40 mg tablet 40 mg PO DAILY 10/15/21 10/25/21 metoprolol succinate 100 mg 100 mg PO DAILY 10/15/21 10/25/21 tablet,extended release 24 hr Previous Rx's Medication Instructions Recorded losartan 25 mg tablet 25 mg PO DAILY #90 tab 10/15/21 cephalexin 500 mg capsule 500 mg PO BID 7 Days #14 cap 11/11/21 Allergies Allergy/AdvReac Type Severity Reaction Status Date / Time hydrochlorothiazide Allergy Severe MARGARET HIGH Verified 10/25/21 13:48 [HYDROCHLOROTHIAZIDE] BLOOD PRESSURE-KIDNEY ONLY WORKED AT 50% doxycycline [DOXYCYCLINE] Allergy Mild ITCHY Verified 10/25/21 13:48 lisinopril [LISINOPRIL] AdvReac Mild cough Verified 10/25/21 13:48 Review of Systems Constitutional Constitutional: Reports chills and Reports fever(s) Cardiovascular Comments: No chest pain Respiratory Comments: Shortness of breath Gastrointestinal Comments: No abdominal pain nausea vomiting Genitourinary Comments: No dysuria or urinary frequency or urgency Musculoskeletal Comments: No joint pain Integumentary/Breasts Comments: No skin rashes Hematologic/Lymphatic On Anticoagulants: No Patient History Medical History Arthritis of right glenohumeral joint CAD (coronary artery disease) Essential hypertension Herpes zoster Hypercalcemia Myocardial infarction 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 Surgical History H/O angioplasty History of tonsillectomy S/P CABG (coronary artery bypass graft) Social History marital status: household members: spouse 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, 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 Smoking Status: Never smoker alcohol intake: current substance use type: does not use Smoking Status: Never smoker alcohol intake frequency: a few times a week Alcohol type: hard liquor Substance Use Type: does not use Exam Initial Vital Signs Initial Vital Signs: Vital Signs Temperature 100 F H 11/11/21 18:45 Pulse Rate 102 H 11/11/21 18:45 Respiratory Rate 18 11/11/21 18:45 Blood Pressure 149/90 H 11/11/21 18:45 Pulse Oximetry 95 11/11/21 18:45 Const General: cooperative, comfortable and well developed HENMT Head: normal to inspection and normocephalic Chest Other: Well-healed surgical scar midline chest consistent with her stated coronary artery bypass graft surgery. Resp Effort & Inspection: normal respiratory effort Auscultation: clear to auscultation bilaterally Cardio Rate: regular rate Rhythm: regular rhythm GI Inspection: normal to inspection and non-distended Palpation: soft and No tender Skin General: no rashes or lesions noted Neuro General: patient alert, patient awake, patient oriented x3 and moves all extremities Speech: speech normal Extrem General: normal to inspection Psych Appearance: grossly normal and well kempt Course Orders Ordered: ED Orders 11/11/21 22:23 Urine Culture Stat Urine Microscopic Stat Discontinued Medications Cephalexin HCl (Cephalexin 250 Mg Capsule) 500 mg PO NOW ONE Stop: 11/11/21 22:33 Last Admin: 11/11/21 22:40 Dose: 500 mg Documented by: ATAYLOR Vital Signs Vital signs: Vital Signs - 8 hr 11/11/21 22:20 Temperature 99.2 F Pulse Rate 94 H Respiratory Rate 15 Blood Pressure 157/74 H Pulse Oximetry 99 Medical Decision Making Lab Data Labs: Lab Results 11/11/21 11/11/21 Range/Units 18:54 22:23 Urine RBC 1-5/hpf (0-5/HPF) Urine WBC 30-100/hpf H (0-5/HPF) Ur Squamous Epith Cells 0-1 /hpf (0-5/HPF) Urine Bacteria Many (>30) H (None) Ur Culture Indicated? Specimen cultured SARS-CoV-2 (PCR) Negative (Negative) Urine Dip Bedside Urine Glucose Negative Bedside Urine Bilirubin - Negative Bedside Urine Ketone - Negative Urine Specific [place] 1.015 Bedside Urine Occult Blood + Bedside Urine pH 6.0 Bedside Urine Protein + 30 Bedside Urine Urobilinogen - Negative Bedside Urine Nitrite + Positive Bedside Urine Leukocytes + 70 Esterase Point of care testing: Urine Dip Bedside Urine Glucose Negative Bedside Urine Bilirubin - Negative Bedside Urine Ketone - Negative Urine Specific [place] 1.015 Bedside Urine Occult Blood + Bedside Urine pH 6.0 Bedside Urine Protein + 30 Bedside Urine Urobilinogen - Negative Bedside Urine Nitrite + Positive Bedside Urine Leukocytes + 70 Esterase MDM Narrative Medical decision making narrative: Patient is nontoxic appearing. Had a fever of 99.2 here in the ER. Heart rate 94. Not hypotensive. I suspect that the chills patient had earlier today were because of the fever that she developed shortly afterwards. She has no skin changes that would make a concern for cellulitis. Her surgical scar appears well. Clinically does not have pneumonia. Is not coughing. Clear lung exam. Abdomen is soft. No change in bowel habits. No constipation or diarrhea. No headache. No neck pain. She does not have any urinary symptoms however her urinalysis is nitrite positive which is concerning about a urinary tract infection. She recently had a urinary tract infection completed a course of Bactrim. This was not prescribed by a providers at this facility and there was no urine culture for evaluation. Unsure as to whether not this is a new infection or potential continued infection. Because of the potential continued infection feel that switching to another antibiotic besides Bactrim would be warranted. She was given a dose of Keflex here in the emergency department a prescription for the remainder of the course was sent to the pharmacy of her choice. A urine culture was also obtained. Low suspicion for pyelonephritis. Patient tolerating oral intake. No indication for admission to the hospital currently. She was given return precautions and follow-up instructions. She expressed understanding agreement. Discharge Plan Departure Patient Disposition: Home Clinical Impression: Acute UTI Instructions: DI for Urinary Tract Infection (UTI) Activity Restrictions/Additional Instructions: Continue to take all of your medications as directed as well as the antibiotic that was prescribed today. Urine culture was pending at the time of your discharge we will contact you if we need to switch any antibiotics. Return to the emergency department for any new or worsening symptoms. Prescriptions: New cephalexin 500 mg capsule 500 mg PO BID 7 Days Qty: 14 0RF No Action losartan 25 mg tablet 25 mg PO DAILY Qty: 90 3RF clopidogrel 75 mg tablet 75 mg PO DAILY 0RF metoprolol succinate 100 mg tablet extended release 24 hr 100 mg PO DAILY 0RF furosemide 40 mg tablet 40 mg PO DAILY 0RF acetaminophen [Tylenol Arthritis Pain] 650 mg tablet extended release 650 mg PO Q8H 0RF aspirin 81 mg Tablet,Delayed Release (Dr/Ec) 81 mg PO DAILY Qty: 0 0RF atorvastatin [Lipitor] 20 MG tablet 20 mg PO BEDTIME 0RF Referrals: Ayde Avila DO [Primary Care Provider] -
[2021-11-11] MEDS: cephALEXin 250 MG CAPSULE 500 MG PO (22:40)
[2021-11-11 22:45] LABS: RBC Urine 1-5/HPF (0-5/HPF)
[2021-11-11 22:46] LABS: Bacteria Urine Many (>30); Culture Indicated Urine Specimen Cultured; Squamous Epithelial Cell Urine 0-1 /HPF (0-5/HPF); WBC Urine 30-100/HPF (0-5/HPF)
== END 2021-11-11 22:51 | disposition home or self-care (01) ==
PROVIDERS: Emergency Provider Emergency Medicine; PCP Family Medicine
DX: N39.0 Urinary tract infection, site not specified (principal); Z20.822 Contact with and (suspected) exposure to COVID-19; Z88.1 Allergy status to other antibiotic agents
CPT/HCPCS: 81003; 81015; 87077; 87086; 87186; 87635; 99283; C9803

== ENCOUNTER → 2021-11-26 13:10 | Outpatient (CLI) | payer MEDICARE, SELFPAY ==
[2019-05-02 18:00] VITALS: BMI 31.6
[2021-11-26 14:54] LABS: Appearance Urine UA CLEAR; Bilirubin Urine UA NEGATIVE (NEGATIVE); Color Urine UA YELLOW; Glucose Urine UA NEGATIVE (Negative); Ketones Urine UA NEGATIVE (NEGATIVE); Leukocyte Esterase Urine UA 1+ (NEGATIVE); Nitrite Urine UA NEGATIVE (Negative); Occult Blood Urine UA 2+ (Negative); Protein Urine UA 1+ (Negative); Urobilinogen Urine UA 0.2 E.U./dL (0.2)
[2021-11-26 15:07] LABS: pH Urine UA 6.5 (4.5-8.0)
[2021-11-26 15:11] LABS: Bacteria Urine None Seen; Culture Indicated Urine Specimen Cultured; RBC Urine 1-5/HPF (0-5/HPF); Squamous Epithelial Cell Urine 0-1 /HPF (0-5/HPF); WBC Urine 5-10/HPF (0-5/HPF)
== END ==
PROVIDERS: PCP Family Medicine; Referring Provider Family Medicine; Visit Provider Family Medicine
DX: N39.0 Urinary tract infection, site not specified (principal)
CPT/HCPCS: 81001; 87077; 87086; 87186

== ENCOUNTER → 2021-12-10 09:13 | Outpatient (CLI) | payer MEDICARE, SELFPAY ==
[2019-05-02 18:00] VITALS: BMI 31.6
[2021-12-10 10:00] LABS: Appearance Urine UA CLEAR; Bilirubin Urine UA NEGATIVE (NEGATIVE); Color Urine UA YELLOW; Glucose Urine UA NEGATIVE (Negative); Ketones Urine UA NEGATIVE (NEGATIVE); Leukocyte Esterase Urine UA TRACE (NEGATIVE); Nitrite Urine UA NEGATIVE (Negative); Occult Blood Urine UA NEGATIVE (Negative); Protein Urine UA NEGATIVE (Negative); Specific Gravity Urine UA <=1.005 (1.000-1.035); Urobilinogen Urine UA 0.2 E.U./dL (0.2); pH Urine UA 6.5 (4.5-8.0)
[2021-12-10 10:05] LABS: BUN Creatinine Ratio 14.3 (6-22); Blood Urea Nitrogen 10 mg/dL (7-17); Calcium 8.5 mg/dL (8.4-10.2); Carbon Dioxide 33 mmol/L (22-32); Chloride 104 mmol/L (98-107); Cholesterol 155 mg/dL (140-199); Estimated Glomerular Filt Rate > 60 mL/min (>60); Glucose 83 mg/dL (80-110); HDL Cholesterol 29 mg/dL (40-60); HEMOLYSIS < 15 (0-50); LDL Cholesterol Calculated 82 mg/dL (<100); Sodium 142 mmol/L (137-145); Triglycerides 222 mg/dL (35-150)
[2021-12-10 10:06] LABS: Bacteria Urine None Seen; Culture Indicated Urine Specimen Cultured; RBC Urine None Seen (0-5/HPF); WBC Urine 0-1/HPF (0-5/HPF)
== END ==
PROVIDERS: PCP Family Medicine; Referring Provider Internal Medicine Interventional Cardiology; Visit Provider Internal Medicine Interventional Cardiology
DX: I25.10 Atherosclerotic heart disease of native coronary artery without angina pectoris (principal); N39.0 Urinary tract infection, site not specified
CPT/HCPCS: 36415; 80048; 80061; 81001; 87077; 87086; 87186

== ENCOUNTER → 2021-12-22 14:22 | Outpatient (CLI) | payer MEDICARE, SELFPAY ==
[2019-05-02 18:00] VITALS: BMI 31.6
[2021-12-22 18:01] LABS: Appearance Urine UA CLEAR; Bilirubin Urine UA NEGATIVE (NEGATIVE); Color Urine UA YELLOW; Glucose Urine UA NEGATIVE (Negative); Ketones Urine UA NEGATIVE (NEGATIVE); Leukocyte Esterase Urine UA NEGATIVE (NEGATIVE); Nitrite Urine UA NEGATIVE (Negative); Occult Blood Urine UA TRACE-LYSED (Negative); Protein Urine UA NEGATIVE (Negative); Urobilinogen Urine UA 0.2 E.U./dL (0.2)
[2021-12-22 18:15] LABS: Bacteria Urine None Seen; Culture Indicated Urine Cult Not Indicated; RBC Urine 0-1/HPF (0-5/HPF); Squamous Epithelial Cell Urine None Seen (0-5/HPF); WBC Urine None Seen (0-5/HPF)
== END ==
PROVIDERS: PCP Family Medicine; Referring Provider Family Medicine; Visit Provider Family Medicine
DX: N39.0 Urinary tract infection, site not specified (principal)
CPT/HCPCS: 81001

== ENCOUNTER → 2022-03-09 10:15 | Outpatient (CLI) | payer MEDICARE, SELFPAY ==
[2019-05-02 18:00] VITALS: BMI 31.6
[2022-03-09 12:15] LABS: BUN Creatinine Ratio 19.4 (6-22); Blood Urea Nitrogen 13 mg/dL (7-17); Calcium 8.9 mg/dL (8.4-10.2); Carbon Dioxide 29 mmol/L (22-32); Chloride 105 mmol/L (98-107); Cholesterol 155 mg/dL (140-199); Estimated Glomerular Filt Rate > 60 mL/min (>60); Glucose 83 mg/dL (80-110); HDL Cholesterol 37 mg/dL (40-60); HEMOLYSIS < 15 (0-50); LDL Cholesterol Calculated 80 mg/dL (<100); Potassium 4.4 mmol/L (3.4-5.1); Sodium 141 mmol/L (137-145); Triglycerides 190 mg/dL (35-150)
== END ==
PROVIDERS: PCP Family Medicine; Referring Provider Internal Medicine Interventional Cardiology; Visit Provider Internal Medicine Interventional Cardiology
DX: I25.810 Atherosclerosis of coronary artery bypass graft(s) without angina pectoris (principal)
CPT/HCPCS: 36415; 80048; 80061

== ENCOUNTER 2022-04-13 13:04 | Inpatient (IN) | payer MEDICARE, SELFPAY ==
[2019-05-02 18:00] VITALS: BMI 31.6
[2022-04-13] VITALS (9 sets, daily range): BP systolic 148–197; BP diastolic 64–109; PULSE 67–83; RESP 17–19; TEMP 36.6; O2SAT 97–99; BMI 27.4
--- NOTE | 2022-04-13 13:16 | DI.RAD.S_ITS ---
PROCEDURE: XR CHEST 1V INDICATIONS: chest pain TECHNIQUE: One view of the chest was acquired. COMPARISON: [facility], CR, XR CHEST 1V, 08/25/2021, 3:17. FINDINGS: Surgical changes and devices: Midline sternal wires and mediastinal vascular clips present. Lungs and pleura: Lungs are clear. No pleural effusions or pneumothorax. Mediastinum: Mediastinal contours appear normal. Heart size is normal. Bones and chest wall: Bilateral glenohumeral degenerative changes. IMPRESSION: No acute cardiopulmonary findings. Advanced bilateral glenohumeral osteoarthritis Approved by: Joel Piña M.D. on 04/13/2022 at 14:17
[2022-04-13 13:38] LABS: Add Manual Diff / Slide Review NO; Basophils Absolute Auto 0 /uL (0-100); Eosinophils Absolute Auto 100 /uL (0-450); Eosinophils Percent Auto 2.2 % (2-4); Hematocrit 38.1 % (36-46); Hemoglobin 12.9 g/dL (12.0-16.0); Lymphocytes Absolute Auto 700 /uL (1100-4500); Lymphocytes Percent Auto 17.4 % (25-40); Mean Corpuscular Hemoglobin 29.1 PG (26-34); Mean Corpuscular Volume 85.8 fL (80-100); Monocytes Absolute Auto 800 /uL (0-900); Monocytes Percent Auto 18.6 % (3-14); Neutrophils Absolute Auto 2600 /uL (1500-7000); Neutrophils Percent Auto 60.8 % (50-75); Platelet Count 286 X10^3/uL (150-400); Red Blood Cell Count 4.44 X10^6/uL (4.0-5.2); Red Cell Distribution Width 14.6 % (11.6-14.8); White Blood Cell Count 4.3 X10^3/uL (4.5-11.0)
[2022-04-13 13:44] LABS: INR 1.1 (0.9-1.3); Prothrombin Time 12.6 SECONDS (10.1-12.7)
[2022-04-13 13:47] LABS: PTT Partial Thromboplastin Tim 35 SECONDS (26-36)
[2022-04-13 13:51] LABS: Alanine Aminotransferase 15 IU/L (<35); Albumin 3.9 g/dL (3.5-5.0); Albumin Globulin Ratio 1.1 (1.0-2.8); Alkaline Phosphatase 55 U/L (38-126); Aspartate Aminotransferase 23 IU/L (14-36); BUN Creatinine Ratio 23.3 (6-22); Bilirubin Total 0.5 mg/dL (0.2-1.3); Blood Urea Nitrogen 17 mg/dL (7-17); Calcium 9.1 mg/dL (8.4-10.2); Carbon Dioxide 26 mmol/L (22-32); Chloride 104 mmol/L (98-107); Creatine Kinase 87 U/L (30-135); Estimated Glomerular Filt Rate > 60 mL/min (>60); Globulin 3.4 g/dL (1.7-4.1); Glucose 87 mg/dL (80-110); HEMOLYSIS < 15 (0-50); Lipase 182 U/L (23-300); Magnesium 1.5 mg/dL (1.6-2.3); Potassium 3.6 mmol/L (3.4-5.1); Sodium 142 mmol/L (137-145); Total Protein 7.3 g/dL (6.3-8.2)
--- NOTE | 2022-04-13 13:51 | ED.CHESTPAIN ---
HPI - Chest Pain General Chief Complaint: Chest Pain Stated Complaint: Chest pain, hot flashes, SOB Time Seen by Provider: 04/13/22 13:21 Source: patient Mode of arrival: Wheelchair Limitations: no limitations History of Present Illness HPI narrative: 77-year-old woman with history of coronary artery disease stenting in 2015 and bypass x3 at [facility] in September of 2021 was at cardiac rehab this afternoon and began having central substernal chest pain while she was using the stair machine. Did not resolve with rest and on telemetry there appeared to be ST depressions. She noted feeling hot, sweaty, increased work of breathing and short of breath and was brought to the emergency department for further evaluation. On arrival in the department, pain is down to ?minimal? she is relatively hypertensive. EKG is unremarkable and the ST depression noticed on telemetry in lead II has resolved at rest. She notes that the associated symptoms have also completely resolved. She does note that things have not been entirely normal over the last 24 hours. Last night she reports that she just ?could not quite get comfortable? and ended up sleeping in a recliner which was unusual for her. She denies any fevers, cough, vomiting, abdominal pain, diarrhea, constipation, headaches, acute neurologic findings. Related Data Home Medications Medication Instructions Recorded Confirmed aspirin 81 mg tablet,delayed 81 mg PO DAILY ##0 01/17/12 02/22/22 release atorvastatin 20 mg tablet (Lipitor) 20 mg PO BEDTIME 05/02/19 02/22/22 acetaminophen 650 mg 650 mg PO Q8H 10/15/21 02/22/22 tablet,extended release (Tylenol Arthritis Pain) clopidogrel 75 mg tablet 75 mg PO DAILY 10/15/21 02/22/22 furosemide 40 mg tablet 40 mg PO DAILY 10/15/21 02/22/22 metoprolol succinate 100 mg 100 mg PO DAILY 10/15/21 02/22/22 tablet,extended release 24 hr Previous Rx's Medication Instructions Recorded losartan 25 mg tablet 25 mg PO DAILY #90 tabs 10/15/21 Allergies Allergy/AdvReac Type Severity Reaction Status Date / Time hydrochlorothiazide Allergy Severe MARGARET HIGH Verified 02/22/22 14:10 [HYDROCHLOROTHIAZIDE] BLOOD PRESSURE-KIDNEY ONLY WORKED AT 50% doxycycline [DOXYCYCLINE] Allergy Mild ITCHY Verified 02/22/22 14:10 lisinopril [LISINOPRIL] AdvReac Mild cough Verified 02/22/22 14:10 Review of Systems Review of Systems Narrative: Remainder of complete review of systems is otherwise unremarkable except for that included in the HPI. 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 Able to give a complete and coherent history. Well-nourished well-developed HEENT: Moist mucous membranes, normal sclera with reactive pupils, Neck: No JVD, supple Respiratory: Lungs are clear to auscultation, no wheezing no rales no rhonchi. Full and symmetrical air movement Cardiac: Regular rate and rhythm no murmurs no bruits Abdomen: Soft, nontender, good bowel tones, no flank pain Skin: Warm and dry, no rashes Neurologic: Grossly neurologically intact with no obvious asymmetries or abnormalities Extremities: No trauma, well perfused, compression socks in place Psych: Cooperative, appropriate insight and affect Course Orders Ordered: ED Orders 04/13/22 13:16 XR chest 1V Stat EKG-12 Lead Stat 04/13/22 13:28 Complete Blood Count AUTO DIFF Stat Comprehensive Metabolic Panel Stat Lipase Stat Magnesium Stat Partial Thromboplastin Time Stat Prothrombin Time INR Stat Troponin & CK Cardiac Panel Stat 04/13/22 15:40 Trop I [Troponin I] Stat Discontinued Medications Nitroglycerin (Nitroglycerin Oint 1 Inch/Gm Oint...G.) 0.5 inch TOP NOW ONE Stop: 04/13/22 14:08 Last Admin: 04/13/22 14:24 Dose: 0.5 inch Documented By: NR Vital Signs Vital signs: Vital Signs - 8 hr 04/13/22 13:05 04/13/22 14:24 04/13/22 14:46 Temperature 98 F Pulse Rate 79 70 70 Respiratory Rate 18 Blood Pressure 196/94 H 187/109 H Pulse Oximetry 98 98 Oxygen Delivery Method Room Air 04/13/22 14:47 04/13/22 14:47 04/13/22 14:49 Temperature Pulse Rate 70 67 Respiratory Rate 19 Blood Pressure 197/81 H Pulse Oximetry 99 99 Oxygen Delivery Method 04/13/22 14:49 04/13/22 15:00 04/13/22 15:00 Temperature Pulse Rate 69 Respiratory Rate 17 Blood Pressure 183/82 H 168/77 H Pulse Oximetry 97 Oxygen Delivery Method MDM - Chest Pain Lab Data Result diagrams: 04/13/22 13:28 04/13/22 13:28 Labs: Lab Results 04/13/22 04/13/22 04/13/22 Range/Units 13:28 13:28 13:28 WBC 4.3 L (4.5-11.0) X10^3/uL RBC 4.44 (4.0-5.2) X10^6/uL Hgb 12.9 (12.0-16.0) g/dL Hct 38.1 (36-46) % MCV 85.8 (80-100) fL MCH 29.1 (26-34) PG MCHC 34.0 (30-36) % RDW 14.6 (11.6-14.8) % Plt Count 286 (150-400) X10^3/uL Neut % (Auto) 60.8 (50-75) % Lymph % (Auto) 17.4 L (25-40) % Delta % (Auto) 18.6 H (3-14) % Eos % (Auto) 2.2 (2-4) % Baso % (Auto) 1.0 (0-2) % Neut # (Auto) 2600 (5993-3363) /uL Lymph # (Auto) 700 L (8646-2886) /uL Delta # (Auto) 800 (0-900) /uL Eos # (Auto) 100 (0-450) /uL Baso # (Auto) 0 (0-100) /uL PT 12.6 (10.1-12.7) SECONDS INR 1.1 (0.9-1.3) APTT 35 (26-36) SECONDS Sodium 142 (137-145) mmol/L Potassium 3.6 (3.4-5.1) mmol/L Chloride 104 (98-107) mmol/L Carbon Dioxide 26 (22-32) mmol/L BUN 17 (7-17) mg/dL Creatinine 0.73 (0.52-1.04) mg/dL Estimated GFR > 60 (>60) mL/min BUN/Creatinine Ratio 23.3 H (6-22) Glucose 87 (80-110) mg/dL Calcium 9.1 (8.4-10.2) mg/dL Magnesium 1.5 L (1.6-2.3) mg/dL Total Bilirubin 0.5 (0.2-1.3) mg/dL AST 23 (14-36) IU/L ALT 15 (<35) IU/L Alkaline Phosphatase 55 (38-126) U/L Total Creatine Kinase 87 (30-135) U/L CK-MB (CK-2) TNP CK-MB (CK-2) Rel Index TNP Troponin I 0.045 H (0.01-0.034) ng/mL Total Protein 7.3 (6.3-8.2) g/dL Albumin 3.9 (3.5-5.0) g/dL Globulin 3.4 (1.7-4.1) g/dL Albumin/Globulin Ratio 1.1 (1.0-2.8) Lipase 182 (23-300) U/L 04/13/22 Range/Units 15:40 WBC (4.5-11.0) X10^3/uL RBC (4.0-5.2) X10^6/uL Hgb (12.0-16.0) g/dL Hct (36-46) % MCV (80-100) fL MCH (26-34) PG MCHC (30-36) % RDW (11.6-14.8) % Plt Count (150-400) X10^3/uL Neut % (Auto) (50-75) % Lymph % (Auto) (25-40) % Delta % (Auto) (3-14) % Eos % (Auto) (2-4) % Baso % (Auto) (0-2) % Neut # (Auto) (5828-6543) /uL Lymph # (Auto) (6622-5773) /uL Delta # (Auto) (0-900) /uL Eos # (Auto) (0-450) /uL Baso # (Auto) (0-100) /uL PT (10.1-12.7) SECONDS INR (0.9-1.3) APTT (26-36) SECONDS Sodium (137-145) mmol/L Potassium (3.4-5.1) mmol/L Chloride (98-107) mmol/L Carbon Dioxide (22-32) mmol/L BUN (7-17) mg/dL Creatinine (0.52-1.04) mg/dL Estimated GFR (>60) mL/min BUN/Creatinine Ratio (6-22) Glucose (80-110) mg/dL Calcium (8.4-10.2) mg/dL Magnesium (1.6-2.3) mg/dL Total Bilirubin (0.2-1.3) mg/dL AST (14-36) IU/L ALT (<35) IU/L Alkaline Phosphatase (38-126) U/L Total Creatine Kinase (30-135) U/L CK-MB (CK-2) CK-MB (CK-2) Rel Index Troponin I 0.073 H (0.01-0.034) ng/mL Total Protein (6.3-8.2) g/dL Albumin (3.5-5.0) g/dL Globulin (1.7-4.1) g/dL Albumin/Globulin Ratio (1.0-2.8) Lipase (23-300) U/L Imaging Data Chest x-ray: Radiologist's Impression: FINDINGS:? ? Surgical changes and devices:? Midline sternal wires and mediastinal vascular clips present. ? Lungs and pleura:? Lungs are clear.? No pleural effusions or pneumothorax.? ? Mediastinum:? Mediastinal contours appear normal.? Heart size is normal.? ? Bones and chest wall:? Bilateral glenohumeral degenerative changes. ? IMPRESSION:? No acute cardiopulmonary findings. ? Advanced bilateral glenohumeral osteoarthritis ? ? ? Approved by: Joel Piña M.D. on 04/13/2022 at 14:17? ECG Data Interpretation: Telemetry lead II from cardiac rehab clinic shows ST depression with chest pain Arrival in the emergency department pain is initially resolved and formal EKG shows sinus rhythm without significant ST depression and no acute ischemic changes MDM Narrative Medical decision making narrative: 77-year-old woman 3 months now post by CABG at cardiac rehab with chest pain while exercising with ST depression appreciated. Evolving EKG changes completely resolves and patient has been pain free while in the emergency department however initial troponin is slightly elevated at 0.045 and repeat is continuing to rise at 0.073. Nitropaste was placed not only to help with blood pressure control but also did get the last small bit of chest pressure completely resolved. Spoke with Dr. Stewart, cardiology he felt that this is likely more hypertensive crisis in the setting of exercise rather than true ischemic findings. His recommendation was to switch to Imdur 30 mg p.o. and take the nitropaste off approximately an hour later. He suggested an additional 25 mg of losartan with likely discharge home with 50 mg of losartan. Will go ahead and give her a single dose of IV labetalol and he also recommended heparinizing her overnight as we continue to recheck troponins. She will need to be admitted for further observation. Findings and suggestions are reviewed with patient and her family. Care is reviewed with the hospitalist service and patient is accepted for admission. Critical Care Time Critical Care Time Critical Care Time: Yes Total Critical Care Time: 33 Attestation: Critical care time is separate from other billable procedures. There is a high probability of a significant, sudden or life-threatening deterioration that requires my full and direct attention, intervention and personal management. This critical care time includes consultation with family and other consulting doctors, review of records, and interpretation of data from labs, EKGs and imaging as well as managements of acute chest pain and hypertensive emergency with management of chest pain and blood pressure with IV medications Discharge Plan Departure Patient Disposition: Admitted as Observation Clinical Impression: Hypertensive urgency, Elevated troponin Chest pain Qualifiers: Chest pain type: unspecified Qualified Code(s): R07.9 - Chest pain, unspecified
[2022-04-13 14:02] LABS: Troponin I 0.045 ng/mL (0.01-0.034)
[2022-04-13] MEDS: NITROGLYCERIN OINT 1 INCH/GM OINT...G. 0.5 INCH TOP (14:24)
[2022-04-13 16:30] LABS: Troponin I 0.073 ng/mL (0.01-0.034)
[2022-04-13] MEDS: LABETALOL 20 MG/4 ML SYRINGE 10 MG IV (18:08)
[2022-04-13] MEDS: HEPARIN 5,000 UNIT/ML VIAL 4000 UNIT IV (18:09)
[2022-04-13] MEDS: HEPARIN DRIP 25,000 UNIT/500 ML IV.SOLN 17.418 UNIT IV (18:10)
[2022-04-13] MEDS: LOSARTAN 25 MG TABLET PO (19:04)
[2022-04-13 19:15] LABS: PTT Partial Thromboplastin Tim 35 SECONDS (26-36)
[2022-04-13 22:40] LABS: COVID19 -Nasal RAPID Negative (Negative)
--- NOTE | 2022-04-13 23:53 | P.HP_ITS ---
History of Present Illness History of Present Illness Date Patient Seen: 04/13/22 Time Patient Seen: 23:45 Chief complaint: Chest pain, hot flashes, SOB Narrative: Tessie Mcintyre is status post CABG in September of this year Josselin Mckeon and undergoing cardiac rehab here at [facility] was in her usual state of health and undergoing cardiac rehab when she started to developed mid epigastric pain. She had been progressing with some of the machines and normally would be increasing the resistance on some of them however it became increasingly more difficult to even panel what her baseline levels were. She became sweaty and then started to breathe real fast. She stated that for the past 2 so previous nights she had been having a hard time sleeping felt very sweaty had to change her night gown in the middle of the night. She did not have pain at that time. She denies nausea or vomiting denies any heartburn type symptoms. She denies abdominal pain, dysuria, diarrhea or constipation. She denies any upper lower extremity swelling. She did have 3 UTIs after her CABG and felt at that center back quite a bit with her cardiac rehab. She presented directly from the Cardiac rehab Department to the emergency department and was found to be moderately hypertensive and at that time her pain had mostly resolved. Her troponins on presentation to the emergency department were initially 0.045, 2 hour troponin increased to 0.073 and at 11:49 p.m. it was 0.223. She is afebrile, blood pressure 155/69, heart rate 65, respiratory rate 16, oxygen saturation of 96% on room air, she weighs 72.3 kg with a BMI of 27.4. CBC is unremarkable, chemistries are unremarkable, she has a low magnesium of 1.5 which has been repleted, troponins as stated above, and COVID- 19 PCR is negative. FH: Mother in her 80s of stomach cancer. Father at age 47 of a work related accident. She has a sister at 78 with heart failure. Patient History Medical History Arthritis of right glenohumeral joint CAD (coronary artery disease) Essential hypertension Herpes zoster Hypercalcemia Myocardial infarction 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 Surgical History H/O angioplasty History of tonsillectomy S/P CABG (coronary artery bypass graft) Family & Social History Social History: household members spouse,family Prior Living Arrangements House Safety & Behavioral: Feels Safe in Current Yes Environment Been Physically Hurt or No Threatened By a Person Tobacco & Substance use: Smoking Status Never smoker alcohol intake current alcohol intake frequency holiday/special occasion Substance Use Type does not use Meds Home Medications and Allergies Home Medications Medication Instructions Recorded Confirmed Type aspirin 81 mg tablet,delayed 81 mg PO DAILY ##0 01/17/12 04/13/22 History release atorvastatin 20 mg tablet (Lipitor) 20 mg PO BEDTIME 05/02/19 04/13/22 History acetaminophen 650 mg 650 mg PO Q8H 10/15/21 04/13/22 History tablet,extended release (Tylenol Arthritis Pain) losartan 25 mg tablet 25 mg PO DAILY #90 tabs 10/15/21 04/13/22 Rx metoprolol succinate 100 mg 100 mg PO DAILY 10/15/21 04/13/22 History tablet,extended release 24 hr Allergies Allergy/AdvReac Type Severity Reaction Status Date / Time hydrochlorothiazide Allergy Severe MARGARET HIGH Verified 02/22/22 14:10 [HYDROCHLOROTHIAZIDE] BLOOD PRESSURE-KIDNEY ONLY WORKED AT 50% doxycycline [DOXYCYCLINE] Allergy Mild ITCHY Verified 02/22/22 14:10 lisinopril [LISINOPRIL] AdvReac Mild cough Verified 02/22/22 14:10 Review of Systems Review of Systems ROS: Yes All systems reviewed with the patient and are negative except as otherwise documented Exam Vital Signs (past 8 hours): - 04/13/22 18:08 04/13/22 19:04 04/13/22 20:25 Temperature 97.9 F Pulse Rate 68 77 83 Respiratory Rate 18 Blood Pressure 187/85 H 160/69 H 148/64 H Pulse Oximetry 98 Oxygen Flow Rate 0 Oxygen Delivery Method Room Air Oxygen Flow Rate 0 Narrative Exam Narrative: Gen: Alert, oriented, well-developed 77 y.o. female, NAD HEENT: normocephalic, atraumatic, conjunctiva clear, sclera non-icteric, oral mucosa pink and moist Neck: supple, full ROM, no JVD, trachea is midline Resp: Lungs CTA, non-labored breathing CV: RRR, no murmur or rubs Abd: soft, non-tender, normoactive BTs Skin: no lesions or rashes, dry and intact Neuro: Alert and oriented X 4 w/no focal deficits. Speech clear and coherent. Extremities: moves all 4 extremities, is ambulatory, negative Erin?s sign Psyche: normal mood and affect. Objective Labs Result Diagrams: 04/13/22 13:28 04/13/22 13:28 Labs: Laboratory Results - last 24 hr 04/13/22 04/13/22 04/13/22 13:28 13:28 13:28 WBC 4.3 L RBC 4.44 Hgb 12.9 Hct 38.1 MCV 85.8 MCH 29.1 MCHC 34.0 RDW 14.6 Plt Count 286 Neut % (Auto) 60.8 Lymph % (Auto) 17.4 L [place] % (Auto) 18.6 H Eos % (Auto) 2.2 Baso % (Auto) 1.0 Neut # (Auto) 2600 Lymph # (Auto) 700 L [place] # (Auto) 800 Eos # (Auto) 100 Baso # (Auto) 0 PT 12.6 INR 1.1 APTT 35 Sodium 142 Potassium 3.6 Chloride 104 Carbon Dioxide 26 BUN 17 Creatinine 0.73 Estimated GFR > 60 BUN/Creatinine Ratio 23.3 H Glucose 87 Calcium 9.1 Magnesium 1.5 L Total Bilirubin 0.5 AST 23 ALT 15 Alkaline Phosphatase 55 Total Creatine Kinase 87 CK-MB (CK-2) TNP CK-MB (CK-2) Rel Index TNP Troponin I 0.045 H Total Protein 7.3 Albumin 3.9 Globulin 3.4 Albumin/Globulin Ratio 1.1 Lipase 182 SARS-CoV-2 (PCR) 04/13/22 04/13/22 04/13/22 15:40 17:30 21:14 WBC RBC Hgb Hct MCV MCH MCHC RDW Plt Count Neut % (Auto) Lymph % (Auto) [place] % (Auto) Eos % (Auto) Baso % (Auto) Neut # (Auto) Lymph # (Auto) [place] # (Auto) Eos # (Auto) Baso # (Auto) PT INR APTT 35 Sodium Potassium Chloride Carbon Dioxide BUN Creatinine Estimated GFR BUN/Creatinine Ratio Glucose Calcium Magnesium Total Bilirubin AST ALT Alkaline Phosphatase Total Creatine Kinase CK-MB (CK-2) CK-MB (CK-2) Rel Index Troponin I 0.073 H Total Protein Albumin Globulin Albumin/Globulin Ratio Lipase SARS-CoV-2 (PCR) Negative Assessment & Plan Assessment & Plan narrative: Tessie Mcintyre is admitted for further evaluation and treatment of a NSTEMI NSTEMI, acute present on admission * She is status post 3 months CABG undergoing cardiac rehab * Troponins have been rising * ED spoke to Dr. Stewart insurance verification specialist who felt that she was likely more in hypertensive crisis versus ischemia. Recommended switching her to arms or and discontinue nitropaste. He recommended discharge home with 50 mg of losartan increased over prior. * She was given 1 dose of IV labetalol in the ED and started on a heparin drip * Due to rising troponins will likely contact her insurance verification specialist in the morning to discuss. Dr. Maryan Reinoso is her insurance verification specialist at [facility]. * Continue home dose of metoprolol succinate 100 mg po daily. * Complete echo in the am. No echos in our system. Dyslipidemia, chronic * Increase atorvastatin to 80 mg po daily * Lipid panel in the am. VTE Prophylaxis: Wells risk score 0 X Bilateral SCDs Patient is currently anticoagulated on heparin Patient is admitted to the inpatient service due to the severity of disease, risks of further disease progression and this stay is expected to exceed 2 midnights. FEN: IV fluids: saline lock, diet: cardiac, labs: CBC, C/BMP, liver enzymes, Mag, PT/INR Consultants None Dispo: unknown at this time Code status: Full code as discussed with the patient who identifies her , Esha Mcintyre as her surrogate and POA. [X] I have utilized all available immediate resources to obtain, update, or review of the patient's current medications VTE Deep Vein Thrombosis/Pulmonary Embolism Present on Admission: No MIPS - Admit I confirm the patient?s Advance Care Plan is present, Code status is documented, Surrogate decision maker is in patient?s record: Yes MIPS - DC The patient has current or prior documentation of left ventricular ejection fraction (LVEF) less than 40%, or moderate or severely depressed left ventricular systolic function.: No
[2022-04-13] MEDS: MAGNESIUM SULFATE 2 GM/50 ML PIGGYBACK IV (23:56)
[2022-04-13] MEDS: ATORVASTATIN 20 MG TABLET 80 MG PO (23:58)
[2022-04-14] VITALS (14 sets, daily range): BP systolic 122–202; BP diastolic 63–101; PULSE 65–82; RESP 16–19; TEMP 35.9–36.6; O2SAT 92–98
--- NOTE | 2022-04-14 | DI.ECHO.S_ITS ---
[facility]---------[facility] +---------+ : : [address] : : : : [id number] : : : : Phone: [phone]+ Echocardiogram Report + + :Name: JENNIFER THAPA Study Date: 04/14/2022 Height: 64 in : :[facility] ReadingLocation: Weight: 159 lb: : Gender: Female BSA: 1.8 m2 : :: 1945 Age: 77 yrs : :Reason For Study: NSTEMI : :Ordering Physician: ANY DEL ROSARIO Performed By: Azra Parrish : :Referring: ANY DEL ROSARIO : + + Interpretation Summary There is mild concentric left ventricular hypertrophy. The ejection fraction is estimated to be 60-65%. There are no obvious focal wall motion abnormalities noted but poor endocardial definition reduces the sensitivity for the detection of such. The right ventricular systolic function is normal. The IVC is of normal diameter and collapses greater than 50% with a sniff. This suggests a low right atrial pressure of 3 mm Hg. No significant valvular disease. Procedure: A two-dimensional transthoracic echocardiogram with color flow and Doppler was performed. The study quality was technically adequate. There is no prior echocardiogram noted for this patient. The patient was in sinus rhythm with heart rates between 66-71 bpm during the exam. Left Ventricle: The left ventricular cavity is small. There is mild concentric left ventricular hypertrophy. The ejection fraction is estimated to be 60-65%. There are no obvious focal wall motion abnormalities noted but poor endocardial definition reduces the sensitivity for the detection of such. Right Ventricle: The right ventricle is normal size. The right ventricular systolic function is normal. Atria: The left atrium is mildly dilated. Right atrial size is normal. There is no Doppler evidence for an interatrial shunt. Mitral Valve: The mitral valve is normal in structure and function. There is trace mitral regurgitation. Aortic Valve: The aortic valve is trileaflet. The aortic valve opens well. There is no aortic valve stenosis. No aortic regurgitation is present. Tricuspid Valve: The tricuspid valve is normal in structure and function. There is trace tricuspid regurgitation. Pulmonic Valve: The pulmonic valve is not well visualized. There is no pulmonic valvular regurgitation. Great Vessels: The aortic root is normal size. The ascending aorta could not be visualized. The IVC is of normal diameter and collapses greater than 50% with a sniff. This suggests a low right atrial pressure of 3 mm Hg. Pericardium/ Pleura There is no pericardial effusion. There is no pleural effusion. MMode/2D Measurements & Calculations LVIDd: 3.7 cm LVOT diam: 2.0 cm LVIDs: 2.5 cm Ao root diam: 3.0 cm FS: 33.5 % IVSd: 1.1 cm LVPWd: 1.1 cm LV best. diameter/BSA (cm/m^2): 2.1 LV sys. diameter/BSA (cm/m^2): 1.4 LA A2 area: 21.3 cm2 RA long axis: 5.5 cm LA A4 area: 18.5 cm2 RA area: 19.1 cm2 LA length (vol): 5.2 cm RA vol: 56.7 ml LA vol: 64.9 ml RA : 31.9 ml/m2 LA vol index: 36.6 ml/m2 IVC diam: 1.1 cm RVD1 (basal): 3.5 cm TAPSE: 1.5 cm Doppler Measurements & Calculations Ao V2 max: 129.6 cm/sec LVOT Max Jese: 86.0 cm/sec Ao V2 mean: 90.0 cm/sec LV V1 max P.0 mmHg Ao max P.7 mmHg LV V1 VTI: 20.6 cm Ao mean P.5 mmHg JOSETTE(I,D): 2.2 cm2 Ao V2 VTI: 27.7 cm JOSETTE(V,D): 2.0 cm2 sev ratio: 0.74 JOSETTE indexed to BSA (cm^2/m^2): 1.3 MV E max jese: 75.1 cm/sec PA V2 max: 68.4 cm/sec MV A max jese: 83.6 cm/sec PA V2 mean: 47.9 cm/sec MV E/A: 0.90 PA mean P.1 mmHg Med Peak E' Jese: 6.3 cm/sec PA pr(Accel): 31.0 mmHg E/E' med: 11.8 Lat Peak E' Jese: 8.7 cm/sec E/E' lat: 8.7 E/e' average: 10.2 MV dec time: 0.32 sec SV(OT): 62.0 ml Reading Physician:DUGLAS
[2022-04-14 00:56] LABS: Troponin I 0.223 ng/mL (0.01-0.034)
[2022-04-14 01:00] LABS: PTT Partial Thromboplastin Tim 32 SECONDS (26-36)
[2022-04-14] MEDS: HEPARIN 5,000 UNIT/ML VIAL 3000 UNIT IV (01:42)
[2022-04-14 06:09] LABS: Add Manual Diff / Slide Review NO; Basophils Absolute Auto 0 /uL (0-100); Basophils Percent Auto 0.6 % (0-2); Eosinophils Absolute Auto 200 /uL (0-450); Eosinophils Percent Auto 3.7 % (2-4); Hematocrit 37.2 % (36-46); Hemoglobin 12.5 g/dL (12.0-16.0); Lymphocytes Absolute Auto 800 /uL (1100-4500); Lymphocytes Percent Auto 19.4 % (25-40); Mean Corpuscular HGB Conc 33.7 % (30-36); Mean Corpuscular Hemoglobin 28.9 PG (26-34); Mean Corpuscular Volume 85.8 fL (80-100); Monocytes Absolute Auto 700 /uL (0-900); Monocytes Percent Auto 15.9 % (3-14); Neutrophils Absolute Auto 2500 /uL (1500-7000); Neutrophils Percent Auto 60.4 % (50-75); Platelet Count 255 X10^3/uL (150-400); Red Blood Cell Count 4.34 X10^6/uL (4.0-5.2); Red Cell Distribution Width 14.8 % (11.6-14.8); White Blood Cell Count 4.2 X10^3/uL (4.5-11.0)
[2022-04-14 06:26] LABS: Cholesterol 134 mg/dL (140-199); HDL Cholesterol 38 mg/dL (40-60); LDL Cholesterol Calculated 76 mg/dL (<100); Triglycerides 102 mg/dL (35-150)
[2022-04-14 06:27] LABS: Alanine Aminotransferase 13 IU/L (<35); Albumin 3.4 g/dL (3.5-5.0); Albumin Globulin Ratio 1.1 (1.0-2.8); Alkaline Phosphatase 51 U/L (38-126); Aspartate Aminotransferase 22 IU/L (14-36); BUN Creatinine Ratio 21.9 (6-22); Bilirubin Total 0.5 mg/dL (0.2-1.3); Blood Urea Nitrogen 14 mg/dL (7-17); Calcium 8.8 mg/dL (8.4-10.2); Carbon Dioxide 30 mmol/L (22-32); Chloride 104 mmol/L (98-107); Estimated Glomerular Filt Rate > 60 mL/min (>60); Globulin 3.1 g/dL (1.7-4.1); Glucose 93 mg/dL (80-110); HEMOLYSIS < 15 (0-50); Potassium 4.1 mmol/L (3.4-5.1); Sodium 140 mmol/L (137-145); Total Protein 6.5 g/dL (6.3-8.2)
[2022-04-14 06:41] LABS: Troponin I 0.191 ng/mL (0.01-0.034)
[2022-04-14 06:44] LABS: PTT Partial Thromboplastin Tim > 400 SECONDS (26-36)
[2022-04-14 06:56] LABS: Thyroid Stimulating Hormone 1.13 uIU/mL (0.47-4.68)
--- NOTE | 2022-04-14 08:59 | PM.PN.1 ---
Subjective Subjective Date Patient Seen: 04/14/22 Time Patient Seen: 09:00 Interval history: Patient denies CP and currently feels back to baseline. Exam Vital Signs (past 8 hours): - 04/14/22 03:49 Temperature 96.6 F L Pulse Rate 77 Respiratory Rate 18 Blood Pressure 149/88 H Pulse Oximetry 97 Oxygen Flow Rate 0 Oxygen Delivery Method Room Air Oxygen Flow Rate 0 Narrative Exam Narrative: Gen: Alert, oriented, well-developed 77 y.o. female, NAD HEENT: normocephalic, atraumatic, conjunctiva clear, sclera non-icteric, oral mucosa pink and moist Neck: supple, full ROM, no JVD, trachea is midline Resp: Lungs CTA, non-labored breathing CV: RRR, no murmur or rubs Abd: soft, non-tender, normoactive BTs Skin: no lesions or rashes, dry and intact Neuro: Alert and oriented X 4 w/no focal deficits. Speech clear and coherent. Extremities: moves all 4 extremities, is ambulatory Psyche: normal mood and affect. Objective Labs Result Diagrams: 04/14/22 05:53 04/14/22 05:53 Labs: Laboratory Results - last 24 hr 04/13/22 04/13/22 04/13/22 13:28 13:28 13:28 WBC 4.3 L RBC 4.44 Hgb 12.9 Hct 38.1 MCV 85.8 MCH 29.1 MCHC 34.0 RDW 14.6 Plt Count 286 Neut % (Auto) 60.8 Lymph % (Auto) 17.4 L [place] % (Auto) 18.6 H Eos % (Auto) 2.2 Baso % (Auto) 1.0 Neut # (Auto) 2600 Lymph # (Auto) 700 L [place] # (Auto) 800 Eos # (Auto) 100 Baso # (Auto) 0 PT 12.6 INR 1.1 APTT 35 Sodium 142 Potassium 3.6 Chloride 104 Carbon Dioxide 26 BUN 17 Creatinine 0.73 Estimated GFR > 60 BUN/Creatinine Ratio 23.3 H Glucose 87 Calcium 9.1 Magnesium 1.5 L Total Bilirubin 0.5 AST 23 ALT 15 Alkaline Phosphatase 55 Total Creatine Kinase 87 CK-MB (CK-2) TNP CK-MB (CK-2) Rel Index TNP Troponin I 0.045 H Total Protein 7.3 Albumin 3.9 Globulin 3.4 Albumin/Globulin Ratio 1.1 Triglycerides Cholesterol LDL Cholesterol, Calc HDL Cholesterol Lipase 182 TSH SARS-CoV-2 (PCR) 04/13/22 04/13/22 04/13/22 15:40 17:30 21:14 WBC RBC Hgb Hct MCV MCH MCHC RDW Plt Count Neut % (Auto) Lymph % (Auto) [place] % (Auto) Eos % (Auto) Baso % (Auto) Neut # (Auto) Lymph # (Auto) [place] # (Auto) Eos # (Auto) Baso # (Auto) PT INR APTT 35 Sodium Potassium Chloride Carbon Dioxide BUN Creatinine Estimated GFR BUN/Creatinine Ratio Glucose Calcium Magnesium Total Bilirubin AST ALT Alkaline Phosphatase Total Creatine Kinase CK-MB (CK-2) CK-MB (CK-2) Rel Index Troponin I 0.073 H Total Protein Albumin Globulin Albumin/Globulin Ratio Triglycerides Cholesterol LDL Cholesterol, Calc HDL Cholesterol Lipase TSH SARS-CoV-2 (PCR) Negative 04/13/22 04/13/22 04/14/22 23:49 23:49 05:53 WBC RBC Hgb Hct MCV MCH MCHC RDW Plt Count Neut % (Auto) Lymph % (Auto) [place] % (Auto) Eos % (Auto) Baso % (Auto) Neut # (Auto) Lymph # (Auto) [place] # (Auto) Eos # (Auto) Baso # (Auto) PT INR APTT 32 > 400 H* D Sodium Potassium Chloride Carbon Dioxide BUN Creatinine Estimated GFR BUN/Creatinine Ratio Glucose Calcium Magnesium Total Bilirubin AST ALT Alkaline Phosphatase Total Creatine Kinase CK-MB (CK-2) CK-MB (CK-2) Rel Index Troponin I 0.223 H* Total Protein Albumin Globulin Albumin/Globulin Ratio Triglycerides Cholesterol LDL Cholesterol, Calc HDL Cholesterol Lipase TSH SARS-CoV-2 (PCR) 04/14/22 04/14/22 04/14/22 05:53 05:53 05:53 WBC 4.2 L RBC 4.34 Hgb 12.5 Hct 37.2 MCV 85.8 MCH 28.9 MCHC 33.7 RDW 14.8 Plt Count 255 Neut % (Auto) 60.4 Lymph % (Auto) 19.4 L [place] % (Auto) 15.9 H Eos % (Auto) 3.7 Baso % (Auto) 0.6 Neut # (Auto) 2500 Lymph # (Auto) 800 L [place] # (Auto) 700 Eos # (Auto) 200 Baso # (Auto) 0 PT INR APTT Sodium 140 Potassium 4.1 Chloride 104 Carbon Dioxide 30 BUN 14 Creatinine 0.64 Estimated GFR > 60 BUN/Creatinine Ratio 21.9 Glucose 93 Calcium 8.8 Magnesium 2.0 Total Bilirubin 0.5 AST 22 ALT 13 Alkaline Phosphatase 51 Total Creatine Kinase CK-MB (CK-2) CK-MB (CK-2) Rel Index Troponin I Total Protein 6.5 Albumin 3.4 L Globulin 3.1 Albumin/Globulin Ratio 1.1 Triglycerides Cholesterol LDL Cholesterol, Calc HDL Cholesterol Lipase TSH 1.13 SARS-CoV-2 (PCR) 04/14/22 04/14/22 05:53 05:53 WBC RBC Hgb Hct MCV MCH MCHC RDW Plt Count Neut % (Auto) Lymph % (Auto) [place] % (Auto) Eos % (Auto) Baso % (Auto) Neut # (Auto) Lymph # (Auto) [place] # (Auto) Eos # (Auto) Baso # (Auto) PT INR APTT Sodium Potassium Chloride Carbon Dioxide BUN Creatinine Estimated GFR BUN/Creatinine Ratio Glucose Calcium Magnesium Total Bilirubin AST ALT Alkaline Phosphatase Total Creatine Kinase CK-MB (CK-2) CK-MB (CK-2) Rel Index Troponin I 0.191 H* Total Protein Albumin Globulin Albumin/Globulin Ratio Triglycerides 102 Cholesterol 134 L LDL Cholesterol, Calc 76 HDL Cholesterol 38 L Lipase TSH SARS-CoV-2 (PCR) [facility] Medical History Arthritis of right glenohumeral joint CAD (coronary artery disease) Essential hypertension Herpes zoster Hypercalcemia Myocardial infarction 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 Surgical History H/O angioplasty History of tonsillectomy S/P CABG (coronary artery bypass graft) Social History marital status: household members: spouse and family 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 Stewart area field manager who felt that she was likely more in hypertensive crisis versus ischemia. Recommended Imdur and increasing home losartan of 25 to 50 mg She was given 1 dose of IV labetalol in the ED and started on a heparin drip Discussed with Dr. Maryan Reinoso her area field manager at [facility] on 04/14 who agreed with the plan Continue home dose of metoprolol succinate 100 mg po daily. Echo 04/14 with mild LVH, EF 60-65%, no focal WMA's continue heparin drip x48 hours start imdur 30 daily Dyslipidemia, chronic Increased atorvastatin to 80 mg po daily Lipid panel LDL 76 and chol 134 VTE Prophylaxis: heparin drip Dispo: Likely dc home on 04/15. Code status: Full code as discussed with the patient who identifies her , Esha Mcintyre as her surrogate and POA. Time Spent With Patient Critical Care time: I spent a total of [] minutes of critical care time on this patient's care today; this time is exclusive of procedural time.
[2022-04-14] MEDS: METOPROLOL ER 50 MG TABLET 100 MG PO (09:13)
[2022-04-14] MEDS: ASPIRIN EC 81 MG TABLET PO (09:14)
[2022-04-14] MEDS: LOSARTAN 25 MG TABLET PO ×2 (09:14→11:15)
[2022-04-14] MEDS: ACETAMINOPHEN 325 MG TABLET 650 MG PO ×2 (09:14→20:26)
--- NOTE | 2022-04-14 10:46 | CM.DANOTE ---
DCP: Case received, EMR reviewed and met with patient. Introduced self and role. Was able to obtain information regarding patient's baseline activity level prior to her hospitalization. DCP assessment completed with information currently available. Patient is a 77 year old female who admitted yesterday afternoon to the care of the hospitalist team. PCP: Dr. Avila. Payers: Medicare/[employer]ARP. Patient came to the hospital, via wheel-chair sent over from cardiac rehab here at the hospital. Patient had been working on the machine, and started developing substernal chest pain, and shortness of breath. Patient has history of CABG procedure at [facility], according to patient. Patient is here for evaluation of chest pain secondary to her cardiac history. Patient has diagnosis of acute NSTEMI. Met with patient in her room. She is alert and oriented, sitting up in bed having her breakfast. At her baseline, she is independent. She does have a FWW and cane, stated, she rarely uses them. She resides here in [place] with her spouse, Esha. P: DCP to continue to follow. Patient should be able to go home when she is deemed medically stable. Katie Liu RN/Buying Intern Discharge Planning/Care Management CM Discharge Assessment Start: 04/14/22 10:44 Freq: Status: Active Protocol: Document 04/14/22 10:44 (Rec: 04/14/22 10:46 [id number]) Discharge Planning Assessment Assigned Supervisor Public Message Service Katie Liu RN/Buying Intern Advance Directives? No Advance Directives on File No History Provided By Patient,Medical Record Prior Living Arrangements House Household Members spouse,family Type of transporation used prior to Drives own vehicle admit Independent with ADL's Yes Is patient alert and oriented? Yes Caregiver for Another No Comment Patient is currently working with cardio/pulmonary rehab here at the hospital. DME Already Rented / Owned FWW / Walker,Cane Comment Patient indicated, she rarely uses walker, sometimes cane. Discharge Plan Home Transportation Arrangement Spouse Referrals Initiated None needed Whiteboard Updated in Patient Room with Yes name and ext. # of Supervisor Public Message Service Review Status In Process Next Review Type Continued Stay Review
[2022-04-14] MEDS: ISOSORBIDE MONONITRATE ER 30 MG TABLET PO (11:16)
[2022-04-14 16:10] LABS: PTT Partial Thromboplastin Tim 53 SECONDS (26-36)
[2022-04-14] MEDS: ATORVASTATIN 20 MG TABLET 80 MG PO (20:26)
[2022-04-14] MEDS: NITROGLYCERIN 0.4 MG SL TAB SL ×2 (23:23→23:30)
[2022-04-15] VITALS (12 sets, daily range): BP systolic 132–203; BP diastolic 71–103; PULSE 62–82; RESP 17–18; TEMP 36–36.6; O2SAT 93–97
[2022-04-15] MEDS: ACETAMINOPHEN 325 MG TABLET 650 MG PO ×2 (02:40→08:21)
[2022-04-15] MEDS: HEPARIN DRIP 25,000 UNIT/500 ML IV.SOLN 13.4 UNIT IV (05:01)
[2022-04-15] MEDS: NITROGLYCERIN 0.4 MG SL TAB SL (06:09)
[2022-04-15 06:19] LABS: Add Manual Diff / Slide Review NO; Basophils Absolute Auto 0 /uL (0-100); Basophils Percent Auto 0.7 % (0-2); Eosinophils Absolute Auto 100 /uL (0-450); Hematocrit 36.3 % (36-46); Hemoglobin 12.2 g/dL (12.0-16.0); Lymphocytes Absolute Auto 900 /uL (1100-4500); Lymphocytes Percent Auto 20.9 % (25-40); Mean Corpuscular HGB Conc 33.7 % (30-36); Mean Corpuscular Hemoglobin 29.1 PG (26-34); Mean Corpuscular Volume 86.2 fL (80-100); Monocytes Absolute Auto 700 /uL (0-900); Monocytes Percent Auto 17.3 % (3-14); Neutrophils Absolute Auto 2400 /uL (1500-7000); Neutrophils Percent Auto 58.1 % (50-75); Platelet Count 240 X10^3/uL (150-400); Red Blood Cell Count 4.21 X10^6/uL (4.0-5.2); Red Cell Distribution Width 14.9 % (11.6-14.8); White Blood Cell Count 4.1 X10^3/uL (4.5-11.0)
[2022-04-15 06:21] LABS: HEMOLYSIS < 15 (0-50); Potassium 4.5 mmol/L (3.4-5.1)
[2022-04-15 06:22] LABS: Alanine Aminotransferase 12 IU/L (<35); Albumin 3.4 g/dL (3.5-5.0); Albumin Globulin Ratio 1.1 (1.0-2.8); Alkaline Phosphatase 49 U/L (38-126); Aspartate Aminotransferase 19 IU/L (14-36); BUN Creatinine Ratio 26.5 (6-22); Bilirubin Total 0.3 mg/dL (0.2-1.3); Blood Urea Nitrogen 18 mg/dL (7-17); Calcium 9.1 mg/dL (8.4-10.2); Carbon Dioxide 31 mmol/L (22-32); Chloride 104 mmol/L (98-107); Estimated Glomerular Filt Rate > 60 mL/min (>60); Glucose 100 mg/dL (80-110); Magnesium 1.6 mg/dL (1.6-2.3); Sodium 140 mmol/L (137-145); Total Protein 6.4 g/dL (6.3-8.2)
[2022-04-15] MEDS: ISOSORBIDE MONONITRATE ER 30 MG TABLET PO (06:40)
--- NOTE | 2022-04-15 06:57 | PC.NURSE ---
At 2318 last night pt c/o midsternal chest pain rated 4/10, no radiation, along with a headache rated 4/10. Pt c/o feeling hot, denied any SOB or nausea. BP 202/101. HR 72. SL NTG given x2 with good results, BP 133/75. At 0607 pt c/o same type of CP rated 4/10 and headache, BP 203/103. Again denied any SOB or nausea. NTG SL given x1. BP 133/77, CP rated 2/10. Pt denied need for any further analgesic, stated she does not want to have any morphine. Pt instructed to call if any increase in pain or any SOB.
[2022-04-15 07:24] LABS: PTT Partial Thromboplastin Tim 51 SECONDS (26-36)
[2022-04-15] MEDS: ASPIRIN EC 81 MG TABLET PO (08:21)
[2022-04-15] MEDS: METOPROLOL ER 50 MG TABLET 100 MG PO (08:21)
[2022-04-15] MEDS: LOSARTAN 25 MG TABLET 50 MG PO (08:22)
[2022-04-15] MEDS: MAGNESIUM CHLORIDE 64 MG TABLET 128 MG PO (08:26)
--- NOTE | 2022-04-15 12:47 | PC.NURSE ---
[facility] called with critical Troponin level of 0.270 at 1200, yesterday Troponin level was 0.120. Dr Blount notified. Pt will be transferred to [facility] as soon as space is available for further care. BP 137/78 Pulse of 72. 10 minutes later BP 158/75 pulse 76. Pt denies any chest pain or tingling sensations at this time. Pt orientated to call light and instructed to notify staff if any chest pain or tingling sensation or shortness of breath occur.
--- NOTE | 2022-04-15 14:12 | P.PN_ITS ---
Subjective Subjective Date Patient Seen: 04/15/22 Time Patient Seen: 10:00 Interval history: Patient had 2 instances of substernal CP overnight relieved with nitro. Troponin this morning had increased from 0.120 to 0.270. Continues on heparin drip. No chest pain currently at my evaluation. Exam Vital Signs (past 8 hours): - 04/15/22 06:14 04/15/22 07:44 04/15/22 08:21 Temperature 97.2 F L Pulse Rate 82 76 76 Respiratory Rate 18 18 Blood Pressure 133/77 140/76 140/76 Pulse Oximetry 95 95 Oxygen Flow Rate 0 0 04/15/22 08:22 04/15/22 11:51 04/15/22 12:00 Temperature 97.4 F L 97.4 F L Pulse Rate 76 63 63 Respiratory Rate 18 Blood Pressure 140/76 132/77 132/77 Pulse Oximetry 97 97 Oxygen Flow Rate 0 0 Oxygen Delivery Method Room Air Oxygen Flow Rate 0 Narrative Exam Narrative: Gen: Alert, oriented, well-developed 77 y.o. female, NAD HEENT: normocephalic, atraumatic, conjunctiva clear, sclera non-icteric, oral mucosa pink and moist Neck: supple, full ROM, no JVD, trachea is midline Resp: Lungs CTA, non-labored breathing CV: RRR, no murmur or rubs Abd: soft, non-tender, normoactive BTs Skin: no lesions or rashes, dry and intact Neuro: Alert and oriented X 4 w/no focal deficits. Speech clear and coherent. Extremities: moves all 4 extremities, is ambulatory Psyche: normal mood and affect. Objective Labs Result Diagrams: 04/15/22 05:45 04/15/22 05:45 Labs: Laboratory Results - last 24 hr 04/14/22 04/15/22 04/15/22 15:50 05:45 05:45 WBC 4.1 L RBC 4.21 Hgb 12.2 Hct 36.3 MCV 86.2 MCH 29.1 MCHC 33.7 RDW 14.9 H Plt Count 240 Neut % (Auto) 58.1 Lymph % (Auto) 20.9 L [place] % (Auto) 17.3 H Eos % (Auto) 3.0 Baso % (Auto) 0.7 Neut # (Auto) 2400 Lymph # (Auto) 900 L [place] # (Auto) 700 Eos # (Auto) 100 Baso # (Auto) 0 APTT 53 H D Sodium 140 Potassium 4.5 Chloride 104 Carbon Dioxide 31 BUN 18 H Creatinine 0.68 Estimated GFR > 60 BUN/Creatinine Ratio 26.5 H Glucose 100 Calcium 9.1 Magnesium 1.6 Total Bilirubin 0.3 AST 19 ALT 12 Alkaline Phosphatase 49 Troponin I Total Protein 6.4 Albumin 3.4 L Globulin 3.0 Albumin/Globulin Ratio 1.1 04/15/22 04/15/22 05:45 11:43 WBC RBC Hgb Hct MCV MCH MCHC RDW Plt Count Neut % (Auto) Lymph % (Auto) [place] % (Auto) Eos % (Auto) Baso % (Auto) Neut # (Auto) Lymph # (Auto) [place] # (Auto) Eos # (Auto) Baso # (Auto) APTT 51 H Sodium Potassium Chloride Carbon Dioxide BUN Creatinine Estimated GFR BUN/Creatinine Ratio Glucose Calcium Magnesium Total Bilirubin AST ALT Alkaline Phosphatase Troponin I 0.270 H* Total Protein Albumin Globulin Albumin/Globulin Ratio [facility] Medical History Arthritis of right glenohumeral joint CAD (coronary artery disease) Essential hypertension Herpes zoster Hypercalcemia Myocardial infarction 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 Surgical History H/O angioplasty History of tonsillectomy S/P CABG (coronary artery bypass graft) Social History marital status: household members: spouse and family 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 Funk given the new chest pain and troponin elevation and she recommended transfer to [facility] for heart cath * Continue home dose of metoprolol succinate 100 mg po daily. * Echo 04/14 with mild LVH, EF 60-65%, no focal WMA's * continue heparin drip * continue imdur 30 daily * attempting transfer Dyslipidemia, chronic * Increased atorvastatin to 80 mg po daily * Lipid panel LDL 76 and chol 134 VTE Prophylaxis: heparin drip Dispo: Pending transfer to [facility] for heart cath. Code status: Full code as discussed with the patient who identifies her , Esha Mcintyre as her surrogate and POA. Time Spent With Patient Critical Care time: I spent a total of [] minutes of critical care time on this patient's care today; this time is exclusive of procedural time.
[2022-04-15 18:40] LABS: Troponin I 0.286 ng/mL (0.01-0.034)
[2022-04-15] MEDS: ATORVASTATIN 20 MG TABLET 80 MG PO (20:09)
[2022-04-16] VITALS (13 sets, daily range): BP systolic 121–230; BP diastolic 63–122; PULSE 69–99; RESP 16–18; TEMP 35.6–36.2; O2SAT 92–99
[2022-04-16] MEDS: NITROGLYCERIN 0.4 MG SL TAB SL ×2 (00:29→22:49)
[2022-04-16 00:31] LABS: Creatine Kinase 57 U/L (30-135)
[2022-04-16 00:46] LABS: Troponin I 0.154 ng/mL (0.01-0.034)
[2022-04-16] MEDS: ISOSORBIDE MONONITRATE ER 30 MG TABLET PO (06:10)
[2022-04-16 06:36] LABS: Add Manual Diff / Slide Review NO; Basophils Absolute Auto 0 /uL (0-100); Basophils Percent Auto 0.6 % (0-2); Eosinophils Absolute Auto 100 /uL (0-450); Eosinophils Percent Auto 2.8 % (2-4); Hematocrit 37.3 % (36-46); Hemoglobin 12.6 g/dL (12.0-16.0); Lymphocytes Absolute Auto 900 /uL (1100-4500); Lymphocytes Percent Auto 19.5 % (25-40); Mean Corpuscular HGB Conc 33.7 % (30-36); Mean Corpuscular Hemoglobin 28.9 PG (26-34); Mean Corpuscular Volume 85.8 fL (80-100); Monocytes Absolute Auto 800 /uL (0-900); Monocytes Percent Auto 17.9 % (3-14); Neutrophils Absolute Auto 2600 /uL (1500-7000); Neutrophils Percent Auto 59.2 % (50-75); Platelet Count 244 X10^3/uL (150-400); Red Blood Cell Count 4.35 X10^6/uL (4.0-5.2); Red Cell Distribution Width 14.7 % (11.6-14.8); White Blood Cell Count 4.5 X10^3/uL (4.5-11.0)
[2022-04-16 06:42] LABS: PTT Partial Thromboplastin Tim 47 SECONDS (26-36)
[2022-04-16 06:47] LABS: Alanine Aminotransferase 13 IU/L (<35); Albumin 3.5 g/dL (3.5-5.0); Albumin Globulin Ratio 1.1 (1.0-2.8); Alkaline Phosphatase 46 U/L (38-126); Aspartate Aminotransferase 21 IU/L (14-36); Bilirubin Total 0.4 mg/dL (0.2-1.3); Blood Urea Nitrogen 16 mg/dL (7-17); Calcium 9.2 mg/dL (8.4-10.2); Carbon Dioxide 30 mmol/L (22-32); Chloride 103 mmol/L (98-107); Estimated Glomerular Filt Rate > 60 mL/min (>60); Globulin 3.2 g/dL (1.7-4.1); Glucose 91 mg/dL (80-110); HEMOLYSIS < 15 (0-50); Magnesium 1.5 mg/dL (1.6-2.3); Potassium 3.8 mmol/L (3.4-5.1); Sodium 141 mmol/L (137-145); Total Protein 6.7 g/dL (6.3-8.2)
[2022-04-16 06:55] LABS: Creatine Kinase 48 U/L (30-135)
[2022-04-16 07:09] LABS: Troponin I 0.145 ng/mL (0.01-0.034)
[2022-04-16] MEDS: MAGNESIUM SULFATE 4 GM/100 ML PIGGYBACK IV (07:34)
[2022-04-16] MEDS: ASPIRIN EC 81 MG TABLET PO (08:42)
[2022-04-16] MEDS: METOPROLOL ER 50 MG TABLET 100 MG PO (08:43)
[2022-04-16] MEDS: LOSARTAN 25 MG TABLET 50 MG PO (08:43)
[2022-04-16 12:43] LABS: Creatine Kinase 50 U/L (30-135)
[2022-04-16 13:02] LABS: Troponin I 0.144 ng/mL (0.01-0.034)
--- NOTE | 2022-04-16 17:36 | P.PN_ITS ---
Subjective Subjective Date Patient Seen: 04/16/22 Time Patient Seen: 09:00 Interval history: Patient had chest pain again overnight relieved with nitro. None currently and feels well as the moment. Awaiting transfer to [facility]. Exam Vital Signs (past 8 hours): - 04/16/22 10:01 04/16/22 10:56 04/16/22 11:54 Temperature 97.0 F L 97.0 F L Pulse Rate 83 78 71 Respiratory Rate 17 17 Blood Pressure 121/63 121/63 137/65 Pulse Oximetry 92 96 Oxygen Flow Rate 0 0 04/16/22 15:12 Temperature 96.8 F L Pulse Rate 72 Respiratory Rate 17 Blood Pressure 138/67 Pulse Oximetry 97 Oxygen Flow Rate 0 Oxygen Delivery Method Room Air Oxygen Flow Rate 0 Narrative Exam Narrative: Gen: Alert, oriented, well-developed 77 y.o. female, NAD HEENT: normocephalic, atraumatic, conjunctiva clear, sclera non-icteric, oral mucosa pink and moist Neck: supple, full ROM, no JVD, trachea is midline Resp: Lungs CTA, non-labored breathing CV: RRR, no murmur or rubs Abd: soft, non-tender, normoactive BTs Skin: no lesions or rashes, dry and intact Neuro: Alert and oriented X 4 w/no focal deficits. Speech clear and coherent. Extremities: moves all 4 extremities, is ambulatory Psyche: normal mood and affect. Objective Labs Result Diagrams: 04/16/22 06:18 04/16/22 06:18 Labs: Laboratory Results - last 24 hr 04/15/22 04/16/22 04/16/22 17:48 00:05 06:18 WBC 4.5 RBC 4.35 Hgb 12.6 Hct 37.3 MCV 85.8 MCH 28.9 MCHC 33.7 RDW 14.7 Plt Count 244 Neut % (Auto) 59.2 Lymph % (Auto) 19.5 L [place] % (Auto) 17.9 H Eos % (Auto) 2.8 Baso % (Auto) 0.6 Neut # (Auto) 2600 Lymph # (Auto) 900 L [place] # (Auto) 800 Eos # (Auto) 100 Baso # (Auto) 0 APTT Sodium Potassium Chloride Carbon Dioxide BUN Creatinine Estimated GFR BUN/Creatinine Ratio Glucose Calcium Magnesium Total Bilirubin AST ALT Alkaline Phosphatase Total Creatine Kinase 57 CK-MB (CK-2) TNP CK-MB (CK-2) Rel Index TNP Troponin I 0.286 H* 0.154 H* Total Protein Albumin Globulin Albumin/Globulin Ratio 04/16/22 04/16/22 04/16/22 06:18 06:18 06:18 WBC RBC Hgb Hct MCV MCH MCHC RDW Plt Count Neut % (Auto) Lymph % (Auto) [place] % (Auto) Eos % (Auto) Baso % (Auto) Neut # (Auto) Lymph # (Auto) [place] # (Auto) Eos # (Auto) Baso # (Auto) APTT 47 H Sodium 141 Potassium 3.8 Chloride 103 Carbon Dioxide 30 BUN 16 Creatinine 0.64 Estimated GFR > 60 BUN/Creatinine Ratio 25.0 H Glucose 91 Calcium 9.2 Magnesium 1.5 L Total Bilirubin 0.4 AST 21 ALT 13 Alkaline Phosphatase 46 Total Creatine Kinase 48 CK-MB (CK-2) TNP CK-MB (CK-2) Rel Index TNP Troponin I 0.145 H* Total Protein 6.7 Albumin 3.5 Globulin 3.2 Albumin/Globulin Ratio 1.1 04/16/22 12:15 WBC RBC Hgb Hct MCV MCH MCHC RDW Plt Count Neut % (Auto) Lymph % (Auto) [place] % (Auto) Eos % (Auto) Baso % (Auto) Neut # (Auto) Lymph # (Auto) [place] # (Auto) Eos # (Auto) Baso # (Auto) APTT Sodium Potassium Chloride Carbon Dioxide BUN Creatinine Estimated GFR BUN/Creatinine Ratio Glucose Calcium Magnesium Total Bilirubin AST ALT Alkaline Phosphatase Total Creatine Kinase 50 CK-MB (CK-2) TNP CK-MB (CK-2) Rel Index TNP Troponin I 0.144 H* Total Protein Albumin Globulin Albumin/Globulin Ratio [facility] Medical History Arthritis of right glenohumeral joint CAD (coronary artery disease) Essential hypertension Herpes zoster Hypercalcemia Myocardial infarction 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 Surgical History H/O angioplasty History of tonsillectomy S/P CABG (coronary artery bypass graft) Social History marital status: household members: spouse and family 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 Funk given the new chest pain and troponin elevation and she recommended transfer to [facility] for heart cath * Continue home dose of metoprolol succinate 100 mg po daily. * Echo 04/14 with mild LVH, EF 60-65%, no focal WMA's * continue heparin drip * continue imdur 30 daily * attempting transfer Dyslipidemia, chronic * Increased atorvastatin to 80 mg po daily * Lipid panel LDL 76 and chol 134 VTE Prophylaxis: heparin drip Dispo: Pending transfer to [facility] for heart cath. Code status: Full code as discussed with the patient who identifies her , Esha Mcintyre as her surrogate and POA. Time Spent With Patient Critical Care time: I spent a total of [] minutes of critical care time on this patient's care today; this time is exclusive of procedural time.
--- NOTE | 2022-04-16 17:42 | PC.NURSE ---
Pt is AxOx4, needs STA and cooperative. VSS, pt denies pain. No chest pain today. Continued Heparin drip 13.4ml/hr. Pt's Mag was low this morning 1.5 so pt recieved IV Mag 4g today. Troponin is trending down slowly; Last one was 0.144. Otherwise, no problem identified. Continue monitor.
[2022-04-16] MEDS: HEPARIN DRIP 25,000 UNIT/500 ML IV.SOLN 13.4 UNIT IV (19:49)
[2022-04-16] MEDS: ATORVASTATIN 20 MG TABLET 80 MG PO (20:42)
[2022-04-16] MEDS: MORPHINE 2 MG/ML INJ IV (22:53)
[2022-04-16 23:49] LABS: Troponin I 0.106 ng/mL (0.01-0.034)
[2022-04-17] VITALS: BP 139/61; PULSE 71; RESP 18; TEMP 36.3; O2SAT 93; O2SAT 96
[2022-04-17 03:05] VITALS: BP 149/85; PULSE 74; RESP 14; TEMP 36.1; O2SAT 93
[2022-04-17] MEDS: ISOSORBIDE MONONITRATE ER 30 MG TABLET PO (06:30)
[2022-04-17 07:07] LABS: PTT Partial Thromboplastin Tim 47 SECONDS (26-36)
[2022-04-17 07:09] LABS: Magnesium 1.8 mg/dL (1.6-2.3)
[2022-04-17 07:21] LABS: Troponin I 0.118 ng/mL (0.01-0.034)
[2022-04-17 08:00] VITALS: BP 130/56; PULSE 78; RESP 17; TEMP 36.2; O2SAT 96
[2022-04-17 08:25] VITALS: O2SAT 96
[2022-04-17 08:49] VITALS: BP 130/56
[2022-04-17] MEDS: METOPROLOL ER 50 MG TABLET 100 MG PO (08:49)
[2022-04-17] MEDS: LOSARTAN 25 MG TABLET 50 MG PO (08:49)
[2022-04-17] MEDS: ASPIRIN EC 81 MG TABLET PO (08:49)
[2022-04-17 11:54] VITALS: BP 125/63; PULSE 86; RESP 17; TEMP 36.3; O2SAT 96
--- NOTE | 2022-04-17 13:16 | P.DS_ITS ---
History of Present Illness History of Present Illness Date Patient Seen: 04/17/22 Time Patient Seen: 13:12 Chief complaint: Chest pain, hot flashes, SOB Narrative: Tessie Mcintyre is status post CABG in September of this year Josselin Mckeon and undergoing cardiac rehab here at [facility] was in her usual state of health and undergoing cardiac rehab when she started to developed mid epigastric pain.? She had been progressing with some of the machines and normally would be increasing the resistance on some of them however it became increasingly more difficult to even panel what her baseline levels were.? She became sweaty and then started to breathe real fast.? She stated that for the past 2 so previous nights she had been having a hard time sleeping felt very sweaty had to change her night gown in the middle of the night.? She did not have pain at that time.? She denies nausea or vomiting denies any heartburn type symptoms.? She denies abdominal pain, dysuria, diarrhea or constipation.? She denies any upper lower extremity swelling.? She did have 3 UTIs after her CABG and felt at that center back quite a bit with her cardiac rehab. She presented directly from the Cardiac rehab Department to the emergency department and was found to be moderately hypertensive and at that time her pain had mostly resolved.? Her troponins on presentation to the emergency department were initially 0.045, 2 hour troponin increased to 0.073 and at 11:49 p.m. it was 0.223.? She is afebrile, blood pressure 155/69, heart rate 65, respiratory rate 16, oxygen saturation of 96% on room air, she weighs 72.3 kg with a BMI of 27.4.? CBC is unremarkable, chemistries are unremarkable, she has a low magnesium of 1.5 which has been repleted, troponins as stated above, and COVID- 19 PCR is negative. FH:? Mother in her 80s of stomach cancer.? Father at age 47 of a work related accident.? She has a sister at 78 with heart failure. Discharge Providers Provider Date of admission: 04/13/22 18:09 Discharge Date: 04/17/22 Primary care physician: Ayde Avila, DO Discharge provider: Landen Blount DO Summary Hospital Course Discharge Diagnosis: NSTEMI, acute present on admission * She is status post 3 months CABG x3 at undergoing cardiac rehab at [facility], also cardiac stents in 2016 * Troponins oeaked at 0.223 and downtrending to 0.120, then reinaldo to 0.270 after having CP overnight on 04/15 * spoke with on-call bailing machine operator Dr. Funk given the new chest pain and troponin elevation and she recommended transfer to [facility] for heart cath * Continue home dose of metoprolol succinate 100 mg po daily. * Echo 04/14 with mild LVH, EF 60-65%, no focal WMA's * continue heparin drip, aspirin daily. No plavix given in case of needing further cardiac intervention. * continue imdur 30 daily * transferred to [facility] for cath Dyslipidemia, chronic * Increased atorvastatin to 80 mg po daily * Lipid panel LDL 76 and chol 134 HTN, chronic * continue losartan at increased dose of 50mg daily from 25 * continue metoprolol XL 100mg daily Hospital Course: Admitted after having substernal CP while at cardiac rehab exercising on a stair stepper. She also noted 2 days of difficulty sleeping and mild chest discomfort. Upon arrival to ED initial troponin 0.075, BP 214/114 and heparin drip started. Cardiology called who felt NSTEMI was secondary to hypertensive emergency from exercise and to increase her home BP losartan and add imdur. Troponin peaked at 0.223 then downtrended to 0.120. Echo showed EF 60-65% without FWMA's. Patient's BP improved however overnight on 04/15 she developed acute onset substernal chest pain over 2 occurrences several hours apart at rest which resolved with nitro. Troponin reinaldo again to 0.286 then lowered to 0.145. Cardiology at [facility] contacted who recommended transfer to [facility] for heart cath. Patient continued to have intermittent episodes of substernal chest pain relieved with nitro and troponin bumping up. Heparin drip continued. She was successfully transfered to [facility] and accepted by Dr. Rodriguez hospitalist to undergo cath on 04/18. Time Spent with Patient Time spent: Greater than 30 minutes Exam Vital Signs (past 8 hours): - 04/15/22 00:44 04/15/22 06:09 04/15/22 05:12 Temperature 96.8 F L Pulse Rate 74 62 Respiratory Rate 18 Blood Pressure 203/103 H 149/72 H Pulse Oximetry 97 96 Oxygen Delivery Method Room Air Oxygen Flow Rate 0 04/15/22 06:14 04/15/22 07:44 Temperature 97.2 F L Pulse Rate 82 76 Respiratory Rate 18 18 Blood Pressure 133/77 140/76 Pulse Oximetry 95 95 Oxygen Delivery Method Oxygen Flow Rate 0 0 Oxygen Delivery Method Room Air Oxygen Flow Rate 0 Narrative Exam Narrative: Gen: Alert, oriented, well-developed 77 y.o. female, NAD HEENT: normocephalic, atraumatic, conjunctiva clear, sclera non-icteric, oral mucosa pink and moist Neck: supple, full ROM, no JVD, trachea is midline Resp: Lungs CTA, non-labored breathing CV: RRR, no murmur or rubs Abd: soft, non-tender, normoactive BTs Skin: no lesions or rashes, dry and intact Neuro: Alert and oriented X 4 w/no focal deficits. Speech clear and coherent. Extremities: moves all 4 extremities, is ambulatory Psyche: normal mood and affect. Objective Labs Result Diagrams: 04/16/22 06:18 04/16/22 06:18 Labs: Laboratory Results - last 24 hr 04/14/22 04/14/22 04/15/22 11:00 15:50 05:45 WBC 4.1 L RBC 4.21 Hgb 12.2 Hct 36.3 MCV 86.2 MCH 29.1 MCHC 33.7 RDW 14.9 H Plt Count 240 Neut % (Auto) 58.1 Lymph % (Auto) 20.[address] [place] % (Auto) 17.3 H Eos % (Auto) 3.0 Baso % (Auto) 0.7 Neut # (Auto) 2400 Lymph # (Auto) [address] [facility] [place] # (Auto) 700 Eos # (Auto) 100 Baso # (Auto) 0 APTT 53 H D Sodium Potassium Chloride Carbon Dioxide BUN Creatinine Estimated GFR BUN/Creatinine Ratio Glucose Calcium Magnesium Total Bilirubin AST ALT Alkaline Phosphatase Troponin I 0.120 H Total Protein Albumin Globulin Albumin/Globulin Ratio 04/15/22 04/15/22 05:45 05:45 WBC RBC Hgb Hct MCV MCH MCHC RDW Plt Count Neut % (Auto) Lymph % (Auto) [facility] % (Auto) Eos % (Auto) Baso % (Auto) Neut # (Auto) Lymph # (Auto) [facility] # (Auto) Eos # (Auto) Baso # (Auto) APTT 51 H Sodium 140 Potassium 4.5 Chloride 104 Carbon Dioxide 31 BUN 18 H Creatinine 0.68 Estimated GFR > 60 BUN/Creatinine Ratio 26.5 H Glucose 100 Calcium 9.1 Magnesium 1.6 Total Bilirubin 0.3 AST 19 ALT 12 Alkaline Phosphatase 49 Troponin I Total Protein 6.4 Albumin 3.4 L Globulin 3.0 Albumin/Globulin Ratio 1.1 PFSH Medical History Arthritis of right glenohumeral joint CAD (coronary artery disease) Essential hypertension Herpes zoster Hypercalcemia Myocardial infarction 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 Surgical History H/O angioplasty History of tonsillectomy S/P CABG (coronary artery bypass graft) Social History marital status: household members: spouse and family 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
--- NOTE | 2022-04-17 14:28 | PC.NURSE ---
Addendum entered by Ladi Saleh R.N. 04/17/22 15:22: Pt out via ambulance by ALS personnel with tele monitoring and Heparin Drip. Packet with PT and all belongings. Original Note: Pt is packed up and ready for transfer to [facility]. Heparin drip infusing to left AC at target PTT of 47 and rate of 13.4. Pt denies chest pain, shortness of breath, dizziness, or headache. Telemetry shows NSR. Report called to [facility] and all questions answered.
== END 2022-04-17 15:23 | disposition short-term general hospital (02) | DRG 282 ==
LOC: ED 17:28 → AC 04-14 10:12
PROVIDERS: Nurse Practitioner Family; Student in an Organized Health Care Education/Training Program; Admitting Provider Neuromusculoskeletal Medicine, Sports Medicine; Emergency Provider Emergency Medicine; PCP Family Medicine; Referring Provider Emergency Medicine; Visit Provider Neuromusculoskeletal Medicine, Sports Medicine
DX: I21.4 Non-ST elevation (NSTEMI) myocardial infarction (principal); E78.5 Hyperlipidemia, unspecified; I10 Essential (primary) hypertension; I25.10 Atherosclerotic heart disease of native coronary artery without angina pectoris; Z95.1 Presence of aortocoronary bypass graft; Z95.5 Presence of coronary angioplasty implant and graft; Z20.822 Contact with and (suspected) exposure to COVID-19
CPT/HCPCS: 36415; 71045; 80053; 80061; 81003; 82550; 83690; 83735; 84443; 84484; 85025; 85610; 85730; 87635; 93005; 93306; 93798; 96365; 96366; 96375; 96376; 99284; 99291; C9803; G0379; J1644; J2270; J3475

== ENCOUNTER 2022-05-16 12:30 | Outpatient (RCR) | payer MEDICARE, SELFPAY ==
[2019-05-02 18:00] VITALS: BMI 31.6
== END 2022-05-16 14:30 ==
LOC: CAR 12:30
PROVIDERS: PCP Family Medicine; Referring Provider Internal Medicine Interventional Cardiology; Visit Provider Internal Medicine Interventional Cardiology
DX: I25.810 Atherosclerosis of coronary artery bypass graft(s) without angina pectoris (principal)
CPT/HCPCS: 93010; 93798

== ENCOUNTER 2022-09-01 12:30 | Outpatient (RCR) | payer MEDICARE, SELFPAY ==
[2022-04-13 20:58] VITALS: BMI 27.4
== END 2022-09-01 14:30 ==
LOC: CAR 12:30
PROVIDERS: PCP Family Medicine; Referring Provider Internal Medicine Interventional Cardiology; Visit Provider Internal Medicine Interventional Cardiology
DX: I21.4 Non-ST elevation (NSTEMI) myocardial infarction (principal)
CPT/HCPCS: 93798

== ENCOUNTER → 2022-12-29 09:29 | Outpatient (CLI) | payer MEDICARE, SELFPAY ==
[2022-04-13 20:58] VITALS: BMI 27.4
[2022-12-29 10:51] LABS: BUN Creatinine Ratio 19.2 (6-22); Blood Urea Nitrogen 15 mg/dL (7-17); Calcium 8.9 mg/dL (8.4-10.2); Carbon Dioxide 30 mmol/L (22-32); Chloride 103 mmol/L (98-107); Cholesterol 162 mg/dL (140-199); Estimated Glomerular Filt Rate > 60 mL/min (>60); Glucose 90 mg/dL (80-110); HDL Cholesterol 47 mg/dL (40-60); HEMOLYSIS < 15 (0-50); LDL Cholesterol Calculated 82 mg/dL (<100); Potassium 4.1 mmol/L (3.4-5.1); Sodium 139 mmol/L (137-145); Triglycerides 163 mg/dL (35-150)
== END ==
PROVIDERS: PCP Family Medicine; Referring Provider Internal Medicine Interventional Cardiology; Visit Provider Internal Medicine Interventional Cardiology
DX: I25.810 Atherosclerosis of coronary artery bypass graft(s) without angina pectoris (principal); E78.5 Hyperlipidemia, unspecified; Z95.1 Presence of aortocoronary bypass graft
CPT/HCPCS: 36415; 80048; 80061

== ENCOUNTER → 2023-01-06 15:08 | Outpatient (CLI) | payer MEDICARE, SELFPAY ==
[2022-04-13 20:58] VITALS: BMI 27.4
[2023-01-06 17:17] LABS: Free T4, Direct Thyroxine 0.95 ng/dL (0.78-2.19)
[2023-01-06 17:31] LABS: Thyroid Stimulating Hormone 0.888 uIU/mL (0.47-4.68)
== END ==
PROVIDERS: PCP Family Medicine; Referring Provider Nurse Practitioner Family; Visit Provider Nurse Practitioner Family
DX: R68.89 Other general symptoms and signs (principal)
CPT/HCPCS: 36415; 84439; 84443

== ENCOUNTER 2023-04-16 02:20 | Emergency (ER) | payer MEDICARE, SELFPAY ==
[2022-04-13 20:58] VITALS: BMI 27.4
[2023-04-16] VITALS (7 sets, daily range): BP systolic 149–230; BP diastolic 66–116; PULSE 66–78; RESP 12–25; TEMP 35.8; O2SAT 96–99; BMI 26.6
--- NOTE | 2023-04-16 02:38 | DI.CT.S_ITS ---
PROCEDURE: CT HEAD/BRAIN WO CON INDICATIONS: Fall, head injury, hematoma. TECHNIQUE: Noncontrast 4.5 mm thick angled axial sections acquired from the foramen magnum to the vertex, with coronal and sagittal reformats. For radiation dose reduction, the following was used: automated exposure control, adjustment of mA and/or kV according to patient size. COMPARISON: None. FINDINGS: Image quality: Excellent. CSF spaces: Basal cisterns are patent. No extra-axial fluid collections. The ventricles are symmetric in size and shape. Brain: No intracranial bleeds or masses. There is cerebral volume loss for age, with resultant ventricular and sulcal prominence. There are periventricular and deep white matter chronic small vessel ischemic changes. There is intracranial internal carotid artery atherosclerosis. Skull and face: Calvarium and visualized facial bones appear intact, without suspicious lesions. Midline, superior scalp hematoma. Sinuses: Visualized sinuses and mastoids are clear. IMPRESSION: Small scalp hematoma. No acute intracranial pathology. Agree with preliminary report. Dictated by: Nakul Samuels M.D. on 04/16/2023 at 7:24 Approved by: Nakul Samuels M.D. on 04/16/2023 at 7:26
--- NOTE | 2023-04-16 02:38 | DI.CT.S_ITS ---
PROCEDURE: CT CERVICAL SPINE WO CON INDICATIONS: Fall. TECHNIQUE: Noncontrast 3 mm thick sections acquired from the skull base to the T4 level. Sagittal and coronal reformats were then constructed. For radiation dose reduction, the following was used: automated exposure control, adjustment of mA and/or kV according to patient size. COMPARISON: None. FINDINGS: Image quality: Excellent. Bones: No fractures or dislocations. Visualized superior ribs are intact. Mild to moderate, multilevel degenerative disc disease and facet arthrosis, most prominent C5-6. Soft tissues: Prevertebral soft tissues are normal in thickness. No paravertebral hematomas. No apical pneumothoraces. Multinodular thyroid. IMPRESSION: No acute, displaced fracture or traumatic subluxation. Agree with preliminary report. Dictated by: Nakul Samuels M.D. on 04/16/2023 at 7:19 Approved by: Nakul Samuels M.D. on 04/16/2023 at 7:24
--- NOTE | 2023-04-16 02:39 | ED_ITS ---
HPI - Head Injury General Chief complaint: Head Injury Stated complaint: fell hit back of head, just stopped bleeding Time Seen by Provider: 04/16/23 02:27 Source: patient, RN notes reviewed and old records reviewed Mode of arrival: Ambulatory Limitations: no limitations History of Present Illness HPI Narrative: 78-year-old female on aspirin daily with history of coronary artery disease stenting in 2015 and three-vessel bypass at [facility] in September of 2021 who presents after ground level fall. Patient states she was bending over to pick remover new papers and when she stood up fell backwards. Patient states she fell backward hit her head on a piece of wooden furniture. She states it did not bleed. It has since stopped. Patient states no loss of consciousness. She denies any neck pain, no chest pain or shortness of breath, no nausea or vomiting, she states it hurts at the site but no significant headache. She denies numbness, tingling or weakness. She states she was able to scoot herself about 10 ft get up and has not been able to walk since. She states she normally has a little bit of unsteady gait and recently acquired walking sticks. Patient states no chest pain, no back pain, no abdominal pain. No loss of bowel or bladder control. Patient states she is unsure of her tetanus her status. She states she takes an aspirin 81 mg daily, atorvastatin, Imdur, losartan and metoprolol. Patient states she is allergic to HCTZ, doxycycline and lisinopril. No tobacco, alcohol or illicit. She recently established with Dr. Amaral after her primary care physician left the area. She lives with her and has not adult son who lives with her. Related Data Home Medications Medication Instructions Recorded Confirmed aspirin 81 mg tablet,delayed 81 mg PO DAILY ##0 01/17/12 04/07/23 release atorvastatin 20 mg tablet (Lipitor) 20 mg PO BEDTIME 05/02/19 04/07/23 acetaminophen 650 mg 650 mg PO Q8H 10/15/21 04/07/23 tablet,extended release (Tylenol Arthritis Pain) metoprolol succinate 100 mg 100 mg PO DAILY 10/15/21 04/07/23 tablet,extended release 24 hr isosorbide mononitrate 30 mg 30 mg PO DAILY 04/21/22 04/07/23 tablet,extended release 24 hr Previous Rx's Medication Instructions Recorded losartan 25 mg tablet 25 mg PO DAILY #90 tabs 10/15/21 Allergies Allergy/AdvReac Type Severity Reaction Status Date / Time hydrochlorothiazide Allergy Severe MARGARET HIGH Verified 04/07/23 14:58 [HYDROCHLOROTHIAZIDE] BLOOD PRESSURE-KIDNEY ONLY WORKED AT 50% doxycycline [DOXYCYCLINE] Allergy Mild ITCHY Verified 04/07/23 14:58 lisinopril [LISINOPRIL] AdvReac Mild cough Verified 04/07/23 14:58 Review of Systems Review of Systems ROS Unobtainable: All systems reviewed & are unremarkable except as noted in HPI and below Patient History Medical History Arthritis of right glenohumeral joint CAD (coronary artery disease) Caregiver stress Chronic shoulder pain Essential hypertension Herpes zoster Hypercalcemia Myocardial infarction 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 Surgical History H/O angioplasty History of tonsillectomy S/P CABG (coronary artery bypass graft) Social History marital status: household members: spouse and family 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 HEAD: Patient has a large hematoma on her posterior parietal scalp, there is about a 1 cm laceration through the skin, no active bleeding but a lot of blood matted into the hair., no raccoon/Palomino sign. NECK: Nontender, painless range of motion, trachea midline Negative for Nexus criteria, there is no midline line tenderness, distracting injury, altered mental status, neuro deficit, recent EtOH. EYES: PERRLA, EOMI ENT: External inspection normal, trachea is midline, TM's are normal no hemotypanum, Nares are clear, no septal hematoma, no dental or oral injury, airway is normal and with normal occlusion, No bony tenderness RESP: Chest is nontender and has symmetric movement, no ecchymosis, breath sounds are normal no crackles, wheezes or rales CVS: Heart sounds are normal, no murmur noted, No JVD. ABG/GI: Nontender, soft, normal bowel sounds, no distention, no organomegaly, pelvic rock is negative NEURO: Oriented AOx3, neuro is grossly intact, sensation and motor is normal all 4 extremities moving, cranial nerves II through XII are intact, GCS is 15 PSYCH: Normal mood and affect SKIN: Intact, warm and dry, no crepitus and without decubitus BACK: No CVA tenderness, no vertebral tenderness, no step-off's, no crepitus EXT: Atraumatic, hips are nontender, no pedal edema, normal color and temperature, normal range of motion of extremities with normal tendon exam, 2+ pulses in all four extremities Initial Vital Signs Initial Vital Signs: Vital Signs Pulse Rate 78 04/16/23 02:30 Respiratory Rate 18 04/16/23 02:30 Blood Pressure 186/90 H 04/16/23 02:30 Pulse Oximetry 97 04/16/23 02:30 Procedures Laceration Repair Laceration 1: Site: scalp Size (cm): 1.4 Description: linear Depth: simple, single layer Local Anesthetic: lidocaine 1% Amount of anesthesia used (mL): 3 Pre-repair: wound explored, irrigated extensively and deep structures intact Skin layer closed with: sherrie (#3) Scores GCS Pedro coma scale eye opening: Spontaneous Monroe coma scale verbal response: Orientated Monroe coma scale motor response: Obey commands Pedro coma scale total score: 15 Nexus Score for C-Spine Focal Neurologic deficit present: No Midline spinal tenderness present: No Altered level of conciousness present: No Intoxication present: No Distracting Injury Present: No Nexus Criteria for C-spine: 0 Course Orders Ordered: ED Orders 04/16/23 02:38 CT cervical spine wo con Stat CT head/brain wo con Stat Discontinued Medications Diphtheria/Tetanus/Acell Pertussis (Tet,Diph,Pertuss(Acell),Vac/Pf 0.5 Ml Syringe) 0.5 ml IM .ONCE ONE Stop: 04/16/23 02:39 Last Admin: 04/16/23 03:02 Dose: 0.5 ml Documented By: HEMA Vital Signs Vital signs: Vital Signs - 8 hr 04/16/23 02:38 04/16/23 02:30 04/16/23 02:30 Temperature 96.4 F L Pulse Rate 74 78 Respiratory Rate 18 18 Blood Pressure 186/90 H 186/90 H Pulse Oximetry 99 97 Oxygen Delivery Method Room Air 04/16/23 03:00 04/16/23 03:00 04/16/23 03:22 Temperature Pulse Rate 67 Respiratory Rate 19 Blood Pressure 162/116 H 230/91 H Pulse Oximetry 98 Oxygen Delivery Method 04/16/23 03:22 Temperature Pulse Rate 73 Respiratory Rate 25 H Blood Pressure Pulse Oximetry 96 Oxygen Delivery Method MDM - Head Injury Imaging Data CT scan - head: Radiologist's Impression: Generalized involutional changes and chronic microvascular changes noted. No acute intracranial abnormality identified. Small scalp hematoma. CT - cervical spine: Radiologist's Impression: No fracture traumatic misalignment identified, vertebral body heights are normal.? Relative straightening of the cervical spine, degenerative changes are present involving disc and facet joints throughout the cervical spine, no conclusive evidence of significant central canal stenosis.? Multiple foraminal stenosis are present bilaterally potentially significant, adjacent soft tissues are unremarkable.? No acute abnormality identified. [facility] Narrative Medical decision making narrative: This is a 78-year-old female who presents with complaint of ground level fall after leaning forward to pick remover new fevers standing up and falling backwards. She has a large hematoma with a small lack on her posterior scalp that does look like it will require repair. She is on aspirin 81 mg daily, head CT was obtained patient denies neck pain but based on extremity of age C-spine CT was obtained as well. Patient does not have any other complaints or any other obvious injuries at this time. Tetanus was updated his last on file is from 12/05 and she is unaware of any recent tetanus. Patient tolerated staple well. Head CT shows no acute change bleed, C-spine shows fracture. There are degenerative changes throughout patient has no acute neurologic changes. She ambulated into the department and no other obvious injuries are appreciated. Discussed return precautions with patient, need for follow up for staple removal. Discharge Plan Departure Patient Disposition: Home Clinical Impression: Laceration of scalp, Fall from ground level Instructions: DI for Laceration Repair -- Lorane, Closed Head Injury Activity Restrictions/Additional Instructions: Wound Care: Keep wound(s) clean and dry. Wash daily with soap and water only. Do not use over the counter products (alcohol or peroxide)on the wounds unless instructed by a physician. If wound condition worsens (increased/expanding redness, developing fluid blisters, or worsening pain), either contact your doctor for an urgent re- assessment , or return to the Emergency Department. Return to the Emergency Department for any new or worsening symptoms. Return to the ED, urgent care, or vist a primary care doctor for removal or suture or sherrie in 7-10 days. There are #3 sherrie present. Return if fever greater than 100.4 Fahrenheit, increased swelling, increasing pain or worsening symptoms such as increased discharge or spreading redness. Severe headaches, new neck or back pain, chest pain or shortness of breath, lightheadedness or passing out, persistent vomiting, new weakness, numbness or loss of sensation, loss of bowel or bladder control or other new or concerning changes. Prescriptions: No Action isosorbide mononitrate 30 mg tablet extended release 24 hr 30 mg PO DAILY losartan 25 mg tablet 25 mg PO DAILY Qty: 90 3RF metoprolol succinate 100 mg tablet extended release 24 hr 100 mg PO DAILY acetaminophen [Tylenol Arthritis Pain] 650 mg tablet extended release 650 mg PO Q8H aspirin 81 mg Tablet,Delayed Release (Dr/Ec) 81 mg PO DAILY Qty: 0 atorvastatin [Lipitor] 20 MG tablet 20 mg PO BEDTIME Referrals: Grey Amaral DO [Primary Care Provider] - Stand Alone Forms: Patient Portal/API
[2023-04-16] MEDS: TET,DIPH,PERTUSS(ACELL),VAC/PF 0.5 ML SYRINGE IM (03:02)
== END 2023-04-16 04:24 | disposition home or self-care (01) ==
PROVIDERS: Emergency Provider Emergency Medicine; PCP Family Medicine
DX: S01.01XA Laceration without foreign body of scalp, initial encounter (principal); W18.30XA Fall on same level, unspecified, initial encounter; Z23 Encounter for immunization
CPT/HCPCS: 12001; 70450; 72125; 90471; 99283; 99284; 90715

== ENCOUNTER → 2023-04-26 10:43 | Outpatient (CLI) | payer MEDICARE, SELFPAY ==
[2022-04-13 20:58] VITALS: BMI 27.4
== END ==
PROVIDERS: PCP Family Medicine; Visit Provider Family Medicine
DX: R82.998 Other abnormal findings in urine (principal); R82.90 Unspecified abnormal findings in urine
CPT/HCPCS: 87086

== ENCOUNTER 2023-05-29 21:41 | Emergency (ER) | payer MEDICARE, SELFPAY ==
[2022-04-13 20:58] VITALS: BMI 27.4
[2023-05-29] VITALS (8 sets, daily range): BP systolic 130–145; BP diastolic 84–108; PULSE 111–132; RESP 20–24; TEMP 37.4; O2SAT 91–96; BMI 26.6
--- NOTE | 2023-05-29 21:55 | ED.CHESTPAIN ---
HPI - Chest Pain <Darlene DO Barbara - Last Filed: 05/30/23 23:20> General Chief Complaint: Chest Pain Stated Complaint: Chest pain Time Seen by Provider: 05/29/23 21:46 Source: patient and EMS Mode of arrival: EMS History of Present Illness HPI narrative: Patient 78-year-old female former light smoker past medical history CAD status post CABG x3 vessel, CVA hypertension hyperlipidemia NSTEMI in [address] Yuen at [facility] presents today with chest pain. She reports that she was feeling well today she had dinner with friends. She started feeling pressure and heaviness. She is previously had some angina spells but this when continue to took 3 nitroglycerin at home it did not resolve which is atypical for her. EMS gave her 2 more nitroglycerin in route gave her a little bit of IV fluids continues to have a dull ache. She reports bilateral arm tingling. No previous history of arrhythmia. She does take aspirin 81 mg daily. No nausea or vomiting or shortness breath. She is also found to be slightly hypoxic. Related Data Home Medications Medication Instructions Recorded Confirmed aspirin 81 mg tablet,delayed 81 mg PO DAILY ##0 01/17/12 04/26/23 release acetaminophen 650 mg 650 mg PO Q8H 10/15/21 04/26/23 tablet,extended release (Tylenol Arthritis Pain) metoprolol succinate 100 mg 100 mg PO DAILY 10/15/21 04/26/23 tablet,extended release 24 hr atorvastatin 40 mg tablet 40 mg PO BEDTIME 04/26/23 04/26/23 isosorbide mononitrate 60 mg 60 mg PO DAILY 04/26/23 04/26/23 tablet,extended release 24 hr losartan 50 mg tablet 50 mg PO DAILY 04/26/23 04/26/23 prednisolone acetate 1 % eye drp EYE-BOTH 04/26/23 04/26/23 drops,suspension ranolazine 1,000 mg 1,000 mg PO BID 04/26/23 04/26/23 tablet,extended release,12 hr Allergies Allergy/AdvReac Type Severity Reaction Status Date / Time hydrochlorothiazide Allergy Severe MARGARET HIGH Verified 05/29/23 21:50 [HYDROCHLOROTHIAZIDE] BLOOD PRESSURE-KIDNEY ONLY WORKED AT 50% doxycycline [DOXYCYCLINE] Allergy Mild ITCHY Verified 05/29/23 21:50 lisinopril [LISINOPRIL] AdvReac Mild cough Verified 05/29/23 21:50 Patient History <Darlene Jimenez DO - Last Filed: 05/30/23 23:20> Medical History Arthritis of right glenohumeral joint CAD (coronary artery disease) Caregiver stress Chronic shoulder pain Essential hypertension Herpes zoster Hypercalcemia Myocardial infarction 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 Surgical History H/O angioplasty History of tonsillectomy S/P CABG (coronary artery bypass graft) Social History marital status: household members: spouse and family 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, 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 Smoking Status: Never smoker alcohol intake: current substance use type: does not use Smoking Status: Never smoker alcohol intake frequency: holidays/special occasions only Alcohol type: hard liquor Substance Use Type: does not use Exam <Darlene Jimenez DO - Last Filed: 05/30/23 23:20> Initial Vital Signs Initial Vital Signs: Vital Signs Pulse Rate 132 H 05/29/23 21:47 Respiratory Rate 23 05/29/23 21:47 Pulse Oximetry 93 05/29/23 21:47 Oxygen Delivery Method Room Air 05/29/23 21:47 GENERAL: Alert pleasant well-appearing 78-year-old female HEENT: Head atraumatic,EOMI, pupils reactive, face symmetric, moist mucous membranes CARDIOVASCULAR: Regular rate and rhythm without murmurs, rubs or gallops. RESPIRATORY: Breath sounds equal bilaterally, no wheezes rales or rhonchi. ABDOMEN: Soft, nontender. Normoactive bowel sounds all 4 quadrants. No guarding or rebound. EXTREMITIES: Normal range of motion, no clubbing or edema. Neurovascularly intact NEUROLOGICAL: Alert and oriented x4.Normal gait and speech. Cranial nerves II through XII grossly intact. SKIN: Warm, dry, no laceration, no petechiae, no rashes or lesions. <Bernadette Boyd DO - Last Filed: 05/31/23 11:44> Initial Vital Signs Initial Vital Signs: Vital Signs Pulse Rate 132 H 05/29/23 21:47 Respiratory Rate 23 05/29/23 21:47 Pulse Oximetry 93 05/29/23 21:47 Oxygen Delivery Method Room Air 05/29/23 21:47 Course <Darlene Jimenez DO - Last Filed: 05/30/23 23:20> Orders Ordered: Discontinued Medications Aspirin (Aspirin 81 Mg Chew Tab) 324 mg PO NOW ONE Stop: 05/29/23 21:55 Last Admin: 05/29/23 23:25 Dose: Not Given Documented By: DONNA Diltiazem HCl (Diltiazem 5 Mg/Ml Sdv) 10 mg IV NOW ONE Stop: 05/29/23 22:01 Last Admin: 05/29/23 22:06 Dose: 10 mg Documented By: DONNA Furosemide (Furosemide 40 Mg/4 Ml Vial) 20 mg IV NOW ONE Stop: 05/29/23 23:09 Last Admin: 05/29/23 23:16 Dose: 20 mg Documented By: DONNA Heparin Sodium (Porcine) (Heparin 5,000 Unit/Ml Vial) 4,000 unit IV NOW ONE Stop: 05/29/23 23:15 Last Admin: 05/29/23 23:30 Dose: 4,000 unit Documented By: DONNA Heparin Sodium/Dextrose (Heparin Drip) 25,000 unit in 500 mls @ 16.874 mls/hr IV CONT SILVANA; Protocol Last Admin: 05/29/23 23:32 Dose: 12 units/kg/hr, 16.874 mls/hr Documented By: DONNA Co-signed By: PARISH Metoprolol Tartrate (Metoprolol Tartrate 5 Mg/5 Ml Inj) 5 mg IV NOW ONE Stop: 05/30/23 06:05 Last Admin: 05/30/23 06:25 Dose: 5 mg Documented By: DONNA Metoprolol Tartrate (Metoprolol Ir 25 Mg Tablet) 25 mg PO NOW ONE Stop: 05/30/23 08:55 Last Admin: 05/30/23 09:11 Dose: 25 mg Documented By: KEIRA Vital Signs Vital signs: Vital Signs - 8 hr 05/30/23 15:30 05/30/23 19:23 Temperature 98.8 F Pulse Rate 105 H 84 Respiratory Rate 16 16 Blood Pressure 115/70 Pulse Oximetry 95 96 Oxygen Delivery Method Nasal Cannula Oxygen Flow Rate 2 <Bernadette Boyd DO - Last Filed: 05/31/23 11:44> Orders Ordered: Discontinued Medications Aspirin (Aspirin 81 Mg Chew Tab) 324 mg PO NOW ONE Stop: 05/29/23 21:55 Last Admin: 05/29/23 23:25 Dose: Not Given Documented By: DONNA Diltiazem HCl (Diltiazem 5 Mg/Ml Sdv) 10 mg IV NOW ONE Stop: 05/29/23 22:01 Last Admin: 05/29/23 22:06 Dose: 10 mg Documented By: DONNA Furosemide (Furosemide 40 Mg/4 Ml Vial) 20 mg IV NOW ONE Stop: 05/29/23 23:09 Last Admin: 05/29/23 23:16 Dose: 20 mg Documented By: DONNA Heparin Sodium (Porcine) (Heparin 5,000 Unit/Ml Vial) 4,000 unit IV NOW ONE Stop: 05/29/23 23:15 Last Admin: 05/29/23 23:30 Dose: 4,000 unit Documented By: DONNA Heparin Sodium/Dextrose (Heparin Drip) 25,000 unit in 500 mls @ 16.874 mls/hr IV CONT SILVANA; Protocol Last Admin: 05/29/23 23:32 Dose: 12 units/kg/hr, 16.874 mls/hr Documented By: DONNA Co-signed By: PARISH Metoprolol Tartrate (Metoprolol Tartrate 5 Mg/5 Ml Inj) 5 mg IV NOW ONE Stop: 05/30/23 06:05 Last Admin: 05/30/23 06:25 Dose: 5 mg Documented By: DONNA Metoprolol Tartrate (Metoprolol Ir 25 Mg Tablet) 25 mg PO NOW ONE Stop: 05/30/23 08:55 Last Admin: 05/30/23 09:11 Dose: 25 mg Documented By: KEIRA Vital Signs Vital signs: Vital Signs - 8 hr 05/30/23 15:30 05/30/23 19:23 Temperature 98.8 F Pulse Rate 105 H 84 Respiratory Rate 16 16 Blood Pressure 115/70 Pulse Oximetry 95 96 Oxygen Delivery Method Nasal Cannula Oxygen Flow Rate 2 MDM - Chest Pain <Darlene Jimenez DO - Last Filed: 05/30/23 23:20> Lab Data 05/30/23 05:28 05/29/23 21:48 Labs: Lab Results 05/29/23 05/29/23 05/30/23 Range/Units 21:48 23:50 05:28 WBC 8.2 (4.5-11.0) X10^3/uL RBC 4.23 (4.0-5.2) X10^6/uL Hgb 13.7 14.2 (12.0-16.0) g/dL Hct 39.9 40.6 (36-46) % MCV 94.4 (80-100) fL MCH 32.3 (26-34) PG MCHC 34.2 (30-36) % RDW 12.9 (11.6-14.8) % Plt Count 313 327 (150-400) X10^3/uL Neut % (Auto) 77.6 H (50-75) % Lymph % (Auto) 10.1 L (25-40) % [place] % (Auto) 10.8 (3-14) % Eos % (Auto) 0.7 L (2-4) % Baso % (Auto) 0.8 (0-2) % Neut # (Auto) 6400 (2502-4757) /uL Lymph # (Auto) 800 L (1858-5090) /uL [place] # (Auto) 900 (0-900) /uL Eos # (Auto) 100 (0-450) /uL Baso # (Auto) 100 (0-100) /uL PT 12.0 (10.1-12.7) SECONDS INR 1.0 (0.9-1.3) APTT 37 H 50 H D (26-36) SECONDS Sodium 140 (137-145) mmol/L Potassium 3.9 (3.4-5.1) mmol/L Chloride 103 (98-107) mmol/L Carbon Dioxide 25 (22-32) mmol/L BUN 17 (7-17) mg/dL Creatinine 0.77 (0.52-1.04) mg/dL Estimated GFR > 60 (>60) mL/min BUN/Creatinine Ratio 22.1 H (6-22) Glucose 188 H (80-110) mg/dL Calcium 9.0 (8.4-10.2) mg/dL Magnesium 1.6 (1.6-2.3) mg/dL Total Bilirubin 0.4 (0.2-1.3) mg/dL AST 32 (14-36) IU/L ALT 21 (<35) IU/L Alkaline Phosphatase 47 (38-126) U/L Total Creatine Kinase 146 H 376 H D (30-135) U/L Troponin I 0.693 H* 2.730 H* 8.240 H* (0.01-0.034) ng/mL NT-Pro-B Natriuret Pep 1020 H (<450) pg/mL Total Protein 7.4 (6.3-8.2) g/dL Albumin 3.9 (3.5-5.0) g/dL Globulin 3.5 (1.7-4.1) g/dL Albumin/Globulin Ratio 1.1 (1.0-2.8) Lipase 177 (23-300) U/L SARS-CoV-2 (PCR) (Negative) 05/30/23 05/30/23 05/30/23 Range/Units 08:55 11:55 15:06 WBC (4.5-11.0) X10^3/uL RBC (4.0-5.2) X10^6/uL Hgb (12.0-16.0) g/dL Hct (36-46) % MCV (80-100) fL MCH (26-34) PG MCHC (30-36) % RDW (11.6-14.8) % Plt Count (150-400) X10^3/uL Neut % (Auto) (50-75) % Lymph % (Auto) (25-40) % [place] % (Auto) (3-14) % Eos % (Auto) (2-4) % Baso % (Auto) (0-2) % Neut # (Auto) (1073-8559) /uL Lymph # (Auto) (2258-5376) /uL [place] # (Auto) (0-900) /uL Eos # (Auto) (0-450) /uL Baso # (Auto) (0-100) /uL PT (10.1-12.7) SECONDS INR (0.9-1.3) APTT 47 H (26-36) SECONDS Sodium (137-145) mmol/L Potassium (3.4-5.1) mmol/L Chloride (98-107) mmol/L Carbon Dioxide (22-32) mmol/L BUN (7-17) mg/dL Creatinine (0.52-1.04) mg/dL Estimated GFR (>60) mL/min BUN/Creatinine Ratio (6-22) Glucose (80-110) mg/dL Calcium (8.4-10.2) mg/dL Magnesium (1.6-2.3) mg/dL Total Bilirubin (0.2-1.3) mg/dL AST (14-36) IU/L ALT (<35) IU/L Alkaline Phosphatase (38-126) U/L Total Creatine Kinase (30-135) U/L Troponin I 10.300 H* (0.01-0.034) ng/mL NT-Pro-B Natriuret Pep (<450) pg/mL Total Protein (6.3-8.2) g/dL Albumin (3.5-5.0) g/dL Globulin (1.7-4.1) g/dL Albumin/Globulin Ratio (1.0-2.8) Lipase (23-300) U/L SARS-CoV-2 (PCR) Negative (Negative) 05/30/23 Range/Units 17:55 WBC (4.5-11.0) X10^3/uL RBC (4.0-5.2) X10^6/uL Hgb (12.0-16.0) g/dL Hct (36-46) % MCV (80-100) fL MCH (26-34) PG MCHC (30-36) % RDW (11.6-14.8) % Plt Count (150-400) X10^3/uL Neut % (Auto) (50-75) % Lymph % (Auto) (25-40) % [place] % (Auto) (3-14) % Eos % (Auto) (2-4) % Baso % (Auto) (0-2) % Neut # (Auto) (8297-7775) /uL Lymph # (Auto) (4791-4592) /uL [place] # (Auto) (0-900) /uL Eos # (Auto) (0-450) /uL Baso # (Auto) (0-100) /uL PT (10.1-12.7) SECONDS INR (0.9-1.3) APTT 38 H D (26-36) SECONDS Sodium (137-145) mmol/L Potassium (3.4-5.1) mmol/L Chloride (98-107) mmol/L Carbon Dioxide (22-32) mmol/L BUN (7-17) mg/dL Creatinine (0.52-1.04) mg/dL Estimated GFR (>60) mL/min BUN/Creatinine Ratio (6-22) Glucose (80-110) mg/dL Calcium (8.4-10.2) mg/dL Magnesium (1.6-2.3) mg/dL Total Bilirubin (0.2-1.3) mg/dL AST (14-36) IU/L ALT (<35) IU/L Alkaline Phosphatase (38-126) U/L Total Creatine Kinase (30-135) U/L Troponin I (0.01-0.034) ng/mL NT-Pro-B Natriuret Pep (<450) pg/mL Total Protein (6.3-8.2) g/dL Albumin (3.5-5.0) g/dL Globulin (1.7-4.1) g/dL Albumin/Globulin Ratio (1.0-2.8) Lipase (23-300) U/L SARS-CoV-2 (PCR) (Negative) Imaging Data Chest x-ray: Radiologist's Impression: PROCEDURE: XR CHEST 1V INDICATIONS: chest pain TECHNIQUE: One view of the chest was acquired. COMPARISON: [facility], , XR CHEST 1V, 04/13/2022, 13:32. FINDINGS: Surgical changes and devices: Median sternotomy wires are seen. Lungs and pleura: Mild pulmonary vascular congestion is seen. No definite focal infiltrate. No pleural effusions or pneumothorax. Mediastinum: Mediastinal contours appear normal. Heart size is normal. Bones and chest wall: No suspicious bony lesions. Severe bilateral shoulder joint osteoarthritis is seen. Overlying soft tissues appear unremarkable. IMPRESSION: Mild pulmonary vascular congestion. No definite focal infiltrate, pleural effusion or pneumothorax. Dictated by: Jorge Blevins M.D. on 05/29/2023 at 22:25 CT scan - chest: Radiologist's Impression: PROCEDURE: CT ANGIO CHEST ABDOMEN PELVIS INDICATIONS: chest pain TECHNIQUE: Precontrast 5 mm thick sections acquired from the lung apices to the iliac crests. After the administration of intravenous contrast, 2.5 mm thick sections again acquired from the lung apices to the iliac crests. Maximum intensity projection (MIP) oblique sagittal and coronal reformats were then acquired. For radiation dose reduction, the following was used: automated exposure control. COMPARISON: None. FINDINGS: Image quality: Excellent. AORTA: [id number] atherosclerotic calcifications are noted throughout thoracic and abdominal aorta. There is normal contrast opacification of aorta. No aortic aneurysm or dissection. CHEST: Lungs and pleura: Mild centrilobular emphysema is seen. Scattered scarring/atelectasis in periphery of bilateral mid to lower lung solis are seen. Subtle hazy ground-glass opacities also seen scattered in bilateral lung solis suggestive of mild pulmonary edema versus pneumonitis. No pleural effusions or pneumothorax. Central and peripheral airways are patent and normal in caliber. Mediastinum: Heart size is enlarged. No pericardial effusion. Enlarged mediastinal and hilar lymph nodes are seen measures up to 1.2 cm in right paratracheal space, and up to 1.1 cm in size in right hilar region. 1.5 cm subcarinal node is also seen. Central pulmonary arteries are prominent in size. Moderate atherosclerotic calcifications are noted in coronary vessels. Air distended proximal to mid esophageal lumen is seen with suggestion of distal esophageal wall thickening and narrowing of the lumen. Bones and chest wall: Median sternotomy wires are noted. No axillary adenopathy by size criteria. Asymmetrically enlarged right thyroid lobe with heterogeneous enhancement and areas of hypodensity and calcifications are seen. No suspicious bony lesions. No vertebral body compression fractures. ABDOMEN: Vasculature: Moderate atherosclerotic calcifications are noted involving origins of celiac axis with greater than 50% stenosis. The origin of superior and inferior mesenteric arteries are patent. Moderate atherosclerotic calcifications are noted involving origins of bilateral renal arteries with greater than 50% stenosis involving bilateral proximal renal arteries. Solid organs: Liver is normal in size and enhancement. Gallbladder is within normal limits.. Biliary system is non dilated. Pancreas enhances normally. Spleen is normal in size and enhancement. No adrenal nodules. Both kidneys are normal in size and enhancement, without hydronephrosis. Congenitally malrotated right kidney is noted. Peritoneum and bowel: No free fluid or air. Bowel loops are normal in caliber and wall thickness. Colonic diverticulosis is seen, no colonic wall thickening or mesenteric fat stranding. Nodes and vessels: No retroperitoneal or mesenteric adenopathy by size criteria. Inferior vena cava is normal in morphology. Miscellaneous: No ventral hernias. PELVIS: Genitourinary: Bladder wall thickness is normal. Miscellaneous: No inguinal hernias or adenopathy. No ventral hernias. Bones: Patient is status post right total hip arthroplasty. Significant beam hardening artifacts are noted partially limits evaluation of pelvis. No acute fracture or dislocation. No aggressive appearing bony lesions. Degenerative disc disease throughout thoracic and lumbar spine is seen. Extensive sclerosis involving left scapular and left glenoid incompletely evaluated on this study. Significant sclerotic changes also noted involving right glenoid. Severe bilateral shoulder joint osteoarthritic changes are seen. IMPRESSION: 1. No aortic aneurysm or dissection. [id number] atherosclerotic disease throughout aorta. 2. 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 More distal portion of celiac artery, mesenteric arteries and bilateral renal arteries are patent. 3. Air distended proximal to mid esophageal lumen with thickened distal esophageal wall extending to GE junction which may represent esophagitis. Distal esophageal wall mass cannot be excluded. GI correlation and possible endoscopic evaluation is recommended. 4. Enlarged pulmonary artery which can be seen associated with pulmonary vascular hypertension. No gross central pulmonary emboli are seen. 5. Scattered atelectasis in periphery of bilateral lung solis with ill-defined patchy ground-glass opacities suggestive of mild pulmonary edema. No focal infiltrate, pleural effusion or pneumothorax. 6. Nonspecific enlarged mediastinal and hilar lymph nodes as above. Cardiomegaly, no pericardial effusion. 7. No acute inflammatory process is seen in abdomen or pelvis. No free fluid or free air. Colonic diverticulosis without CT evidence of acute diverticulitis. 8. No aggressive appearing bony lesions. Severe bilateral shoulder joint osteoarthritis with increased sclerosis in included portion of bilateral scapular and glenoid. Finding may represent sequelae from osteoarthritis. Sclerotic bony lesion cannot be entirely excluded. Clinical correlation and radiographic follow-up is recommended. Dictated by: Jorge Blevins M.D. on 05/29/2023 at 23:00 ECG Data Interpretation: Tachycardic now rhythm rate 130 possible atrial flutter versus sinus tachycardia EKG 2. Sinus rhythm rate 1 pain FL interval 170 QRS [address] changes or T-wave inversions Q-waves noted in lead 3 MDM Narrative Medical decision making narrative: Patient is 70-year-old female history of coronary artery disease CABG followed by [facility] presents today with chest pain. Typically she has stable angina where she gets chest pain and resolved with rest. However she would chest pain today while at rest not resolved with 3 nitroglycerins. She continues to have some pressure but describes it as a 1. It was found to have a tachycardic rhythm difficult to discern if it is an atrial flutter with a one-to-one she is given 10 mg of diltiazem which did slow it down she continues to be tachycardic but it definitely looks more of a sinus rhythm. She is no obvious ST elevation or changes. He is also found to be hypoxic on room air 88% she sounds slightly coarse. BNP mildly elevated at 1000. She is never had any history of congestive heart failure previously. She is given Lasix. Troponin elevated 0.6 with 2 hour repeat 2.7.. She was initially started on heparin drip after the 1st troponin . Dr. Redd cardiology updated patient's symptoms test results agrees with transferring patient. Multiple hospitals have been called [facility]. [id number] Dove cardio 0 [place], hospitalist geoff gamble accepted Patient signed out to Dr. Boyd 05/30/23 Mank: 78-year-old female history of coronary artery disease, CABG, hypertension dyslipidemia who presents with complaint of chest pain last night signed out to myself by Dr. Jimenez. Patient has been chest pain-free she is been tachycardic throughout the evening. Was found to have positive troponins that are trending upwards from 0.6 than 2 than 8. Patient has been chest pain-free throughout the night. Patient was noted to have slightly elevated BNP CBC, platelets, electrolytes, renal function LFTs were all appropriate. Patient did have little bit of crackles on exam and was given aspirin, Lasix and heparin. Patient's tachycardia was persistent when slowed with diltiazem does appear to be a sinus rhythm does not appear to be a flutter or irregular and patient had CT chest abdomen pelvis angio which did not show any obvious pulmonary emboli, thoracic aneurysm or other acute vascular change. Did have some mild pulmonary edema changes. Patient did receive an additional dose of metoprolol this morning. Echo has been performed but has not resulted. Spoke with Dr. Evangelista hospitalist who accepts for transfer. Awaiting bed assignment. <Bernadette Boyd, - Last Filed: 05/31/23 11:44> Lab Data Labs: Lab Results 05/29/23 05/29/23 05/30/23 Range/Units 21:48 23:50 05:28 WBC 8.2 (4.5-11.0) X10^3/uL RBC 4.23 (4.0-5.2) X10^6/uL Hgb 13.7 14.2 (12.0-16.0) g/dL Hct 39.9 40.6 (36-46) % MCV 94.4 (80-100) fL MCH 32.3 (26-34) PG MCHC 34.2 (30-36) % RDW 12.9 (11.6-14.8) % Plt Count 313 327 (150-400) X10^3/uL Neut % (Auto) 77.6 H (50-75) % Lymph % (Auto) 10.1 L (25-40) % [place] % (Auto) 10.8 (3-14) % Eos % (Auto) 0.7 L (2-4) % Baso % (Auto) 0.8 (0-2) % Neut # (Auto) 6400 (2076-0602) /uL Lymph # (Auto) 800 L (7718-3297) /uL [place] # (Auto) 900 (0-900) /uL Eos # (Auto) 100 (0-450) /uL Baso # (Auto) 100 (0-100) /uL PT 12.0 (10.1-12.7) SECONDS INR 1.0 (0.9-1.3) APTT 37 H 50 H D (26-36) SECONDS Sodium 140 (137-145) mmol/L Potassium 3.9 (3.4-5.1) mmol/L Chloride 103 (98-107) mmol/L Carbon Dioxide 25 (22-32) mmol/L BUN 17 (7-17) mg/dL Creatinine 0.77 (0.52-1.04) mg/dL Estimated GFR > 60 (>60) mL/min BUN/Creatinine Ratio 22.1 H (6-22) Glucose 188 H (80-110) mg/dL Calcium 9.0 (8.4-10.2) mg/dL Magnesium 1.6 (1.6-2.3) mg/dL Total Bilirubin 0.4 (0.2-1.3) mg/dL AST 32 (14-36) IU/L ALT 21 (<35) IU/L Alkaline Phosphatase 47 (38-126) U/L Total Creatine Kinase 146 H 376 H D (30-135) U/L Troponin I 0.693 H* 2.730 H* 8.240 H* (0.01-0.034) ng/mL NT-Pro-B Natriuret Pep 1020 H (<450) pg/mL Total Protein 7.4 (6.3-8.2) g/dL Albumin 3.9 (3.5-5.0) g/dL Globulin 3.5 (1.7-4.1) g/dL Albumin/Globulin Ratio 1.1 (1.0-2.8) Lipase 177 (23-300) U/L SARS-CoV-2 (PCR) (Negative) 05/30/23 05/30/23 05/30/23 Range/Units 08:55 11:55 15:06 WBC (4.5-11.0) X10^3/uL RBC (4.0-5.2) X10^6/uL Hgb (12.0-16.0) g/dL Hct (36-46) % MCV (80-100) fL MCH (26-34) PG MCHC (30-36) % RDW (11.6-14.8) % Plt Count (150-400) X10^3/uL Neut % (Auto) (50-75) % Lymph % (Auto) (25-40) % [place] % (Auto) (3-14) % Eos % (Auto) (2-4) % Baso % (Auto) (0-2) % Neut # (Auto) (0671-3751) /uL Lymph # (Auto) (4408-3120) /uL [place] # (Auto) (0-900) /uL Eos # (Auto) (0-450) /uL Baso # (Auto) (0-100) /uL PT (10.1-12.7) SECONDS INR (0.9-1.3) APTT 47 H (26-36) SECONDS Sodium (137-145) mmol/L Potassium (3.4-5.1) mmol/L Chloride (98-107) mmol/L Carbon Dioxide (22-32) mmol/L BUN (7-17) mg/dL Creatinine (0.52-1.04) mg/dL Estimated GFR (>60) mL/min BUN/Creatinine Ratio (6-22) Glucose (80-110) mg/dL Calcium (8.4-10.2) mg/dL Magnesium (1.6-2.3) mg/dL Total Bilirubin (0.2-1.3) mg/dL AST (14-36) IU/L ALT (<35) IU/L Alkaline Phosphatase (38-126) U/L Total Creatine Kinase (30-135) U/L Troponin I 10.300 H* (0.01-0.034) ng/mL NT-Pro-B Natriuret Pep (<450) pg/mL Total Protein (6.3-8.2) g/dL Albumin (3.5-5.0) g/dL Globulin (1.7-4.1) g/dL Albumin/Globulin Ratio (1.0-2.8) Lipase (23-300) U/L SARS-CoV-2 (PCR) Negative (Negative) 05/30/23 Range/Units 17:55 WBC (4.5-11.0) X10^3/uL RBC (4.0-5.2) X10^6/uL Hgb (12.0-16.0) g/dL Hct (36-46) % MCV (80-100) fL MCH (26-34) PG MCHC (30-36) % RDW (11.6-14.8) % Plt Count (150-400) X10^3/uL Neut % (Auto) (50-75) % Lymph % (Auto) (25-40) % [place] % (Auto) (3-14) % Eos % (Auto) (2-4) % Baso % (Auto) (0-2) % Neut # (Auto) (1798-2687) /uL Lymph # (Auto) (4364-9549) /uL [place] # (Auto) (0-900) /uL Eos # (Auto) (0-450) /uL Baso # (Auto) (0-100) /uL PT (10.1-12.7) SECONDS INR (0.9-1.3) APTT 38 H D (26-36) SECONDS Sodium (137-145) mmol/L Potassium (3.4-5.1) mmol/L Chloride (98-107) mmol/L Carbon Dioxide (22-32) mmol/L BUN (7-17) mg/dL Creatinine (0.52-1.04) mg/dL Estimated GFR (>60) mL/min BUN/Creatinine Ratio (6-22) Glucose (80-110) mg/dL Calcium (8.4-10.2) mg/dL Magnesium (1.6-2.3) mg/dL Total Bilirubin (0.2-1.3) mg/dL AST (14-36) IU/L ALT (<35) IU/L Alkaline Phosphatase (38-126) U/L Total Creatine Kinase (30-135) U/L Troponin I (0.01-0.034) ng/mL NT-Pro-B Natriuret Pep (<450) pg/mL Total Protein (6.3-8.2) g/dL Albumin (3.5-5.0) g/dL Globulin (1.7-4.1) g/dL Albumin/Globulin Ratio (1.0-2.8) Lipase (23-300) U/L SARS-CoV-2 (PCR) (Negative) MDM Narrative Medical decision making narrative: Patient is 70-year-old female history of coronary artery disease CABG followed by [facility] presents today with chest pain. Typically she has stable angina where she gets chest pain and resolved with rest. However she would chest pain today while at rest not resolved with 3 nitroglycerins. She continues to have some pressure but describes it as a 1. It was found to have a tachycardic rhythm difficult to discern if it is an atrial flutter with a one-to-one she is given 10 mg of diltiazem which did slow it down she continues to be tachycardic but it definitely looks more of a sinus rhythm. She is no obvious ST elevation or changes. He is also found to be hypoxic on room air 88% she sounds slightly coarse. BNP mildly elevated at 1000. She is never had any history of congestive heart failure previously. She is given Lasix. Troponin elevated 0.6 with 2 hour repeat 2.7.. She was initially started on heparin drip after the 1st troponin . Dr. Ivania zeng updated patient's symptoms test results agrees with transferring patient. Multiple hospitals have been called [facility]. [address] Dove cardio 0230 [address] hospitalist tellez mavis 05/30/23 Deb: 78-year-old female history of coronary artery disease, CABG, hypertension dyslipidemia who presents with complaint of chest pain last night signed out to myself by Dr. Jimenez. Patient has been chest pain-free she is been tachycardic throughout the evening. Was found to have positive troponins that are trending upwards from 0.6 than 2 than 8. Patient has been chest pain-free throughout the night. Patient was noted to have slightly elevated BNP CBC, platelets, electrolytes, renal function LFTs were all appropriate. Patient did have little bit of crackles on exam and was given aspirin, Lasix and heparin. Patient's tachycardia was persistent when slowed with diltiazem does appear to be a sinus rhythm does not appear to be a flutter or irregular and patient had CT chest abdomen pelvis angio which did not show any obvious pulmonary emboli, thoracic aneurysm or other acute vascular change. Did have some mild pulmonary edema changes. Patient did receive an additional dose of metoprolol this morning. Echo has been performed but has not resulted. Spoke with Dr. Evangelista hospitalist who accepts for transfer. Awaiting bed assignment. Critical Care Time <Bernadette Boyd, DO - Last Filed: 05/31/23 11:44> Critical Care Time Critical Care Time: Yes Total Critical Care Time: 45 Attestation: The high probability of a clinically significant, sudden or life threatening deterioration of the [cardiac, pulm] system(s) required my full and direct attention, intervention and personal management. The aggregate critical care time was [] minutes. This time is in addition to time spent performing reported procedures but includes the following: [x] Data Review and interpretation [x] Patient assessment and monitoring of vital signs [x] Documentation [x] Medication orders and management Discharge Plan Departure Patient Disposition: er [facility] Clinical Impression: Non-ST elevation MA (NSTEMI), Tachycardia, CHF (congestive heart failure) Prescriptions: No Action metoprolol succinate 100 mg tablet extended release 24 hr 100 mg PO DAILY acetaminophen [Tylenol Arthritis Pain] 650 mg tablet extended release 650 mg PO Q8H aspirin 81 mg Tablet,Delayed Release (Dr/Ec) 81 mg PO DAILY Qty: 0 losartan 50 mg tablet 50 mg PO DAILY prednisolone acetate 1 % drops,suspension EYE-BOTH ranolazine 1,000 mg tablet extended release 12 hr 1,000 mg PO BID atorvastatin 40 mg tablet 40 mg PO BEDTIME isosorbide mononitrate 60 mg tablet extended release 24 hr 60 mg PO DAILY Referrals: Grey Amaral DO [Primary Care Provider] -
[2023-05-29 22:05] LABS: Add Manual Diff / Slide Review NO; Basophils Absolute Auto 100 /uL (0-100); Basophils Percent Auto 0.8 % (0-2); Eosinophils Absolute Auto 100 /uL (0-450); Eosinophils Percent Auto 0.7 % (2-4); Hematocrit 39.9 % (36-46); Hemoglobin 13.7 g/dL (12.0-16.0); Lymphocytes Absolute Auto 800 /uL (1100-4500); Lymphocytes Percent Auto 10.1 % (25-40); Mean Corpuscular HGB Conc 34.2 % (30-36); Mean Corpuscular Hemoglobin 32.3 PG (26-34); Mean Corpuscular Volume 94.4 fL (80-100); Monocytes Absolute Auto 900 /uL (0-900); Monocytes Percent Auto 10.8 % (3-14); Neutrophils Absolute Auto 6400 /uL (1500-7000); Neutrophils Percent Auto 77.6 % (50-75); Platelet Count 313 X10^3/uL (150-400); Red Blood Cell Count 4.23 X10^6/uL (4.0-5.2); Red Cell Distribution Width 12.9 % (11.6-14.8); White Blood Cell Count 8.2 X10^3/uL (4.5-11.0)
[2023-05-29] MEDS: dilTIAZem 5 MG/ML SDV 10 MG IV (22:06)
[2023-05-29 22:14] LABS: PTT Partial Thromboplastin Tim 37 SECONDS (26-36)
[2023-05-29 22:19] LABS: Alanine Aminotransferase 21 IU/L (<35); Albumin 3.9 g/dL (3.5-5.0); Albumin Globulin Ratio 1.1 (1.0-2.8); Alkaline Phosphatase 47 U/L (38-126); Aspartate Aminotransferase 32 IU/L (14-36); BUN Creatinine Ratio 22.1 (6-22); Bilirubin Total 0.4 mg/dL (0.2-1.3); Blood Urea Nitrogen 17 mg/dL (7-17); Carbon Dioxide 25 mmol/L (22-32); Chloride 103 mmol/L (98-107); Creatine Kinase 146 U/L (30-135); Estimated Glomerular Filt Rate > 60 mL/min (>60); Globulin 3.5 g/dL (1.7-4.1); Glucose 188 mg/dL (80-110); Lipase 177 U/L (23-300); Magnesium 1.6 mg/dL (1.6-2.3); Potassium 3.9 mmol/L (3.4-5.1); Sodium 140 mmol/L (137-145); Total Protein 7.4 g/dL (6.3-8.2)
[2023-05-29 22:30] LABS: NT-proBNP (BNP-Adult 18+) 1020 pg/mL (<450)
--- NOTE | 2023-05-29 22:34 | DI.CT.S_ITS ---
PROCEDURE: CT ANGIO CHEST ABDOMEN PELVIS INDICATIONS: chest pain TECHNIQUE: Precontrast 5 mm thick sections acquired from the lung apices to the iliac crests. After the administration of intravenous contrast, 2.5 mm thick sections again acquired from the lung apices to the iliac crests. Maximum intensity projection (MIP) oblique sagittal and coronal reformats were then acquired. For radiation dose reduction, the following was used: automated exposure control. COMPARISON: None. FINDINGS: Image quality: Excellent. AORTA: [id number] atherosclerotic calcifications are noted throughout thoracic and abdominal aorta. There is normal contrast opacification of aorta. No aortic aneurysm or dissection. CHEST: Lungs and pleura: Mild centrilobular emphysema is seen. Scattered scarring/atelectasis in periphery of bilateral mid to lower lung solis are seen. Subtle hazy ground-glass opacities also seen scattered in bilateral lung solis suggestive of mild pulmonary edema versus pneumonitis. No pleural effusions or pneumothorax. Central and peripheral airways are patent and normal in caliber. Mediastinum: Heart size is enlarged. No pericardial effusion. Enlarged mediastinal and hilar lymph nodes are seen measures up to 1.2 cm in right paratracheal space, and up to 1.1 cm in size in right hilar region. 1.5 cm subcarinal node is also seen. Central pulmonary arteries are prominent in size. Moderate atherosclerotic calcifications are noted in coronary vessels. Air distended proximal to mid esophageal lumen is seen with suggestion of distal esophageal wall thickening and narrowing of the lumen. Bones and chest wall: Median sternotomy wires are noted. No axillary adenopathy by size criteria. Asymmetrically enlarged right thyroid lobe with heterogeneous enhancement and areas of hypodensity and calcifications are seen. No suspicious bony lesions. No vertebral body compression fractures. ABDOMEN: Vasculature: Moderate atherosclerotic calcifications are noted involving origins of celiac axis with greater than 50% stenosis. The origin of superior and inferior mesenteric arteries are patent. Moderate atherosclerotic calcifications are noted involving origins of bilateral renal arteries with greater than 50% stenosis involving bilateral proximal renal arteries. Solid organs: Liver is normal in size and enhancement. Gallbladder is within normal limits.. Biliary system is non dilated. Pancreas enhances normally. Spleen is normal in size and enhancement. No adrenal nodules. Both kidneys are normal in size and enhancement, without hydronephrosis. Congenitally malrotated right kidney is noted. Peritoneum and bowel: No free fluid or air. Bowel loops are normal in caliber and wall thickness. Colonic diverticulosis is seen, no colonic wall thickening or mesenteric fat stranding. Nodes and vessels: No retroperitoneal or mesenteric adenopathy by size criteria. Inferior vena cava is normal in morphology. Miscellaneous: No ventral hernias. PELVIS: Genitourinary: Bladder wall thickness is normal. Miscellaneous: No inguinal hernias or adenopathy. No ventral hernias. Bones: Patient is status post right total hip arthroplasty. Significant beam hardening artifacts are noted partially limits evaluation of pelvis. No acute fracture or dislocation. No aggressive appearing bony lesions. Degenerative disc disease throughout thoracic and lumbar spine is seen. Extensive sclerosis involving left scapular and left glenoid incompletely evaluated on this study. Significant sclerotic changes also noted involving right glenoid. Severe bilateral shoulder joint osteoarthritic changes are seen. IMPRESSION: 1. No aortic aneurysm or dissection. Rwkz-xz-pyshpafi atherosclerotic disease throughout aorta. 2. 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 More distal portion of celiac artery, mesenteric arteries and bilateral renal arteries are patent. 3. Air distended proximal to mid esophageal lumen with thickened distal esophageal wall extending to GE junction which may represent esophagitis. Distal esophageal wall mass cannot be excluded. GI correlation and possible endoscopic evaluation is recommended. 4. Enlarged pulmonary artery which can be seen associated with pulmonary vascular hypertension. No gross central pulmonary emboli are seen. 5. Scattered atelectasis in periphery of bilateral lung solis with ill-defined patchy ground-glass opacities suggestive of mild pulmonary edema. No focal infiltrate, pleural effusion or pneumothorax. 6. Nonspecific enlarged mediastinal and hilar lymph nodes as above. Cardiomegaly, no pericardial effusion. 7. No acute inflammatory process is seen in abdomen or pelvis. No free fluid or free air. Colonic diverticulosis without CT evidence of acute diverticulitis. 8. No aggressive appearing bony lesions. Severe bilateral shoulder joint osteoarthritis with increased sclerosis in included portion of bilateral scapular and glenoid. Finding may represent sequelae from osteoarthritis. Sclerotic bony lesion cannot be entirely excluded. Clinical correlation and radiographic follow-up is recommended. Dictated by: Jorge Blevins M.D. on 05/29/2023 at 23:00 Approved by: Jorge Blevins M.D. on 05/29/2023 at 23:17
[2023-05-29 22:51] LABS: HEMOLYSIS 46 (0-50)
[2023-05-29 23:02] LABS: Troponin I 0.693 ng/mL (0.01-0.034)
[2023-05-29] MEDS: FUROSEMIDE 40 MG/4 ML VIAL 20 MG IV (23:16)
[2023-05-29] MEDS: HEPARIN 5,000 UNIT/ML VIAL 4000 UNIT IV (23:30)
[2023-05-29] MEDS: HEPARIN DRIP 25,000 UNIT/500 ML IV.SOLN 16.874 UNIT IV (23:32)
[2023-05-30] VITALS (34 sets, daily range): BP systolic 108–163; BP diastolic 66–102; PULSE 84–124; RESP 16–27; TEMP 37.1; O2SAT 92–98
--- NOTE | 2023-05-30 01:20 | DI.ECHO.S_ITS ---
[facility]---------+ [facility] +---------+ : : [address] : : : : [id number] : : : : Phone: [phone]+ Echocardiogram Report + + :Name: JENNIFER THAPA Study Date: 05/30/2023 Height: 64 in : :[facility] ReadingLocation: Weight: 155 lb : : Gender: Female BSA: 1.8 m2 : :: 1945 Age: 78 yrs BP: 131/85 mmHg: :Reason For Study: NSTEMI : :Ordering Physician: GARO, : :DIAZ Performed By: Azra Parrish : :Referring: DIAZ WYMAN : + + Interpretation Summary Normal left ventricle size with ejection fraction 20-25%. There is anterior wall akinesis. There is septal wall akinesis. There is inferior wall severe hypokinesis. Mild mitral annular calcification. Mild mitral regurgitation. Mild to moderate tricuspid regurgitation. The right ventricular systolic pressure is estimated to be at least 36 mmHg based on an estimated right atrial pressure of 3 mm Hg. Comparison is made with the echocardiogram of 04/14/2022, LV function has worsen significantly. Procedure: A two-dimensional transthoracic echocardiogram with color flow and Doppler was performed. The study quality was technically good. Comparison is made with the echocardiogram of 04/14/2022. The patient was in sinus tachycardia with heart rates between 100-134 bpm during the exam. Left Ventricle: The left ventricle is normal in size and wall thickness. The ejection fraction is estimated to be 20-25%. There is anterior wall akinesis. There is septal wall akinesis. There is inferior wall severe hypokinesis. Diastolic function could not be accurately assessed due to tachycardia. Right Ventricle: The right ventricle is not well visualized. Atria: The left atrial size is normal. Right atrial size is normal. There is no Doppler evidence for an interatrial shunt. Mitral Valve: There is mild mitral annular calcification. The mitral valve leaflets appear mildly thickened, but open well. There is mild mitral regurgitation. Aortic Valve: The aortic valve is trileaflet. The aortic valve opens well. There is no aortic valve stenosis. No aortic regurgitation is present. Tricuspid Valve: The tricuspid valve leaflets are thin and pliable. There is mild to moderate tricuspid regurgitation. The right ventricular systolic pressure is estimated to be at least 36 mmHg based on an estimated right atrial pressure of 3 mm Hg. Pulmonic Valve: The pulmonic valve is not well seen, but is grossly normal. There is no pulmonic valvular regurgitation. Great Vessels: The aortic root is normal size. The dimensions of the ascending aorta are normal. The IVC is of normal diameter and collapses greater than 50% with a sniff. This suggests a low right atrial pressure of 3 mm Hg. Pericardium/ Pleura There is no pericardial effusion. There is no pleural effusion. MMode/2D Measurements & Calculations LVIDd: 4.4 cm LVOT diam: 1.9 cm LVIDs: 4.0 cm Ao root diam: 2.8 cm FS: 10.2 % asc Aorta Diam: 2.8 cm EPSS: 1.0 cm IVSd: 0.87 cm LVPWd: 1.0 cm LV best. diameter/BSA (cm/m^2): 2.5 LV sys. diameter/BSA (cm/m^2): 2.3 LA A2 area: 17.0 cm2 RA long axis: 4.3 cm LA A4 area: 19.2 cm2 RA area: 13.0 cm2 LA length (vol): 5.0 cm RA vol: 33.8 ml LA vol: 56.2 ml RA : 19.2 ml/m2 LA vol index: 32.0 ml/m2 IVC diam: 1.5 cm RVD1 (basal): 3.8 cm RVD2 (mid): 2.7 cm TAPSE: 1.3 cm Doppler Measurements & Calculations Ao V2 max: 65.8 cm/sec LVOT Max Jese: 41.6 cm/sec Ao V2 mean: 52.1 cm/sec LV V1 max P.69 mmHg Ao max P.7 mmHg LV V1 VTI: 6.9 cm Ao mean P.1 mmHg JOSETTE(I,D): 2.0 cm2 Ao V2 VTI: 10.3 cm JOSETTE(V,D): 1.8 cm2 sev ratio: 0.67 JOSETTE indexed to BSA (cm^2/m^2): 1.1 Med Peak E' Jese: 5.7 cm/sec TR max jese: 285.5 cm/sec Lat Peak E' Jese: 5.5 cm/sec TR max P.6 mmHg PA V2 max: 62.6 cm/sec PA V2 mean: 46.7 cm/sec PA mean P.94 mmHg PA pr(Accel): 52.0 mmHg SV(LVOT): 20.1 ml Electronically signed by: Maryan Stark on Reading Physician:05/30/2023 10:41 AM
[2023-05-30 05:39] LABS: Hematocrit 40.6 % (36-46); Hemoglobin 14.2 g/dL (12.0-16.0); Platelet Count 327 X10^3/uL (150-400)
[2023-05-30 05:55] LABS: Creatine Kinase 376 U/L (30-135)
[2023-05-30 06:03] LABS: PTT Partial Thromboplastin Tim 50 SECONDS (26-36)
[2023-05-30] MEDS: METOPROLOL TARTRATE 5 MG/5 ML INJ IV (06:25)
--- NOTE | 2023-05-30 07:52 | PC.NURSE ---
Addendum entered by Jennifer Harmon R.N. 05/30/23 10:46: pt stands with assist, HR increases to 130 Original Note: back pain: pt reports chronic back pain but now 7-8 our of 10. pt transferred to recliner and report better support and less discomfort.
--- NOTE | 2023-05-30 08:32 | PC.NURSE ---
Addendum entered by Gisela Briones CNA 05/30/23 09:13: D [facility]- Original call by [facility] lineman service or work dispatcher, no waitlist [place]- Original Call by [facility] lineman service or work dispatcher, no waitlist Original Note: This lineman service or work dispatcher called and verified hospitals for transfer for patient N-STEMI, needing telemetry and cardiology 0807- [facility], spoke to Estefani, patient placed on waiting list 0828- [facility], called to verify if patient was on waiting list, spoke to Germaine, patient was on waitlist, call originally placed by [facility] lineman service or work dispatcher 0831-[facility], called to verify if patient was on waiting list, spoke to Thelma, patient was on waitlist, call originally placed by [facility] lineman service or work dispatcher 0839- [facility], spoke to Caesar, patient placed waitlist
[2023-05-30] MEDS: METOPROLOL IR 25 MG TABLET PO (09:11)
[2023-05-30 09:17] LABS: COVID19 -Nasal RAPID Negative (Negative)
[2023-05-30 12:11] LABS: PTT Partial Thromboplastin Tim 47 SECONDS (26-36)
--- NOTE | 2023-05-30 15:25 | PC.NURSE ---
HR 100's with transfer to [facility].
[2023-05-30 18:19] LABS: PTT Partial Thromboplastin Tim 38 SECONDS (26-36)
--- NOTE | 2023-06-19 13:04 | PC.NURSE ---
Late Entry- Heparin drip infusing when patient DC'd to another facility per RN
== END 2023-05-30 19:26 | disposition short-term general hospital (02) ==
PROVIDERS: Emergency Medicine; Emergency Provider Emergency Medicine; PCP Family Medicine
DX: I21.4 Non-ST elevation (NSTEMI) myocardial infarction (principal); I50.9 Heart failure, unspecified; R00.0 Tachycardia, unspecified; R07.9 Chest pain, unspecified; Z79.82 Long term (current) use of aspirin; I25.2 Old myocardial infarction; Z20.822 Contact with and (suspected) exposure to COVID-19
CPT/HCPCS: 36415; 71045; 71275; 74174; 80053; 82550; 83690; 83735; 83880; 84484; 85014; 85018; 85025; 85049; 85610; 85730; 87635; 93005; 93306; 96365; 96366; 96375; 99285; 99291; C9803; J1644; J1940; Q9967

== ENCOUNTER → 2023-08-14 12:43 | Outpatient (CLI) | payer MEDICARE, SELFPAY ==
[2022-04-13 20:58] VITALS: BMI 27.4
--- NOTE | 2023-08-14 12:45 | DI.RAD.S_ITS ---
PROCEDURE: XR ANKLE LT MIN 3V INDICATIONS: Left ankle pain TECHNIQUE: 3 views of the ankle were acquired. COMPARISON: None. FINDINGS: Bones: Osteopenia. Mild DJD of the ankle joint. Plantar calcaneal spur. Soft tissues: Severe diffuse vascular calcifications of the soft tissues. IMPRESSION: No acute osseous findings Dictated by: Chalo Stewart M.D. on 08/14/2023 at 18:02 Approved by: Chalo Stewart M.D. on 08/14/2023 at 18:11
== END ==
PROVIDERS: PCP Family Medicine; Referring Provider Nurse Practitioner Family; Visit Provider Nurse Practitioner Family
DX: M19.072 Primary osteoarthritis, left ankle and foot (principal); M77.32 Calcaneal spur, left foot; M25.572 Pain in left ankle and joints of left foot; M85.872 Other specified disorders of bone density and structure, left ankle and foot
CPT/HCPCS: 73610

== ENCOUNTER → 2023-08-31 12:08 | Outpatient (CLI) | payer MEDICARE, SELFPAY ==
[2022-04-13 20:58] VITALS: BMI 27.4
== END ==
PROVIDERS: PCP Family Medicine; Visit Provider Nurse Practitioner Family
DX: T14.8XXA Other injury of unspecified body region, initial encounter (principal)
CPT/HCPCS: 87070; 87075; 87205

== ENCOUNTER → 2023-09-08 09:08 | Outpatient (CLI) | payer MEDICARE, SELFPAY ==
[2022-04-13 20:58] VITALS: BMI 27.4
== END ==
LOC: WC 09:10
PROVIDERS: PCP Family Medicine; Referring Provider Nurse Practitioner Family; Visit Provider Physician Assistant
DX: L97.322 Non-pressure chronic ulcer of left ankle with fat layer exposed (principal); L97.822 Non-pressure chronic ulcer of other part of left lower leg with fat layer exposed; I87.2 Venous insufficiency (chronic) (peripheral); R60.0 Localized edema; I11.0 Hypertensive heart disease with heart failure; I25.10 Atherosclerotic heart disease of native coronary artery without angina pectoris; K22.5 Diverticulum of esophagus, acquired; I21.4 Non-ST elevation (NSTEMI) myocardial infarction
CPT/HCPCS: 11042; 87070; 87075; 87077; 87147; 87186; 87205; 99203; 99214

== ENCOUNTER → 2023-09-12 08:59 | Outpatient (CLI) | payer MEDICARE, SELFPAY ==
[2022-04-13 20:58] VITALS: BMI 27.4
== END ==
LOC: WC 09:01
PROVIDERS: PCP Family Medicine; Referring Provider Nurse Practitioner Family; Visit Provider Surgery
DX: L97.322 Non-pressure chronic ulcer of left ankle with fat layer exposed (principal); L97.822 Non-pressure chronic ulcer of other part of left lower leg with fat layer exposed; I87.2 Venous insufficiency (chronic) (peripheral); R60.0 Localized edema; L53.9 Erythematous condition, unspecified; L08.89 Other specified local infections of the skin and subcutaneous tissue
CPT/HCPCS: 29581

== ENCOUNTER → 2023-09-15 12:54 | Outpatient (CLI) | payer MEDICARE, SELFPAY ==
[2022-04-13 20:58] VITALS: BMI 27.4
== END ==
PROVIDERS: PCP Family Medicine; Referring Provider Nurse Practitioner Family; Visit Provider Physician Assistant
DX: L97.822 Non-pressure chronic ulcer of other part of left lower leg with fat layer exposed (principal); L97.322 Non-pressure chronic ulcer of left ankle with fat layer exposed; I87.2 Venous insufficiency (chronic) (peripheral); R60.0 Localized edema; L53.9 Erythematous condition, unspecified; R21 Rash and other nonspecific skin eruption; L08.89 Other specified local infections of the skin and subcutaneous tissue; Z79.2 Long term (current) use of antibiotics; I11.0 Hypertensive heart disease with heart failure
CPT/HCPCS: 11042; 99213

== ENCOUNTER 2023-09-16 12:48 | Emergency (ER) | payer MEDICARE, SELFPAY ==
[2022-04-13 20:58] VITALS: BMI 27.4
[2023-09-16 13:00] VITALS: BP 161/80; PULSE 77; RESP 20; TEMP 36; O2SAT 99; BMI 26.6
--- NOTE | 2023-09-16 13:27 | DI.RAD.S_ITS ---
PROCEDURE: XR HIP W PEL IF DONE RT 2V INDICATIONS: pain, fall TECHNIQUE: AP pelvis with lateral view(s) of the right hip(s). COMPARISON: [facility], CT, CT PEL WO CON, 08/24/2021, 21:16. [facility], CR, XR KNEE RT 3V, 09/16/2023, 13:39. [facility], CR, XR HIP W PEL IF DONE RT 2V, 08/24/2021, 20:13. FINDINGS: Bones: No acute fractures or dislocations. There is a remote fracture fragment seen along the posterior medial aspect of the lesser trochanter of the right hip, which is stable compared to the prior CT. Pelvic ring appears intact. No suspicious bony lesions. Right hip arthroplasty hardware is seen, without findings of failure or loosening. There is moderate superior joint space narrowing seen of the contralateral left hip, with associated remodeling changes with subchondral sclerosis and osteophyte formation. Age-appropriate lower lumbar spine degenerative changes are noted. Soft tissues: The visualized bowel gas pattern is normal. No suspicious soft tissue calcifications. IMPRESSION: No acute fracture can be seen by plain film. Intact appearing right hip arthroplasty hardware. Moderate left hip degenerative change. Dictated by: Lucho Ramirez M.D. on 09/16/2023 at 13:05 Approved by: Lucho Ramirez M.D. on 09/16/2023 at 13:07
--- NOTE | 2023-09-16 13:28 | DI.RAD.S_ITS ---
PROCEDURE: XR KNEE RT 3V INDICATIONS: pain, fall TECHNIQUE: 3 views of the knee were acquired. COMPARISON: [facility], , KNEE 3V RIGHT, 07/25/2013, 14:16. [facility], CR, XR HIP W PEL IF DONE RT 2V, 09/16/2023, 13:39. FINDINGS: Bones: No fractures or dislocations. No suspicious bony lesions. There is moderate medial femorotibial joint space narrowing seen, with associated remodeling changes including subchondral sclerosis and osteophyte formation along the jointline. Soft tissues: There is a moderate joint effusion. Calcification can be seen along the joint lines, which is attributed to meniscal calcification. Numerous calcified intra-articular bodies can be seen involving the suprapatellar recess. Atherosclerotic calcification is noted. IMPRESSION: No justice acute fracture is seen by plain film. Significant underlying degenerative changes are seen. Moderate joint effusion. If there is point tenderness (or other clinical suspicion for a fracture not seen on these images) then a dedicated CT could be considered for further evaluation, if clinically appropriate. Is mac row knee MRI Dictated by: Lucho Ramirez M.D. on 09/16/2023 at 13:08 Approved by: Lucho Ramirez M.D. on 09/16/2023 at 13:09
--- NOTE | 2023-09-16 13:30 | ED.LOWEXIN ---
HPI - Extremity Injury (Lower) <Shauna Lay PA-C - Last Filed: 09/16/23 15:25> General Chief Complaint: Extremity Injury, Lower Stated Complaint: fell last night- right knee pain Time Seen by Provider: 09/16/23 13:30 Source: patient and family Mode of arrival: Wheelchair History of Present Illness HPI Narrative: Patient is a 78-year-old female with chronic conditions of HTN, HLD, CAD presenting for evaluation of right knee and right hip pain after a fall onto her right side last night. She states that she felt her right foot did not turn appropriately causing her to trip and fall. She states that she fell on her right side, but did not hurt her head or neck. She reports her witnessed the fall. She reports that she is taking Brilinta and ranolazine. She reports an CT in May 2023 due to a occlusion of a previous bypass which was placed in 2021. She also reports a stroke in 2015. She denies any head or neck pain. She denies any new weakness in her legs. She states that they have been weaker than they used to be over the last several months. She also states that she has for some time had difficulty dorsiflexing her feet as well which is unchanged. She notes she is taken ciprofloxacin at this time due to a healing wound of her left lower leg. She is follow up next week to evaluate wound. Related Data Home Medications Medication Instructions Recorded Confirmed aspirin 81 mg tablet,delayed 81 mg PO DAILY ##0 01/17/12 08/31/23 release acetaminophen 650 mg 650 mg PO Q8H 10/15/21 08/31/23 tablet,extended release (Tylenol Arthritis Pain) metoprolol succinate 100 mg 100 mg PO DAILY 10/15/21 08/31/23 tablet,extended release 24 hr atorvastatin 40 mg tablet 40 mg PO BEDTIME 04/26/23 08/31/23 isosorbide mononitrate 60 mg 60 mg PO DAILY 04/26/23 08/31/23 tablet,extended release 24 hr prednisolone acetate 1 % eye drp EYE-BOTH 04/26/23 08/31/23 drops,suspension ranolazine 1,000 mg 1,000 mg PO BID 04/26/23 08/31/23 tablet,extended release,12 hr brilinta PO 06/08/23 08/31/23 protonix PO 06/08/23 08/31/23 Previous Rx's Medication Instructions Recorded losartan 50 mg tablet 50 mg PO DAILY #90 tabs 08/24/23 cephalexin 500 mg capsule 500 mg PO QID #28 caps 09/11/23 ciprofloxacin HCl 500 mg tablet 500 mg PO BID #10 tabs 09/15/23 Allergies Allergy/AdvReac Type Severity Reaction Status Date / Time hydrochlorothiazide Allergy Severe MARGARET HIGH Verified 08/31/23 11:40 [HYDROCHLOROTHIAZIDE] BLOOD PRESSURE-KIDNEY ONLY WORKED AT 50% doxycycline [DOXYCYCLINE] Allergy Mild ITCHY Verified 08/31/23 11:40 lisinopril [LISINOPRIL] AdvReac Mild cough Verified 08/31/23 11:40 Review of Systems <Shauna Lay PA-C - Last Filed: 09/16/23 15:25> Review of Systems Narrative: See HPI Patient History <Shauna Lay PA-C - Last Filed: 09/16/23 15:25> Medical History Caregiver stress Chronic shoulder pain Zenkers diverticulum Arthritis of right glenohumeral joint Herpes zoster CAD (coronary artery disease) Sarcoidosis Hypercalcemia Myocardial infarction Essential hypertension Surgical History S/P CABG (coronary artery bypass graft) History of tonsillectomy H/O angioplasty Social History marital status: household members: spouse and family 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, 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 Smoking Status: Never smoker alcohol intake: current substance use type: does not use Smoking Status: Never smoker alcohol intake frequency: holidays/special occasions only Alcohol type: hard liquor Substance Use Type: does not use Exam <Shauna Lay PA-C - Last Filed: 09/16/23 15:25> Initial Vital Signs Initial Vital Signs: Vital Signs Temperature 96.8 F L 09/16/23 13:00 Pulse Rate 77 09/16/23 13:00 Respiratory Rate 20 09/16/23 13:00 Blood Pressure 161/80 H 09/16/23 13:00 Pulse Oximetry 99 09/16/23 13:00 Oxygen Delivery Method Room Air 09/16/23 13:00 GENERAL: 78 year old patient appears stated age. Well-developed patient, in no acute distress. HEAD: Atraumatic. Normocephalic. EYES: Pupils equal round No injection or drainage. No scleral icterus. NECK: Trachea midline. Non tender. No midline cervical spinal tenderness CARDIOVASCULAR: Regular rate and rhythm without murmurs, gallops, or rubs. RESPIRATORY: Clear to auscultation. Breath sounds equal bilaterally. No wheezes, rales, or rhonchi. EXTREMITIES: No bruising or deformity noted to right hip, patient has no tenderness with abduction or adduction of bilateral hips, she is able to flex and extends bilateral hips with 5/5 strength, she demonstrates 5/5 bilateral knee flexion extension strength. Negative Chan's, negative valgus and varus stress test, no pain with anterior/posterior drawer, patient has tenderness to palpation over medial posterior right knee, increased tenderness of medial posterior right knee with Castillo's BACK: No midline spinal tenderness NEURO: AOx3. SKIN: No rash or erythema of visible areas <Valerie Erazo MD - Last Filed: 09/16/23 19:26> Initial Vital Signs Initial Vital Signs: Vital Signs Temperature 96.8 F L 09/16/23 13:00 Pulse Rate 77 09/16/23 13:00 Respiratory Rate 20 09/16/23 13:00 Blood Pressure 161/80 H 09/16/23 13:00 Pulse Oximetry 99 09/16/23 13:00 Oxygen Delivery Method Room Air 09/16/23 13:00 Course <Shauna Lay PA-C - Last Filed: 09/16/23 15:25> Orders Ordered: ED Orders 09/16/23 13:27 XR hip w pel if done RT 2V Stat 09/16/23 13:28 XR knee RT 3V Stat Discontinued Medications Acetaminophen (Acetaminophen 325 Mg Tablet) 650 mg PO Q4H PRN PRN Reason: Fever/Mild Pain (1-3) Vital Signs Vital signs: Vital Signs - 8 hr 09/16/23 13:00 09/16/23 15:30 Temperature 96.8 F L Pulse Rate 77 74 Respiratory Rate 20 18 Blood Pressure 161/80 H 166/74 H Pulse Oximetry 99 98 Oxygen Delivery Method Room Air Room Air <Valerie Erazo MD - Last Filed: 09/16/23 19:26> Orders Ordered: ED Orders 09/16/23 13:27 XR hip w pel if done RT 2V Stat 09/16/23 13:28 XR knee RT 3V Stat Discontinued Medications Acetaminophen (Acetaminophen 325 Mg Tablet) 650 mg PO Q4H PRN PRN Reason: Fever/Mild Pain (1-3) Vital Signs Vital signs: Vital Signs - 8 hr 09/16/23 13:00 09/16/23 15:30 Temperature 96.8 F L Pulse Rate 77 74 Respiratory Rate 20 18 Blood Pressure 161/80 H 166/74 H Pulse Oximetry 99 98 Oxygen Delivery Method Room Air Room Air MDM - Extremity Injury (Lower) <Shauna Lay PA-C - Last Filed: 09/16/23 15:25> Imaging Data XR Rt Knee: Radiologist's Impression: PROCEDURE: XR KNEE RT 3V INDICATIONS: pain, fall TECHNIQUE: 3 views of the knee were acquired. COMPARISON: [facility], , KNEE 3V RIGHT, 07/25/2013, 14:16. [facility], , XR HIP W PEL IF DONE RT 2V, 09/16/2023, 13:39. FINDINGS: Bones: No fractures or dislocations. No suspicious bony lesions. There is moderate medial femorotibial joint space narrowing seen, with associated remodeling changes including subchondral sclerosis and osteophyte formation along the jointline. Soft tissues: There is a moderate joint effusion. Calcification can be seen along the joint lines, which is attributed to meniscal calcification. Numerous calcified intra-articular bodies can be seen involving the suprapatellar recess. Atherosclerotic calcification is noted. IMPRESSION: No justice acute fracture is seen by plain film. Significant underlying degenerative changes are seen. Moderate joint effusion. If there is point tenderness (or other clinical suspicion for a fracture not seen on these images) then a dedicated CT could be considered for further evaluation, if clinically appropriate. Is mac row knee MRI Dictated by: Lucho Ramirez M.D. on 09/16/2023 at 13:08 Approved by: Lucho Ramirez M.D. on 09/16/2023 at 13:09 XR Rt Hip: Radiologist's Impression: PROCEDURE: XR HIP W PEL IF DONE RT 2V INDICATIONS: pain, fall TECHNIQUE: AP pelvis with lateral view(s) of the right hip(s). COMPARISON: [facility], CT, CT PEL WO CON, 08/24/2021, 21:16. [facility], CR, XR KNEE RT 3V, 09/16/2023, 13:39. [facility], CR, XR HIP W PEL IF DONE RT 2V, 08/24/2021, 20:13. FINDINGS: Bones: No acute fractures or dislocations. There is a remote fracture fragment seen along the posterior medial aspect of the lesser trochanter of the right hip, which is stable compared to the prior CT. Pelvic ring appears intact. No suspicious bony lesions. Right hip arthroplasty hardware is seen, without findings of failure or loosening. There is moderate superior joint space narrowing seen of the contralateral left hip, with associated remodeling changes with subchondral sclerosis and osteophyte formation. Age-appropriate lower lumbar spine degenerative changes are noted. Soft tissues: The visualized bowel gas pattern is normal. No suspicious soft tissue calcifications. IMPRESSION: No acute fracture can be seen by plain film. Intact appearing right hip arthroplasty hardware. Moderate left hip degenerative change. Dictated by: Lucho Ramirez M.D. on 09/16/2023 at 13:05 Approved by: Lucho Ramirez M.D. on 09/16/2023 at 13:07 MDM Narrative Medical decision making narrative: Patient is a 78-year-old female presenting for evaluation of right knee and hip pain after fall onto her right side last night. She denies hitting her head or neck and states she has no head or neck pain at this time. She reports weakness in her lower extremities which has been present over the last several months. She demonstrated ability to bear light weight on her right knee. No point tenderness palpated over anterior right knee, she exhibited worse pain in medial posterior right knee with internal rotation and flexion. Physical exam of right knee indicates a stable joint and patient demonstrated ability to stand partially on right leg. X-ray showed intact right hip arthroplasty as well as no evidence of acute fracture on plain film. I recommend that she wear Lorenzo wrap, use a walker to keep right knee nonweightbearing and keep right knee elevated compressed with ice and resting until follow up with ortho and her primary care provider. She may continue take Tylenol for pain. I recommend that she call [facility] for an appointment as well as her PCP for further follow up. I discussed this with her and she is agreeable for discharge home and monitoring. Discharge Plan Departure Patient Disposition: Home Clinical Impression: Right knee sprain Qualifiers: Encounter type: initial encounter Involved ligament of knee: unspecified ligament Qualified Code(s): S83.91XA - Sprain of unspecified site of right knee, initial encounter Activity Restrictions/Additional Instructions: Thank you for coming in today for your care. You were diagnosed with a sprain to your right knee after your fall last night. I am concerned for possible meniscus tear based upon your physical exam today. Xrays of your right hip show no changes to your artificial hip and xrays of your right knee show no obvious fractures. In order to reduce fall risk, I recommend using a walker at home in addition to Lorenzo wrap of your right knee. I recommend that while at rest, you keep your right knee elevated, And wrapped with ice applied You may take Tylenol for pain. I recommend that he follow up with [facility] for further evaluation. You may give them a call at Please let them know that you were seen in the emergency department. I also recommend that you follow up with her primary care provider next week for further evaluation. Please return to the emergency department if you should experience significant worsening pain in her right knee or other concerning signs or symptoms. Prescriptions: No Action metoprolol succinate 100 mg tablet extended release 24 hr 100 mg PO DAILY acetaminophen [Tylenol Arthritis Pain] 650 mg tablet extended release 650 mg PO Q8H aspirin 81 mg Tablet,Delayed Release (Dr/Ec) 81 mg PO DAILY Qty: 0 losartan 50 mg tablet 50 mg PO DAILY Qty: 90 1RF cephalexin 500 mg capsule 500 mg PO QID Qty: 28 0RF ciprofloxacin HCl 500 mg tablet 500 mg PO BID Qty: 10 0RF prednisolone acetate 1 % drops,suspension EYE-BOTH ranolazine 1,000 mg tablet extended release 12 hr 1,000 mg PO BID atorvastatin 40 mg tablet 40 mg PO BEDTIME isosorbide mononitrate 60 mg tablet extended release 24 hr 60 mg PO DAILY protonix PO brilinta PO Referrals: Grey Amaral DO [Primary Care Provider] - Stand Alone Forms: Patient Portal/API ED Sign-out <Valerie Erazo MD - Last Filed: 09/16/23 19:26> Cosign ED Attending Cosignature Attestation: I was immediately available in the department for consultation throughout this patient's visit. Valerie Erazo MD
--- NOTE | 2023-09-16 13:45 | PC.NURSE ---
Pt reports being off balance and unsteady on my feet and bilateral weakness in her legs for over a year. Pt has a cardiac history as well as history of stroke in 2016. Denies chest pain, SOB, LOC, or any other symptoms prior to fall. Reports her legs got twisted under her. Denies hitting head. Is on thinners. Encouraged to use call light for needs and education given to her and son on how to help reduce falls.
[2023-09-16 15:30] VITALS: BP 166/74; PULSE 74; RESP 18; O2SAT 98
== END 2023-09-16 15:28 | disposition home or self-care (01) ==
PROVIDERS: Emergency Provider Physician Assistant; PCP Family Medicine
DX: S83.91XA Sprain of unspecified site of right knee, initial encounter (principal); M25.551 Pain in right hip; W01.0XXA Fall on same level from slipping, tripping and stumbling without subsequent striking against object, initial encounter
CPT/HCPCS: 29515; 73502; 73562; 99283

== ENCOUNTER → 2023-09-22 10:06 | Outpatient (CLI) | payer MEDICARE, SELFPAY ==
[2022-04-13 20:58] VITALS: BMI 27.4
== END ==
LOC: WC 10:09
PROVIDERS: PCP Family Medicine; Referring Provider Nurse Practitioner Family; Visit Provider Physician Assistant
DX: L97.322 Non-pressure chronic ulcer of left ankle with fat layer exposed (principal); L97.822 Non-pressure chronic ulcer of other part of left lower leg with fat layer exposed; I87.2 Venous insufficiency (chronic) (peripheral); R60.0 Localized edema; L53.9 Erythematous condition, unspecified; I25.10 Atherosclerotic heart disease of native coronary artery without angina pectoris; I50.9 Heart failure, unspecified
CPT/HCPCS: 11042; 99214

== ENCOUNTER → 2023-10-06 10:42 | Outpatient (CLI) | payer MEDICARE, SELFPAY ==
[2022-04-13 20:58] VITALS: BMI 27.4
== END ==
LOC: WC 10:44
PROVIDERS: PCP Family Medicine; Referring Provider Nurse Practitioner Family; Visit Provider Nurse Practitioner Family
DX: L97.322 Non-pressure chronic ulcer of left ankle with fat layer exposed (principal); L97.822 Non-pressure chronic ulcer of other part of left lower leg with fat layer exposed; I87.2 Venous insufficiency (chronic) (peripheral); R60.0 Localized edema; R23.4 Changes in skin texture; Z87.891 Personal history of nicotine dependence; I11.0 Hypertensive heart disease with heart failure; I25.10 Atherosclerotic heart disease of native coronary artery without angina pectoris
CPT/HCPCS: 11042; 87070; 87075; 87077; 87147; 87186; 87205; 97597; 99213; 99214

== ENCOUNTER → 2023-10-13 11:45 | Outpatient (CLI) | payer MEDICARE, SELFPAY ==
[2022-04-13 20:58] VITALS: BMI 27.4
== END ==
LOC: WC 11:47
PROVIDERS: PCP Family Medicine; Referring Provider Nurse Practitioner Family; Visit Provider Surgery
DX: L97.322 Non-pressure chronic ulcer of left ankle with fat layer exposed (principal); L97.822 Non-pressure chronic ulcer of other part of left lower leg with fat layer exposed; L97.422 Non-pressure chronic ulcer of left heel and midfoot with fat layer exposed; I87.2 Venous insufficiency (chronic) (peripheral); R60.0 Localized edema; M25.572 Pain in left ankle and joints of left foot
CPT/HCPCS: 11042; 99213

== ENCOUNTER → 2023-10-20 09:43 | Outpatient (CLI) | payer MEDICARE, SELFPAY ==
[2022-04-13 20:58] VITALS: BMI 27.4
== END ==
LOC: WC 09:48
PROVIDERS: PCP Family Medicine; Referring Provider Nurse Practitioner Family; Visit Provider Physician Assistant
DX: L97.322 Non-pressure chronic ulcer of left ankle with fat layer exposed (principal); L97.422 Non-pressure chronic ulcer of left heel and midfoot with fat layer exposed; I87.2 Venous insufficiency (chronic) (peripheral); L53.9 Erythematous condition, unspecified; R60.0 Localized edema; Z79.2 Long term (current) use of antibiotics; L08.89 Other specified local infections of the skin and subcutaneous tissue
CPT/HCPCS: 11042; 87070; 87075; 87077; 87147; 87186; 87205; 99213

== ENCOUNTER → 2023-10-23 09:32 | Outpatient (CLI) | payer MEDICARE, SELFPAY ==
[2022-04-13 20:58] VITALS: BMI 27.4
[2023-10-23 10:51] LABS: Hemoglobin A1C% w Est Avg Glu 4.8 % (4.0-6.0)
== END ==
PROVIDERS: PCP Family Medicine; Referring Provider Physician Assistant; Visit Provider Physician Assistant
DX: L97.922 Non-pressure chronic ulcer of unspecified part of left lower leg with fat layer exposed (principal)
CPT/HCPCS: 36415; 83036

== ENCOUNTER → 2023-10-27 11:42 | Outpatient (CLI) | payer MEDICARE, SELFPAY ==
[2022-04-13 20:58] VITALS: BMI 27.4
== END ==
LOC: WC 11:43
PROVIDERS: PCP Family Medicine; Referring Provider Family Medicine; Visit Provider Physician Assistant
DX: L97.322 Non-pressure chronic ulcer of left ankle with fat layer exposed (principal); I87.2 Venous insufficiency (chronic) (peripheral); I11.0 Hypertensive heart disease with heart failure; R60.0 Localized edema; L53.9 Erythematous condition, unspecified; L08.89 Other specified local infections of the skin and subcutaneous tissue
CPT/HCPCS: 11042; 97597; 99213

== ENCOUNTER → 2023-11-06 10:09 | Outpatient (CLI) | payer MEDICARE, SELFPAY ==
[2022-04-13 20:58] VITALS: BMI 27.4
--- NOTE | 2023-11-06 10:09 | DI.US.S_ITS ---
PROCEDURE: US ARTERIAL DUPLEX LE LT INDICATIONS: Non-healing ulcer of left lateral ankle TECHNIQUE: Color and pulse Doppler interrogation was performed of the left lower extremity arterial system, with image documentation. COMPARISON: [facility], , ARTERIAL LOW.EXTREM.BILATERAL, 12/09/2015, 8:45. FINDINGS: Common femoral artery: 103 cm/sec, with triphasic flow. Deep femoral artery: 58 cm/sec, with biphasic flow. Proximal superficial femoral artery: 93 cm/sec, with triphasic flow. Mid superficial femoral artery: 97 cm/sec, with triphasic flow. Distal superficial femoral artery: 76 cm/sec, with triphasic flow. Popliteal artery: 89 cm/sec, with triphasic flow. Posterior tibial artery: Occluded distally Anterior tibial artery/dorsalis pedis: 104 cm/sec, with triphasic flow. Siegel-scale imaging description: No hemodynamically significant stenosis from the common femoral through the popliteal. Distal popliteal artery occlusion. There is a distal collateral with monophasic low resistance flow. IMPRESSION: 1. No hemodynamically significant stenosis from the common femoral through the popliteal. All these vessels have normal waveforms. 2. Findings consistent patent anterior tibial and distal posterior tibial occlusion. Dictated by: Dru Isabel M.D. on 11/06/2023 at 12:31 Approved by: Dru Isabel M.D. on 11/06/2023 at 12:38
== END ==
PROVIDERS: PCP Family Medicine; Referring Provider Physician Assistant; Visit Provider Physician Assistant
DX: L97.922 Non-pressure chronic ulcer of unspecified part of left lower leg with fat layer exposed (principal)
CPT/HCPCS: 93926

== ENCOUNTER → 2023-11-07 09:08 | Outpatient (CLI) | payer MEDICARE, SELFPAY ==
[2022-04-13 20:58] VITALS: BMI 27.4
== END ==
LOC: WC 09:09
PROVIDERS: PCP Family Medicine; Referring Provider Nurse Practitioner Family; Visit Provider Surgery
DX: L97.322 Non-pressure chronic ulcer of left ankle with fat layer exposed (principal); L97.422 Non-pressure chronic ulcer of left heel and midfoot with fat layer exposed; I87.2 Venous insufficiency (chronic) (peripheral); R60.0 Localized edema; L53.9 Erythematous condition, unspecified; L08.89 Other specified local infections of the skin and subcutaneous tissue; I11.0 Hypertensive heart disease with heart failure; I25.10 Atherosclerotic heart disease of native coronary artery without angina pectoris; Z87.891 Personal history of nicotine dependence; M25.572 Pain in left ankle and joints of left foot
CPT/HCPCS: 11042; 15271; Q4196

== ENCOUNTER → 2023-11-14 10:45 | Outpatient (CLI) | payer MEDICARE, SELFPAY ==
[2022-04-13 20:58] VITALS: BMI 27.4
== END ==
LOC: WC 10:46
PROVIDERS: PCP Family Medicine; Referring Provider Nurse Practitioner Family; Visit Provider Surgery
DX: L97.322 Non-pressure chronic ulcer of left ankle with fat layer exposed (principal); L97.422 Non-pressure chronic ulcer of left heel and midfoot with fat layer exposed; I96 Gangrene, not elsewhere classified; R60.0 Localized edema; L53.9 Erythematous condition, unspecified; R23.4 Changes in skin texture; I73.9 Peripheral vascular disease, unspecified; I87.2 Venous insufficiency (chronic) (peripheral)
CPT/HCPCS: 15271; 87070; 87075; 87205; 97597; 99213; Q4196

== ENCOUNTER → 2023-11-21 10:36 | Outpatient (CLI) | payer MEDICARE, SELFPAY ==
[2022-04-13 20:58] VITALS: BMI 27.4
== END ==
PROVIDERS: PCP Family Medicine; Referring Provider Nurse Practitioner Family; Visit Provider Surgery
DX: L97.322 Non-pressure chronic ulcer of left ankle with fat layer exposed (principal); L97.422 Non-pressure chronic ulcer of left heel and midfoot with fat layer exposed; I87.2 Venous insufficiency (chronic) (peripheral); I73.9 Peripheral vascular disease, unspecified; R60.0 Localized edema; L53.9 Erythematous condition, unspecified; I11.0 Hypertensive heart disease with heart failure; E78.5 Hyperlipidemia, unspecified
CPT/HCPCS: 11042

== ENCOUNTER → 2023-11-28 10:37 | Outpatient (CLI) | payer MEDICARE, SELFPAY ==
[2022-04-13 20:58] VITALS: BMI 27.4
== END ==
LOC: WC 10:39
PROVIDERS: PCP Family Medicine; Referring Provider Nurse Practitioner Family; Visit Provider Surgery
DX: I87.2 Venous insufficiency (chronic) (peripheral) (principal); L97.322 Non-pressure chronic ulcer of left ankle with fat layer exposed; L97.422 Non-pressure chronic ulcer of left heel and midfoot with fat layer exposed; R60.0 Localized edema; L53.9 Erythematous condition, unspecified; I73.9 Peripheral vascular disease, unspecified; I11.0 Hypertensive heart disease with heart failure; E78.5 Hyperlipidemia, unspecified; I25.10 Atherosclerotic heart disease of native coronary artery without angina pectoris; I25.2 Old myocardial infarction; Z95.1 Presence of aortocoronary bypass graft
CPT/HCPCS: 11042

== ENCOUNTER → 2023-12-05 11:45 | Outpatient (CLI) | payer MEDICARE, SELFPAY ==
[2022-04-13 20:58] VITALS: BMI 27.4
== END ==
LOC: WC 11:46
PROVIDERS: PCP Family Medicine; Referring Provider Nurse Practitioner Family; Visit Provider Surgery
DX: L97.322 Non-pressure chronic ulcer of left ankle with fat layer exposed (principal); L97.422 Non-pressure chronic ulcer of left heel and midfoot with fat layer exposed; R60.0 Localized edema; L53.9 Erythematous condition, unspecified; I87.2 Venous insufficiency (chronic) (peripheral); I73.9 Peripheral vascular disease, unspecified; I11.0 Hypertensive heart disease with heart failure; E78.5 Hyperlipidemia, unspecified; Z87.891 Personal history of nicotine dependence
CPT/HCPCS: 11042; 99213

== ENCOUNTER → 2023-12-06 08:51 | Outpatient (CLI) | payer MEDICARE, SELFPAY ==
[2022-04-13 20:58] VITALS: BMI 27.4
== END ==
LOC: WC 08:52
PROVIDERS: PCP Family Medicine; Referring Provider Nurse Practitioner Family; Visit Provider Surgery
DX: L97.322 Non-pressure chronic ulcer of left ankle with fat layer exposed (principal); L97.422 Non-pressure chronic ulcer of left heel and midfoot with fat layer exposed; I87.2 Venous insufficiency (chronic) (peripheral); L53.9 Erythematous condition, unspecified; R60.0 Localized edema
CPT/HCPCS: 99212

== ENCOUNTER → 2023-12-13 15:39 | Outpatient (CLI) | payer MEDICARE, SELFPAY ==
[2022-04-13 20:58] VITALS: BMI 27.4
== END ==
PROVIDERS: PCP Family Medicine; Referring Provider Nurse Practitioner Family; Visit Provider Surgery
DX: L97.322 Non-pressure chronic ulcer of left ankle with fat layer exposed (principal); L97.422 Non-pressure chronic ulcer of left heel and midfoot with fat layer exposed; R60.0 Localized edema; L53.9 Erythematous condition, unspecified; I73.9 Peripheral vascular disease, unspecified; I87.2 Venous insufficiency (chronic) (peripheral); I50.9 Heart failure, unspecified; I10 Essential (primary) hypertension; E78.5 Hyperlipidemia, unspecified
CPT/HCPCS: 11042

== ENCOUNTER → 2023-12-14 12:17 | Outpatient (CLI) | payer MEDICARE, SELFPAY ==
[2022-04-13 20:58] VITALS: BMI 27.4
--- NOTE | 2023-12-14 12:19 | DI.ECHO.S_ITS ---
[facility] : : [address] : : [place] : : [address] : : Phone: [phone] Echocardiogram Report + + :Name: JENNIFER THAPA Study Date: 12/14/2023 Height: 64 in : :Hospital ReadingLocation: Weight: 155 lb : : Gender: Female BSA: 1.8 m2 : :: 1945 Age: 78 yrs BP: 148/87 mmHg: :Reason For Study: HEAT DISEASE : :Ordering Physician: KEYLA, : :DIEGO JOSEPH Performed By: Azra Parrish : :Referring: DIEGO RAMIRES : + + Interpretation Summary Normal left ventricle size with ejection fraction 55-60%. The left atrium is mildly dilated. Mild aortic valve sclerosis. Mild mitral annular calcification. Mild mitral regurgitation. Comparison is made with the echocardiogram of 05/30/2023, LV function has improved significantly. Procedure: A two-dimensional transthoracic echocardiogram with color flow and Doppler was performed. The study quality was technically adequate. Comparison is made with the echocardiogram of 05/30/2023. The patient was in sinus rhythm with heart rates between 67-73 bpm during the exam. Left Ventricle: The left ventricle is normal in size. There is normal left ventricular wall thickness. The ejection fraction is estimated to be 55-60%. There are no focal wall motion abnormalities. Diastolic function could not be accurately assessed due to confounding valvular disease. Right Ventricle: The right ventricle is at the upper limits of normal in size. Right ventricular systolic function is at the lower limits of normal. Atria: The left atrium is mildly dilated. Right atrial size is normal. There is no Doppler evidence for an interatrial shunt. Mitral Valve: The mitral valve leaflets appear mildly thickened, but open well. There is mild mitral annular calcification. There is mild mitral regurgitation. Aortic Valve: The aortic valve is trileaflet. The aortic valve opens well. There is mild aortic valve sclerosis. There is no aortic valve stenosis. There is trace aortic regurgitation. Tricuspid Valve: The tricuspid valve is normal in structure and function. Pulmonary artery pressures cannot be estimated because of the lack of a measurable TR jet velocity. There is a trace or physiologic amount of tricuspid regurgitation. Pulmonic Valve: The pulmonic valve leaflets are thin and pliable; valve motion is normal. There is mild pulmonic regurgitation. Great Vessels: The aortic root is normal size. The dimensions of the ascending aorta are normal. The IVC is of normal diameter and collapses greater than 50% with a sniff. This suggests a low right atrial pressure of 3 mm Hg. Pericardium/ Pleura There is no pericardial effusion. There is no pleural effusion. MMode/2D Measurements & Calculations LVIDd: 4.5 cm LVOT diam: 2.0 cm LVIDs: 3.1 cm Ao root diam: 2.8 cm FS: 31.0 % asc Aorta Diam: 3.0 cm EPSS: 0.77 cm Ao Arch Diam (Prox Trans): 2.2 cm IVSd: 0.71 cm LVPWd: 0.85 cm LV best. diameter/BSA (cm/m^2): 2.6 LV sys. diameter/BSA (cm/m^2): 1.8 LA A2 area: 20.6 cm2 RA long axis: 5.1 cm LA A4 area: 20.1 cm2 RA area: 17.0 cm2 LA length (vol): 5.1 cm RA vol: 47.9 ml LA vol: 68.7 ml RA : 27.3 ml/m2 LA vol index: 39.1 ml/m2 IVC diam: 1.9 cm RVD1 (basal): 4.0 cm TAPSE: 1.6 cm Doppler Measurements & Calculations Ao V2 max: 125.7 cm/sec LVOT Max Mary: 79.3 cm/sec Ao V2 mean: 90.7 cm/sec LV V1 max P.5 mmHg Ao max P.3 mmHg LV V1 VTI: 19.6 cm Ao mean P.6 mmHg JOSETTE(I,D): 2.3 cm2 Ao V2 VTI: 26.2 cm JOSETTE(V,D): 1.9 cm2 sev ratio: 0.75 JOSETTE indexed to BSA (cm^2/m^2): 1.3 MV E max mary: 74.8 cm/sec PA V2 max: 77.4 cm/sec MV A max mary: 82.6 cm/sec PA V2 mean: 55.8 cm/sec MV E/A: 0.91 PA mean P.4 mmHg Med Peak E' Mary: 6.5 cm/sec PA pr(Accel): 43.0 mmHg E/E' med: 11.6 Lat Peak E' Mary: 7.9 cm/sec E/E' lat: 9.4 E/e' average: 10.5 MV dec time: 0.24 sec SV(LVOT): 59.4 ml Electronically signed by: Mayran Stark on Reading Physician:12/18/2023 11:43 AM
== END ==
PROVIDERS: PCP Family Medicine; Referring Provider Nurse Practitioner Acute Care; Visit Provider Nurse Practitioner Acute Care
DX: I25.10 Atherosclerotic heart disease of native coronary artery without angina pectoris (principal); I08.0 Rheumatic disorders of both mitral and aortic valves
CPT/HCPCS: 93306

== ENCOUNTER → 2023-12-26 09:06 | Outpatient (CLI) | payer MEDICARE, SELFPAY ==
[2022-04-13 20:58] VITALS: BMI 27.4
[2023-12-26 12:24] LABS: Add Manual Diff / Slide Review NO; Basophils Absolute Auto 0 /uL (0-100); Basophils Percent Auto 0.5 % (0-2); Eosinophils Absolute Auto 100 /uL (0-450); Eosinophils Percent Auto 2.2 % (2-4); Hematocrit 36.2 % (36-46); Hemoglobin 12.4 g/dL (12.0-16.0); Lymphocytes Absolute Auto 600 /uL (1100-4500); Mean Corpuscular HGB Conc 34.3 % (30-36); Mean Corpuscular Hemoglobin 32.7 PG (26-34); Mean Corpuscular Volume 95.3 fL (80-100); Monocytes Absolute Auto 700 /uL (0-900); Monocytes Percent Auto 14.2 % (3-14); Neutrophils Absolute Auto 3300 /uL (1500-7000); Neutrophils Percent Auto 71.1 % (50-75); Platelet Count 270 X10^3/uL (150-400); Red Blood Cell Count 3.79 X10^6/uL (4.0-5.2); Red Cell Distribution Width 13.5 % (11.6-14.8); White Blood Cell Count 4.7 X10^3/uL (4.5-11.0)
[2023-12-26 13:08] LABS: Alanine Aminotransferase 15 IU/L (<35); Albumin 3.9 g/dL (3.5-5.0); Albumin Globulin Ratio 1.5 (1.0-2.8); Alkaline Phosphatase 60 U/L (38-126); Aspartate Aminotransferase 22 IU/L (14-36); BUN Creatinine Ratio 18.1 (6-22); Bilirubin Total 0.7 mg/dL (0.2-1.3); Blood Urea Nitrogen 15 mg/dL (7-17); Calcium 8.6 mg/dL (8.4-10.2); Carbon Dioxide 29 mmol/L (22-32); Chloride 105 mmol/L (98-107); Cholesterol 142 mg/dL (140-199); Estimated Glomerular Filt Rate > 60 mL/min (>60); Globulin 2.6 g/dL (1.7-4.1); Glucose 101 mg/dL (80-110); HDL Cholesterol 59 mg/dL (40-60); HEMOLYSIS < 15 (0-50); LDL Cholesterol Calculated 51 mg/dL (<100); Potassium 4.2 mmol/L (3.4-5.1); Sodium 139 mmol/L (137-145); Total Protein 6.5 g/dL (6.3-8.2); Triglycerides 160 mg/dL (35-150)
== END ==
PROVIDERS: Nurse Practitioner Acute Care; PCP Family Medicine; Referring Provider Internal Medicine Interventional Cardiology; Visit Provider Internal Medicine Interventional Cardiology
DX: I25.10 Atherosclerotic heart disease of native coronary artery without angina pectoris (principal); L97.322 Non-pressure chronic ulcer of left ankle with fat layer exposed; I87.2 Venous insufficiency (chronic) (peripheral); I73.9 Peripheral vascular disease, unspecified; R60.0 Localized edema; L53.9 Erythematous condition, unspecified
CPT/HCPCS: 11042; 36415; 80053; 80061; 85025

== ENCOUNTER → 2023-12-26 10:25 | Outpatient (CLI) | payer MEDICARE, SELFPAY ==
[2022-04-13 20:58] VITALS: BMI 27.4
== END ==
PROVIDERS: PCP Family Medicine; Referring Provider Nurse Practitioner Family; Visit Provider Surgery
DX: L97.322 Non-pressure chronic ulcer of left ankle with fat layer exposed (principal); I87.2 Venous insufficiency (chronic) (peripheral); I73.9 Peripheral vascular disease, unspecified; R60.0 Localized edema; L53.9 Erythematous condition, unspecified
CPT/HCPCS: 11042; 99213

== ENCOUNTER → 2024-01-02 10:29 | Outpatient (CLI) | payer MEDICARE, SELFPAY ==
[2022-04-13 20:58] VITALS: BMI 27.4
== END ==
LOC: WC 10:31
PROVIDERS: PCP Family Medicine; Referring Provider Nurse Practitioner Family; Visit Provider Surgery
DX: L97.322 Non-pressure chronic ulcer of left ankle with fat layer exposed (principal); I87.2 Venous insufficiency (chronic) (peripheral); I73.9 Peripheral vascular disease, unspecified; R60.0 Localized edema; L53.9 Erythematous condition, unspecified; I50.9 Heart failure, unspecified; I25.10 Atherosclerotic heart disease of native coronary artery without angina pectoris; I10 Essential (primary) hypertension
CPT/HCPCS: 11042; 99213

== ENCOUNTER → 2024-01-09 10:55 | Outpatient (CLI) | payer MEDICARE, SELFPAY ==
[2022-04-13 20:58] VITALS: BMI 27.4
== END ==
LOC: WC 10:56
PROVIDERS: PCP Family Medicine; Referring Provider Nurse Practitioner Family; Visit Provider Surgery
DX: I73.9 Peripheral vascular disease, unspecified (principal); I87.2 Venous insufficiency (chronic) (peripheral); L53.9 Erythematous condition, unspecified; R60.0 Localized edema
CPT/HCPCS: 11042; 87070; 87075; 87205

== ENCOUNTER → 2024-01-16 14:01 | Outpatient (CLI) | payer MEDICARE, SELFPAY ==
[2022-04-13 20:58] VITALS: BMI 27.4
== END ==
PROVIDERS: PCP Family Medicine; Referring Provider Nurse Practitioner Family; Visit Provider Surgery
DX: L97.322 Non-pressure chronic ulcer of left ankle with fat layer exposed (principal); I87.2 Venous insufficiency (chronic) (peripheral); I73.9 Peripheral vascular disease, unspecified; R60.0 Localized edema; L53.9 Erythematous condition, unspecified
CPT/HCPCS: 11042

== ENCOUNTER → 2024-01-19 08:53 | Outpatient (CLI) | payer MEDICARE, SELFPAY ==
[2022-04-13 20:58] VITALS: BMI 27.4
== END ==
LOC: WC 08:55
PROVIDERS: PCP Family Medicine; Referring Provider Nurse Practitioner Family; Visit Provider Physician Assistant
DX: L97.322 Non-pressure chronic ulcer of left ankle with fat layer exposed (principal); I87.2 Venous insufficiency (chronic) (peripheral); R60.0 Localized edema; L53.9 Erythematous condition, unspecified; R23.4 Changes in skin texture
CPT/HCPCS: 29581

== ENCOUNTER → 2024-01-24 14:55 | Outpatient (CLI) | payer MEDICARE, SELFPAY ==
[2022-04-13 20:58] VITALS: BMI 27.4
== END ==
PROVIDERS: PCP Family Medicine; Referring Provider Nurse Practitioner Family; Visit Provider Surgery
DX: L97.322 Non-pressure chronic ulcer of left ankle with fat layer exposed (principal); I87.2 Venous insufficiency (chronic) (peripheral); I73.9 Peripheral vascular disease, unspecified; R60.0 Localized edema; L53.9 Erythematous condition, unspecified; R23.4 Changes in skin texture
CPT/HCPCS: 11042

== ENCOUNTER → 2024-01-30 10:18 | Outpatient (CLI) | payer MEDICARE, SELFPAY ==
[2022-04-13 20:58] VITALS: BMI 27.4
== END ==
PROVIDERS: PCP Family Medicine; Referring Provider Family Medicine; Visit Provider Surgery
DX: L97.322 Non-pressure chronic ulcer of left ankle with fat layer exposed (principal); I73.9 Peripheral vascular disease, unspecified; I87.2 Venous insufficiency (chronic) (peripheral); R60.0 Localized edema; L53.9 Erythematous condition, unspecified; I50.9 Heart failure, unspecified; I25.10 Atherosclerotic heart disease of native coronary artery without angina pectoris; I10 Essential (primary) hypertension
CPT/HCPCS: 11042; 99213

== ENCOUNTER → 2024-02-06 09:50 | Outpatient (CLI) | payer MEDICARE, SELFPAY ==
[2022-04-13 20:58] VITALS: BMI 27.4
== END ==
PROVIDERS: PCP Family Medicine; Referring Provider Nurse Practitioner Family; Visit Provider Surgery
DX: L97.322 Non-pressure chronic ulcer of left ankle with fat layer exposed (principal); I73.9 Peripheral vascular disease, unspecified; I87.2 Venous insufficiency (chronic) (peripheral); R60.0 Localized edema; L53.9 Erythematous condition, unspecified
CPT/HCPCS: 11042

== ENCOUNTER → 2024-02-13 10:17 | Outpatient (CLI) | payer MEDICARE, SELFPAY ==
[2022-04-13 20:58] VITALS: BMI 27.4
== END ==
LOC: WC 10:18
PROVIDERS: PCP Family Medicine; Referring Provider Nurse Practitioner Family; Visit Provider Surgery
DX: L97.322 Non-pressure chronic ulcer of left ankle with fat layer exposed (principal); I73.9 Peripheral vascular disease, unspecified; I87.2 Venous insufficiency (chronic) (peripheral); R60.0 Localized edema; L53.9 Erythematous condition, unspecified; R23.4 Changes in skin texture; I83.023 Varicose veins of left lower extremity with ulcer of ankle
CPT/HCPCS: 11042

== ENCOUNTER → 2024-02-20 14:57 | Outpatient (CLI) | payer MEDICARE, SELFPAY ==
[2022-04-13 20:58] VITALS: BMI 27.4
== END ==
PROVIDERS: PCP Family Medicine; Referring Provider Nurse Practitioner Family; Visit Provider Physician Assistant
DX: L97.322 Non-pressure chronic ulcer of left ankle with fat layer exposed (principal); I87.2 Venous insufficiency (chronic) (peripheral); R60.0 Localized edema; R23.4 Changes in skin texture
CPT/HCPCS: 97597; 99213

== ENCOUNTER → 2024-02-27 09:39 | Outpatient (CLI) | payer MEDICARE, SELFPAY ==
[2022-04-13 20:58] VITALS: BMI 27.4
== END ==
LOC: WC 09:40
PROVIDERS: PCP Family Medicine; Referring Provider Nurse Practitioner Family; Visit Provider Surgery
DX: L97.322 Non-pressure chronic ulcer of left ankle with fat layer exposed (principal); I87.2 Venous insufficiency (chronic) (peripheral); I73.9 Peripheral vascular disease, unspecified; R60.0 Localized edema; R23.4 Changes in skin texture; I50.9 Heart failure, unspecified; I25.10 Atherosclerotic heart disease of native coronary artery without angina pectoris; I11.0 Hypertensive heart disease with heart failure
CPT/HCPCS: 11042; 99213

== ENCOUNTER → 2024-03-06 10:23 | Outpatient (CLI) | payer MEDICARE, SELFPAY ==
[2022-04-13 20:58] VITALS: BMI 27.4
== END ==
LOC: WC 10:30
PROVIDERS: PCP Family Medicine; Referring Provider Nurse Practitioner Family; Visit Provider Surgery
DX: I87.2 Venous insufficiency (chronic) (peripheral) (principal); R60.0 Localized edema
CPT/HCPCS: 99212; 99213

== ENCOUNTER → 2024-03-13 13:43 | Outpatient (CLI) | payer MEDICARE, SELFPAY ==
[2022-04-13 20:58] VITALS: BMI 27.4
== END ==
LOC: WC 13:44
PROVIDERS: PCP Family Medicine; Referring Provider Nurse Practitioner Family; Visit Provider Surgery
DX: L97.322 Non-pressure chronic ulcer of left ankle with fat layer exposed (principal); I87.2 Venous insufficiency (chronic) (peripheral); R60.0 Localized edema; I73.9 Peripheral vascular disease, unspecified
CPT/HCPCS: 29581; 99213

== ENCOUNTER → 2024-03-19 10:28 | Outpatient (CLI) | payer MEDICARE, SELFPAY ==
[2022-04-13 20:58] VITALS: BMI 27.4
== END ==
PROVIDERS: PCP Family Medicine; Referring Provider Nurse Practitioner Family; Visit Provider Surgery
DX: L97.322 Non-pressure chronic ulcer of left ankle with fat layer exposed (principal); I87.2 Venous insufficiency (chronic) (peripheral); I73.9 Peripheral vascular disease, unspecified; R60.0 Localized edema; I83.023 Varicose veins of left lower extremity with ulcer of ankle
CPT/HCPCS: 29581; 99213

== ENCOUNTER → 2024-04-02 09:40 | Outpatient (CLI) | payer MEDICARE, SELFPAY ==
[2022-04-13 20:58] VITALS: BMI 27.4
== END ==
LOC: WC 09:42
PROVIDERS: PCP Family Medicine; Referring Provider Nurse Practitioner Family; Visit Provider Surgery
DX: I73.9 Peripheral vascular disease, unspecified (principal); I87.2 Venous insufficiency (chronic) (peripheral)
CPT/HCPCS: 99212; 99213

== ENCOUNTER → 2024-05-10 15:44 | Outpatient (CLI) | payer MEDICARE, SELFPAY ==
[2022-04-13 20:58] VITALS: BMI 27.4
[2024-05-10 17:52] LABS: BUN Creatinine Ratio 19.3 (6-22); Blood Urea Nitrogen 16 mg/dL (7-17); C-Reactive Protein Quant < 0.5 mg/dL (<1.0); Calcium 9.1 mg/dL (8.4-10.2); Carbon Dioxide 27 mmol/L (22-32); Chloride 104 mmol/L (98-107); Erythrocyte Sedimentation Rate 10 MM/HR (0-20); Estimated Glomerular Filt Rate > 60 mL/min (>60); Glucose 87 mg/dL (80-110); HEMOLYSIS < 15 (0-50); Potassium 4.2 mmol/L (3.4-5.1); Sodium 139 mmol/L (137-145)
[2024-05-10 17:53] LABS: Rheumatoid Factor 23.1 IU/mL (<12.0)
[2024-05-13 14:13] LABS: CCP Antibodies IgG/IgA 4 units (0-19)
[2024-05-13 17:01] LABS: Hep C Virus Ab w/Reflex Quant NEGATIVE s/c (NEGATIVE)
== END ==
PROVIDERS: PCP Family Medicine; Referring Provider Family Medicine; Visit Provider Family Medicine
DX: M25.50 Pain in unspecified joint (principal); I73.00 Raynaud's syndrome without gangrene; M25.519 Pain in unspecified shoulder; Z95.1 Presence of aortocoronary bypass graft
CPT/HCPCS: 36415; 80048; 85651; 86038; 86140; 86200; 86430; 86803

== ENCOUNTER 2024-06-26 13:43 | Emergency (ER) | payer MEDICARE, SELFPAY ==
[2022-04-13 20:58] VITALS: BMI 27.4
[2024-06-26 13:57] VITALS: BP 175/77; PULSE 63; RESP 18; TEMP 37; O2SAT 98; BMI 26.1
--- NOTE | 2024-06-26 14:13 | DI.CT.S_ITS ---
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 Sagittal and coronal reformats were then constructed. For radiation dose reduction, the following was used: automated exposure control, adjustment of mA and/or kV according to patient size. COMPARISON: [facility], CT, CT CERVICAL SPINE WO CON, 04/16/2023, 3:13. FINDINGS: Image quality: Excellent. Bones: No fractures or dislocations. Visualized superior ribs are intact. Severe cervical spondylosis. Diffuse osteopenia. Multilevel facet arthropathy. Multilevel uncovertebral joint hypertrophy. Multilevel bony foraminal narrowing. Soft tissues: Prevertebral soft tissues are normal in thickness. No paravertebral hematomas. No apical pneumothoraces. IMPRESSION: No displaced fracture or traumatic subluxation. Severe cervical spondylosis. Dictated by: Dru Isabel M.D. on 06/26/2024 at 15:03 Approved by: Dru Isabel M.D. on 06/26/2024 at 15:04
--- NOTE | 2024-06-26 14:13 | DI.CT.S_ITS ---
PROCEDURE: CT HEAD/BRAIN WO CON INDICATIONS: fall, head injury TECHNIQUE: Noncontrast 4.5 mm thick angled axial sections acquired from the foramen magnum to the vertex, with coronal and sagittal reformats. For radiation dose reduction, the following was used: automated exposure control, adjustment of mA and/or kV according to patient size. COMPARISON: [facility], CT, CT HEAD/BRAIN WO CON, 04/16/2023, 3:13. FINDINGS: Image quality: Diagnostic. CSF spaces: Basal cisterns are patent. No extra-axial fluid collections. The ventricles are symmetric in size and shape. Brain: No intracranial bleeds or masses. There is cerebral volume loss for age, with resultant ventricular and sulcal prominence. There are periventricular and deep white matter chronic small vessel ischemic changes. There is intracranial internal carotid artery atherosclerosis. Skull and face: Very large right temporoparietal subgaleal hematoma. No underlying skull fracture. Calvarium and visualized facial bones appear intact, without suspicious lesions. Sinuses: Visualized sinuses and mastoids are clear. IMPRESSION: Very large subgaleal hematoma. No acute intracranial process. Dictated by: Dru Isabel M.D. on 06/26/2024 at 15:02 Approved by: Dru Isabel M.D. on 06/26/2024 at 15:03
--- NOTE | 2024-06-26 14:21 | ED_ITS ---
HPI - Head Injury <Caitlin Meléndez PA-C - Last Filed: 06/26/24 18:33> General Chief complaint: Head Injury Stated complaint: fall, head injury Time Seen by Provider: 06/26/24 14:12 Source: patient Mode of arrival: Wheelchair History of Present Illness HPI Narrative: 79-year-old woman presents with concern for fall and hitting her head shortly before arrival to the emergency department. Patient states she was coming out of the house into the garage they have 3 or 4 steps at the transition she missed the last step lost her balance and fell hitting her right side of her head on the cement floor of the garage. She states she did not lose consciousness and remembers the entire event. Her was with her. She has pain at the site of the injury with swelling and bruising but states she does not feel she has a generalized headache. She endorses some tightness in her neck with movement of her head. She denies numbness or tingling of her extremities vision change, nausea, vomiting or any other injuries from her fall. Related Data Home Medications Medication Instructions Recorded Confirmed aspirin 81 mg tablet,delayed 81 mg PO DAILY ##0 01/17/12 05/10/24 release acetaminophen 650 mg 650 mg PO Q8H 10/15/21 05/10/24 tablet,extended release (Tylenol Arthritis Pain) metoprolol succinate 100 mg 100 mg PO DAILY 10/15/21 05/10/24 tablet,extended release 24 hr ranolazine 1,000 mg 1,000 mg PO BID 04/26/23 05/10/24 tablet,extended release,12 hr brilinta PO 06/08/23 05/10/24 atorvastatin 40 mg tablet 80 mg PO BEDTIME 05/10/24 05/10/24 losartan 50 mg tablet 25 mg PO DAILY 05/10/24 Previous Rx's Medication Instructions Recorded fluoxetine 10 mg capsule (Prozac) 10 mg PO DAILY #30 caps 05/10/24 Allergies Allergy/AdvReac Type Severity Reaction Status Date / Time hydrochlorothiazide Allergy Severe MARGARET HIGH Verified 05/10/24 14:44 [HYDROCHLOROTHIAZIDE] BLOOD PRESSURE-KIDNEY ONLY WORKED AT 50% doxycycline [DOXYCYCLINE] Allergy Mild ITCHY Verified 05/10/24 14:44 lisinopril [LISINOPRIL] AdvReac Mild cough Verified 05/10/24 14:44 Review of Systems <Caitlin Meléndez PA-C - Last Filed: 06/26/24 18:33> Review of Systems Narrative: See HPI Patient History <Caitlin Meléndez PA-C - Last Filed: 06/26/24 18:33> Medical History Encounter for subsequent annual wellness visit (AWV) in Medicare patient Caregiver stress Chronic shoulder pain Zenkers diverticulum Arthritis of right glenohumeral joint Herpes zoster CAD (coronary artery disease) Sarcoidosis Hypercalcemia Myocardial infarction Essential hypertension Surgical History S/P CABG (coronary artery bypass graft) History of tonsillectomy H/O angioplasty Social History marital status: household members: spouse and family 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 Well-developed patient, in mild distress. HEAD: there is a right posterior parietal hematoma it was approximately 5 x 5 cm, there is a superficial abrasion/laceration at the center 4mm with no active bleeding. OtherwiseAtraumatic. Normocephalic. EYES: Pupils equal round and reactive. Extraocular motions intact. No scleral icterus. No injection or drainage. ENT: Bite is intact. There is no oral trauma noted. Nose without bleeding, pu rulent drainage. Throat without erythema, tonsillar hypertrophy or exudate, Uvula midline. Airway patent. no hemotympanum NECK: Trachea midline. Non tender CARDIOVASCULAR: Regular rate and rhythm without murmurs, gallops, or rubs. RESPIRATORY: Clear to auscultation. Breath sounds equal bilaterally. No wheezes, rales, or rhonchi. GASTROINTESTINAL: Abdomen soft, non-tender, nondistended. EXTREMITIES: No edema or joint tenderness. BACK: patient has paraspinal muscle tenderness of the right cervical spine, otherwise nontender without deformity or crepitance. No flank tenderness. NEURO: AOx3. SKIN: No rash or erythema of visible areas Initial Vital Signs Initial Vital Signs: Vital Signs Temperature 98.6 F 06/26/24 13:57 Pulse Rate 63 06/26/24 13:57 Respiratory Rate 18 06/26/24 13:57 Blood Pressure 175/77 H 06/26/24 13:57 Pulse Oximetry 98 06/26/24 13:57 Oxygen Delivery Method Room Air 06/26/24 13:57 <Valerie Erazo MD - Last Filed: 06/27/24 07:32> Initial Vital Signs Initial Vital Signs: Vital Signs Temperature 98.6 F 06/26/24 13:57 Pulse Rate 63 06/26/24 13:57 Respiratory Rate 18 06/26/24 13:57 Blood Pressure 175/77 H 06/26/24 13:57 Pulse Oximetry 98 06/26/24 13:57 Oxygen Delivery Method Room Air 06/26/24 13:57 Scores <Caitlin Meléndez PA-C - Last Filed: 06/26/24 18:33> [place] CT Head Rule Age <16 years old: No Patient on blood thinners: Yes Seizure after injury: No Exclusion: Patient meets exclusion criteria GCS < 15 at 2 hr post trauma: No Suspected open or depressed skull fracture: No Any sign of basilar skull fracture (hemotympanum, raccoon eyes, Palomino's sign, CSF sydney-/rhinorrhea): No Two or more episodes of vomiting: No Age greater or equal to 65 years: Yes Retrograde amnesia to the event greater or equal to 30 min: No Dangerous Mechanism (pedestrian vs. mv, occupant ejected from mv, fall from >3 ft or > 5 stairs): No Recommendation: Consider CT. The [place] Head CT Rule cannot rule out need for Imaging. <Valerie Erazo MD - Last Filed: 06/27/24 07:32> [place] CT Head Rule Exclusion: Patient meets exclusion criteria Recommendation: Consider CT. The [place] Head CT Rule cannot rule out need for Imaging. Course <Caitlin Meléndez PA-C - Last Filed: 06/26/24 18:33> Orders Ordered: ED Orders 06/26/24 14:13 CT cervical spine wo con Stat CT head/brain wo con Stat Vital Signs Vital signs: Vital Signs - 8 hr 06/26/24 13:57 06/26/24 16:43 Temperature 98.6 F Pulse Rate 63 63 Respiratory Rate 18 16 Blood Pressure 175/77 H 154/89 H Pulse Oximetry 98 99 Oxygen Delivery Method Room Air Room Air <Valerie Erazo MD - Last Filed: 06/27/24 07:32> Orders Ordered: ED Orders 06/26/24 14:13 CT cervical spine wo con Stat CT head/brain wo con Stat Vital Signs Vital signs: Vital Signs - 8 hr 06/26/24 13:57 06/26/24 16:43 Temperature 98.6 F Pulse Rate 63 63 Respiratory Rate 18 16 Blood Pressure 175/77 H 154/89 H Pulse Oximetry 98 99 Oxygen Delivery Method Room Air Room Air MDM - Head Injury <Caitlin Meléndez PA-C - Last Filed: 06/26/24 18:33> Differential Diagnosis Differential diagnosis: Likely concussion without loss of consciousness, closed head injury and other (cervical strain) Medical Records Attestation: I reviewed the patient's medical records. Imaging Data CT scan - head: My Impression: agree with Radiology interpretation Radiologist's Impression: [address] [address] [address] Scan Report Signed Patient: Tessie Mcintyre MR#: [id number] : 1945 Acct:[id number] Age/Sex: 79 / F Date of Service: 06/26/24 Loc: ED Accession Number: [id number] Procedure: CT head/brain wo con Ordering Provider: Caitlin Meléndez PA-C PROCEDURE: CT HEAD/BRAIN WO CON INDICATIONS: fall, head injury TECHNIQUE: Noncontrast 4.5 mm thick angled axial sections acquired from the foramen magnum to the vertex, with coronal and sagittal reformats. For radiation dose reduction, the following was used: automated exposure control, adjustment of mA and/or kV according to patient size. COMPARISON: [facility], CT, CT HEAD/BRAIN WO CON, 04/16/2023, 3:13. FINDINGS: Image quality: Diagnostic. CSF spaces: Basal cisterns are patent. No extra-axial fluid collections. The ventricles are symmetric in size and shape. Brain: No intracranial bleeds or masses. There is cerebral volume loss for age, with resultant ventricular and sulcal prominence. There are periventricular and deep white matter chronic small vessel ischemic changes. There is intracranial internal carotid artery atherosclerosis. Skull and face: Very large right temporoparietal subgaleal hematoma. No underlying skull fracture. Calvarium and visualized facial bones appear intact, without suspicious lesions. Sinuses: Visualized sinuses and mastoids are clear. IMPRESSION: Very large subgaleal hematoma. No acute intracranial process. Dictated by: Dru Isabel M.D. on 06/26/2024 at 15:02 Approved by: Dru Isabel M.D. 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 Sagittal and coronal reformats were then constructed. For radiation dose reduction, the following was used: automated exposure control, adjustment of mA and/or kV according to patient size. COMPARISON: [facility], CT, CT CERVICAL SPINE WO CON, 04/16/2023, 3:13. FINDINGS: Image quality: Excellent. Bones: No fractures or dislocations. Visualized superior ribs are intact. Severe cervical spondylosis. Diffuse osteopenia. Multilevel facet arthropathy. Multilevel uncovertebral joint hypertrophy. Multilevel bony foraminal narrowing. Soft tissues: Prevertebral soft tissues are normal in thickness. No paravertebral hematomas. No apical pneumothoraces. IMPRESSION: No displaced fracture or traumatic subluxation. Severe cervical spondylosis. Dictated by: Dru Isabel M.D. on 06/26/2024 at 15:03 Approved by: Dru Isabel M.D. 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 Missed a step causing her to fall onto concrete garage floor this morning just prior to arrival. Patient describes a mechanical fall and labs and EKG are not obtained. Her neuro exam is unremarkable. She had no COFFEY. Some R neck discomfort and a soft collar was placed. No other injury complaints or findings on exam. CT non-contrast of head and cervical spine obtained. Notable for subgaleal hematoma also found on exam with no intracranial hemorrhage. CT of the neck was notable for chronic cervical spondylosis. Discussed return precautions with the patient her and her son specifically recommendations for monitoring for signs of potential brain bleed over the next few weeks. Patient's exam today was otherwise reassuring. There is no indication for staple/suture of the scalp as bleeding was completely controlled/ Had stopped independently. Return precautions provided, follow-up plan discussed, all questions answered. Discharge Plan Departure Patient Disposition: Home Clinical Impression: Fall (on) (from) other stairs and steps, initial encounter, Hematoma Closed head injury Qualifiers: Encounter type: initial encounter Qualified Code(s): S09.90XA - Unspecified injury of head, initial encounter Cervical muscle strain Qualifiers: Encounter type: initial encounter Qualified Code(s): S16.1XXA - Strain of muscle, fascia and tendon at neck level, initial encounter Instructions: DI for Closed Head Injury Activity Restrictions/Additional Instructions: *You have been diagnosed with [ Subgaleal hematoma (of the scalp), closed head injury, cervical muscle strain] *What to do: *Please continue to take your regular medications as directed. [ ] New medication prescriptions sent to your pharmacy: [ ] [ ] New medication written as a paper prescription [X ] No new medications given *Please follow up with your primary care provider in 2-3 days, call for an appointment. Let them know you were seen in the Emergency Department and that we ask that you be seen in follow up. We will electronically transmit a record of today's note if your PCP is in our system. you had a fall when he missed a step today going into her garage. And hit the right side of your head. We did a CT scan of your brain and of your neck. You have some chronic cervical stenosis changes in your spine in your neck but no new injuries from her fall today. You have a little tightness and tenderness of the muscle and I suspect that you have a strain of your neck you should take it a little easy due to this until it is feeling better. The scan of your brain looked good there is no bleeding inside her brain. As we discussed it is important to monitor for new symptoms over the next few days even up to the next 3 weeks that could possibly indicate bleeding in the brain things to watch out for include vomiting, sensitivity to light, vision change, severe headache,Coordination difficulty or weakness. You do have a large hematoma (collection of blood on your scalp at the location where you hit your head). This should gradually reabsorb and go down overTime. Try to avoid bumping this area and be gentle when you are showering or washing her hair to avoid any additional trauma to it. *If you do not have a primary care provider please contact the [facility] Resource line at [phone]. They will ask some questions about your medical history and help get you set up with a doctor in the community. *Return to Emergency Department if you should have any new, worsening or concerning symptoms, such as [fever greater than 101 F, shaking chills, worsening pain, persistent vomiting or other bothersome symptoms] Prescriptions: No Action metoprolol succinate 100 mg tablet extended release 24 hr 100 mg PO DAILY acetaminophen [Tylenol Arthritis Pain] 650 mg tablet extended release 650 mg PO Q8H aspirin 81 mg Tablet,Delayed Release (Dr/Ec) 81 mg PO DAILY Qty: 0 ranolazine 1,000 mg tablet extended release 12 hr 1,000 mg PO BID atorvastatin 40 mg tablet 80 mg PO BEDTIME losartan 50 mg tablet 25 mg PO DAILY fluoxetine [Prozac] 10 mg capsule 10 mg PO DAILY Qty: 30 11RF brilinta PO Referrals: Grey Amaral DO [Primary Care Provider] - Stand Alone Forms: Patient Portal/API/Survey ED Sign-out <Valerie Erazo MD - Last Filed: 06/27/24 07:32> Cosign ED Attending Cosjensenature Attestation: I was immediately available in the department for consultation throughout this patient's visit. Valerie Erazo MD
[2024-06-26 16:43] VITALS: BP 154/89; PULSE 63; RESP 16; O2SAT 99
== END 2024-06-26 16:45 | disposition home or self-care (01) ==
PROVIDERS: Emergency Provider Student in an Organized Health Care Education/Training Program; PCP Family Medicine
DX: S09.90XA Unspecified injury of head, initial encounter (principal); S16.1XXA Strain of muscle, fascia and tendon at neck level, initial encounter; S10.93XA Contusion of unspecified part of neck, initial encounter; W18.30XA Fall on same level, unspecified, initial encounter
CPT/HCPCS: 70450; 72125; 99281; 99284

== ENCOUNTER 2024-07-20 13:29 | Emergency (ER) | payer MEDICARE, SELFPAY ==
[2022-04-13 20:58] VITALS: BMI 27.4
[2024-07-20] VITALS (7 sets, daily range): BP systolic 130–137; BP diastolic 59–92; PULSE 58–72; RESP 17–23; TEMP 36.5; O2SAT 95–98; BMI 25.7
--- NOTE | 2024-07-20 | DI.CT.S_ITS ---
PROCEDURE: CT ANGIO HEAD AND NECK INDICATIONS: Wound on back of head, R/O abscess TECHNIQUE: After the administration of intravenous contrast, 1 mm thick sections acquired from the aortic arch through the [place] of [place]. 3-dimensional hcwifqx-yzsmtsxvh-cujtmswdzy (MIP) and/or volume rendering reformats were acquired of the central intracranial vasculature and neck separately. For radiation dose reduction, the following was used: automated exposure control, adjustment of mA and/or kV according to patient size. COMPARISON: None. FINDINGS: Image quality: Diagnostic HEAD ANGIOGRAPHY: Anterior circulation: ICAs: Mild cavernous and petrous segment calcifications ACAs: Patent MCAs: Patent AComm: No aneurysm Venous sinuses: patent Posterior circulation: Dominance: Right Vertebral arteries: Mild calcifications Basilar artery: Patent PComms: Dominant on the right reducing salon attendant: Patent NECK ANGIOGRAPHY:4 Aortic arch and subclavian arteries: Agka-nn-ckuphpoq calcifications CCAs: No stenosis, occlusion, or aneurysm. ICA origins (by NASCET criteria): Mild calcifications without significant narrowing bilaterally ICAs: Patent ECAs: Origins are patent. Vertebral arteries: Mild calcifications at the origin bilaterally. The right proximal vertebral artery is very tortuous. Soft tissues: Mildly enlarged mediastinal lymph nodes are present, partially seen. This is indeterminate for reactive etiology versus malignancy. Multiple thyroid nodules are seen, with calcifications, measuring up to 1.7 cm on the right. Consider nonurgent sonographic follow-up. Lung apices: No apical pneumothorax. Possible emphysematous changes. Bones: Sternotomy wires. Advanced degenerative changes of the shoulders partially seen. Cervical spondylotic changes also present. Indeterminate heterogeneous attenuation of the marrow. Right scalp wound with soft tissue swelling and thickening with subcutaneous gas. No active arterial extravasation seen. IMPRESSION: No large vessel occlusion or high-grade stenosis. Atherosclerotic areas of narrowing/calcifications as described above. If there is high concern for infarct, consider MRI. Right scalp soft tissue injury without drainable fluid collection or definite active arterial extravasation. Multiple other incidental findings above. Any quantitative measurements of stenosis were performed using NASCET criteria. Dictated by: Earl Thorpe M.D. on 07/20/2024 at 14:38 Approved by: Earl Thorpe M.D. on 07/20/2024 at 14:44
--- NOTE | 2024-07-20 14:14 | DI.RAD.S_ITS ---
PROCEDURE: XR CHEST 1V INDICATIONS: suspected sepsis TECHNIQUE: One view of the chest was acquired. COMPARISON: [facility], CR, XR CHEST 1V, 05/29/2023, 22:09. [facility], CR, XR CHEST 1V, 04/13/2022, 13:32. FINDINGS: Surgical changes and devices: Sternotomy wires Lungs and pleura: No dense consolidation or pleural effusions. Mediastinum: Normal heart size, unchanged. There are aortic calcifications. Bones and chest wall: Advanced degenerative changes. Indeterminate alignment of the right glenohumeral joint. IMPRESSION: No acute thoracic abnormality on this single view study. Advanced shoulder degenerative changes. Indeterminate alignment of the right glenohumeral joint, correlate with clinical history. Dedicated shoulder views may be obtained if needed. Dictated by: Earl Thorpe M.D. on 07/20/2024 at 14:29 Approved by: Earl Thorpe M.D. on 07/20/2024 at 14:30
--- NOTE | 2024-07-20 14:18 | DI.CT.S_ITS ---
PROCEDURE: CT HEAD/BRAIN WO CON INDICATIONS: fall 06/26, wound, r/o abscess TECHNIQUE: Noncontrast 4.5 mm thick angled axial sections acquired from the foramen magnum to the vertex, with coronal and sagittal reformats. For radiation dose reduction, the following was used: automated exposure control, adjustment of mA and/or kV according to patient size. COMPARISON: [facility], CT, CT HEAD/BRAIN WO CON, 06/26/2024, 14:49. FINDINGS: Image quality: Diagnostic CSF spaces: Basal cisterns are patent. Lateral ventricles are symmetric. Volume: Vascular calcifications. Periventricular white matter disease is commonly seen with chronic microangiopathy. Volume loss is present. These findings are moderate Brain: No intracranial hemorrhage. Siegel-white differentiation is grossly maintained. Craniofacial structures: No significant paranasal sinus opacity. Right scalp thickening in 2 blancas decreased from prior. IMPRESSION: Right scalp soft tissue thickening/contusion is decreased from prior. No drainable fluid collection. No acute intracranial hemorrhage. Dictated by: Earl Thorpe M.D. on 07/20/2024 at 14:35 Approved by: Earl Thorpe M.D. on 07/20/2024 at 14:37
[2024-07-20 14:38] LABS: Add Manual Diff / Slide Review NO; Basophils Absolute Auto 0 /uL (0-100); Basophils Percent Auto 0.7 % (0-2); Eosinophils Absolute Auto 100 /uL (0-450); Eosinophils Percent Auto 1.6 % (2-4); Hematocrit 35.1 % (36-46); Hemoglobin 11.9 g/dL (12.0-16.0); Lymphocytes Absolute Auto 600 /uL (1100-4500); Lymphocytes Percent Auto 12.5 % (25-40); Mean Corpuscular HGB Conc 33.8 % (30-36); Mean Corpuscular Volume 97.5 fL (80-100); Monocytes Absolute Auto 500 /uL (0-900); Monocytes Percent Auto 10.8 % (3-14); Neutrophils Absolute Auto 3500 /uL (1500-7000); Neutrophils Percent Auto 74.4 % (50-75); Platelet Count 283 X10^3/uL (150-400); White Blood Cell Count 4.7 X10^3/uL (4.5-11.0)
[2024-07-20 14:45] LABS: INR 1.1 (0.9-1.3)
[2024-07-20 14:48] LABS: PTT Partial Thromboplastin Tim 38 SECONDS (25.1-36.5)
[2024-07-20 14:49] LABS: Alanine Aminotransferase 19 IU/L (<35); Albumin 3.7 g/dL (3.5-5.0); Albumin Globulin Ratio 1.3 (1.0-2.8); Alkaline Phosphatase 58 U/L (38-126); Aspartate Aminotransferase 25 IU/L (14-36); BUN Creatinine Ratio 23.3 (6-22); Bilirubin Total 0.6 mg/dL (0.2-1.3); Blood Urea Nitrogen 17 mg/dL (7-17); Calcium 8.5 mg/dL (8.4-10.2); Carbon Dioxide 27 mmol/L (22-32); Chloride 106 mmol/L (98-107); Estimated Glomerular Filt Rate > 60 mL/min (>60); Globulin 2.9 g/dL (1.7-4.1); Glucose 113 mg/dL (80-110); HEMOLYSIS < 15 (0-50); Lipase 143 U/L (23-300); Potassium 3.6 mmol/L (3.4-5.1); Sodium 138 mmol/L (137-145); Total Protein 6.6 g/dL (6.3-8.2)
[2024-07-20 15:06] LABS: Procalcitonin 0.032 ng/mL (<0.5)
--- NOTE | 2024-07-20 15:48 | PC.NURSE ---
Pt reports getting evaluated by ER for fall on 06/26. Pt states she had a goose egg on her head. Pt reports since then she had a scab on her head come off and start bleeding; pt states the scab came back and she did not think much more of it until her niece who she states is a nurse noted that she should be evaluated for infection. Per triage nurse; lots of drainage from dressing on head. Open wound noted on right side of head measuring 1cm (l) x 0.5cm (w)
--- NOTE | 2024-07-20 15:54 | ED.SKABFB ---
HPI - Skin/Abscess/Foreign Bdy General Chief complaint: Skin/Abscess/Foreign Body Stated complaint: Might Have Cyst on back of head right side Time Seen by Provider: 07/20/24 15:54 Source: patient Mode of arrival: Ambulatory History of Present Illness HPI narrative: 79-year-old female history of hyperlipidemia, hypertension, comes to the ED from home for evaluation of possible abscess to the scalp. According to the patient had a ground level fall on 06/26/2024. States that she was seen here had imaging and was sent home. Patient not on any blood thinners. She states that today her daughter who has a nurse noticed that she had some fluctuance to her scalp and wanted it to be evaluated, at evaluation here in triage there was expression of blood to the scalp not purulent. Patient denies any actual headache visual disturbances no other symptoms at this time. Related Data Home Medications Medication Instructions Recorded Confirmed aspirin 81 mg tablet,delayed 81 mg PO DAILY ##0 01/17/12 07/03/24 release acetaminophen 650 mg 650 mg PO Q8H 10/15/21 07/03/24 tablet,extended release (Tylenol Arthritis Pain) metoprolol succinate 100 mg 100 mg PO DAILY 10/15/21 07/03/24 tablet,extended release 24 hr ranolazine 1,000 mg 1,000 mg PO BID 04/26/23 07/03/24 tablet,extended release,12 hr brilinta PO 06/08/23 07/03/24 atorvastatin 40 mg tablet 80 mg PO BEDTIME 05/10/24 07/03/24 losartan 50 mg tablet 25 mg PO DAILY 05/10/24 07/03/24 Previous Rx's Medication Instructions Recorded fluoxetine 20 mg capsule (Prozac) 20 mg PO DAILY #90 caps 07/03/24 clindamycin HCl 300 mg capsule 300 mg PO Q8H 1 week #21 caps 07/20/24 Allergies Allergy/AdvReac Type Severity Reaction Status Date / Time hydrochlorothiazide Allergy Severe MARGARET HIGH Verified 07/20/24 14:06 [HYDROCHLOROTHIAZIDE] BLOOD PRESSURE-KIDNEY ONLY WORKED AT 50% doxycycline [DOXYCYCLINE] Allergy Mild ITCHY Verified 07/20/24 14:06 lisinopril [LISINOPRIL] AdvReac Mild cough Verified 07/20/24 14:06 Review of Systems Review of Systems Narrative: General: Denies fever, chills, weight loss HEENT: Denies headache, eye drainage, eye irritation, head trauma, sore throat, voice change Cardiovascular: Denies any chest pain, palpitations, shortness of breath, tachycardia Respiratory: Denies any shortness of breath, cough, wheeze, stridor GI/: Denies any abdominal pain, nausea, vomiting, diarrhea, bright red blood per rectum, melanotic stools, urinary frequency, urinary retention, dysuria, hematuria MSK: Denies any joint pain, muscle pains, swelling Skin: Possible abscess to scalp Neuro: Denies any headache, lightheadedness, dizziness, fainting, weakness Psych: Denies SI/HI Patient History Medical History Encounter for subsequent annual wellness visit (AWV) in Medicare patient Caregiver stress Chronic shoulder pain [place] diverticulum Arthritis of right glenohumeral joint Herpes zoster CAD (coronary artery disease) Sarcoidosis Hypercalcemia Myocardial infarction Essential hypertension Surgical History S/P CABG (coronary artery bypass graft) History of tonsillectomy H/O angioplasty Social History marital status: household members: spouse and family 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, 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 Smoking Status: Never smoker alcohol intake: current substance use type: does not use Smoking Status: Never smoker alcohol intake frequency: holidays/special occasions only Alcohol type: hard liquor Exam Narrative Exam Narrative: General: Cooperative, comfortable, well-developed, not in acute distress HEENT: Patient with scalp laceration noted to the top right of the head, not actively bleeding no purulent discharge noted Neck: Active full range of motion, atraumatic Chest: Normal to inspection, negative crepitus, no overlying erythema ecchymosis Respiratory: Normal respiratory effort, not in acute respiratory distress, clear to auscultation bilaterally negative cough, wheeze, tachypnea, rhonchi, rales Cardiology: Regular rate rhythm negative gallop, murmur, rubs GI/: Normal to inspection, soft, nonrigid, no tenderness to palpation, exam deferred MSK: Full range of active range of motion of all 4 extremities, atraumatic Skin: No rashes lesions noted Neuro: Alert awake oriented x3, moves all 4 extremities spontaneously, cranial nerves intact, able to answer all questions appropriately follows commands appropriately Psych: Cooperative, negative suicidal or homicidal ideations Initial Vital Signs Initial Vital Signs: Vital Signs Temperature 97.7 F 07/20/24 14:06 Pulse Rate 72 07/20/24 14:06 Respiratory Rate 17 07/20/24 14:06 Blood Pressure 137/92 H 07/20/24 14:06 Pulse Oximetry 98 07/20/24 14:06 Oxygen Delivery Method Room Air 07/20/24 14:06 Course Orders Ordered: ED Orders 07/20/24 14:14 XR chest 1V Stat EKG-12 Lead Stat RT Consult Eval and Treat NOW 07/20/24 14:18 CT head/brain wo con Stat 07/20/24 14:27 Complete Blood Count AUTO DIFF Stat Comprehensive Metabolic Panel Stat Lactate (Lactic Acid) Stat Lipase Stat PTT Partial Thromboplastin Mick Stat Procalcitonin Stat Prothrombin Time INR Stat 07/20/24 16:37 Blood Culture Stat Ondansetron HCl (Ondansetron 4 Mg/2 Ml Inj) 4 mg IV NOW PRN PRN Reason: Nausea And Vomiting Ondansetron HCl (Ondansetron 4 Mg Odt) 4 mg SL NOW PRN PRN Reason: Nausea And Vomiting Discontinued Medications Clindamycin HCl (Clindamycin 150 Mg Capsule) 300 mg PO NOW ONE Stop: 07/20/24 17:15 Vital Signs Vital signs: Vital Signs - 8 hr 07/20/24 14:06 07/20/24 15:30 07/20/24 15:31 Temperature 97.7 F Pulse Rate 72 68 Respiratory Rate 17 Blood Pressure 137/92 H 134/63 Pulse Oximetry 98 97 Oxygen Delivery Method Room Air 07/20/24 15:31 07/20/24 16:00 07/20/24 16:00 Temperature Pulse Rate 68 66 Respiratory Rate 23 Blood Pressure 130/59 L Pulse Oximetry 98 98 Oxygen Delivery Method 07/20/24 16:30 07/20/24 17:00 Temperature Pulse Rate 58 L 65 Respiratory Rate 17 21 Blood Pressure Pulse Oximetry 98 95 Oxygen Delivery Method MDM - Skin/Abscess/Foreign Bdy Differential Diagnosis Differential diagnosis: Likely other (Abscess, fractures,) Lab Data 07/20/24 14:27 07/20/24 14:27 Labs: Lab Results 07/20/24 Range/Units 14:27 WBC 4.7 (4.5-11.0) X10^3/uL RBC 3.60 L (4.0-5.2) X10^6/uL Hgb 11.9 L (12.0-16.0) g/dL Hct 35.1 L (36-46) % MCV 97.5 (80-100) fL MCH 33.0 (26-34) PG MCHC 33.8 (30-36) % RDW 13.0 (11.6-14.8) % Plt Count 283 (150-400) X10^3/uL Neut % (Auto) 74.4 (50-75) % Lymph % (Auto) 12.5 L (25-40) % [place] % (Auto) 10.8 (3-14) % Eos % (Auto) 1.6 L (2-4) % Baso % (Auto) 0.7 (0-2) % Neut # (Auto) 3500 (2137-0567) /uL Lymph # (Auto) 600 L (0016-3317) /uL [place] # (Auto) 500 (0-900) /uL Eos # (Auto) 100 (0-450) /uL Baso # (Auto) 0 (0-100) /uL PT 12.0 (9.4-12.5) SECONDS INR 1.1 (0.9-1.3) APTT 38 H (25.1-36.5) SECONDS Sodium 138 (137-145) mmol/L Potassium 3.6 (3.4-5.1) mmol/L Chloride 106 (98-107) mmol/L Carbon Dioxide 27 (22-32) mmol/L BUN 17 (7-17) mg/dL Creatinine 0.73 (0.52-1.04) mg/dL Estimated GFR > 60 (>60) mL/min BUN/Creatinine Ratio 23.3 H (6-22) Glucose 113 H (80-110) mg/dL Lactate 2.0 (0.7-2.1) mmol/L Calcium 8.5 (8.4-10.2) mg/dL Total Bilirubin 0.6 (0.2-1.3) mg/dL AST 25 (14-36) IU/L ALT 19 (<35) IU/L Alkaline Phosphatase 58 (38-126) U/L Total Protein 6.6 (6.3-8.2) g/dL Albumin 3.7 (3.5-5.0) g/dL Globulin 2.9 (1.7-4.1) g/dL Albumin/Globulin Ratio 1.3 (1.0-2.8) Lipase 143 (23-300) U/L Procalcitonin 0.032 (<0.5) ng/mL Imaging Data CT scan - head: Radiologist's Impression: [address] [address] [address] Scan Report Signed Patient: Tessie Mcintyre MR#: [id number] : 1945 Acct:[id number] Age/Sex: 79 / F Date of Service: 07/20/24 Loc: ED Accession Number: [id number] Procedure: CT head/brain wo con Ordering Provider: Monty Thompson D.O. PROCEDURE: CT HEAD/BRAIN WO CON INDICATIONS: fall 06/26, wound, r/o abscess TECHNIQUE: Noncontrast 4.5 mm thick angled axial sections acquired from the foramen magnum to the vertex, with coronal and sagittal reformats. For radiation dose reduction, the following was used: automated exposure control, adjustment of mA and/or kV according to patient size. COMPARISON: [facility], CT, CT HEAD/BRAIN WO CON, 06/26/2024, 14:49. FINDINGS: Image quality: Diagnostic CSF spaces: Basal cisterns are patent. Lateral ventricles are symmetric. Volume: Vascular calcifications. Periventricular white matter disease is commonly seen with chronic microangiopathy. Volume loss is present. These findings are moderate Brain: No intracranial hemorrhage. Siegel-white differentiation is grossly maintained. Craniofacial structures: No significant paranasal sinus opacity. Right scalp thickening in 2 blancas decreased from prior. IMPRESSION: Right scalp soft tissue thickening/contusion is decreased from prior. No drainable fluid collection. No acute intracranial hemorrhage. CTA - brain/neck: Radiologist's Impression: [address] [address] [address] Scan Report Signed Patient: Tessie Mcintyre MR#: [id number] : 1945 Acct:[id number] Age/Sex: 79 / F Date of Service: 07/20/24 Loc: ED Accession Number: [id number] Procedure: CT angio head and neck Ordering Provider: Monty Thompson D.O. PROCEDURE: CT ANGIO HEAD AND NECK INDICATIONS: Wound on back of head, R/O abscess TECHNIQUE: After the administration of intravenous contrast, 1 mm thick sections acquired from the aortic arch through the [place]. 3-dimensional rcymvur-yrrkrnquy-rvdhepnzgd (MIP) and/or volume rendering reformats were acquired of the central intracranial vasculature and neck separately. For radiation dose reduction, the following was used: automated exposure control, adjustment of mA and/or kV according to patient size. COMPARISON: None. FINDINGS: Image quality: Diagnostic HEAD ANGIOGRAPHY: Anterior circulation: ICAs: Mild cavernous and petrous segment calcifications ACAs: Patent MCAs: Patent AComm: No aneurysm Venous sinuses: patent Posterior circulation: Dominance: Right Vertebral arteries: Mild calcifications Basilar artery: Patent PComms: Dominant on the right internet sales director: Patent NECK ANGIOGRAPHY:4 Aortic arch and subclavian arteries: Owlm-sd-kymuvetx calcifications CCAs: No stenosis, occlusion, or aneurysm. ICA origins (by NASCET criteria): Mild calcifications without significant narrowing bilaterally ICAs: Patent ECAs: Origins are patent. Vertebral arteries: Mild calcifications at the origin bilaterally. The right proximal vertebral artery is very tortuous. Soft tissues: Mildly enlarged mediastinal lymph nodes are present, partially seen. This is indeterminate for reactive etiology versus malignancy. Multiple thyroid nodules are seen, with calcifications, measuring up to 1.7 cm on the right. Consider nonurgent sonographic follow-up. Lung apices: No apical pneumothorax. Possible emphysematous changes. Bones: Sternotomy wires. Advanced degenerative changes of the shoulders partially seen. Cervical spondylotic changes also present. Indeterminate heterogeneous attenuation of the marrow. Right scalp wound with soft tissue swelling and thickening with subcutaneous gas. No active arterial extravasation seen. Chest x-ray: Radiologist's Impression: [address] [address] XRay Report Signed Patient: Tessie Mcintyre MR#: [id number] : 1945 Acct:[id number] Age/Sex: 79 / F Date of Service: 07/20/24 Loc: ED Accession Number: [id number] Procedure: XR chest 1V Ordering Provider: Monty Thompson D.O. PROCEDURE: XR CHEST 1V INDICATIONS: suspected sepsis TECHNIQUE: One view of the chest was acquired. COMPARISON: [facility], CR, XR CHEST 1V, 05/29/2023, 22:09. [facility], CR, XR CHEST 1V, 04/13/2022, 13:32. FINDINGS: Surgical changes and devices: Sternotomy wires Lungs and pleura: No dense consolidation or pleural effusions. Mediastinum: Normal heart size, unchanged. There are aortic calcifications. Bones and chest wall: Advanced degenerative changes. Indeterminate alignment of the right glenohumeral joint. IMPRESSION: No acute thoracic abnormality on this single view study. Advanced shoulder degenerative changes. Indeterminate alignment of the right glenohumeral joint, correlate with clinical history. Dedicated shoulder views may be obtained if needed. MDM Narrative Medical decision making narrative: 79-year-old female history of hyperlipidemia hypertension CAD presents for swelling and drainage to scalp, states that she did have mechanical trip and fall on 06/26/2024 was seen here for this was discharged home. States earlier today her daughter who has a nurse noted swelling and was concerned for possible abscess, here in triage did have significant amount of blood non purulent in nature expressed. CT scan of the head and CT head and neck not showing any drainable abscess noted to have some subcutaneous air in the scalp most likely secondary to the open laceration. Patient will be discharged home with oral antibiotics, the scalp we will be packed and instructed to follow up with the primary care and wound care. Patient was instructed to follow up with primary care for possible repeat imaging. Lab work unremarkable no leukocytosis. Patient is well-appearing nontoxic no focal deficits noted strict return precautions given she verbalized understanding of this and agrees to being discharged home with outpatient follow up Discharge Plan Departure Patient Disposition: Home Clinical Impression: Laceration of scalp, Hematoma of scalp Activity Restrictions/Additional Instructions: Please follow up with your primary care doctor and wound care in an outpatient setting Please read the discharge instructions sheet carefully and bring all papers to all doctor follow-up visits, as it may contain information that your doctor may want to see. Disease processes change and evolve, if your symptoms worsen or if you develop any new symptoms that are concerning to you please return for evaluation. Your evaluation today does not show any evidence of any life-threatening/serious illnesses requiring admission to the hospital or surgery. Please follow-up with your doctor for re-evaluation in approximately 1 day. Seek immediate medical attention for any worrisome symptoms. *If you do not have a primary care provider please contact the [facility] Resource line at [phone]. They will ask some questions about your medical history and help get you set up with a doctor in the community. Prescriptions: New clindamycin HCl 300 mg capsule 300 mg PO Q8H 7 Days Qty: 21 0RF No Action metoprolol succinate 100 mg tablet extended release 24 hr 100 mg PO DAILY acetaminophen [Tylenol Arthritis Pain] 650 mg tablet extended release 650 mg PO Q8H aspirin 81 mg Tablet,Delayed Release (Dr/Ec) 81 mg PO DAILY Qty: 0 ranolazine 1,000 mg tablet extended release 12 hr 1,000 mg PO BID atorvastatin 40 mg tablet 80 mg PO BEDTIME losartan 50 mg tablet 25 mg PO DAILY fluoxetine [Prozac] 20 mg capsule 20 mg PO DAILY Qty: 90 3RF brilinta PO Referrals: Grey Amaral DO [Primary Care Provider] - Stand Alone Forms: Patient Portal/API/Survey
[2024-07-20] MEDS: CLINDAMYCIN 150 MG CAPSULE 300 MG PO (17:27)
== END 2024-07-20 17:30 | disposition home or self-care (01) ==
PROVIDERS: Emergency Provider Student in an Organized Health Care Education/Training Program; PCP Family Medicine
DX: S01.01XA Laceration without foreign body of scalp, initial encounter (principal); W18.30XA Fall on same level, unspecified, initial encounter; Z79.82 Long term (current) use of aspirin
CPT/HCPCS: 36415; 70450; 70496; 70498; 71045; 80053; 83605; 83690; 84145; 85025; 85610; 85730; 87040; 99284; Q9967

== ENCOUNTER → 2024-07-23 15:13 | Outpatient (CLI) | payer MEDICARE, SELFPAY ==
[2022-04-13 20:58] VITALS: BMI 27.4
== END ==
PROVIDERS: PCP Family Medicine; Referring Provider Nurse Practitioner Family; Visit Provider Surgery
DX: L98.8 Other specified disorders of the skin and subcutaneous tissue (principal); S01.00XA Unspecified open wound of scalp, initial encounter; R60.0 Localized edema; I11.0 Hypertensive heart disease with heart failure; I50.9 Heart failure, unspecified; I87.2 Venous insufficiency (chronic) (peripheral); I25.10 Atherosclerotic heart disease of native coronary artery without angina pectoris
CPT/HCPCS: 11042; 99213

== ENCOUNTER → 2024-07-26 15:41 | Outpatient (CLI) | payer MEDICARE, SELFPAY ==
[2022-04-13 20:58] VITALS: BMI 27.4
== END ==
PROVIDERS: PCP Family Medicine; Referring Provider Family Medicine; Visit Provider Physician Assistant
DX: L98.8 Other specified disorders of the skin and subcutaneous tissue (principal); S01.00XA Unspecified open wound of scalp, initial encounter; R60.0 Localized edema
CPT/HCPCS: 99213

== ENCOUNTER → 2024-07-29 11:55 | Outpatient (CLI) | payer MEDICARE, SELFPAY ==
[2022-04-13 20:58] VITALS: BMI 27.4
== END ==
LOC: WC 11:56
PROVIDERS: PCP Family Medicine; Referring Provider Family Medicine; Visit Provider Surgery
DX: L98.8 Other specified disorders of the skin and subcutaneous tissue (principal); S01.00XA Unspecified open wound of scalp, initial encounter; R60.0 Localized edema
CPT/HCPCS: 99213

== ENCOUNTER → 2024-07-31 14:12 | Outpatient (CLI) | payer MEDICARE, SELFPAY ==
[2022-04-13 20:58] VITALS: BMI 27.4
== END ==
PROVIDERS: PCP Family Medicine; Referring Provider Nurse Practitioner Family; Visit Provider Surgery
DX: L98.8 Other specified disorders of the skin and subcutaneous tissue (principal); S01.00XA Unspecified open wound of scalp, initial encounter; R60.0 Localized edema; I25.10 Atherosclerotic heart disease of native coronary artery without angina pectoris; I50.9 Heart failure, unspecified; I87.2 Venous insufficiency (chronic) (peripheral)
CPT/HCPCS: 11042

== ENCOUNTER → 2024-08-02 13:07 | Outpatient (CLI) | payer MEDICARE, SELFPAY ==
[2022-04-13 20:58] VITALS: BMI 27.4
== END ==
LOC: WC 13:13
PROVIDERS: PCP Family Medicine; Visit Provider Physician Assistant
DX: L98.8 Other specified disorders of the skin and subcutaneous tissue (principal); S01.00XA Unspecified open wound of scalp, initial encounter; R60.0 Localized edema
CPT/HCPCS: 99213

== ENCOUNTER → 2024-08-05 10:54 | Outpatient (CLI) | payer MEDICARE, SELFPAY ==
[2022-04-13 20:58] VITALS: BMI 27.4
== END ==
PROVIDERS: PCP Family Medicine; Referring Provider Nurse Practitioner Family; Visit Provider Surgery
DX: L98.8 Other specified disorders of the skin and subcutaneous tissue (principal); S01.00XA Unspecified open wound of scalp, initial encounter; R60.0 Localized edema
CPT/HCPCS: 99212

== ENCOUNTER → 2024-08-07 10:21 | Outpatient (CLI) | payer MEDICARE, SELFPAY ==
[2022-04-13 20:58] VITALS: BMI 27.4
== END ==
PROVIDERS: PCP Family Medicine; Referring Provider Nurse Practitioner Family; Visit Provider Surgery
DX: L98.8 Other specified disorders of the skin and subcutaneous tissue (principal); S01.00XA Unspecified open wound of scalp, initial encounter; R60.0 Localized edema; I25.10 Atherosclerotic heart disease of native coronary artery without angina pectoris; I50.9 Heart failure, unspecified; I87.2 Venous insufficiency (chronic) (peripheral)
CPT/HCPCS: 11042

== ENCOUNTER → 2024-08-09 10:40 | Outpatient (CLI) | payer MEDICARE, SELFPAY ==
[2022-04-13 20:58] VITALS: BMI 27.4
== END ==
PROVIDERS: PCP Family Medicine; Referring Provider Nurse Practitioner Family; Visit Provider Physician Assistant
DX: L98.8 Other specified disorders of the skin and subcutaneous tissue (principal); S01.00XA Unspecified open wound of scalp, initial encounter; R60.0 Localized edema
CPT/HCPCS: 99213

== ENCOUNTER → 2024-08-12 13:02 | Outpatient (CLI) | payer MEDICARE, SELFPAY ==
[2022-04-13 20:58] VITALS: BMI 27.4
== END ==
PROVIDERS: PCP Family Medicine; Referring Provider Nurse Practitioner Family; Visit Provider Surgery
DX: L98.8 Other specified disorders of the skin and subcutaneous tissue (principal); S01.00XA Unspecified open wound of scalp, initial encounter; R60.0 Localized edema
CPT/HCPCS: 99212

== ENCOUNTER → 2024-08-14 11:04 | Outpatient (CLI) | payer MEDICARE, SELFPAY ==
[2022-04-13 20:58] VITALS: BMI 27.4
== END ==
PROVIDERS: PCP Family Medicine; Referring Provider Nurse Practitioner Family; Visit Provider Surgery
DX: S00.03XA Contusion of scalp, initial encounter (principal); R60.0 Localized edema
CPT/HCPCS: 11042

== ENCOUNTER → 2024-08-16 10:45 | Outpatient (CLI) | payer MEDICARE, SELFPAY ==
[2022-04-13 20:58] VITALS: BMI 27.4
== END ==
PROVIDERS: PCP Family Medicine; Referring Provider Nurse Practitioner Family; Visit Provider Physician Assistant
DX: S00.03XA Contusion of scalp, initial encounter (principal)
CPT/HCPCS: 99213

== ENCOUNTER → 2024-08-19 11:18 | Outpatient (CLI) | payer MEDICARE, SELFPAY ==
[2022-04-13 20:58] VITALS: BMI 27.4
== END ==
LOC: WC 11:20
PROVIDERS: PCP Family Medicine; Referring Provider Nurse Practitioner Family; Visit Provider Surgery
DX: S00.03XA Contusion of scalp, initial encounter (principal)
CPT/HCPCS: 99212

== ENCOUNTER → 2024-08-21 11:18 | Outpatient (CLI) | payer MEDICARE, SELFPAY ==
[2022-04-13 20:58] VITALS: BMI 27.4
== END ==
LOC: WC 11:23
PROVIDERS: PCP Family Medicine; Referring Provider Nurse Practitioner Family; Visit Provider Surgery
DX: S01.00XA Unspecified open wound of scalp, initial encounter (principal); R60.0 Localized edema
CPT/HCPCS: 11042; 99213

== ENCOUNTER → 2024-08-23 11:43 | Outpatient (CLI) | payer MEDICARE, SELFPAY ==
[2022-04-13 20:58] VITALS: BMI 27.4
== END ==
LOC: WC 11:46
PROVIDERS: PCP Family Medicine; Referring Provider Nurse Practitioner Family; Visit Provider Physician Assistant
DX: S00.03XA Contusion of scalp, initial encounter (principal); R60.0 Localized edema
CPT/HCPCS: 99213

== ENCOUNTER → 2024-08-26 15:27 | Outpatient (CLI) | payer MEDICARE, SELFPAY ==
[2022-04-13 20:58] VITALS: BMI 27.4
== END ==
PROVIDERS: PCP Family Medicine; Referring Provider Nurse Practitioner Family; Visit Provider Surgery
DX: S00.03XA Contusion of scalp, initial encounter (principal); R60.0 Localized edema
CPT/HCPCS: 99213

== ENCOUNTER → 2024-08-28 14:34 | Outpatient (CLI) | payer MEDICARE, SELFPAY ==
[2022-04-13 20:58] VITALS: BMI 27.4
== END ==
PROVIDERS: PCP Family Medicine; Referring Provider Nurse Practitioner Family; Visit Provider Surgery
DX: S01.00XA Unspecified open wound of scalp, initial encounter (principal)
CPT/HCPCS: 11042

== ENCOUNTER → 2024-08-30 10:43 | Outpatient (CLI) | payer MEDICARE, SELFPAY ==
[2022-04-13 20:58] VITALS: BMI 27.4
== END ==
LOC: WC 10:46
PROVIDERS: PCP Family Medicine; Referring Provider Nurse Practitioner Family; Visit Provider Physician Assistant
DX: S00.03XA Contusion of scalp, initial encounter (principal); R60.0 Localized edema
CPT/HCPCS: 99213

== ENCOUNTER → 2024-09-02 11:30 | Outpatient (CLI) | payer MEDICARE, SELFPAY ==
[2022-04-13 20:58] VITALS: BMI 27.4
== END ==
LOC: WC 11:32
PROVIDERS: PCP Family Medicine; Referring Provider Nurse Practitioner Family; Visit Provider Surgery
DX: S00.03XA Contusion of scalp, initial encounter (principal)
CPT/HCPCS: 99212

== ENCOUNTER → 2024-09-04 11:51 | Outpatient (CLI) | payer MEDICARE, SELFPAY ==
[2022-04-13 20:58] VITALS: BMI 27.4
== END ==
LOC: WC 11:52
PROVIDERS: PCP Family Medicine; Referring Provider Nurse Practitioner Family; Visit Provider Surgery
DX: S01.00XA Unspecified open wound of scalp, initial encounter (principal); R60.0 Localized edema; G60.9 Hereditary and idiopathic neuropathy, unspecified
CPT/HCPCS: 11042

== ENCOUNTER → 2024-09-06 10:15 | Outpatient (CLI) | payer MEDICARE, SELFPAY ==
[2022-04-13 20:58] VITALS: BMI 27.4
== END ==
LOC: WC 10:16
PROVIDERS: PCP Family Medicine; Referring Provider Nurse Practitioner Family; Visit Provider Physician Assistant
DX: L98.8 Other specified disorders of the skin and subcutaneous tissue (principal); S01.00XA Unspecified open wound of scalp, initial encounter; R60.0 Localized edema
CPT/HCPCS: 99213

== ENCOUNTER → 2024-09-09 10:52 | Outpatient (CLI) | payer MEDICARE, SELFPAY ==
[2022-04-13 20:58] VITALS: BMI 27.4
== END ==
LOC: WC 10:54
PROVIDERS: PCP Family Medicine; Referring Provider Nurse Practitioner Family; Visit Provider Surgery
DX: S01.00XA Unspecified open wound of scalp, initial encounter (principal); M79.81 Nontraumatic hematoma of soft tissue; R60.0 Localized edema
CPT/HCPCS: 99213

== ENCOUNTER → 2024-09-11 11:11 | Outpatient (CLI) | payer MEDICARE, SELFPAY ==
[2022-04-13 20:58] VITALS: BMI 27.4
== END ==
LOC: WC 11:13
PROVIDERS: PCP Family Medicine; Referring Provider Nurse Practitioner Family; Visit Provider Surgery
DX: L98.8 Other specified disorders of the skin and subcutaneous tissue (principal); S01.00XA Unspecified open wound of scalp, initial encounter; L92.9 Granulomatous disorder of the skin and subcutaneous tissue, unspecified; I87.2 Venous insufficiency (chronic) (peripheral); I25.10 Atherosclerotic heart disease of native coronary artery without angina pectoris; I48.91 Unspecified atrial fibrillation
CPT/HCPCS: 97602; 99213

== ENCOUNTER → 2024-09-13 13:25 | Outpatient (CLI) | payer MEDICARE, SELFPAY ==
[2022-04-13 20:58] VITALS: BMI 27.4
== END ==
PROVIDERS: PCP Family Medicine; Referring Provider Family Medicine; Visit Provider Surgery
DX: S01.00XA Unspecified open wound of scalp, initial encounter (principal)
CPT/HCPCS: 99213

== ENCOUNTER → 2024-09-16 11:32 | Outpatient (CLI) | payer MEDICARE, SELFPAY ==
[2022-04-13 20:58] VITALS: BMI 27.4
== END ==
PROVIDERS: PCP Family Medicine; Referring Provider Nurse Practitioner Family; Visit Provider Surgery
DX: S00.03XA Contusion of scalp, initial encounter (principal)
CPT/HCPCS: 99213

== ENCOUNTER → 2024-09-18 11:11 | Outpatient (CLI) | payer MEDICARE, SELFPAY ==
[2022-04-13 20:58] VITALS: BMI 27.4
== END ==
PROVIDERS: PCP Family Medicine; Referring Provider Nurse Practitioner Family; Visit Provider Surgery
DX: S01.00XA Unspecified open wound of scalp, initial encounter (principal); R60.0 Localized edema
CPT/HCPCS: 97602; 99213

== ENCOUNTER → 2024-09-20 11:11 | Outpatient (CLI) | payer MEDICARE, SELFPAY ==
[2022-04-13 20:58] VITALS: BMI 27.4
== END ==
PROVIDERS: PCP Family Medicine; Referring Provider Family Medicine; Visit Provider Physician Assistant
DX: S00.03XA Contusion of scalp, initial encounter (principal); R60.0 Localized edema
CPT/HCPCS: 99213

== ENCOUNTER → 2024-09-23 11:45 | Outpatient (CLI) | payer MEDICARE, SELFPAY ==
[2022-04-13 20:58] VITALS: BMI 27.4
== END ==
PROVIDERS: PCP Family Medicine; Referring Provider Nurse Practitioner Family; Visit Provider Surgery
DX: S00.03XA Contusion of scalp, initial encounter (principal)
CPT/HCPCS: 99213

== ENCOUNTER → 2025-04-03 11:38 | Outpatient (CLI) | payer MEDICARE, SELFPAY ==
[2025-03-28 09:05] VITALS: BMI 27.4
[2025-04-03 15:06] LABS: Cholesterol 136 mg/dL (140-199); HDL Cholesterol 57 mg/dL (40-60); Triglycerides 123 mg/dL (35-150)
== END ==
PROVIDERS: PCP Family Medicine; Referring Provider Internal Medicine Interventional Cardiology; Visit Provider Internal Medicine Interventional Cardiology
DX: I25.10 Atherosclerotic heart disease of native coronary artery without angina pectoris (principal)
CPT/HCPCS: 36415; 80061

== ENCOUNTER → 2025-04-09 08:59 | Outpatient (CLI) | payer MEDICARE, SELFPAY ==
[2025-03-28 09:05] VITALS: BMI 27.4
== END ==
LOC: WC 09:23
PROVIDERS: Family Provider Family Medicine; PCP Family Medicine; Referring Provider Family Medicine; Visit Provider Surgery
DX: I87.2 Venous insufficiency (chronic) (peripheral) (principal); L97.822 Non-pressure chronic ulcer of other part of left lower leg with fat layer exposed; L08.9 Local infection of the skin and subcutaneous tissue, unspecified; I73.9 Peripheral vascular disease, unspecified; L53.8 Other specified erythematous conditions; R60.0 Localized edema
CPT/HCPCS: 11042; 87070; 87075; 87077; 87147; 87186; 87205; 99213

== ENCOUNTER → 2025-04-10 07:24 | Outpatient (CLI) | payer MEDICARE, SELFPAY ==
[2025-03-28 09:05] VITALS: BMI 27.4
--- NOTE | 2025-04-10 07:26 | DI.US.S_ITS ---
PROCEDURE: US ARTERIAL DUPLEX LE LT INDICATIONS: Eval arterial status TECHNIQUE: Color and pulse Doppler interrogation was performed of the left lower extremity arterial system, with image documentation. COMPARISON: [facility], US, US ARTERIAL DUPLEX LE LT, 11/06/2023, 10:39. FINDINGS: Common femoral artery: 102 cm/sec, with triphasic flow. Deep femoral artery: 54 cm/sec, with triphasic flow. Proximal superficial femoral artery: 89 cm/sec, with triphasic flow. Mid superficial femoral artery: 79 cm/sec, with triphasic flow. Distal superficial femoral artery: 84 cm/sec, with triphasic flow. Popliteal artery: 65 cm/sec, with biphasic flow. Posterior tibial artery: 76 cm/sec, with biphasic flow. Anterior tibial artery/dorsalis pedis: 88 cm/sec, with biphasic flow. Siegel-scale imaging description: No significant plaque. Mild scattered calcifications. IMPRESSION: No hemodynamically significant stenosis. Dictated by: Erica Mccloud M.D. on 04/10/2025 at 16:50 Approved by: Erica Mccloud M.D. on 04/10/2025 at 16:51
== END ==
PROVIDERS: Family Provider Family Medicine; PCP Family Medicine; Referring Provider Family Medicine; Visit Provider Surgery
DX: L97.822 Non-pressure chronic ulcer of other part of left lower leg with fat layer exposed (principal)
CPT/HCPCS: 93926

== ENCOUNTER → 2025-04-16 09:06 | Outpatient (CLI) | payer MEDICARE, SELFPAY ==
[2025-03-28 09:05] VITALS: BMI 27.4
== END ==
LOC: WC 09:16
PROVIDERS: Family Provider Family Medicine; PCP Family Medicine; Referring Provider Family Medicine; Visit Provider Surgery
DX: I87.2 Venous insufficiency (chronic) (peripheral) (principal); L97.822 Non-pressure chronic ulcer of other part of left lower leg with fat layer exposed; L08.9 Local infection of the skin and subcutaneous tissue, unspecified; L53.8 Other specified erythematous conditions; R60.0 Localized edema
CPT/HCPCS: 11042

== ENCOUNTER → 2025-04-18 16:05 | Outpatient (CLI) | payer MEDICARE, SELFPAY ==
[2025-03-28 09:05] VITALS: BMI 27.4
== END ==
LOC: WC 16:06
PROVIDERS: Family Provider Family Medicine; PCP Family Medicine; Referring Provider Family Medicine; Visit Provider Physician Assistant
DX: I87.2 Venous insufficiency (chronic) (peripheral) (principal); L97.822 Non-pressure chronic ulcer of other part of left lower leg with fat layer exposed; L53.8 Other specified erythematous conditions; R60.0 Localized edema
CPT/HCPCS: 29581

== ENCOUNTER → 2025-04-23 09:31 | Outpatient (CLI) | payer MEDICARE, SELFPAY ==
[2025-03-28 09:05] VITALS: BMI 27.4
== END ==
LOC: WC 09:43
PROVIDERS: Family Provider Family Medicine; PCP Family Medicine; Referring Provider Family Medicine; Visit Provider Surgery
DX: I87.2 Venous insufficiency (chronic) (peripheral) (principal); L97.822 Non-pressure chronic ulcer of other part of left lower leg with fat layer exposed; L08.9 Local infection of the skin and subcutaneous tissue, unspecified
CPT/HCPCS: 11042

== ENCOUNTER → 2025-04-25 10:47 | Outpatient (CLI) | payer MEDICARE, SELFPAY ==
[2025-03-28 09:05] VITALS: BMI 27.4
== END ==
LOC: WC 10:49
PROVIDERS: Family Provider Family Medicine; PCP Family Medicine; Referring Provider Family Medicine; Visit Provider Physician Assistant
DX: I87.2 Venous insufficiency (chronic) (peripheral) (principal); L97.822 Non-pressure chronic ulcer of other part of left lower leg with fat layer exposed; L53.8 Other specified erythematous conditions; R60.0 Localized edema
CPT/HCPCS: 97602

== ENCOUNTER → 2025-04-28 16:15 | Outpatient (CLI) | payer MEDICARE, SELFPAY ==
[2025-03-28 09:05] VITALS: BMI 27.4
== END ==
LOC: WC 16:21
PROVIDERS: Family Provider Family Medicine; PCP Family Medicine; Referring Provider Family Medicine; Visit Provider Surgery
DX: I87.2 Venous insufficiency (chronic) (peripheral) (principal); L97.822 Non-pressure chronic ulcer of other part of left lower leg with fat layer exposed; L53.8 Other specified erythematous conditions; R60.0 Localized edema
CPT/HCPCS: 29581

== ENCOUNTER → 2025-05-01 10:18 | Outpatient (CLI) | payer MEDICARE, SELFPAY ==
[2025-03-28 09:05] VITALS: BMI 27.4
== END ==
LOC: WC 10:20
PROVIDERS: Family Provider Family Medicine; PCP Family Medicine; Referring Provider Family Medicine; Visit Provider Surgery
DX: I87.2 Venous insufficiency (chronic) (peripheral) (principal); L97.822 Non-pressure chronic ulcer of other part of left lower leg with fat layer exposed; I73.9 Peripheral vascular disease, unspecified; I25.10 Atherosclerotic heart disease of native coronary artery without angina pectoris; I11.0 Hypertensive heart disease with heart failure; I50.9 Heart failure, unspecified; Z88.1 Allergy status to other antibiotic agents
CPT/HCPCS: 11042

== ENCOUNTER → 2025-05-05 13:19 | Outpatient (CLI) | payer MEDICARE, SELFPAY ==
[2025-03-28 09:05] VITALS: BMI 27.4
== END ==
LOC: WC 13:20
PROVIDERS: Family Provider Family Medicine; PCP Family Medicine; Referring Provider Family Medicine; Visit Provider Surgery
DX: I87.2 Venous insufficiency (chronic) (peripheral) (principal); L97.822 Non-pressure chronic ulcer of other part of left lower leg with fat layer exposed; R23.4 Changes in skin texture; R60.0 Localized edema; L53.8 Other specified erythematous conditions
CPT/HCPCS: 29581

== ENCOUNTER → 2025-05-08 11:11 | Outpatient (CLI) | payer MEDICARE, SELFPAY ==
[2025-03-28 09:05] VITALS: BMI 27.4
== END ==
LOC: WC 11:13
PROVIDERS: Family Provider Family Medicine; PCP Family Medicine; Referring Provider Family Medicine; Visit Provider Physician Assistant
DX: L97.822 Non-pressure chronic ulcer of other part of left lower leg with fat layer exposed (principal); I87.2 Venous insufficiency (chronic) (peripheral); L53.9 Erythematous condition, unspecified; R60.0 Localized edema
CPT/HCPCS: 15271; 99214; Q4101

== ENCOUNTER → 2025-05-15 10:48 | Outpatient (CLI) | payer MEDICARE, SELFPAY ==
[2025-03-28 09:05] VITALS: BMI 27.4
== END ==
LOC: WC 10:49
PROVIDERS: Family Provider Family Medicine; PCP Family Medicine; Referring Provider Family Medicine; Visit Provider Surgery
DX: L97.822 Non-pressure chronic ulcer of other part of left lower leg with fat layer exposed (principal); I87.2 Venous insufficiency (chronic) (peripheral); R60.0 Localized edema; L08.9 Local infection of the skin and subcutaneous tissue, unspecified; Z79.2 Long term (current) use of antibiotics
CPT/HCPCS: 11042

== ENCOUNTER → 2025-05-16 11:53 | Outpatient (CLI) | payer MEDICARE, SELFPAY ==
[2025-03-28 09:05] VITALS: BMI 27.4
[2025-05-16 12:17] LABS: Hematocrit 37.6 % (36-46); Hemoglobin 12.9 g/dL (12.0-16.0); Mean Corpuscular HGB Conc 34.4 % (30-36); Mean Corpuscular Hemoglobin 33.4 PG (26-34); Mean Corpuscular Volume 97.2 fL (80-100); Platelet Count 233 X10^3/uL (150-400)
[2025-05-16 12:37] LABS: Alanine Aminotransferase 21 IU/L (<35); Albumin 4.1 g/dL (3.5-5.0); Albumin Globulin Ratio 1.5 (1.0-2.8); Alkaline Phosphatase 56 U/L (38-126); Blood Urea Nitrogen 15 mg/dL (7-17); Calcium 8.9 mg/dL (8.4-10.2); Carbon Dioxide 28 mmol/L (22-32); Chloride 102 mmol/L (98-107); Estimated Glomerular Filt Rate > 60 mL/min (>60); Globulin 2.7 g/dL (1.7-4.1); Glucose 90 mg/dL (70-99); HEMOLYSIS < 15 (0-50); Potassium 4.3 mmol/L (3.4-5.1); Sodium 138 mmol/L (137-145); Total Protein 6.8 g/dL (6.3-8.2)
[2025-05-16 13:06] LABS: TSH w/ Reflex to FT4 0.78 uIU/mL (0.47-4.68)
== END ==
PROVIDERS: Family Provider Family Medicine; PCP Family Medicine; Referring Provider Family Medicine; Visit Provider Family Medicine
DX: Z00.00 Encounter for general adult medical examination without abnormal findings (principal); E78.2 Mixed hyperlipidemia; I10 Essential (primary) hypertension; R23.2 Flushing
CPT/HCPCS: 36415; 80053; 84443; 85027

== ENCOUNTER → 2025-05-19 10:48 | Outpatient (CLI) | payer MEDICARE, SELFPAY ==
[2025-03-28 09:05] VITALS: BMI 27.4
== END ==
LOC: WC 10:50
PROVIDERS: Family Provider Family Medicine; PCP Family Medicine; Referring Provider Family Medicine; Visit Provider Surgery
DX: L97.822 Non-pressure chronic ulcer of other part of left lower leg with fat layer exposed (principal); I87.2 Venous insufficiency (chronic) (peripheral); R60.0 Localized edema
CPT/HCPCS: 29581

== ENCOUNTER → 2025-05-22 10:38 | Outpatient (CLI) | payer MEDICARE, SELFPAY ==
[2025-03-28 09:05] VITALS: BMI 27.4
== END ==
LOC: WC 10:41
PROVIDERS: Family Provider Family Medicine; PCP Family Medicine; Referring Provider Family Medicine; Visit Provider Surgery
DX: L97.822 Non-pressure chronic ulcer of other part of left lower leg with fat layer exposed (principal); I87.312 Chronic venous hypertension (idiopathic) with ulcer of left lower extremity
CPT/HCPCS: 15271; Q4101

== ENCOUNTER → 2025-05-29 09:55 | Outpatient (CLI) | payer MEDICARE, SELFPAY ==
[2025-03-28 09:05] VITALS: BMI 27.4
== END ==
LOC: WC 09:57
PROVIDERS: Family Provider Family Medicine; PCP Family Medicine; Referring Provider Family Medicine; Visit Provider Surgery
DX: I87.2 Venous insufficiency (chronic) (peripheral) (principal); L97.822 Non-pressure chronic ulcer of other part of left lower leg with fat layer exposed; R60.0 Localized edema
CPT/HCPCS: 29581; 99213

== ENCOUNTER → 2025-06-05 10:49 | Outpatient (CLI) | payer MEDICARE, SELFPAY ==
[2025-03-28 09:05] VITALS: BMI 27.4
== END ==
LOC: WC 10:55
PROVIDERS: Family Provider Family Medicine; PCP Family Medicine; Referring Provider Family Medicine; Visit Provider Surgery
DX: I87.2 Venous insufficiency (chronic) (peripheral) (principal); L97.822 Non-pressure chronic ulcer of other part of left lower leg with fat layer exposed
CPT/HCPCS: 99213